=== PATIENT | male | born 1975 | race Caucasian/White ===

== ENCOUNTER 2016-06-21 18:43 | Inpatient (IN) | payer OTHER ==
[~2016-06-21] VITALS: Ht 160 cm; Wt 115.4 kg
[2016-06-21] MEDS ORDERED: SODIUM CHLORIDE 0.9% 1000ML 1,000 ML IV ONE (20:45)
--- NOTE | 2016-06-21 21:13 | DIAGNOSTIC IMAGING REPORT ---
CHEST ONE VIEW PORTABLE CLINICAL HISTORY: skin infection; ? Septic dyspnea. Sepsis. COMPARISON STUDY: No previous studies for comparison. FINDINGS: The bones soft tissues and hemidiaphragms are normal. The cardiomediastinal silhouette is normal. The lungs are clear. The pulmonary vasculature is normal. IMPRESSION: Negative chest. Electronically signed by: Les Michael M.D. 06/21/2016 9:12 PM Dictated Date/Time: 06/21/2016 9:11 PM
[2016-06-21] MEDS ORDERED: PIPERACILLIN/TAZOBACTAM 4.5 GM/100ML D5W IV STA (21:14)
[2016-06-21 22:00] LABS: CALCIUM 8.7 mg/dl (8.5-10.1); CREATININE 0.94 mg/dl (0.60-1.40); POTASSIUM 4.2 mmol/L (3.5-5.1)
[2016-06-21 22:29] LABS: BASO % 0.4 %; BASO ABS # 0.04 K/uL (0-0.2); COMPLETE YES; EOS % 4.3 %; HEMATOCRIT 35.3 % (42-52); IG% 0.3 %; LYMPH % 10.9 %; LYMPH ABS # 1.16 K/uL (1.2-3.4); MEAN CELL VOLUME 69.8 fL (80-100); MEAN CORPUSCULAR HEMOGLOBIN 20.2 pg (25-34); MEAN CORPUSCULAR HGB CONC 28.9 g/dl (32-36); MEAN PLATELET VOLUME 9.4 fL (7.4-10.4); MICROCYTOSIS PRESENT; MONO % 8.6 %; NEUT % 75.5 %; PLATELET COUNT 489 K/uL (130-400); POLYCHROMASIA 1+; RED BLOOD COUNT 5.06 M/uL (4.7-6.1); WHITE BLOOD COUNT 10.66 K/uL (4.8-10.8)
[2016-06-21 23:13] LABS: URINE APPEARANCE CLOUDY (CLEAR); URINE BILIRUBIN NEG (NEG); URINE COLOR YELLOW; URINE NITRITE POS (NEG); URINE PH 7.5 (4.5-7.5); URINE SPECIFIC GRAVITY 1.018 (1.000-1.030); UROBILINOGEN NEG (NEG); ZZUR CULT IF INDIC CLEAN CATCH YES
[2016-06-21 23:18] LABS: MANUAL MICROSCOPIC REQUIRED? NO; REVIEW REQ? NO
[2016-06-21] MEDS ORDERED: VANCOMYCIN INJ 2,800 MG in SODIUM CHLORIDE 0.9% 500ML 500 ML IV STA (23:25)
--- NOTE | 2016-06-21 23:39 | History and Physical ---
History & Physical Date & Time of Service: Jun 21, 2016 at 23:39 Chief Complaint: Wound On Lf Buttock/Back Of Thigh Primary Care Physician: Elie Riggs D.O. History of Present Illness Source: patient, caregiver The patient is a 40-year-old male who was brought to the emergency department from [facility]. The patient is mentally challenged, not able to contribute to his history of present illness. Social History Smoking Status: Never Smoker Allergies Coded Allergies: No Known Allergies (Unverified , 06/21/16) Home Medications Unable to Obtain Active Prescriptions or Reported Meds Review of Systems The patient is not able to contribute to his review of systems due to his make his baseline mental delay and altered mental status. Physical Exam Vital Signs Date Time Temp Pulse Resp B/P Pulse Ox O2 Delivery O2 Flow Rate FiO2 06/21/16 21:48 89 20 107/70 92 Room Air 06/21/16 18:47 36.8 97 20 131/87 93 Room Air The patient is awake, alert, normocephalic and atraumatic, reports that he is cold, lying in bed and in otherwise no acute distress. HEENT--PERRL, EOMI, mucous membranes and oropharynx dry. Neck--supple, no JVD or bruits, thyroid normal, trachea midline, no adenopathy. Heart--normal S1 and S2, no extra beats, no murmurs, rubs or gallops. Lungs--clear bilaterally, no respiratory distress, no accessory muscle use. Abdomen--normal bowel sounds and soft, nontender and nondistended, no hernias or masses, no organomegaly. Extremities--no cyanosis, clubbing or edema. There are good distal pulses b/l. Dermatologic--referred to pictures documented in the emergency department. Both lower extremities pretibial areas with 2+ erythema and warmth, and 3+ pitting edema. In addition left lower extremity with approximately 2 cm area of ulceration left lower lateral tibial surface. Left thigh large area of cellulitis and induration extending to the left gluteal area not involving the scrotum, perineum or anal area itself. Neurologic--cranial nerves II through XII grossly intact. Rheumatologic--exam limited due to dermatologic issues. Psychiatric--flat affect. Diagnostics Laboratory Results Results Past 24 Hours Test 06/21/16 21:15 06/21/16 21:20 06/21/16 21:27 Range/Units Urine Color YELLOW Urine Appearance CLOUDY CLEAR Urine pH 7.5 4.5-7.5 Urine Specific [place] 1.018 1.000-1.030 Urine Protein NEG NEG Urine Glucose (UA) NEG NEG Urine Ketones NEG NEG Urine Occult Blood 2+ NEG Urine Nitrite POS NEG Urine Bilirubin NEG NEG Urine Urobilinogen NEG NEG Urine Leukocyte Esterase LARGE NEG Urine WBC (Auto) >30 0-5 /hpf Urine RBC (Auto) 10-30 0-4 /hpf Urine Hyaline Casts (Auto) 1-5 0-5 /lpf Urine Epithelial Cells (Auto) 10-20 0-5 /lpf Urine Bacteria (Auto) 4+ NEG White Blood Count 10.66 4.8-10.8 K/uL Red Blood Count 5.06 4.7-6.1 M/uL Hemoglobin 10.2 14.0-18.0 g/dL Hematocrit 35.3 42-52 % Mean Corpuscular Volume 69.8 80-100 fL Mean Corpuscular Hemoglobin 20.2 25-34 pg Mean Corpuscular Hemoglobin Concent 28.9 32-36 g/dl Platelet Count 489 130-400 K/uL Mean Platelet Volume 9.4 7.4-10.4 fL Neutrophils (%) (Auto) 75.5 % Lymphocytes (%) (Auto) 10.9 % Monocytes (%) (Auto) 8.6 % Eosinophils (%) (Auto) 4.3 % Basophils (%) (Auto) 0.4 % Neutrophils # (Auto) 8.05 1.4-6.5 K/uL Lymphocytes # (Auto) 1.16 1.2-3.4 K/uL Monocytes # (Auto) 0.92 0.11-0.59 K/uL Eosinophils # (Auto) 0.46 0-0.5 K/uL Basophils # (Auto) 0.04 0-0.2 K/uL RDW Standard Deviation 46.5 36.4-46.3 fL RDW Coefficient of Variation 18.4 11.5-14.5 % Immature Granulocyte % (Auto) 0.3 % Immature Granulocyte # (Auto) 0.03 0.00-0.02 K/uL Polychromasia 1+ Microcytosis PRESENT Sodium Level 139 136-145 mmol/L Potassium Level 4.2 3.5-5.1 mmol/L Chloride Level 104 98-107 mmol/L Carbon Dioxide Level 28 21-32 mmol/L Anion Gap 7.0 3-11 mmol/L Blood Urea Nitrogen 18 7-18 mg/dl Creatinine 0.94 0.60-1.40 mg/dl Est Creatinine Clear Calc Drug Dose 117.4 ml/min Estimated GFR () 116.3 Estimated GFR (Non- 100.3 BUN/Creatinine Ratio 19.0 10-20 Random Glucose 82 70-99 mg/dl Calcium Level 8.7 8.5-10.1 mg/dl Bedside Lactic Acid Venous 0.57 0.90-1.70 mmol/L Microbiology Results 06/21/16 Blood Culture, Received Pending 06/21/16 Blood Culture, Received Pending 06/21/16 Urine Culture, Received Pending Diagnostic Radiology Patient Name: KERA BASSETT Unit Number: [id number] Dictated: 06/21/162110 Transcribed: 06/21/162110 MS Printed Date/Time: [~ rep prt dt]/[~ rep prt tm] [~ rep ct labl] - [~ rep ct ivnm] [facility] [place] [address] Dictated: 06/21/162110 Transcribed: 06/21/162110 MS Printed Date/Time: [~ rep prt dt]/[~ rep prt tm] [~ rep ct labl] - [~ rep ct ivnm] [~ rep ct add3]] CHEST ONE VIEW PORTABLE CLINICAL HISTORY: skin infection; ? Septic dyspnea. Sepsis. COMPARISON STUDY: No previous studies for comparison. FINDINGS: The bones soft tissues and hemidiaphragms are normal. The cardiomediastinal silhouette is normal. The lungs are clear. The pulmonary vasculature is normal. IMPRESSION: Negative chest. Electronically signed by: Les Michael M.D. 06/21/2016 9:12 PM Dictated Date/Time: 06/21/2016 9:11 PM The status of this report is Signed. Draft = Not yet reviewed or approved by Radiologist. Signed = Reviewed and approved by Radiologist. <AttendingPhy></AttendingPhy> <FamilyPhy>Elie Riggs D.O.</FamilyPhy> <PrimaryPhy>Elie Riggs D.O.</PrimaryPhy> <UnitNumber>[id number]</ UnitNumber> <VisitNumber>[id number]</VisitNumber> <PatientName>RAUDEL BASSETTN</ PatientName> <DateOfBirth>1975</DateOfBirth> <Location>[facility]</Location> < ServiceDate>06/21/16</ServiceDate> <MNE>ESINDI</MNE> <OrderingPhy>Hamilton Malave PA-C</OrderingPhy> <OrderingPhyMNE>f rep ord dr mendez</OrderingPhyMNE> < DictatingPhyMNE>f rep dict dr mendez</DictatingPhyMNE> <CCListMNE>f rep ct mne</ CCListMNE> <AdmittingPhyMNE>f pt admit dr mendez</AdmittingPhyMNE> <AttendingPhyMNE >f pt attend dr mendez</AttendingPhyMNE> <ConsultingPhyMNE>f pt consult dr mendez</ConsultingPhyMNE> <FamilyPhyMNE>f pt fam dr mendez</FamilyPhyMNE> <OtherPhyMNE>f pt other dr mendez</OtherPhyMNE> < PrimaryPhyMNE>f pt prim care dr mendez</PrimaryPhyMNE> <ReferringPhyMNE>f pt referring dr mendez</ReferringPhyMNE> Impression Assessment and Plan Bilateral lower extremity cellulitis significantly worse left compared to right- -the patient be admitted to the medical floor. Placed on vancomycin IV per renal dosing, Zosyn 3.375 mg IV every 6 hours, levofloxacin 500 mg IV every 24 hours. We'll consult infectious disease and wound care. Urinary tract infection--antibiotics as above, and follow urine culture and sensitivity reports. Placed on normal saline with potassium chloride 20 mEq at a 75 ML's per hour. manager environmental services and child protective services have been consulted due to concerns regarding the patient's present medical condition. The family needs significantly more help in taking care of him if he is to remain in his present living situation. Level of Care Med/Surg Advanced Directives Existing Advance Directive: No Existing Living Will: No Existing Power of Gis Database Administrator: No Resuscitation Status FULL RESUSCITATION VTE Prophylaxis Given or contraindicated: SCD's Social Service Consult Abuse/Neglect Concerns
[2016-06-21] MEDS ORDERED: VANCOMYCIN INJ 1,000 MG in SODIUM CHLORIDE 0.9% 250ML 250 ML IV STA (23:47)
[2016-06-22] MEDS ORDERED: TRAMADOL HCL 50 MG TAB PO PRN ×2
[2016-06-22] MEDS ORDERED: ACETAMINOPHEN 325 MG TAB PO PRN
[2016-06-22] MEDS ORDERED: ZOLPIDEM TARTRATE 5 MG TAB PO PRN
[2016-06-22] MEDS ORDERED: ONDANSETRON INJ 2 MG/ML 2 ML VIAL IV PRN
[2016-06-22 01:40] VITALS: BP 116/48; PULSE 101; TEMP 36.8; O2SAT 93
[2016-06-22 01:59] VITALS: Ht 160 cm; Wt 115.4 kg
[2016-06-22] MEDS ORDERED: PIPERACILL/TAZOBAC CONSULT ACTIVE PRN ×2 (02:15→04:15)
[2016-06-22] MEDS ORDERED: VANCOMYCIN CONSULT ACTIVE PRN ×2 (02:15→02:45)
[2016-06-22] MEDS: NSS + 20MEQ KCL 1000ML 1,000 ML IV SCH ×2 (03:15→16:06)
[2016-06-22] MEDS ORDERED: PNEUMOCOCCAL POLYSACCHARIDES 25 MCG/0.5 ML VIAL/SYR IM. ONE (06:00)
[2016-06-22] MEDS ORDERED: INFLUENZA VIRUS QUAD VACCINE 0.5 ML SYR IM. ONE (06:00)
[2016-06-22] MEDS ORDERED: PIPERACILL/TAZOBAC IV 4.5 GM in DEXTROSE 5% 100ML 100 ML IV SCH (06:00)
[2016-06-22] MEDS ORDERED: INFLUENZA ADMINISTRATION CHARGE ONE (06:00)
[2016-06-22] MEDS ORDERED: PNEUMOCOCCAL ADMINISTRATION CHARGE ONE (06:00)
[2016-06-22 06:49] LABS: HYPOCHROMIA PRESENT
[2016-06-22 06:58] VITALS: BP 118/74; PULSE 88; TEMP 37.1; O2SAT 92
[2016-06-22 07:12] LABS: BUN/CREATININE RATIO 18.5 (10-20); CALCIUM 8.1 mg/dl (8.5-10.1); CREATININE 0.82 mg/dl (0.60-1.40); CREATININE 0.83 mg/dl (0.60-1.40); MAGNESIUM 2.1 mg/dl (1.8-2.4); POTASSIUM 3.8 mmol/L (3.5-5.1)
[2016-06-22] MEDS ORDERED: LEVOFLOXACIN / D5W 500 MG in PREMIXED IN D5W 100 ML IV SCH (08:00)
[2016-06-22 08:11] LABS: BASO % 0.4 %; BASO ABS # 0.04 K/uL (0-0.2); COMPLETE YES; EOS % 2.7 %; GIANT PLATELETS 1+; IG% 0.3 %; LYMPH % 9.2 %; LYMPH ABS # 0.93 K/uL (1.2-3.4); MICROCYTOSIS PRESENT; MONO % 8.7 %; NEUT % 78.7 %
[2016-06-22] MEDS: LACTOBACILLUS ACIDOPHILUS (FLORANEX) TAB PO SCH ×3 (09:16→18:24)
[2016-06-22 09:20] LABS: HEMATOCRIT 34.4 % (42-52); MEAN CELL VOLUME 70.8 fL (80-100); MEAN CORPUSCULAR HEMOGLOBIN 20.8 pg (25-34); RED BLOOD COUNT 4.86 M/uL (4.7-6.1); WHITE BLOOD COUNT 10.14 K/uL (4.8-10.8)
[2016-06-22 09:21] LABS: MEAN CORPUSCULAR HGB CONC 28.8 g/dl (32-36)
[2016-06-22 09:22] LABS: MEAN PLATELET VOLUME 9.7 fL (7.4-10.4); PLATELET COUNT 452 K/uL (130-400)
--- NOTE | 2016-06-22 09:33 | Pharmacy Progress Note ---
Pharmacy Antibiotic Consult Date of Service: Jun 22, 2016. Pharmacy Dosing Scope Pharmacy is consulted to initiate Vancomycin IV dosing therapy, order appropriate labs and adjust drug dose/frequency. Subjective The patient is a 40 year old male admitted on Jun 21, 2016 at 23:47. Objective Height (Feet): 5 Height (Inches): 3.00 Weight (Kilograms): 115.400 Lab Results (24hrs): Laboratory Tests Test 06/21/16 21:20 06/22/16 05:50 BUN/Creatinine Ratio 19.0 18.5 Blood Urea Nitrogen 18 mg/dl 15 mg/dl Creatinine 0.94 mg/dl 0.83 mg/dl White Blood Count 10.66 K/uL 10.14 K/uL Red Blood Count 5.06 M/uL 4.86 M/uL Hemoglobin 10.2 g/dL 9.9 g/dL Hematocrit 35.3 % 34.4 % Mean Corpuscular Volume 69.8 fL 70.8 fL Mean Corpuscular Hemoglobin 20.2 pg 20.8 pg Mean Corpuscular Hemoglobin Concent 28.9 g/dl 28.8 g/dl Platelet Count 489 K/uL 452 K/uL Mean Platelet Volume 9.4 fL 9.7 fL Neutrophils (%) (Auto) 75.5 % 78.7 % Lymphocytes (%) (Auto) 10.9 % 9.2 % Monocytes (%) (Auto) 8.6 % 8.7 % Eosinophils (%) (Auto) 4.3 % 2.7 % Basophils (%) (Auto) 0.4 % 0.4 % Neutrophils # (Auto) 8.05 K/uL 7.99 K/uL Lymphocytes # (Auto) 1.16 K/uL 0.93 K/uL Monocytes # (Auto) 0.92 K/uL 0.88 K/uL Eosinophils # (Auto) 0.46 K/uL 0.27 K/uL Basophils # (Auto) 0.04 K/uL 0.04 K/uL Micro Results: Item Value Date Time Blood Culture Received 06/21/162119 Blood Pending Urine Culture Received 06/21/162114 Urine , Clean Catch Pending Blood Culture Received 06/21/162109 Blood Pending Recent Pertinent Medications Item Value Date Time Vancomycin HCl 528 ml @ 200 mls/hr 06/22/16 1000 1400 mg/Sodium Q10H/IV Chloride Piperacillin Sod/ 120 ml @ 28 mls/hr 06/22/16 0600 Tazobactam Sod Q8H/IV 06/22/16 0542 4.5 gm/Dextrose Levofloxacin 500 100 ml @ 100 mls/hr 06/22/16 0800 mg/Prmx Q24H/IV 06/22/16 0759 Assessment & Plan 40 yo M admitted with bilateral lower extremity cellulitis/UTI, initiated on broad spectrum IV antibiotics: Vancomycin, Zosyn, Levaquin IV. Urine and blood cultures pending. ID consult placed by provider. Vancomycin * Loading dose: 2800 mg (~24 mg/kg) IV X 1 dose * Continue 1400 mg (~12 mg/kg) IV every 10 hours * Patient is at risk for drug accumulation due to BMI >35kg/m2 * Goal trough level estimate: ~15 mcg/mL (cellulitis) * A trough level has been ordered for: @1530 prior to 1600 dose. Zosyn * 4.5 g IV every 8 hours for BMI >35kg/m2 * No renal adjustment necessary Levaquin * 500 mg IV every 24 hours * No renal adjustment necessary Pharmacy will continue to follow and will adjust dose/frequency as necessary. Thank you
[2016-06-22] MEDS: VANCOMYCIN INJ 1,400 MG in SODIUM CHLORIDE 0.9% 500ML 500 ML IV SCH ×2 (10:10→20:13)
--- NOTE | 2016-06-22 12:23 | Progress Note ---
Progress Note Date of Service Jun 22, 2016. Progress Note ID Consult Dictated #[id number] A/P: 1. Cellulitis -continue vanco, stop zosyn/levo. If bc negative, will transition to po abx -will follow, thank you
--- NOTE | 2016-06-22 12:42 | INFECT. DISEASE CONSULTATION ---
DATE OF CONSULTATION: 06/22/2016 REQUESTING PHYSICIAN: Dr. Damon. HISTORY OF PRESENT ILLNESS: This is a 40-year-old gentleman who was brought to the Emergency Room from his managed care. He reportedly had worsening lower extremity pain; however, on my examination, he denies this. He was started on broad spectrum antibiotics for cellulitis and infectious diseases was consulted for this. On my examination today, he states he is feeling well. He denies any fevers or chills. He denies any pain in his lower extremities. He denies any increased swelling. He has no chest pain, cough, shortness of breath, nausea, vomiting, diarrhea or abdominal pain. He has no urinary complaints. He does have a history of mental illness and is unable to provide any past medical or past surgical history. SOCIAL HISTORY: From the H\T\P, he has no history of tobacco use. ALLERGIES: He has no known drug allergies. FAMILY HISTORY: Noncontributory. CURRENT MEDICATIONS: Include vancomycin, Floranex, Levaquin, Zosyn, potassium Zofran, Tylenol, Ambien, and Ultram. PHYSICAL EXAMINATION: VITAL SIGNS: He is afebrile, pulse is 88, respiratory rate is 18, blood pressure 118/74, oxygen saturation is 92-93% on room air. GENERAL: He is awake, alert and oriented. He is in no acute distress. HEENT: Mucous membranes are moist. HEART: Regular. LUNGS: Clear. ABDOMEN: Soft. EXTREMITIES: With edema and some chronic erythema over the anterior calves. There are 2 superficial ulcerations with no surrounding warmth or drainage. LABORATORY AND IMAGING STUDIES: White count today is 10.1; creatinine is 0.8. Urinalysis had greater than 30 wbc's; however, the patient is asymptomatic. Blood and urine cultures are pending. A chest x-ray was unremarkable. No wound cultures have been obtained. ASSESSMENT AND PLAN: 1. Cellulitis of the lower extremity. At this time, he can be continued on vancomycin monotherapy, so antibiotics will be discontinued if he does not have any positive blood cultures. Hopefully, he will be able to transition over to oral antibiotics for a short course near future. We will follow along with you. Thank you for this consultation.
--- NOTE | 2016-06-22 14:49 | Hospitalist Progress Note ---
Hospitalist Progress Note Date of Service Jun 22, 2016. (Li Alvarenga ., SALONIC) Subjective Pt evaluation today including: conversation w/ patient, physical exam, chart review, lab review, review of inpatient medication list PO Intake: Tolerating PO diet Voiding: no voiding problems Patient mentally challenged. Unable to obtain reliable ROS. He denies any leg pain or new complaints. Additional Comments: Unable to obtain reliable ROS from patient due to mental status. (Li Alvarenga, SALONIC) Objective Vital Signs Date Time Temp Pulse Resp B/P Pulse Ox O2 Delivery O2 Flow Rate FiO2 06/22/16 08:00 Room Air 06/22/16 06:58 37.1 88 18 118/74 92 Room Air 06/22/16 01:59 Room Air 06/22/16 01:40 36.8 101 18 116/48 93 Room Air 06/22/16 01:30 92 18 121/65 93 06/22/16 01:20 92 18 121/65 93 Room Air 06/21/16 23:44 79 18 140/76 93 Room Air 06/21/16 21:48 89 20 107/70 92 Room Air 06/21/16 18:47 36.8 97 20 131/87 93 Room Air (Li Alvarenga ., NATHAN-C) Physical Exam General Appearance: WD/WN, no apparent distress, + obese (morbidly obese) Eyes: PERRL, sclerae normal, + pertinent finding (disconjugate gaze) ENT: normal ENT inspection, hearing grossly normal, pharynx normal Neck: supple, no JVD, trachea midline Respiratory/Chest: lungs clear, normal breath sounds, no respiratory distress Cardiovascular: regular rate, rhythm, no gallop, no murmur Abdomen: normal bowel sounds, non tender, soft Extremities: non-tender, + pedal edema (3+ pitting edema), + swelling (2+ pitting edema in lower extremities bilaterally), + pertinent finding (erythema of the lower legs bilaterally extending to inner thigh on right side) Neurologic/Psychiatric: no motor/sensory deficits, alert, + pertinent finding ( Unable to obtain much history from patient due to mental status) Skin: normal color, warm/dry, no rash, + pertinent finding (erythema as above) (Li Alvarenga ., NATHAN-C) Laboratory Results Last 24 Hours Test 06/21/16 21:15 06/21/16 21:20 06/21/16 21:27 06/22/16 05:50 Urine Color YELLOW Urine Appearance CLOUDY Urine pH 7.5 Urine Specific [place] 1.018 Urine Protein NEG Urine Glucose (UA) NEG Urine Ketones NEG Urine Occult Blood 2+ Urine Nitrite POS Urine Bilirubin NEG Urine Urobilinogen NEG Urine Leukocyte Esterase LARGE Urine WBC (Auto) >30 /hpf Urine RBC (Auto) 10-30 /hpf Urine Hyaline Casts (Auto) 1-5 /lpf Urine Epithelial Cells (Auto) 10-20 /lpf Urine Bacteria (Auto) 4+ White Blood Count 10.66 K/uL 10.14 K/uL Red Blood Count 5.06 M/uL 4.86 M/uL Hemoglobin 10.2 g/dL 9.9 g/dL Hematocrit 35.3 % 34.4 % Mean Corpuscular Volume 69.8 fL 70.8 fL Mean Corpuscular Hemoglobin 20.2 pg 20.8 pg Mean Corpuscular Hemoglobin Concent 28.9 g/dl 28.8 g/dl Platelet Count 489 K/uL 452 K/uL Mean Platelet Volume 9.4 fL 9.7 fL Neutrophils (%) (Auto) 75.5 % 78.7 % Lymphocytes (%) (Auto) 10.9 % 9.2 % Monocytes (%) (Auto) 8.6 % 8.7 % Eosinophils (%) (Auto) 4.3 % 2.7 % Basophils (%) (Auto) 0.4 % 0.4 % Neutrophils # (Auto) 8.05 K/uL 7.99 K/uL Lymphocytes # (Auto) 1.16 K/uL 0.93 K/uL Monocytes # (Auto) 0.92 K/uL 0.88 K/uL Eosinophils # (Auto) 0.46 K/uL 0.27 K/uL Basophils # (Auto) 0.04 K/uL 0.04 K/uL RDW Standard Deviation 46.5 fL 48.6 fL RDW Coefficient of Variation 18.4 % 18.6 % Immature Granulocyte % (Auto) 0.3 % 0.3 % Immature Granulocyte # (Auto) 0.03 K/uL 0.03 K/uL Polychromasia 1+ Hypochromasia PRESENT Microcytosis PRESENT PRESENT Sodium Level 139 mmol/L 142 mmol/L Potassium Level 4.2 mmol/L 3.8 mmol/L Chloride Level 104 mmol/L 109 mmol/L Carbon Dioxide Level 28 mmol/L 25 mmol/L Anion Gap 7.0 mmol/L 8.0 mmol/L Blood Urea Nitrogen 18 mg/dl 15 mg/dl Creatinine 0.94 mg/dl 0.83 mg/dl Est Creatinine Clear Calc Drug Dose 117.4 ml/min 133.0 ml/min Estimated GFR () 116.3 126.7 Estimated GFR (Non- 100.3 109.3 BUN/Creatinine Ratio 19.0 18.5 Random Glucose 82 mg/dl 73 mg/dl Calcium Level 8.7 mg/dl 8.1 mg/dl Bedside Lactic Acid Venous 0.57 mmol/L Giant Platelets 1+ Magnesium Level 2.1 mg/dl (Li Alvarenga PA-C) Assessment and Plan Family 1-year-old male with a history of mental retardation presented to the ED on 06/21 with worsening bilateral leg pain, redness and swelling. Patient tachycardic on arrival, vital signs otherwise stable. Patient afebrile and without leukocytosis. Bilateral lower extremity cellulitis -Admit to [facility] -Infectious disease consulted, appreciate recs: Discontinue Zosyn and Levaquin. Continue vancomycin -Blood cultures pending -Wound care nurse consulted -Continue NSS + 20 mEq KCl at 75 cc/hr UTI--UA positive for nitrites, leuks, blood and bacteria -Urine culture pending DVT prophylaxis -Enoxaparin 40 mg SC q24h Code Status -Level I, FULL RESUSCITATION STATUS Dispo -Patient typically lives at home with his mother, however, she is currently in the hospital following a surgery. She arranged for the patient to stay at [facility] for resp[facility] care while she was in the hospital. [facility] says that [facility] will not be able to accept the patient on discharge as they do not feel they can take care of his wounds. -Case management following, referral placed to [facility] This chart was completed in part utilizing [employer] Speech Voice Recognition software. Attempts were made to minimize the grammatical errors, random word insertions, pronoun errors and incomplete sentences. Any formal questions or concerns about the content, text or information contained within the body of this dictation should be directly addressed to the provider for clarification. (Li Alvarenga ., PA-C) Attending Attestation: Pt seen/examined, chart reviewed, care plan d/w PA Li Alvaregna. I agree w/ the johnson components of her documentation. Pt alert during my visit, stating "hello" and telling me about various things. Denied any complaint of pain. VSS no fever gen - dysmorphic appearing; NAD mouth - MMM heart - RRR lungs - CTA b/l abd - large ventral hernia but reducible, BS+ skin - tinea cruris b/l groin; left leg - lateral aspect extending onto the posterior thigh - very large area of erythema with occasional ulceration within the erythematous areas; there is scale at the periphery; the borders are irregular; warm to touch; mildly tender to touch erythema extends from near the hip to the left knee; xerosis of feet b/l ext - lymphedema with stasis changes shins A/P: 1. cellulitis, left leg 2. tinea cruris with ?candidal or fungal infection of left thigh 3. intellectual disability 4. microcytic anemia 5. question of UTI appreciate ID consult cont IV abx add ketoconazole 200mg daily for #2 iron studies AM follow cultures dispo - [facility] BANDA MD (Toño Banda MD)
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
[2016-06-22 15:02] VITALS: BP 120/76; PULSE 89; TEMP 36.8; O2SAT 93
[2016-06-22 16:08] LABS: INR 1.1 (0.9-1.1); PARTIAL THROMBOPLASTIN RATIO 1.5; PROTHROMBIN TIME (PATIENT) 12.2 SECONDS (9.0-12.0)
[2016-06-22] MEDS ORDERED: KETOCONAZOLE 200 MG TAB PO ONE (16:42)
[2016-06-22] MEDS ORDERED: NURSING DECISION MEDICATION ORDER SCH ×2 (17:00)
[2016-06-22] MEDS ORDERED: ENOXAPARIN 40 MG/0.4 ML SYR SQ SCH (21:00)
[2016-06-22 23:00] VITALS: BP 99/62; PULSE 89; TEMP 36.9; O2SAT 94
[2016-06-23] MEDS: NSS + 20MEQ KCL 1000ML 1,000 ML IV SCH ×2 (05:19→17:06)
[2016-06-23] MEDS: VANCOMYCIN INJ 1,400 MG in SODIUM CHLORIDE 0.9% 500ML 500 ML IV SCH ×2 (05:20→17:05)
[2016-06-23] MEDS ORDERED: VANCOMYCIN TROUGH SCH ×2 (05:30→15:30)
[2016-06-23 07:11] VITALS: BP 119/80; PULSE 75; TEMP 36.7; O2SAT 94
[2016-06-23 07:30] LABS: MEAN CELL VOLUME 71.3 fL (80-100); MEAN CORPUSCULAR HEMOGLOBIN 20.1 pg (25-34); MEAN CORPUSCULAR HGB CONC 28.2 g/dl (32-36); MEAN PLATELET VOLUME 9.4 fL (7.4-10.4); PLATELET COUNT 411 K/uL (130-400); RED BLOOD COUNT 4.77 M/uL (4.7-6.1); WHITE BLOOD COUNT 7.38 K/uL (4.8-10.8)
[2016-06-23 07:49] LABS: BASO ABS # 0.26 K/uL (0-0.2); BASOPHIL % 3.5 % (0-2); COMPLETE YES; EOSINOPHIL % 6.1 %; LARGE PLATELETS 1+; LYMPH ABS # 0.83 K/uL (1.2-3.4); LYMPHOCYTE % 11.3 %; NEUTROPHILS % 66.1 %
[2016-06-23 07:51] LABS: FERRITIN 22.3 ng/ml (8.0-388.0)
[2016-06-23 08:52] LABS: BUN/CREATININE RATIO 9.8 (10-20); CALCIUM 8.1 mg/dl (8.5-10.1); CREATININE 0.89 mg/dl (0.60-1.40); POTASSIUM 3.7 mmol/L (3.5-5.1)
[2016-06-23] MEDS: MICONAZOLE NITRATE POWDER 43 GM EXT PRN (09:12)
[2016-06-23] MEDS: KETOCONAZOLE 200 MG TAB PO SCH (09:12)
[2016-06-23] MEDS: LACTOBACILLUS ACIDOPHILUS (FLORANEX) TAB PO SCH ×3 (09:12→17:07)
[2016-06-23] MEDS ORDERED: LPD600 PO (11:20)
[2016-06-23] MEDS ORDERED: TAMS0.4C38 PO (11:20)
[2016-06-23] MEDS ORDERED: POTA20TA16 PO (11:20)
[2016-06-23] MEDS ORDERED: RIVA1TAB4 PO (11:20)
[2016-06-23] MEDS ORDERED: METO25TA56 PO (11:20)
[2016-06-23] MEDS ORDERED: VNTHFA/IN INH (11:26)
[2016-06-23] MEDS: CEPHALEXIN MONOHYDRATE 500 MG CAP PO SCH ×2 (11:47→20:11)
[2016-06-23] MEDS ORDERED: ALBUTEROL HFA 8 GM INHALER INH PRN (12:00)
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
--- NOTE | 2016-06-23 14:09 | Progress Note ---
Subjective Date of Service: Jun 23, 2016. Subjective no overnight events. blood cultures negative at 24h, no fevers. on vanco and keflex. urine culture + but pt without symptoms. also treated with topical antifungal. tolerating abx well. wbc 7.3 Objective Vital Signs Date Time Temp Pulse Resp B/P Pulse Ox O2 Delivery O2 Flow Rate FiO2 06/23/16 07:11 36.7 75 16 119/80 94 Room Air 06/23/16 01:10 Room Air 06/22/16 23:00 36.9 89 19 99/62 94 Room Air 06/22/16 15:30 Room Air 06/22/16 15:02 36.8 89 18 120/76 93 Room Air Laboratory Results Item Value Date Time Blood Culture - Preliminary Resulted 06/21/162119 Blood NO GROWTH TO DATE. Blood Culture - Preliminary Resulted 06/21/162109 Blood NO GROWTH TO DATE. Last 24 Hours Test 06/22/16 15:43 06/23/16 06:15 06/23/16 08:00 Prothrombin Time 12.2 SECONDS Prothromb Time International Ratio 1.1 Activated Partial Thromboplast Time 37.7 SECONDS Partial Thromboplastin Ratio 1.5 White Blood Count 7.38 K/uL Red Blood Count 4.77 M/uL Hemoglobin 9.6 g/dL Hematocrit 34.0 % Mean Corpuscular Volume 71.3 fL Mean Corpuscular Hemoglobin 20.1 pg Mean Corpuscular Hemoglobin Concent 28.2 g/dl Platelet Count 411 K/uL Mean Platelet Volume 9.4 fL RDW Standard Deviation 48.4 fL RDW Coefficient of Variation 18.5 % Neutrophils % (Manual) 66.1 % Lymphocytes % (Manual) 11.3 % Monocytes % (Manual) 13.0 % Eosinophils % (Manual) 6.1 % Basophils % (Manual) 3.5 % Neutrophils # (Manual) 4.88 K/uL Total Absolute Neutrophils 4.88 K/uL Lymphocytes # (Manual) 0.83 K/uL Total Absolute Lymphocytes 0.83 K/uL Monocytes # (Manual) 0.96 K/uL Eosinophils # (Manual) 0.45 K/uL Basophils # (Manual) 0.26 K/uL Large Platelets 1+ Iron Level 21 mcg/dl Total Iron Binding Capacity 342 mcg/dl Transferrin 270 mg/dl Transferrin % Saturation 6 % Ferritin 22.3 ng/ml Sodium Level 141 mmol/L Potassium Level 3.7 mmol/L Chloride Level 110 mmol/L Carbon Dioxide Level 26 mmol/L Anion Gap 5.0 mmol/L Blood Urea Nitrogen 9 mg/dl Creatinine 0.89 mg/dl Est Creatinine Clear Calc Drug Dose 124.0 ml/min Estimated GFR () 123.1 Estimated GFR (Non- 106.2 BUN/Creatinine Ratio 9.8 Random Glucose 80 mg/dl Calcium Level 8.1 mg/dl Assessment and Plan (1) Bilateral lower leg cellulitis Assessment & Plan: can stop vanco, would give 10 day course of po keflex. doubt urine culture is significant, asymptomatic. suspect colonization. leg elevation.
[2016-06-23] MEDS: FERROUS SULFATE 325 MG TAB PO SCH ×2 (15:10→17:07)
[2016-06-23 15:14] VITALS: BP 133/83; PULSE 75; TEMP 36.5; O2SAT 94
[2016-06-23] MEDS: RIVAROXABAN 10 MG TAB PO SCH (17:08)
[2016-06-23] MEDS: TAMSULOSIN HCL 0.4 MG CAP PO SCH (20:10)
[2016-06-23] MEDS: METOPROLOL TARTRATE 25 MG TAB PO SCH (20:11)
[2016-06-23] MEDS: GEMFIBROZIL 600 MG TAB PO SCH (20:11)
--- NOTE | 2016-06-23 20:47 | Pharmacy Progress Note ---
Pharmacy Progress Note Date of Service Jun 23, 2016. Progress Note REGARDING VANCOMYCIN DOSING: Assessment: * Day # 3 of IV vancomycin for skin/skin structure infection * Trough slightly elevated at 23.2mcg/mL (pt body habitus will likely attribute to vancomycin accumulation) * Day # 1 of PO cephalexin for skin/skin structure infection/UTI * Blood cultures NGTD * Urine culture with Gram Negative Bacilli * ID consulted Plan: * Hopeful to stop vancomycin in the near future * Decrease dose/freq at this time since trough slightly elevated * 1250mg IV q12 hours * re-check trough at steady state if vancomycin not discontinued * Continue cephalexin 500mg PO BID at this time Thank you for engaging the clinical pharmacy consult service in the care of this patient. Please let us know if we can be of further assistance.
[2016-06-23 23:20] VITALS: BP 102/50; PULSE 79; TEMP 36.7; O2SAT 92
[2016-06-24] MEDS ORDERED: VANCOMYCIN INJ 1,250 MG in SODIUM CHLORIDE 0.9% 250ML 250 ML IV SCH (06:00)
[2016-06-24 07:40] VITALS: BP 120/80; PULSE 69; TEMP 36.4; O2SAT 92
[2016-06-24 07:41] LABS: BUN/CREATININE RATIO 7.7 (10-20); CALCIUM 8.1 mg/dl (8.5-10.1); CREATININE 1.1 mg/dl (0.60-1.40); MAGNESIUM 1.9 mg/dl (1.8-2.4); POTASSIUM 4.1 mmol/L (3.5-5.1)
[2016-06-24 08:40] LABS: MEAN CELL VOLUME 69.8 fL (80-100); MEAN CORPUSCULAR HEMOGLOBIN 19.9 pg (25-34); MEAN CORPUSCULAR HGB CONC 28.5 g/dl (32-36); MEAN PLATELET VOLUME 9.5 fL (7.4-10.4); PLATELET COUNT 381 K/uL (130-400); RED BLOOD COUNT 4.73 M/uL (4.7-6.1); WHITE BLOOD COUNT 8.09 K/uL (4.8-10.8)
[2016-06-24 09:25] LABS: ANISOCYTOSIS PRESENT; BASO ABS # 0.07 K/uL (0-0.2); BASOPHIL % 0.9 % (0-2); COMPLETE YES; EOSINOPHIL % 6.1 %; LYMPH ABS # 0.64 K/uL (1.2-3.4); LYMPHOCYTE % 7.9 %; MICROCYTOSIS PRESENT; MYELOCYTE % 0.9 %; NEUTROPHILS % 75.4 %; POLYCHROMASIA 1+
[2016-06-24] MEDS: GEMFIBROZIL 600 MG TAB PO SCH ×2 (09:57→21:42)
[2016-06-24] MEDS: CEPHALEXIN MONOHYDRATE 500 MG CAP PO SCH ×2 (09:57→21:43)
[2016-06-24] MEDS: KETOCONAZOLE 200 MG TAB PO SCH (09:57)
[2016-06-24] MEDS: ASCORBIC ACID 500 MG TAB PO SCH (09:57)
[2016-06-24] MEDS: POTASSIUM CHLORIDE 20 MEQ TABCR PO SCH (09:57)
[2016-06-24] MEDS: ZINC SULFATE 220 MG CAP PO SCH (09:58)
[2016-06-24] MEDS: FERROUS SULFATE 325 MG TAB PO SCH ×3 (09:58→17:44)
[2016-06-24] MEDS: LACTOBACILLUS ACIDOPHILUS (FLORANEX) TAB PO SCH ×3 (09:58→17:45)
[2016-06-24] MEDS: METOPROLOL TARTRATE 25 MG TAB PO SCH ×3 (09:59→21:44)
[2016-06-24] MEDS: EUCERIN CR 120 GM JAR EXT PRN (09:59)
[2016-06-24] MEDS: MICONAZOLE NITRATE POWDER 43 GM EXT PRN (09:59)
[2016-06-24 10:04] VITALS: BP 99/65; PULSE 79
--- NOTE | 2016-06-24 12:56 | Hospitalist Progress Note ---
Hospitalist Progress Note Date of Service Jun 24, 2016. (Li Alvarenga, SALONIC) Subjective Pt evaluation today including: conversation w/ patient, physical exam, chart review, lab review, review of inpatient medication list Pain: None PO Intake: Tolerating PO diet Voiding: no voiding problems Unable to obtain reliable ROS from patient due to mental status. Additional Comments: Unable to obtain reliable ROS from patient due to mental status. (Li Alvarenga PA-C) Objective Vital Signs Date Time Temp Pulse Resp B/P Pulse Ox O2 Delivery O2 Flow Rate FiO2 06/24/16 10:33 Room Air 06/24/16 10:04 79 99/65 06/24/16 07:40 36.4 69 17 120/80 92 Room Air 06/23/16 23:20 36.7 79 16 102/50 92 06/23/16 20:16 Room Air 06/23/16 15:14 36.5 75 18 133/83 94 Room Air (Li Alvarenga PA-C) Physical Exam General Appearance: WD/WN, no apparent distress, + obese (morbidly obese), + pertinent finding (patient appears more lethargic today) Eyes: normal inspection, PERRL, sclerae normal, + pertinent finding ( disconjugate gaze) ENT: normal ENT inspection, hearing grossly normal, pharynx normal Neck: supple, no JVD, trachea midline Respiratory/Chest: lungs clear, normal breath sounds, no respiratory distress Cardiovascular: regular rate, rhythm, no gallop, no murmur Abdomen: normal bowel sounds, non tender, soft, + hernia (large ventral hernia) Extremities: + swelling (2+ pitting edema bilaterally), + pertinent finding ( lower legs tender to palpation. erythema of lower anterior shins bilaterally. Erythema on left lateral and posterior thigh looks slightly improved. Ulceration of left lateral malleolus bandaged.) Neurologic/Psychiatric: alert (patient awake during examination but appears more lethargic compared to yesterday), normal mood/affect, + pertinent finding ( unable to assess orientation) Skin: normal color, warm/dry, no rash (Li Alvarenga PA-C) Laboratory Results Last 24 Hours Test 06/23/16 15:29 06/24/16 06:58 Vancomycin Level Trough 23.2 mcg/ml White Blood Count 8.09 K/uL Red Blood Count 4.73 M/uL Hemoglobin 9.4 g/dL Hematocrit 33.0 % Mean Corpuscular Volume 69.8 fL Mean Corpuscular Hemoglobin 19.9 pg Mean Corpuscular Hemoglobin Concent 28.5 g/dl Platelet Count 381 K/uL Mean Platelet Volume 9.5 fL RDW Standard Deviation 47.2 fL RDW Coefficient of Variation 18.6 % Neutrophils % (Manual) 75.4 % Lymphocytes % (Manual) 7.9 % Monocytes % (Manual) 8.8 % Eosinophils % (Manual) 6.1 % Basophils % (Manual) 0.9 % Myelocytes % 0.9 % Neutrophils # (Manual) 6.10 K/uL Total Absolute Neutrophils 6.10 K/uL Lymphocytes # (Manual) 0.64 K/uL Total Absolute Lymphocytes 0.64 K/uL Monocytes # (Manual) 0.71 K/uL Eosinophils # (Manual) 0.49 K/uL Basophils # (Manual) 0.07 K/uL Myelocytes # 0.07 K/uL Polychromasia 1+ Anisocytosis PRESENT Microcytosis PRESENT Sodium Level 142 mmol/L Potassium Level 4.1 mmol/L Chloride Level 111 mmol/L Carbon Dioxide Level 24 mmol/L Anion Gap 7.0 mmol/L Blood Urea Nitrogen 9 mg/dl Creatinine 1.10 mg/dl Est Creatinine Clear Calc Drug Dose 100.4 ml/min Estimated GFR () 96.1 Estimated GFR (Non- 82.9 BUN/Creatinine Ratio 7.7 Random Glucose 84 mg/dl Calcium Level 8.1 mg/dl Magnesium Level 1.9 mg/dl (Li Alvarenga ., PA-C) Assessment and Plan 40-year-old male with a history of mental retardation, cerebral palsy, asthma, anemia, CHF, HLD, h/o DVT/PE, and urinary retention who presented to the ED on with worsening bilateral leg pain, redness and swelling. Patient tachycardic on arrival, vital signs otherwise stable. Patient afebrile and without leukocytosis. Bilateral lower extremity cellulitis -Admit to [facility] -Infectious disease consulted, appreciate recs: Can DC vancomycin. Oral Keflex 10 days -Vancomycin discontinued -Blood cultures NGTD x 2 -Wound care nurse consulted -DC IV fluids due to history of congestive heart failure -Low air loss mattress, ok with wound care -Started on vitamin C 500 mg PO qd and zinc 220 mg PO qd to promote healing Tinea cruris--stable -Continue ketoconazole 200 mg PO qd -Miconazole powder BID prn UTI--UA positive for nitrites, leuks, blood and bacteria -Urine culture positive for Citrobacter freundii, pansensitive. Keflex will cover -Continue Keflex 500 mg PO BID Lethargy -Check venous blood gas, TSH, ammonia level, vitamin B12 and folate -Pt not septic, afebrile and no leukocytosis Asthma -Continue albuterol 2 puffs inhaled q6h H/o anemia per PCP records, unknown etiology -Hemoglobin stable while inpatient. Hgb 9.4 on 06/24 -Iron low at 21, TIBC, transferrin and ferritin within normal limits. Transferrin % sat low at 6. -Started on ferrous sulfate 325 mg PO TID History of CHF per PCP records, unknown if systolic or diastolic -Continue metoprolol tartrate 25 mg PO BID HLD -Continue gemfibrozil 600 mg PO BID History of DVT and PE -Continue Xarelto 20 mg PO qd Urinary retention. -Continue Flomax 0.8 mg PO qhs DVT prophylaxis -Xarelto Code Status -Level I, FULL RESUSCITATION STATUS Dispo -Patient typically lives at home with his mother, however, she is currently in the hospital following a surgery. She arranged for the patient to stay at [facility] for respite care while she was in the hospital. The longterm says that they will not be able to accept the patient on discharge as they do not feel they can take care of his wounds. -Patient accepted to [facility]. Awaiting TARGET approval from [facility] This chart was completed in part utilizing [employer] Speech Voice Recognition software. Attempts were made to minimize the grammatical errors, random word insertions, pronoun errors and incomplete sentences. Any formal questions or concerns about the content, text or information contained within the body of this dictation should be directly addressed to the provider for clarification. (Li Alvarenga ., PAKendraC) Attending Attestation: Pt seen/examined, chart reviewed, care plan d/w NATHAN Alvarenga. I agree w/ the johnson components of her documentation. Pt sleepy again during my visit. Staff report no issues. Eating decently per staff. +bowel movements. VSS no fever gen - awake, but sleepy eyes - nystagmus? but no GODWIN mouth - MMM neck - no JVD heart - RRR lungs - poor resp effort, CTA b/l abd - large midline hernia - reducible skin - improved erythema left leg; stasis rash b/l shins ext - lymphedema neuro - footdrop b/l labs - Hb stable mid 9's Cr normal A/P: 1. extensive cellulitis, left leg - improved; continue keflex. local wound care. 2. citrobacter UTI - keflex 3. iron def anemia - FE replacement; needs outpatient GI w/u 4. intellectual disability 5. ?encephalopathy - checked b12, ammonia, etc. Ammonia mildly elevated; lactulose ordered. Repeat ammonia level AM. check thiamine level in AM as well dispo - SNF target process has been initiated mother updated by phone Roldan PERSAUD MD Discharge planning: custodial facility (Toño Persaud MD)
[2016-06-24 14:03] LABS: VEN BLD GAS O2 SATURATION 79.9 %; VEN BLOOD GAS BASE EXCESS 0.9 mmol/L
[2016-06-24 14:52] VITALS: BP 102/65; PULSE 80; TEMP 36.4; O2SAT 95
[2016-06-24] MEDS ORDERED: LACTULOSE SYRUP 30 GM/45 ML UDP PO STA (14:53)
[2016-06-24 16:00] VITALS: O2SAT 95
[2016-06-24] MEDS: RIVAROXABAN 10 MG TAB PO SCH (17:45)
[2016-06-24 21:38] VITALS: BP 104/64; PULSE 86
[2016-06-24] MEDS: TAMSULOSIN HCL 0.4 MG CAP PO SCH (21:43)
[2016-06-24 23:00] VITALS: BP 126/73; PULSE 84; TEMP 36.8; O2SAT 93
[2016-06-25 07:45] VITALS: BP 120/76; PULSE 74; TEMP 36.8; O2SAT 93
[2016-06-25 07:46] LABS: BUN/CREATININE RATIO 8.5 (10-20); CALCIUM 8.2 mg/dl (8.5-10.1); CREATININE 0.92 mg/dl (0.60-1.40)
[2016-06-25] MEDS: POTASSIUM CHLORIDE 20 MEQ TABCR PO SCH (08:58)
[2016-06-25] MEDS: CEPHALEXIN MONOHYDRATE 500 MG CAP PO SCH ×2 (08:58→20:14)
[2016-06-25] MEDS: KETOCONAZOLE 200 MG TAB PO SCH (08:58)
[2016-06-25] MEDS: MICONAZOLE NITRATE POWDER 43 GM EXT PRN (08:58)
[2016-06-25] MEDS: FERROUS SULFATE 325 MG TAB PO SCH ×3 (08:58→17:57)
[2016-06-25] MEDS: EUCERIN CR 120 GM JAR EXT PRN (08:58)
[2016-06-25] MEDS: ASCORBIC ACID 500 MG TAB PO SCH (08:59)
[2016-06-25] MEDS: ZINC SULFATE 220 MG CAP PO SCH (08:59)
[2016-06-25] MEDS: LACTOBACILLUS ACIDOPHILUS (FLORANEX) TAB PO SCH ×3 (08:59→17:58)
[2016-06-25] MEDS: GEMFIBROZIL 600 MG TAB PO SCH ×2 (08:59→20:13)
[2016-06-25] MEDS: METOPROLOL TARTRATE 25 MG TAB PO SCH ×3 (09:00→20:14)
[2016-06-25 09:05] VITALS: O2SAT 93
[2016-06-25 09:07] VITALS: BP 105/70; PULSE 73
[2016-06-25 09:18] LABS: MEAN CELL VOLUME 71.9 fL (80-100); MEAN CORPUSCULAR HEMOGLOBIN 20.1 pg (25-34); MEAN CORPUSCULAR HGB CONC 27.9 g/dl (32-36); MEAN PLATELET VOLUME 9.6 fL (7.4-10.4); PLATELET COUNT 404 K/uL (130-400); RED BLOOD COUNT 4.73 M/uL (4.7-6.1); WHITE BLOOD COUNT 9.22 K/uL (4.8-10.8)
--- NOTE | 2016-06-25 10:38 | Hospitalist Progress Note ---
Hospitalist Progress Note Date of Service Jun 25, 2016. (Li Alvarenga ., NATHAN-C) Subjective Pt evaluation today including: conversation w/ patient, physical exam, chart review, lab review, review of inpatient medication list Pain: None PO Intake: Tolerating PO diet Voiding: incontinence Unable to obtain reliable ROS from patient due to mental status. Nursing reports that patient is incontinent of urine and is being changed very frequently throughout the day. The patient has been having bowel movements. Eating well. Additional Comments: Unable to obtain reliable ROS form patient due to mental status. (Li Alvarenga ., NATHAN-C) Objective Vital Signs Date Time Temp Pulse Resp B/P Pulse Ox O2 Delivery O2 Flow Rate FiO2 06/25/16 09:07 73 105/70 06/25/16 09:05 93 Room Air 06/25/16 07:45 36.8 74 18 120/76 93 Room Air 06/24/16 23:45 Room Air 06/24/16 23:00 36.8 84 17 126/73 93 Room Air 06/24/16 21:38 86 104/64 06/24/16 16:00 95 Room Air 06/24/16 14:52 36.4 80 18 102/65 95 Room Air 06/24/16 10:33 Room Air (Li Alvarenga ., PA-C) Physical Exam General Appearance: WD/WN, no apparent distress, + obese (morbidly obese) Eyes: normal inspection, PERRL, EOMI ENT: normal ENT inspection, hearing grossly normal, pharynx normal Neck: supple, no JVD, trachea midline Respiratory/Chest: lungs clear, normal breath sounds, no respiratory distress Cardiovascular: regular rate, rhythm, no gallop, no murmur Abdomen: normal bowel sounds, non tender, soft, + hernia Extremities: non-tender, + swelling (2+ pitting edema), + pertinent finding ( erythema on anterior shins bilaterally, scaly. lateral/posterior left thigh appears slightly improved. periphery of the affected area appears to be less erythematous/scaly. pt does have a few areas of minor bleeding on posterior thigh.) Neurologic/Psychiatric: alert (pt appears to be more alert today compared to yesterday), normal mood/affect, + pertinent finding (unable to assess orientation) Skin: normal color, warm/dry, no rash, + pertinent finding (scrotum/groin non- erythematous. some mild erythema in intertriginous folds) (Li Alvarenga ., PA-C) Laboratory Results Last 24 Hours Test 06/24/16 13:35 06/24/16 13:45 06/25/16 07:03 06/25/16 08:40 Vitamin B12 Level 565 pg/mL Folate 20.65 ng/mL Thyroid Stimulating Hormone (TSH) 1.860 uIu/ml Venous Blood pH 7.38 Venous Blood Partial Pressure CO2 46 mmHg Venous Blood Partial Pressure O2 46 mmHg Venous Blood HCO3 26 mmol/L Venous Blood Oxygen Saturation 79.9 % Venous Blood Base Excess 0.9 mmol/L Ammonia 37.0 umol/L 28.0 umol/L Sodium Level 142 mmol/L Potassium Level 4.0 mmol/L Chloride Level 109 mmol/L Carbon Dioxide Level 27 mmol/L Anion Gap 6.0 mmol/L Blood Urea Nitrogen 8 mg/dl Creatinine 0.92 mg/dl Est Creatinine Clear Calc Drug Dose 120.0 ml/min Estimated GFR () 119.3 Estimated GFR (Non- 102.9 BUN/Creatinine Ratio 8.5 Random Glucose 87 mg/dl Calcium Level 8.2 mg/dl White Blood Count 9.22 K/uL Red Blood Count 4.73 M/uL Hemoglobin 9.5 g/dL Hematocrit 34.0 % Mean Corpuscular Volume 71.9 fL Mean Corpuscular Hemoglobin 20.1 pg Mean Corpuscular Hemoglobin Concent 27.9 g/dl RDW Standard Deviation 49.4 fL RDW Coefficient of Variation 18.7 % Platelet Count 404 K/uL Mean Platelet Volume 9.6 fL (Li Alvarenga ., PA-C) Assessment and Plan 40-year-old male with a history of mental retardation, cerebral palsy, asthma, anemia, CHF, HLD, h/o DVT/PE, and urinary retention who presented to the ED on with worsening bilateral leg pain, redness and swelling. Patient tachycardic on arrival, vital signs otherwise stable. Patient afebrile and without leukocytosis. Lower extremity cellulitis--improving -Admit to [facility] -Infectious disease consulted, appreciate recs: Can DC vancomycin. Oral Keflex 10 days -Vancomycin discontinued -Blood cultures NGTD x 2 -Wound care nurse consulted -DC IV fluids due to history of congestive heart failure -Low air loss mattress, ok with wound care -Started on vitamin C 500 mg PO qd and zinc 220 mg PO qd to promote healing Tinea cruris--improving -Continue ketoconazole 200 mg PO qd -Miconazole powder BID prn UTI--UA positive for nitrites, leuks, blood and bacteria -Urine culture positive for Citrobacter freundii, pansensitive. Keflex will cover -Continue Keflex 500 mg PO BID. Day #3 of 10 Lethargy, ?metabolic encephalopathy possibly secondary to elevated ammonia-- improved -VBG, TSH, vitamin B12 and folate all WNL -Ammonia mildly elevated at 37 -Given lactulose 30 gm PO x1 -Repeat ammonia 28 on 06/25 -Continue to trend ammonia q am -Pt not septic, afebrile and no leukocytosis Asthma -Continue albuterol 2 puffs inhaled q6h H/o anemia per PCP records, unknown etiology -Hemoglobin stable while inpatient. Hgb 9.5 on 06/25 -Iron low at 21, TIBC, transferrin and ferritin within normal limits. Transferrin % sat low at 6. -Started on ferrous sulfate 325 mg PO TID History of CHF per PCP records, unknown if systolic or diastolic -Continue metoprolol tartrate 25 mg PO BID HLD -Continue gemfibrozil 600 mg PO BID History of DVT and PE -Continue Xarelto 20 mg PO qd Urinary retention. -Continue Flomax 0.8 mg PO qhs DVT prophylaxis -Xarelto Code Status -Level I, FULL RESUSCITATION STATUS Dispo -Patient typically lives at home with his mother, however, she is currently in the hospital following a surgery. She arranged for the patient to stay at [facility] for respite care while she was in the hospital. The custodial says that they will not be able to accept the patient on discharge as they do not feel they can take care of his wounds. -Patient accepted to [facility]. Awaiting TARGET approval from [facility] This chart was completed in part utilizing [email or web address] Speech Voice Recognition software. Attempts were made to minimize the grammatical errors, random word insertions, pronoun errors and incomplete sentences. Any formal questions or concerns about the content, text or information contained within the body of this dictation should be directly addressed to the provider for clarification. (Li Alvarenga ., PAKendraC) Attending Attestation: Pt seen/examined, chart reviewed, care plan d/w NATHAN Alvarenga. I agree w/ the johnson components of her documentation. No events overnight. Pt says "no" to any question (dyspnea, pain, etc). VSS no fever gen - no change in overall appearance heart - RRR lungs - decreased BS bases abd - large ventral hernia - reducible skin - erythema on left lateral/posterior leg improved, not as intensely red; scale improved; tinea cruris improved; stasis changes b/l mena unchanged A/P: 1. UTI 2. hepatic encephalopathy - improved 3. intellectual disability 4. Fe def anemia - ongoing 5. infected decubitus ulceration on left leg - improving await SNF placement following TARGET process Roldan BANDA MD (Toño Banda MD)
[2016-06-25] MEDS: THIAMINE HCL 100 MG TAB PO SCH ×2 (13:02→20:13)
[2016-06-25 15:27] VITALS: BP 101/67; PULSE 73; TEMP 36.5; O2SAT 93
[2016-06-25] MEDS: RIVAROXABAN 10 MG TAB PO SCH (17:58)
[2016-06-25] MEDS: TAMSULOSIN HCL 0.4 MG CAP PO SCH (20:14)
[2016-06-25 20:18] VITALS: BP 117/70; PULSE 92
[2016-06-25 23:11] VITALS: BP 89/60; PULSE 87; TEMP 36.5; O2SAT 91
[2016-06-26 00:17] VITALS: BP 97/58
[2016-06-26 07:26] VITALS: BP 114/51; PULSE 82; TEMP 36.5; O2SAT 95
[2016-06-26] MEDS: CEPHALEXIN MONOHYDRATE 500 MG CAP PO SCH ×2 (08:36→21:16)
[2016-06-26] MEDS: THIAMINE HCL 100 MG TAB PO SCH ×2 (08:37→21:16)
[2016-06-26] MEDS: LACTOBACILLUS ACIDOPHILUS (FLORANEX) TAB PO SCH ×3 (08:37→18:53)
[2016-06-26] MEDS: METOPROLOL TARTRATE 25 MG TAB PO SCH ×2 (08:37→21:15)
[2016-06-26] MEDS: GEMFIBROZIL 600 MG TAB PO SCH ×2 (08:38→21:16)
[2016-06-26] MEDS: POTASSIUM CHLORIDE 20 MEQ TABCR PO SCH (08:38)
[2016-06-26] MEDS: KETOCONAZOLE 200 MG TAB PO SCH (08:38)
[2016-06-26] MEDS: ZINC SULFATE 220 MG CAP PO SCH (08:38)
[2016-06-26] MEDS: FERROUS SULFATE 325 MG TAB PO SCH ×3 (08:38→18:53)
[2016-06-26] MEDS: ASCORBIC ACID 500 MG TAB PO SCH (08:38)
--- NOTE | 2016-06-26 08:44 | Hospitalist Progress Note ---
Hospitalist Progress Note Date of Service Jun 26, 2016. (Courtney Joyner PA-C) Subjective Pt evaluation today including: conversation w/ patient, physical exam, chart review, lab review, review of studies, review of inpatient medication list Pain: none PO Intake: good Voiding: no voiding problems The patient was seen and examined this morning. Patient reports feeling well. He denies any acute complaints overnight. Patient states he slept well. Patient ate breakfast this morning without difficulty. He denies having any chest pain, shortness of breath, abdominal pain, nausea, vomiting, constipation , diarrhea. All Other Systems: Reviewed and Negative (other than listed per HPI) (Courtney Joyner PA-C) Objective Vital Signs Date Time Temp Pulse Resp B/P Pulse Ox O2 Delivery O2 Flow Rate FiO2 06/26/16 07:26 36.5 82 18 114/51 95 Room Air 06/26/16 00:17 97/58 06/26/16 00:17 Room Air 06/25/16 23:11 36.5 87 18 89/60 91 Room Air 06/25/16 20:18 92 18 117/70 06/25/16 17:10 Room Air 06/25/16 15:27 36.5 73 17 101/67 93 Room Air 06/25/16 10:30 Room Air 06/25/16 09:07 73 105/70 06/25/16 09:05 93 Room Air (Courtney Joyner PA-C) Physical Exam Notes: General: awake, alert, no apparent distress, obese, + mild MR. Head: Normocephalic, atraumatic ENT: PERRL, EOMI, no pharyngeal exudate, mucous membranes moist Chest: Diminished breath sounds at bases, on room air, no adventitious breath sounds Cardiac: Regular rate and rhythm, no murmur, no JVD, normal peripheral pulses, good capillary refill Abdominal: NABS x 4 quadrants, soft, nontender to palpation, no rebound, guarding or tenderness Extremities: Normal inspection, no peripheral edema or erythema, calfs nontender to palpation Psych: Normal mood and affect Neuro: Oriented to self, no motor deficits, speech is clear, (Courtney Joyner PA-C) Laboratory Results Last 24 Hours Test 06/25/16 08:40 06/26/16 06:05 White Blood Count 9.22 K/uL Red Blood Count 4.73 M/uL Hemoglobin 9.5 g/dL Hematocrit 34.0 % Mean Corpuscular Volume 71.9 fL Mean Corpuscular Hemoglobin 20.1 pg Mean Corpuscular Hemoglobin Concent 27.9 g/dl RDW Standard Deviation 49.4 fL RDW Coefficient of Variation 18.7 % Platelet Count 404 K/uL Mean Platelet Volume 9.6 fL Ammonia 29.0 umol/L (Courtney Joyner, ANGELICA) Assessment and Plan 40 yo M w PMHx of mental retardation, cerebral palsy, asthma, anemia, CHF, HLD, h/o DVT/PE, and urinary retention who presented to the ED on 06/21 with worsening bilateral leg pain, redness and swelling. Patient tachycardic on arrival, vital signs otherwise stable. Patient afebrile and without leukocytosis. Lower extremity cellulitis--improving -Infectious disease consulted, appreciate recs: Oral Keflex 500 mg BID 10 days (day #4) - BCx NGTD x 2 - Wound care nurse consulted- appreciate - DC IV fluids due to history of congestive heart failure - Cont Low air loss mattress for pressure offloading - Started on vitamin C 500 mg PO qd and zinc 220 mg PO qd to promote healing Tinea cruris--improving - Continue ketoconazole 200 mg PO qd - Miconazole powder BID prn UTI--UA positive for nitrites, leuks, blood and bacteria - Urine culture positive for Citrobacter freundii, pansensitive. - Continue Keflex 500 mg PO BID Lethargy, ?metabolic encephalopathy possibly secondary to elevated ammonia-- improved - VBG, TSH, vitamin B12 and folate all WNL - Given lactulose 30 gm PO x1 - Repeat ammonia was 28 yesterday - Continue to trend ammonia q am - Pt not septic, afebrile and no leukocytosis Asthma - Continue albuterol 2 puffs inhaled q6h H/o anemia per PCP records, unknown etiology - Stable, - Iron low at 21, TIBC, transferrin and ferritin within normal limits. Transferrin % sat low at 6. - Started on ferrous sulfate 325 mg PO TID History of CHF per PCP records, unknown if systolic or diastolic - Continue metoprolol tartrate 25 mg PO BID HLD - Continue gemfibrozil 600 mg PO BID History of DVT and PE - Continue Xarelto 20 mg PO qd Urinary retention. - Continue Flomax 0.8 mg PO qhs DVT prophylaxis: Xarelto, teds, scds Code Status: FULL CODE Disposition: Patient typically lives at home with his mother, however, she is currently in the hospital following a surgery. She arranged for the patient to stay at [facility] for respite care while she was in the hospital. The skilled nursing says that they will not be able to accept the patient on discharge as they do not feel they can take care of his wounds. -Patient accepted to [facility]. Awaiting TARGET approval from [facility] (Courtney Joyner, ANGELICA) Attending Attestation: Pt seen/examined, chart reviewed, care plan d/w NATHAN Joyner. I agree w/ the johnson components of her documentation. Pt had no complaints during the visit. Watching TV during my exam. States "it's my birthday tomorrow!" No issues per staff. VSS no fever gen - nad neck - no JVD heart - RRR lungs - CTA b/l although poor inspiratory effort abd - obese, soft, large ventral hernia - reducible skin - left thigh cellulitis MUCH better (was fire engine red now very light pink) stasis changes b/l shins unchanged lymphedema b/l feet/legs unchanged A/P: 1. LLE cellulitis with multiple ulcers - keflex, wound care, etc. 2. UTI - clinically resolved; cont keflex 3. elevated ammonia with possible hepatic encephalopathy - resolved other plans per Ms. Lacey's note Roldan BANDA MD (Toño Banda MD)
[2016-06-26 15:16] VITALS: BP 107/71; PULSE 80; TEMP 36.8; O2SAT 94
[2016-06-26] MEDS: RIVAROXABAN 10 MG TAB PO SCH (18:53)
[2016-06-26] MEDS: TAMSULOSIN HCL 0.4 MG CAP PO SCH (21:17)
[2016-06-26 23:25] VITALS: BP 110/62; PULSE 81; TEMP 36.8; O2SAT 95
[2016-06-27 07:05] VITALS: BP 118/84; PULSE 78; TEMP 36.8; O2SAT 92
[2016-06-27] MEDS: CEPHALEXIN MONOHYDRATE 500 MG CAP PO SCH ×2 (09:35→21:29)
[2016-06-27] MEDS: LACTOBACILLUS ACIDOPHILUS (FLORANEX) TAB PO SCH ×3 (09:35→18:18)
[2016-06-27] MEDS: GEMFIBROZIL 600 MG TAB PO SCH ×2 (09:35→21:28)
[2016-06-27] MEDS: FERROUS SULFATE 325 MG TAB PO SCH ×3 (09:35→18:17)
[2016-06-27] MEDS: THIAMINE HCL 100 MG TAB PO SCH ×2 (09:35→21:29)
[2016-06-27] MEDS: POTASSIUM CHLORIDE 20 MEQ TABCR PO SCH (09:36)
[2016-06-27] MEDS: KETOCONAZOLE 200 MG TAB PO SCH (09:36)
[2016-06-27] MEDS: ZINC SULFATE 220 MG CAP PO SCH (09:36)
[2016-06-27] MEDS: METOPROLOL TARTRATE 25 MG TAB PO SCH ×2 (09:36→21:28)
[2016-06-27] MEDS: ASCORBIC ACID 500 MG TAB PO SCH (09:36)
--- NOTE | 2016-06-27 09:46 | Hospitalist Progress Note ---
Hospitalist Progress Note Date of Service Jun 27, 2016. (Courtney Joyner PA-C) Subjective Pt evaluation today including: conversation w/ patient, physical exam, chart review, lab review, review of studies, review of inpatient medication list Pain: None PO Intake: Good Voiding: no voiding problems The patient was seen and examined this morning, sleeping upon entry but easily awakened. Pt reports feeling good this morning. He has no acute complaints. Cellulitis of the LLE is improving, he denies that it hurts. Constitutional: No fever Eyes: No redness ENT: No nasal symptoms, No sore throat Respiratory: No cough, No shortness of breath Cardiovascular: No chest pain, No palpitations Abdomen: No constipation, No diarrhea, No nausea, No pain, No vomiting Musculoskeletal: No joint pain, No swelling Skin: + see HPI (Courtney Joyner PA-C) Objective Vital Signs Date Time Temp Pulse Resp B/P Pulse Ox O2 Delivery O2 Flow Rate FiO2 06/27/16 07:05 36.8 78 16 118/84 92 Room Air 06/27/16 00:00 Room Air 06/26/16 23:25 36.8 81 18 110/62 95 Room Air 06/26/16 15:45 Room Air 06/26/16 15:16 36.8 80 18 107/71 94 (Courtney Joyner PA-C) Physical Exam General Appearance: WD/WN, no apparent distress, + obese, + pertinent finding ( + MR, pleasant) Eyes: PERRL, EOMI ENT: hearing grossly normal, pharynx normal, + pertinent finding (mucous membranes moist) Neck: supple, no JVD Respiratory/Chest: lungs clear, no respiratory distress, no accessory muscle use Cardiovascular: regular rate, rhythm, no murmur Abdomen: normal bowel sounds, non tender, soft Extremities: + pedal edema, + pertinent finding (+ erythema surrounding the left ankle, bilateral lower extremities in waffle boots, +2 pitting pedal edema , chronic skin changes of the RLE) Neurologic/Psychiatric: alert, normal mood/affect, + pertinent finding (+ MR, oriented to self) Skin: normal color, warm/dry, + pertinent finding (LLE erythema surrounding ankle) (Courtney Joyner PA-C) Assessment and Plan 40 yo M w PMHx of mental retardation, cerebral palsy, asthma, anemia, CHF, HLD, h/o DVT/PE, and urinary retention who presented to the ED on 06/21 with worsening bilateral leg pain, redness and swelling. Patient tachycardic on arrival, vital signs otherwise stable. Patient afebrile and without leukocytosis. Lower extremity cellulitis--improving - Erythema of the right lower extremity is resolved, erythema still present on the LLE surrounding the ankle. Not warm to touch. Still with 2+ pitting pedal edema. - Infectious disease consulted, appreciate recs: Oral Keflex 500 mg BID 10 days (day #5) - BCx NGTD x 2 - Wound care nurse consulted- appreciate - DC IV fluids due to history of congestive heart failure - Cont Low air loss mattress for pressure offloading - Started on vitamin C 500 mg PO qd and zinc 220 mg PO qd to promote healing Tinea cruris--improving - Continue ketoconazole 200 mg PO qd - Miconazole powder BID prn UTI- - Urine culture positive for Citrobacter freundii, pansensitive. - Continue Keflex 500 mg PO BID Lethargy, ?metabolic encephalopathy possibly secondary to elevated ammonia-- improved - VBG, TSH, vitamin B12 and folate all WNL - Given lactulose 30 gm PO x1 - Repeat ammonia was 28 yesterday - Continue to trend ammonia q am - Pt not septic, afebrile and no leukocytosis Asthma - Continue albuterol 2 puffs inhaled q6h H/o anemia per PCP records, unknown etiology - Stable, - Iron low at 21, TIBC, transferrin and ferritin within normal limits. Transferrin % sat low at 6. - Started on ferrous sulfate 325 mg PO TID History of CHF per PCP records, unknown if systolic or diastolic - Continue metoprolol tartrate 25 mg PO BID HLD - Continue gemfibrozil 600 mg PO BID History of DVT and PE - Continue Xarelto 20 mg PO qd Urinary retention. - Continue Flomax 0.8 mg PO qhs DVT prophylaxis: Xarelto, teds, scds Code Status: FULL CODE Disposition: Patient typically lives at home with his mother, however, she is currently in the hospital following a surgery. She arranged for the patient to stay at [facility] for respite care while she was in the hospital. The correction says that they will not be able to accept the patient on discharge as they do not feel they can take care of his wounds. -Patient accepted to [facility]. Awaiting TARGET approval from [facility] (Courtney Joyner, ANGELICA) Attending Attestation: Pt seen/examined, chart reviewed, care plan d/w NATHAN Joyner. I agree w/ the johnson components of her documentation. Pt had no complaints during the visit. Again Watching TV during my exam. This time he was in the chair = staff had used a Chaz Lift to get him out of bed. No issues overnight. VSS no fever gen - nad, but falls asleep easily, and he almost looks dyspneic neck - no JVD heart - RRR lungs - CTA b/l although poor inspiratory effort abd - obese, soft, large ventral hernia - reducible skin - left thigh cellulitis again MUCH better (was fire engine red now very light pink, scale is also better) stasis changes b/l shins unchanged lymphedema b/l feet/legs unchanged A/P: 1. LLE cellulitis with multiple ulcers - keflex, wound care, etc. Improved. Day #7 of abx. 2. UTI - clinically resolved; cont keflex; has completed full course of abx. 3. elevated ammonia with possible hepatic encephalopathy - resolved s/p lactulose. 4. tinea cruris and superimposed fungal infection of left leg - day #7 of ketoconazole; would recommend 10-14 course. 5. recent change in MS - was thought 2nd to #3. Thiamine level was also sent. Other labs were normal. 6. ?dyspnea - check cxr today other plans per Ms. Lacey's note Roldan BANDA MD (Toño Banda MD)
[2016-06-27 14:58] VITALS: BP 115/76; PULSE 75; TEMP 36.6; O2SAT 94
[2016-06-27] MEDS: RIVAROXABAN 10 MG TAB PO SCH (18:18)
--- NOTE | 2016-06-27 19:52 | DIAGNOSTIC IMAGING REPORT ---
CHEST ONE VIEW PORTABLE CLINICAL HISTORY: dyspnea COMPARISON STUDY: 06/21/2016 FINDINGS: The patient has taken a poor inspiration. There is elevation of the right hemidiaphragm. There are hypoventilatory changes present at the right lung base. There is no lobar consolidation. There is no failure. There are no pleural effusions.[ IMPRESSION: Poor inspiration with mild elevation of the right hemidiaphragm. Hypoventilatory changes at the right lung base. Electronically signed by: Db Llamas M.D. 06/27/2016 7:51 PM Dictated Date/Time: 06/27/2016 7:50 PM
[2016-06-27] MEDS: TAMSULOSIN HCL 0.4 MG CAP PO SCH (21:29)
[2016-06-27 22:54] VITALS: BP 136/75; PULSE 81; TEMP 36.7; O2SAT 92
[2016-06-28 07:11] LABS: HEMATOCRIT 34.4 % (42-52); MEAN CORPUSCULAR HEMOGLOBIN 20.3 pg (25-34); MEAN CORPUSCULAR HGB CONC 28.2 g/dl (32-36); MEAN PLATELET VOLUME 9.1 fL (7.4-10.4); PLATELET COUNT 400 K/uL (130-400); RED BLOOD COUNT 4.78 M/uL (4.7-6.1); WHITE BLOOD COUNT 10.42 K/uL (4.8-10.8)
[2016-06-28 07:41] LABS: CREATININE 1.1 mg/dl (0.60-1.40)
[2016-06-28 07:56] VITALS: BP 136/78; PULSE 78; TEMP 36.5; O2SAT 93
[2016-06-28 08:08] VITALS: O2SAT 93
[2016-06-28 08:32] VITALS: BP 105/71; PULSE 72
[2016-06-28] MEDS: THIAMINE HCL 100 MG TAB PO SCH ×2 (08:33→22:03)
[2016-06-28] MEDS: METOPROLOL TARTRATE 25 MG TAB PO SCH ×2 (08:33→22:03)
[2016-06-28] MEDS: GEMFIBROZIL 600 MG TAB PO SCH ×2 (08:33→22:03)
[2016-06-28] MEDS: CEPHALEXIN MONOHYDRATE 500 MG CAP PO SCH (08:33)
[2016-06-28] MEDS: FERROUS SULFATE 325 MG TAB PO SCH ×3 (08:33→17:36)
[2016-06-28] MEDS: KETOCONAZOLE 200 MG TAB PO SCH (08:34)
[2016-06-28] MEDS: POTASSIUM CHLORIDE 20 MEQ TABCR PO SCH (08:34)
[2016-06-28] MEDS: LACTOBACILLUS ACIDOPHILUS (FLORANEX) TAB PO SCH ×3 (08:34→17:36)
[2016-06-28] MEDS: ASCORBIC ACID 500 MG TAB PO SCH (08:34)
[2016-06-28] MEDS: ZINC SULFATE 220 MG CAP PO SCH (08:34)
[2016-06-28] MEDS: MICONAZOLE NITRATE POWDER 43 GM EXT PRN (08:39)
--- NOTE | 2016-06-28 11:54 | Hospitalist Progress Note ---
Hospitalist Progress Note Date of Service Jun 28, 2016. (Li Alvarenga ., NATHAN-C) Subjective Pt evaluation today including: conversation w/ patient, physical exam, chart review, lab review, review of studies, review of inpatient medication list Pain: None PO Intake: Tolerating PO diet Voiding: incontinence Patient reports feeling well. Denies any new complaints. Unable to obtain reliable ROS and patient due to mental status. Additional Comments: Denies any complaints. Unable to obtain reliable ROS from patient due to mental status. (Li Alvarenga PA-C) Objective Vital Signs Date Time Temp Pulse Resp B/P Pulse Ox O2 Delivery O2 Flow Rate FiO2 06/28/16 08:32 72 105/71 06/28/16 08:08 93 Room Air 06/28/16 07:56 36.5 78 18 136/78 93 Room Air 06/28/16 07:45 Room Air 06/28/16 00:13 Room Air 06/27/16 22:54 36.7 81 18 136/75 92 Room Air 06/27/16 16:05 Room Air 06/27/16 14:58 36.6 75 18 115/76 94 Room Air (Li Alvarenga, PA-C) Physical Exam General Appearance: WD/WN, no apparent distress, + obese (morbidly obese) Eyes: normal inspection, PERRL, EOMI ENT: normal ENT inspection, hearing grossly normal, pharynx normal Neck: supple, no JVD, trachea midline Respiratory/Chest: lungs clear, normal breath sounds, no respiratory distress Cardiovascular: regular rate, rhythm, no gallop, no murmur Abdomen: normal bowel sounds, non tender, soft Extremities: non-tender, + swelling (2+ pitting edema), + pertinent finding ( Cellulitis of left posterior thigh improved. Ulcer on the left lateral malleolus bandaged. Bilateral venous stasis changes) Neurologic/Psychiatric: alert, normal mood/affect, + pertinent finding (unable to assess orientation) Skin: normal color, warm/dry, no rash (Li Alvarenga, PA-C) Laboratory Results Last 24 Hours Test 06/28/16 06:37 White Blood Count 10.42 K/uL Red Blood Count 4.78 M/uL Hemoglobin 9.7 g/dL Hematocrit 34.4 % Mean Corpuscular Volume 72.0 fL Mean Corpuscular Hemoglobin 20.3 pg Mean Corpuscular Hemoglobin Concent 28.2 g/dl RDW Standard Deviation 49.6 fL RDW Coefficient of Variation 18.9 % Platelet Count 400 K/uL Mean Platelet Volume 9.1 fL Creatinine 1.10 mg/dl Est Creatinine Clear Calc Drug Dose 99.3 ml/min Estimated GFR () 95.5 Estimated GFR (Non- 82.4 (Li Alvarenga PA-C) Diagnostic Results Reviewed the following studies and agree with interpretation as follows: Patient Name: KERA BASSETT Unit Number: [id number] Dictated: 06/27/161949 Transcribed: 06/27/161949 ARG Printed Date/Time: [~ rep prt dt]/[~ rep prt tm] [~ rep ct labl] - [~ rep ct ivnm] [facility] [place] [address] Dictated: 06/27/161949 Transcribed: 06/27/161949 ARG Printed Date/Time: [~ rep prt dt]/[~ rep prt tm] [~ rep ct labl] - [~ rep ct ivnm] Patient: KERA BASSETT Address1: [address] [place] [address] [facility] Rec: [id number] Address2: Acct ID: [id number] [facility] Zip: [place] [address] Date: 1975 Sex: M Room/Bed: [facility] Ref Phy: Elie Riggs D.O. SC: [facility] Att Phy: Toño Banda MD Report #: [id number] Kirstie Phy: Elie Riggs D.O. Test: CXR1P Admit Phy: Jr Damon M.D. Formula Mixer: SRINIVAS Interpreting Phy: Db Llamas M.D. Diagnosis: BILATERAL LOWER LEG CELLULITIS, UTI Ordering Phy: Toño Banda MD Service Date: 06/27/16 Admit Date: 06/21/1702/27/17 MNE: [id number] CONF: DICTATED BY: Db Llamas M.D.]] CC: Huckestein, Elie E.,Toño Telles MD Endcc: [~ rep ct add3]] CHEST ONE VIEW PORTABLE CLINICAL HISTORY: dyspnea COMPARISON STUDY: 06/21/2016 FINDINGS: The patient has taken a poor inspiration. There is elevation of the right hemidiaphragm. There are hypoventilatory changes present at the right lung base. There is no lobar consolidation. There is no failure. There are no pleural effusions.[ IMPRESSION: Poor inspiration with mild elevation of the right hemidiaphragm. Hypoventilatory changes at the right lung base. Electronically signed by: Db Llamas M.D. 06/27/2016 7:51 PM Dictated Date/Time: 06/27/2016 7:50 PM The status of this report is Signed. Draft = Not yet reviewed or approved by Radiologist. Signed = Reviewed and approved by Radiologist. <AttendingPhy>Toño Banda MD</AttendingPhy> <FamilyPhy>Elie Riggs D.O.</FamilyPhy> <PrimaryPhy>Elie Riggs D.O.</PrimaryPhy> < UnitNumber>[id number]</UnitNumber> <VisitNumber>[id number]</VisitNumber> < PatientName>KERA BASSETT</PatientName> <DateOfBirth>1975</DateOfBirth> < Location>[facility]</Location> <ServiceDate>06/21/16</ServiceDate> <MNE>ESINDI</MNE> <OrderingPhy>Toño Banda MD</OrderingPhy> <OrderingPhyMNE>f rep ord dr mendez </OrderingPhyMNE> <DictatingPhyMNE>f rep dict dr mendez</DictatingPhyMNE> < CCListMNE>f rep ct juliennee</CCListMNE> <AdmittingPhyMNE>f pt admit dr mendez</ AdmittingPhyMNE> <AttendingPhyMNE>f pt attend dr mendez</AttendingPhyMNE> <ConsultingPhyMNE>f pt consult dr mendez</ConsultingPhyMNE> <FamilyPhyMNE>f pt fam dr mendez</FamilyPhyMNE> <OtherPhyMNE>f pt other dr mendez</OtherPhyMNE> < PrimaryPhyMNE>f pt prim care dr mendez</PrimaryPhyMNE> <ReferringPhyMNE>f pt referring dr mendez</ReferringPhyMNE> (Li Alvarenga ., ANGELICA) Assessment and Plan 40-year-old male with a history of mental retardation, cerebral palsy, asthma, anemia, CHF, HLD, h/o DVT/PE, and urinary retention who presented to the ED on with worsening bilateral leg pain, redness and swelling. Patient tachycardic on arrival, vital signs otherwise stable. Patient afebrile and without leukocytosis. Lower extremity cellulitis--improving -Admit to [facility] -Infectious disease consulted, appreciate recs: Can DC vancomycin. Oral Keflex 10 days -Keflex 500 mg PO BID. Day #6 of 10 -Vancomycin discontinued -Blood cultures NGTD x 2 -Wound care nurse consulted, appreciate recs -DC IV fluids due to history of congestive heart failure -Low air loss mattress, ok with wound care -Started on vitamin C 500 mg PO qd and zinc 220 mg PO qd to promote healing Tinea cruris--improving -Continue ketoconazole 200 mg PO qd. Day #7 of 10 -Miconazole powder BID prn UTI--UA positive for nitrites, leuks, blood and bacteria -Urine culture positive for Citrobacter freundii, pansensitive. Keflex will cover -Continue Keflex as above Lethargy, ?metabolic encephalopathy possibly secondary to elevated ammonia-- resolved -VBG, TSH, vitamin B12 and folate all WNL -Ammonia mildly elevated at 37 -Given lactulose 30 gm PO x1 -Repeat ammonia 28 on 06/25 -Ammonia trended, remained within normal limits without further lactulose treatments -Pt not septic, afebrile and no leukocytosis Asthma -Continue albuterol 2 puffs inhaled q6h H/o anemia per PCP records, unknown etiology -Hemoglobin stable while inpatient. Hgb 9.7 on 06/28 -Iron low at 21, TIBC, transferrin and ferritin within normal limits. Transferrin % sat low at 6. -Started on ferrous sulfate 325 mg PO TID History of CHF per PCP records, unknown if systolic or diastolic -Continue metoprolol tartrate 25 mg PO BID HLD -Continue gemfibrozil 600 mg PO BID History of DVT and PE -Continue Xarelto 20 mg PO qd Urinary retention -Continue Flomax 0.8 mg PO qhs DVT prophylaxis -Xarelto Code Status -Level I, FULL RESUSCITATION STATUS Dispo -Patient typically lives at home with his mother, however, she is currently in the hospital following a surgery. She arranged for the patient to stay at [facility] for respite care while she was in the hospital. The longterm says that they will not be able to accept the patient on discharge as they do not feel they can take care of his wounds. -TARGET letter received from [facility]. Patient approved for SNF. [facility] can accept patient tomorrow This chart was completed in part utilizing [employer] Voice Recognition software. Attempts were made to minimize the grammatical errors, random word insertions, pronoun errors and incomplete sentences. Any formal questions or concerns about the content, text or information contained within the body of this dictation should be directly addressed to the provider for clarification. (Li Alvarenga ., PA-C) I agree with PA assessment and plan and have seen and examined pt myself Resting comfortably in bed Hemodynamically stable Cellulitis much improved Cont antibx Target approved Can DC tomorrow (Doug Coleman, D.O.)
[2016-06-28 15:13] VITALS: BP 104/70; PULSE 82; TEMP 36.5; O2SAT 92
[2016-06-28] MEDS: RIVAROXABAN 10 MG TAB PO SCH (17:36)
[2016-06-28] MEDS: TAMSULOSIN HCL 0.4 MG CAP PO SCH (22:03)
[2016-06-28 22:04] VITALS: BP 116/75; PULSE 91
[2016-06-28 23:00] VITALS: BP 108/71; PULSE 89; TEMP 36.8; O2SAT 93
[2016-06-29 08:03] VITALS: BP 97/61; PULSE 79; TEMP 36.7; O2SAT 92
[2016-06-29] MEDS: ASCORBIC ACID 500 MG TAB PO SCH (08:56)
[2016-06-29] MEDS: GEMFIBROZIL 600 MG TAB PO SCH (08:56)
[2016-06-29] MEDS: ZINC SULFATE 220 MG CAP PO SCH (08:56)
[2016-06-29] MEDS: FERROUS SULFATE 325 MG TAB PO SCH ×2 (08:56→12:00)
[2016-06-29] MEDS: THIAMINE HCL 100 MG TAB PO SCH (08:56)
[2016-06-29] MEDS: LACTOBACILLUS ACIDOPHILUS (FLORANEX) TAB PO SCH ×2 (08:56→12:00)
[2016-06-29] MEDS: POTASSIUM CHLORIDE 20 MEQ TABCR PO SCH (08:57)
[2016-06-29] MEDS: KETOCONAZOLE 200 MG TAB PO SCH (08:57)
[2016-06-29] MEDS: METOPROLOL TARTRATE 25 MG TAB PO SCH (08:58)
[2016-06-29] MEDS: METRONIDAZOLE 500 MG TAB PO SCH ×2 (09:10→13:45)
[2016-06-29] MEDS ORDERED: MCTP EXT (13:53)
[2016-06-29] MEDS ORDERED: NZR200 PO (13:53)
[2016-06-29] MEDS ORDERED: THM100 PO (13:53)
[2016-06-29] MEDS ORDERED: ASCA500 PO (13:53)
[2016-06-29] MEDS ORDERED: MTR500 PO (13:53)
[2016-06-29] MEDS ORDERED: FRRS300 PO (13:53)
[2016-06-29] MEDS ORDERED: ECRCR EXT (13:53)
[2016-06-29] MEDS ORDERED: CEPH500T PO (13:53)
[2016-06-29] MEDS ORDERED: ZNCS220 PO (13:53)
--- NOTE | 2016-06-29 14:19 | Discharge Instructions ---
Discharge Instructions Date of Service Jun 29, 2016. Admission Reason for Admission: Bilateral Lower Leg Cellulitis, Uti Discharge Discharge Diagnosis / Problem: Left leg cellulitis, UTI, C. diff Discharge Goals Goal(s): Decrease discomfort, Improve function, Improve disease control, Diagnostic testing, Therapeutic intervention Activity Recommendations Activity Level: OOB In Chair, Assistance Required Therapies: Physical Therapy, Occupational Therapy Shower/Bathe: no limitations . Additional Information Patient informed of condition: Yes Advance Directives: No DNR: No Level of Care: Skilled Communicable Disease: Yes (C. diff) Prognosis: Stable Barnes Catheter: No Instructions / Follow-Up Instructions / Follow-Up You were admitted to the hospital with worsening leg pain, redness and welling. You were found to have cellulitis, or a skin infection, in the left leg from the lateral to the posterior sides of the left thigh. You were started on IV antibiotics, and infectious disease was consulted to determine the best antibiotic course. You were eventually taken off of IV antibiotics as you became more stable and switched to an oral antibiotic. You were also found to have a urinary tract infection (UTI) that was present on admission. The antibiotic given to you for the skin infection will also cover the UTI. There appeared to also be a fungal skin infection in addition to the cellulitis, so you were started on an antifungal medication. Finally, you were found to have an infection of the colon called Clostridium difficile (C. diff), likely related to the recent antibiotic use as above despite taking a probiotic. This will be treated with an antibiotic called Flagyl, which is the first drug of choice for this infection. Medications: *You were started on Keflex while inpatient to treat your skin and urine infections. You have 3 days remaining in your course as recommended by infectious disease. Please take Keflex (cephalexin) 500 mg by mouth twice a day for 3 days to complete the course. *You may use Eucerin cream to any affected areas twice a day as needed for dryness/scaly skin. *You were also started on ketoconazole for the fungal infection. You have 2 days remaining in the 10 day course. Please take ketoconazole 200 mg by mouth once daily for 2 days. *You may use miconazole, an antifungal powder, in your skin folds twice a day as needed while experiencing symptoms such as redness and irritation. *You have just been started on Flagyl for the C. diff infection in the colon. You will need a 10 day course of antibiotics. Please take Flagyl (metronidazole ) 500 mg by mouth three times a day for 10 days. *Due to your anemia, please take ferrous sulfate (iron) 325 mg by mouth three times a day with meals. *Please take Vitamin C (ascorbic acid) 500 mg by mouth once a day, Vitamin B1 ( thiamine) 200 mg by mouth twice a day, and zinc 220 mg by mouth once a day to help promote healing of your wounds. Follow up: *Please follow up with a medical provider in 1 week regarding your infections and wounds. *You will follow up with wound care routinely regarding your wounds. Current Hospital Diet Patient's current hospital diet: Regular Diet Discharge Diet Recommended Diet: Regular Diet Pending Studies Studies pending at discharge: yes List of pending studies: Vitamin B1 level Physician Orders On Transfer Special Precautions: Fall precautions. Contact precautions due to C. diff. Dressing Changes: Left lateral lower leg wound: clean with saline. Cover with Aquacel Ag and secure with Optifoam. Change every other day or prn. Left posterior thigh: wash with kelly wipes. Dust with Desenex powder and cover with Sensicare ointment. Reapply BID. Buttocks cleft: cleanse with saline. Cover with Optifoam. Change every 3 days or prn. Vital Signs: Routine Additional Orders: Follow with wound care nurse POLST Discussion: Not Applicable Medical Emergencies . Who to Call and When: Medical Emergencies: If at any time you feel your situation is an emergency, please call 911 immediately. . Non-Emergent Contact Non-Emergency issues call your: Primary Care Provider Call Non-Emergent contact if: you have a fever, your pain is not controlled, your pain is worsening, your pain is unusual for you, your pain is concerning you, wound has increased drainage, wound has increased redness, wound has increased pain, you have any medication questions . Past History Medical & Surgical History: (1) C. difficile colitis (2) Cellulitis (3) UTI (urinary tract infection) . "Provider Documentation" section prepared by Li Alvarenga. Core Measure Problem Core Measures: None
[2016-06-29 14:21] VITALS: BP 97/61; PULSE 79; TEMP 36.7; O2SAT 92
--- NOTE | 2016-06-29 14:29 | Discharge Summary ---
Discharge Summary Date of Service Jun 29, 2016. (Li Alvarenga ., ANGELICA) Discharge Summary Admission Date: Jun 21, 2016 at 23:47 Discharge Date: Jun 29, 2016 Discharge Disposition: [facility] facility ([facility], TARGET process approved by state) Principal Diagnosis: Left leg cellulitis, UTI, C. diff colitis Consultations: Infectious disease--Dr. [place] (Li Alvarenga ., ANGELICA) Medication Reconciliation New Medications: Cephalexin (Cephalexin) 500 Mg Tab 1 TAB PO BID for 3 Days, #6 TAB Take 1 tablet by mouth twice a day x 3 days. Ascorbic Acid (Vitamin C) 500 Mg Tab 500 MG PO QAM for 30 Days, #30 TAB Take 1 tablet by mouth every morning. Eucerin (Hydrocerin) 360 Appln/120 Gm Cr 1 APPLN EXT BID PRN for AFFECTED LIMBS for 30 Days, #1 TUBE Apply to affected limbs twice a day as needed for dryness. Ferrous Sulfate (Ferrous Sulfate) 325 Mg Tab 325 MG PO TIDM for 30 Days, #90 TAB Take 1 tablet by mouth three times a day with meals. Ketoconazole (Ketoconazole) 200 Mg Tab 200 MG PO QAM for 2 Days, #2 TAB Take 1 tablet by mouth every morning x 2 days. Metronidazole (Metronidazole) 500 Mg Tab 500 MG PO TID for 10 Days, #30 TAB Take 1 tablet by mouth three times a day x 10 days. Miconazole Nitrate (Desenex Shake Powder) 43 Appln/43 Gm Powd 1 APPLN EXT BID PRN for Affected Skin Folds for 30 Days, #1 BTL Apply to affected skin folds twice a day as needed for redness/irritation. Thiamine HCl (Vitamin B-1) 100 Mg Tab 200 MG PO BID for 30 Days, #120 TAB Take 2 tablets by mouth twice a day. Zinc Sulfate (Zinc Sulfate) 220 Mg Cap 220 MG PO QAM for 30 Days, #30 CAP Take 1 tablet by mouth every morning. Continued Medications: Albuterol Hfa (Ventolin Hfa) 200 Puffs/22383 Mcg Aers 2-4 PUFFS INH Q6H, #1 INHALER Gemfibrozil (Gemfibrozil) 600 Mg Tab 600 MG PO BID before morning and evening meals Metoprolol Tartrate (Lopressor) (Lopressor) 25 Mg Tab 25 MG PO BID, TAB Potassium Ext Rel (Klor-Con) 20 Meq Tabcr 20 MEQ PO DAILY, TAB Rivaroxaban (Xarelto) 20 Mg Tab 1 TAB PO DAILYBD for 90 Days, TAB 3 Refills *with evening meals Tamsulosin Hcl (Flomax) 0.4 Mg Cap 0.8 MG PO HS, CAP Discharge Exam Patient denies any complaints and pain. Unable to obtain reliable ROS from patient due to mental status. Physical Exam: General Appearance: WD/WN, no apparent distress, + obese (morbidly obese) Eyes: normal inspection, PERRL, sclerae normal, + pertinent finding ( disconjugate gaze) ENT: normal ENT inspection, hearing grossly normal, pharynx normal Neck: supple, no JVD, trachea midline Respiratory/Chest: lungs clear, normal breath sounds, no respiratory distress Cardiovascular: regular rate, rhythm, no gallop, no murmur Abdomen / GI: normal bowel sounds, non tender, soft, + hernia (large ventral hernia, reducible) Extremities: non-tender, + pedal edema (2+ pitting edema bilaterally), + swelling (2+ pitting edema bilaterally), + pertinent finding (chronic venous stasis changes bilaterally. erythema of posterior left thigh somewhat improved compared to yesterday. small areas of skin break down/bleeding. non-tender to palpation.) Neurologic/Psychiatric: alert, normal mood/affect, + pertinent finding ( unable to assess orientation due to mental status. pt able to communicate, but information not reliable) Skin: normal color, warm/dry, no rash (tinea cruris greatly improved) (Li Alvarenga ., PAKendraC) Hospital Course 40-year-old male with a history of mental retardation, cerebral palsy, asthma, anemia, CHF, HLD, h/o DVT/PE, and urinary retention who presented to the ED on with worsening bilateral leg pain, redness and swelling. Patient tachycardic on arrival, vital signs otherwise stable. Patient afebrile and without leukocytosis. Lower extremity cellulitis--improving -Admit to [facility] [place] -Infectious disease consulted, appreciate recs: Can DC vancomycin. Oral Keflex 10 days -Keflex 500 mg PO BID. Day #7 of 10. Pt to continue remaining three days of course at [facility] -Vancomycin discontinued -Blood cultures no growth x 2 -Wound care nurse consulted, appreciate recs: see D/C instructions -DC IV fluids due to history of congestive heart failure -Low air loss mattress, oh with wound care -Started on vitamin C 500 mg PO qd, thiamine 200 mg PO BID and zinc 220 mg PO qd to promote healing -Thiamine level pending C. diff colitis--stool positive on 06/28 -Flagyl 500 mg PO TID x 10 days. Pt received first dose inpatient. Tinea cruris--improving -Continue ketoconazole 200 mg PO qd. Day #8 of 10. Pt to continue remaining [address] [facility]. -Miconazole powder BID prn, also apply to left posterior thigh per wound care nurse UTI--UA positive for nitrites, leuks, blood and bacteria -Urine culture positive for Citrobacter freundii, pansensitive. Keflex will cover -Continue Keflex as above Lethargy, ?metabolic encephalopathy possibly secondary to elevated ammonia-- resolved -VBG, TSH, vitamin B12 and folate all WNL -Ammonia mildly elevated at 37 -Given lactulose 30 gm PO x1 -Repeat ammonia 28 on 06/25 -Ammonia trended, remained within normal limits without further lactulose treatments -Pt not septic, afebrile and no leukocytosis Asthma -Continue albuterol 2 puffs inhaled q6h H/o anemia per PCP records, unknown etiology--stable -Hemoglobin stable while inpatient. Hgb 9.7 on 06/28 -Iron low at 21, TIBC, transferrin and ferritin within normal limits. Transferrin % sat low at 6. -Started on ferrous sulfate 325 mg PO TID, continue on d/c History of CHF per PCP records, unknown if systolic or diastolic -Continue metoprolol tartrate 25 mg PO BID HLD -Continue gemfibrozil 600 mg PO BID History of DVT and PE -Continue Xarelto 20 mg PO qd Urinary retention -Continue Flomax 0.8 mg PO qhs DVT prophylaxis -Xarelto Code Status -Level I, FULL RESUSCITATION STATUS Dispo -Patient typically lives at home with his mother, however, she is currently in the hospital following a surgery. She arranged for the patient to stay at [facility] for respite care while she was in the hospital. [facility] says that [facility] will not be able to accept the patient on discharge as they do not feel they can take care of his wounds. -[employer] letter received from [facility]. Patient approved for SNF. [facility] to accept pt This chart was completed in part utilizing [employer] Voice Recognition software. Attempts were made to minimize the grammatical errors, random word insertions, pronoun errors and incomplete sentences. Any formal questions or concerns about the content, text or information contained within the body of this dictation should be directly addressed to the provider for clarification. Total Time Spent: Greater than 30 minutes This includes examination of the patient, discharge planning, medication reconciliation, and communication with other providers. (Li Alvarenga ., PA-C) I agree with PA assessment and plan and have seen and examined pt myself Pt resting comfortably in bed No distress noted Cont keflex for cellulitis Cont antifungal treatment at this time Stable for discharge [employer] for [facility] approved (Doug Coleman D.O.) Discharge Instructions Please refer to the electronic Patient Visit Report (Discharge Instructions) for additional information. (Li Alvarenga ., PA-C) Additional Copies To Elie Riggs D.O.
[2016-06-29 15:58] VITALS: BP 107/69; PULSE 86; TEMP 36.8; O2SAT 92
[2016-06-29 16:53] VITALS: BP 107/69; PULSE 86; TEMP 36.8; O2SAT 92
== END 2016-06-29 16:55 | DRG 592 ==
LOC: ENRESERVTM → ENRESERVDT → CANRESERV → C.EDB 18:44 → C.MSW 23:47
PROVIDERS: ADMIT Hospitalist; ATTEND Hospitalist
DX: L89.899 Pressure ulcer of other site, unspecified stage (principal); G93.41 Metabolic encephalopathy; L03.116 Cellulitis of left lower limb; N39.0 Urinary tract infection, site not specified; A04.7 Enterocolitis due to Clostridium difficile; L03.115 Cellulitis of right lower limb; Z86.718 Personal history of other venous thrombosis and embolism; F79 Unspecified intellectual disabilities; B35.6 Tinea cruris; J45.909 Unspecified asthma, uncomplicated; R33.9 Retention of urine, unspecified; D50.9 Iron deficiency anemia, unspecified; K43.9 Ventral hernia without obstruction or gangrene; I50.9 Heart failure, unspecified; E78.5 Hyperlipidemia, unspecified; I89.0 Lymphedema, not elsewhere classified

== ENCOUNTER 2017-05-08 11:08 | Inpatient (IN) | payer OTHER ==
[~2017-05-08] VITALS: Ht 160 cm; Wt 127.5 kg
[~2017-05-08 11:08] MED LIST: ASCA500 PO; ECRCR EXT; FRRS300 PO; LPD600 PO; MCTP EXT; METO25TA56 PO; MTR500 PO; NZR200 PO; POTA20TA16 PO; RIVA1TAB4 PO; TAMS0.4C38 PO; THM100 PO; VNTHFA/IN INH; ZNCS220 PO
[2017-05-08] MEDS ORDERED: MCTP TOP (12:07)
[2017-05-08] MEDS ORDERED: CARB200T3 PO (12:07)
[2017-05-08] MEDS ORDERED: ACET-1693 PO (12:07)
[2017-05-08] MEDS ORDERED: ASCO500T16 PO (12:07)
[2017-05-08] MEDS ORDERED: POVI10SO38 TOP (12:07)
[2017-05-08] MEDS ORDERED: MOML PO (12:07)
[2017-05-08] MEDS ORDERED: IPRASOL4 INH (12:07)
[2017-05-08] MEDS ORDERED: BISA10SU3 PR (12:07)
[2017-05-08] MEDS ORDERED: SODIENE PR ×2 (12:07)
[2017-05-08] MEDS ORDERED: OSEL75CA23 PO (12:07)
[2017-05-08] MEDS ORDERED: OXGN (12:07)
[2017-05-08] MEDS ORDERED: ADVIN25/60 INH (12:07)
[2017-05-08] MEDS ORDERED: THIA100T11 PO (12:07)
[2017-05-08] MEDS ORDERED: [UNRECOGNIZED DRUG - CODE] TOP (12:07)
[2017-05-08] MEDS ORDERED: VNTHFA/IN INH (12:14)
--- NOTE | 2017-05-08 12:20 | DIAGNOSTIC IMAGING REPORT ---
CHEST ONE VIEW PORTABLE CLINICAL HISTORY: EVALUATE RESPIRATORY DISTRESS.DYSPNEA COMPARISON STUDY: 06/27/2016 FINDINGS: Chronic elevation right hemidiaphragm. Minimal chronic basilar parenchymal marking prominence. No superimposed infiltrate. Costophrenic angles are sharp. IMPRESSION: Chronic change. No acute process. The above report was generated using voice recognition software. It may contain grammatical, syntax or spelling errors. Electronically signed by: Les Michael M.D. 05/08/2017 12:18 PM Dictated Date/Time: 05/08/2017 12:17 PM
[2017-05-08 12:51] LABS: BASO % 0.6 %; BASO ABS # 0.05 K/uL (0-0.2); EOS % 4.3 %; EOS ABS # 0.38 K/uL (0-0.5); HEMATOCRIT 41.6 % (42-52); HEMOGLOBIN 13.3 g/dL (14.0-18.0); IG# 0.31 K/uL (0.00-0.02); LYMPH % 13.8 %; LYMPH ABS # 1.21 K/uL (1.2-3.4); MEAN CELL VOLUME 88.9 fL (80-100); MEAN CORPUSCULAR HEMOGLOBIN 28.4 pg (25-34); MEAN PLATELET VOLUME 9.2 fL (7.4-10.4); MONO % 8.4 %; MONO ABS # 0.73 K/uL (0.11-0.59); NEUT % 69.4 %; NEUT ABS # 6.06 K/uL (1.4-6.5); PLATELET COUNT 309 K/uL (130-400); RED CELL DISTRIBUTION WIDTH CV 13.7 % (11.5-14.5); RED CELL DISTRIBUTION WIDTH SD 44.4 fL (36.4-46.3); WHITE BLOOD COUNT 8.74 K/uL (4.8-10.8)
[2017-05-08 13:06] LABS: PTT PATIENT 35.9 SECONDS (21.0-31.0)
[2017-05-08 13:10] LABS: ALBUMIN 2.6 gm/dl (3.4-5.0); ALT/SGPT 25 U/L (12-78); BLOOD UREA NITROGEN 11 mg/dl (7-18); CALCIUM 8.6 mg/dl (8.5-10.1); CARBON DIOXIDE 30 mmol/L (21-32); CREATININE 0.82 mg/dl (0.60-1.40); GLUCOSE 76 mg/dl (70-99); POTASSIUM 3.9 mmol/L (3.5-5.1); SODIUM 140 mmol/L (136-145)
[2017-05-08 13:15] LABS: ALKALINE PHOSPHATASE 78 U/L (45-117); AST/SGOT 19 U/L (15-37); TOTAL PROTEIN 7.2 gm/dl (6.4-8.2)
--- NOTE | 2017-05-08 13:27 | DIAGNOSTIC IMAGING REPORT ---
L VENOUS DOPP LOWER EXT UNILAT CLINICAL HISTORY: swelling in LLE pain. Edema. TECHNIQUE: Venous Doppler COMPARISON STUDY: None FINDINGS: Normal study IMPRESSION: Normal study The above report was generated using voice recognition software. It may contain grammatical, syntax or spelling errors. Electronically signed by: Les Michael M.D. 05/08/2017 1:26 PM Dictated Date/Time: 05/08/2017 1:25 PM
[2017-05-08] MEDS ORDERED: VANCOMYCIN INJ 2,500 MG in SODIUM CHLORIDE 0.9% 500ML 500 ML IV STA (14:01)
[2017-05-08] MEDS ORDERED: CEFAZOLIN IV 2,000 MG in DEXTROSE 5% 50ML 50 ML IV SCH (14:15)
[2017-05-08] MEDS ORDERED: VANCOMYCIN CONSULT ACTIVE PRN ×2 (14:15→15:15)
[2017-05-08] MEDS ORDERED: ACETAMINOPHEN 325 MG TAB PO PRN (15:15)
[2017-05-08] MEDS ORDERED: OPTIRAY 320 IV PRN (15:15)
[2017-05-08] MEDS ORDERED: POLYETHYLENE (MIRALAX) 17 GM PACK PO PRN (15:15)
[2017-05-08] MEDS ORDERED: ALBUTEROL HFA 8 GM INHALER INH PRN (15:15)
[2017-05-08] MEDS ORDERED: ALBUT/IPRATROP 3MG/0.5MG NEB 3 ML VIAL INH PRN (15:15)
[2017-05-08] MEDS ORDERED: MAGNESIUM HYDROXIDE SUSP 30 ML UDC PO PRN (15:15)
[2017-05-08] MEDS ORDERED: BISACODYL 10 MG SUPP PR PRN (15:15)
--- NOTE | 2017-05-08 15:47 | History and Physical ---
History & Physical Date & Time of Service: May 08, 2017 at 15:18 Chief Complaint: Leg Pain Primary Care Physician: Elie Riggs D.O. History of Present Illness Source: patient, family, parent, fdc Patient is a 41-year-old male with history of CP and MR with chronic left lower extremity pressure wound from his wheelchair, asthma, hypertension, chronic ? Systolic CHF, BPH with urinary retention, iron deficiency anemia, impulse control disorder, allergic rhinitis and a history of PE/DVT, who presents to the ER with a history of fever to 101.3 that occurred 5 days prior, followed by worsening left lower extremity cellulitis and wound. The patient resides at [facility] since June of last year when he was discharged from the hospital for a similar infection. The patient is assisted with history by his parents at the bedside given his intellectual disability. His mother thinks that he has a history of MRSA. He denies any headache, cough, shortness of breath, chest pain, abdominal pain, diarrhea or constipation. He does have a history of UTI and a UA was not collected at the time of admission yet. He had been on Keflex for 4-5 days but the erythema was worsening and he developed massive swelling of the left lower extremity. Venous Doppler was negative for DVT in the ER, and he is on chronic Xarelto therapy. He will be admitted for outpatient failure of left lower extremity cellulitis. 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 Asthma BPH Impulse control disorder PSH: Right fused ankle Family History Father-CAD, COPD, diabetes mellitus type 2, Mother-CHF Siblings-healthy Social History Smoking Status: Never Smoker Smokeless Tobacco Use: No Alcohol Use: none Drug Use: none Marital Status: single Housing status: fdc Occupational Status: unemployed, disabled Allergies Coded Allergies: No Known Allergies (Unverified , 05/08/17) Home Medications Scheduled Ascorbic Acid (Ascorbic Acid), 500 MG PO QAM Carbamazepine (Tegretol), 200 MG PO HS Fluticasone Prop/Salmeterol (Advair Diskus 250/50 60 Dose), 1 PUFF INH BID Home O2 Therapy (Oxygen), 2 LITERS NA PRN Metoprolol Tartrate (Lopressor) (Lopressor), 25 MG PO BID Miconazole Nitrate (Desenex Shake Powder), 1 APPLN TOP BID Oseltamivir Phosphate (Tamiflu), 75 MG PO DAILY Povidone-Iodine (Betadine), 1 APPLN TOP BID Rivaroxaban (Xarelto), 1 TAB PO DAILYBD Sodium Phosphate/Biphosphate (Fleet Enema), 1 EA MD DAILY Tamsulosin Hcl (Flomax), 0.8 MG PO HS Thiamine Hcl (Vitamin B-1), 100 MG PO HS Scheduled PRN Acetaminophen Tab (Tylenol), 650 MG PO Q4 PRN for Pain Albuterol Hfa (Ventolin Hfa), 2 PUFFS INH Q4 PRN for SOB/Wheezing Bisacodyl (Dulcolax), 1 SUPP MD UD PRN for Constipation Ipratropium-Albuterol (Duoneb), 1 TREATMENT INH Q4H PRN for Wheezing Magnesium Hydroxide (Milk Of Magnesia), 30 ML PO UD PRN for NO BM X 4 Sodium Phosphate/Biphosphate (Fleet Enema), 1 EA MD UD PRN for Constipation Review of Systems Constitutional: + fever (5 days ago as per fdc records) Eyes: No problem reported ENT: No problem reported Respiratory: No problem reported Cardiovascular: No problem reported Abdomen: No problem reported Musculoskeletal: + problem reported (Left lower extremity pain) Genitourinary - Male: No problem reported Neurologic: + weakness (Chronic) Psychiatric: No problem reported Endocrine: No problem reported Hematologic / Lymphatic: No problem reported Integumentary: No problem reported Allergic / Immunologic: No problem reported Physical Exam Vital Signs Date Time Temp Pulse Resp B/P (MAP) Pulse Ox O2 Delivery O2 Flow Rate FiO2 05/08/17 13:38 84 99/68 92 Room Air 05/08/17 12:10 92 Room Air 05/08/17 12:02 78 05/08/17 11:14 36.6 85 110/77 92 General Appearance: no apparent distress, + obese (Lying flat in bed, very pleasant) Head: normocephalic, atraumatic Eyes: normal inspection, PERRL, EOMI, sclerae normal ENT: hearing grossly normal, + pertinent finding (Dry mucous membranes) Neck: trachea midline Respiratory/Chest: lungs clear, normal breath sounds, no respiratory distress, no accessory muscle use Cardiovascular: regular rate, rhythm, no JVD (But difficult assessment due to obese neck), no murmur, + pertinent finding (1+ pitting edema in the right leg to the knee, entire left lower extremity with 3-4+ pitting edema worse in the leg) Abdomen/GI: normal bowel sounds, non tender, soft, + hernia (Ventral hernia that is nontender and reducible) Back: normal inspection Extremities/Musculoskelatal: + swelling (As above), + pertinent finding (Good cap refill in the toes, 2+ dorsalis pedis pulses bilaterally) Neurologic/Psych: alert, normal mood/affect Skin: warm/dry, + pertinent finding (Left leg with circumferential erythema from the knee to the ankle with scabbed over wounds without drainage the anterior tibia, left posterior thigh with large 15 cm circular region of erythema with open superficial wounds with some bloody drainage with palpable fluctuance which seems to be a hematoma) Diagnostics Laboratory Results Results Past 24 Hours Test 05/08/17 12:25 Range/Units White Blood Count 8.74 4.8-10.8 K/uL Red Blood Count 4.68 4.7-6.1 M/uL Hemoglobin 13.3 14.0-18.0 g/dL Hematocrit 41.6 42-52 % Mean Corpuscular Volume 88.9 80-100 fL Mean Corpuscular Hemoglobin 28.4 25-34 pg Mean Corpuscular Hemoglobin Concent 32.0 32-36 g/dl Platelet Count 309 130-400 K/uL Mean Platelet Volume 9.2 7.4-10.4 fL Neutrophils (%) (Auto) 69.4 % Lymphocytes (%) (Auto) 13.8 % Monocytes (%) (Auto) 8.4 % Eosinophils (%) (Auto) 4.3 % Basophils (%) (Auto) 0.6 % Neutrophils # (Auto) 6.06 1.4-6.5 K/uL Lymphocytes # (Auto) 1.21 1.2-3.4 K/uL Monocytes # (Auto) 0.73 0.11-0.59 K/uL Eosinophils # (Auto) 0.38 0-0.5 K/uL Basophils # (Auto) 0.05 0-0.2 K/uL RDW Standard Deviation 44.4 36.4-46.3 fL RDW Coefficient of Variation 13.7 11.5-14.5 % Immature Granulocyte % (Auto) 3.5 % Immature Granulocyte # (Auto) 0.31 0.00-0.02 K/uL Prothrombin Time 11.0 9.0-12.0 SECONDS Prothromb Time International Ratio 1.0 0.9-1.1 Activated Partial Thromboplast Time 35.9 21.0-31.0 SECONDS Partial Thromboplastin Ratio 1.4 Sodium Level 140 136-145 mmol/L Potassium Level 3.9 3.5-5.1 mmol/L Chloride Level 100 98-107 mmol/L Carbon Dioxide Level 30 21-32 mmol/L Anion Gap 10.0 3-11 mmol/L Blood Urea Nitrogen 11 7-18 mg/dl Creatinine 0.82 0.60-1.40 mg/dl Est Creatinine Clear Calc Drug Dose 146.0 ml/min Estimated GFR () 126.4 Estimated GFR (Non- 109.1 BUN/Creatinine Ratio 13.1 10-20 Random Glucose 76 70-99 mg/dl Calcium Level 8.6 8.5-10.1 mg/dl Total Bilirubin 0.4 0.2-1 mg/dl Aspartate Amino Transf (AST/SGOT) 19 15-37 U/L Alanine Aminotransferase (ALT/SGPT) 25 12-78 U/L Alkaline Phosphatase 78 45-117 U/L Troponin I < 0.015 0-0.045 ng/ml Pro-B-Type Natriuretic Peptide 131 0-450 pg/ml Total Protein 7.2 6.4-8.2 gm/dl Albumin 2.6 3.4-5.0 gm/dl Globulin 4.6 2.5-4.0 gm/dl Albumin/Globulin Ratio 0.6 0.9-2 Microbiology Results 05/08/17 Blood Culture, Ordered Pending 05/08/17 Blood Culture, Ordered Pending 05/08/17 MRSA DNA Surveillance Screen, Hyun Batch Pending 05/08/17 Gram Stain, Hyun Batch Pending 05/08/17 Wound Culture, Hyun Batch Pending Diagnostic Radiology Chest x-ray with chronically elevated right hemidiaphragm, otherwise no acute disease-images personally reviewed by me Left lower extremity venous Doppler negative for DVT EKG Normal sinus rhythm with normal rate, nonspecific T-wave inversion in lead V2 Impression Assessment and Plan Patient is a 41-year-old male with history of CP and MR with chronic left lower extremity pressure wound from his wheelchair, asthma, hypertension, chronic ? Systolic CHF, BPH with urinary retention, iron deficiency anemia, impulse control disorder, allergic rhinitis and a history of PE/DVT, who presents to the ER with a history of fever to 101.3 that occurred 5 days prior, followed by worsening left lower extremity cellulitis and wound. The patient resides at [facility] since June of last year when he was discharged from the hospital for a similar infection. The patient is assisted with history by his parents at the bedside given his intellectual disability. He denies any headache, cough, shortness of breath, chest pain, abdominal pain, diarrhea or constipation. He does have a history of UTI and a UA was not collected at the time of admission yet. He had been on Keflex for 4-5 days but the erythema was worsening and he developed massive swelling of the left lower extremity. Venous Doppler was negative for DVT in the ER, and he is on chronic Xarelto therapy. He will be admitted for outpatient failure of left lower extremity cellulitis. Left lower extremity cellulitis and wound/fever-failed outpatient therapy with Keflex 4 days. Had a fever 5 days prior. Is on prophylactic Tamiflu presumably due to flu outbreak at [facility]. The patient has no flulike symptoms whatsoever and no other signs or symptoms of infection. He is not septic at this time. -Admit to medical floor -Begin IV Rocephin and vancomycin -Collect wound culture if possible, check MRSA nasal swab -Check CT left lower extremity to assess for abscess formation-currently palpable fluid seems to be a hematoma and not abscess -Consider surgery consultation for incision and drainage if anything significant on CT -Elevate the leg above the heart is much as possible -Wound care consult -Acetaminophen as needed for pain Asthma-stable -Supplemental O2 as needed -Continue home bronchodilators and inhaler BPH-stable -Check UA and culture as indicated given history of UTI -Continue Flomax Hypertension/? Chronic systolic CHF-stable at this time, is not on any medications for CHF, is listed as a diagnosis in his [facility]dc records but parents are unaware of this diagnosis. -Continue metoprolol from home -Monitor for evidence of acute CHF CP/MR-stable -Supportive care History of PE/DVT-again, parents unaware of this diagnosis and say he is on blood thinners due to sedentary status, fdc records list history of PE/ DVT -Nonetheless, continue Xarelto 20 mg daily Impulse control disorder-stable -Continue Tegretol Prophylaxis-Xarelto Disposition-will need eventual placement back in SNF, potentially with IV antibiotics but will be determined by clinical course Full code Level of Care Med/Surg Resuscitation Status FULL RESUSCITATION VTE Prophylaxis VTE Risk Assessment Done? Y/N: Yes Risk Level: Moderate Given or contraindicated: Other Anticoagulation (Xarelto) Social Service Consult Lives in Residential Additional Copies To Elie Riggs D.O.
--- NOTE | 2017-05-08 16:23 | EMERGENCY ROOM VISIT NOTE ---
History Report prepared by Brody: Obdulio Horn Under the Supervision of: Dr. Feroz Ellison D.O. First contact with patient: 11:52 Chief Complaint: SWELLING TO EXTREMITY Stated Complaint: LEG PAIN History of Present Illness The patient is a 41 year old male who presents to the Emergency Room with complaints of worsening left leg swelling that began about 1 week ago. The patient has a past medical history of cerebral palsy and MR and is bound to a wheelchair. He is currently a resident of [facility]. Over this past week, staff at his intermediate and his parents have noticed that his left leg has been increasing in size. He was placed on Keflex 7 days ago and has been taking it as prescribed. Pt denies headache, change in vision, fevers, chest pain, shortness of breath, nausea, vomiting, diarrhea, pain with urination , leg pain, and melena. His parents state that he is currently at his baseline mental status, but he does not like being in emergency rooms. He is currently taking Xarelto. Source of History: patient, parent Onset: 1 week ago Position: leg (left) Symptom Intensity: moderate Quality: other (Swelling) Timing: worsening Associated Symptoms: No fevers, No headache, No chest pain, No SOB, No nausea, No vomiting, No diarrhea, No urinary symptoms Note: He denies any leg pain. Review of Systems See HPI for pertinent positives & negatives. A total of 10 systems reviewed and were otherwise negative. Past Medical & Surgical Medical Problems: (1) Bilateral lower leg cellulitis (2) C. difficile colitis (3) Cellulitis (4) Cellulitis of left lower extremity (5) Cerebral palsy (6) UTI (urinary tract infection) Family History Patient reports no known family medical history. Social History Smoking Status: Never Smoker Smokeless Tobacco Use: No Alcohol Use: none Drug Use: none Housing Status: intermediate Current/Historical Medications Scheduled Ascorbic Acid (Ascorbic Acid), 500 MG PO QAM Carbamazepine (Tegretol), 200 MG PO HS Fluticasone Prop/Salmeterol (Advair Diskus 250/50 60 Dose), 1 PUFF INH BID Home O2 Therapy (Oxygen), 2 LITERS NA PRN Metoprolol Tartrate (Lopressor) (Lopressor), 25 MG PO BID Miconazole Nitrate (Desenex Shake Powder), 1 APPLN TOP BID Oseltamivir Phosphate (Tamiflu), 75 MG PO DAILY Povidone-Iodine (Betadine), 1 APPLN TOP BID Rivaroxaban (Xarelto), 1 TAB PO DAILYBD Sodium Phosphate/Biphosphate (Fleet Enema), 1 EA AZ DAILY Tamsulosin Hcl (Flomax), 0.8 MG PO HS Thiamine Hcl (Vitamin B-1), 100 MG PO HS Scheduled PRN Acetaminophen Tab (Tylenol), 650 MG PO Q4 PRN for Pain Albuterol Hfa (Ventolin Hfa), 2 PUFFS INH Q4 PRN for SOB/Wheezing Bisacodyl (Dulcolax), 1 SUPP AZ UD PRN for Constipation Ipratropium-Albuterol (Duoneb), 1 TREATMENT INH Q4H PRN for Wheezing Magnesium Hydroxide (Milk Of Magnesia), 30 ML PO UD PRN for NO BM X 4 Sodium Phosphate/Biphosphate (Fleet Enema), 1 EA AZ UD PRN for Constipation Durable Medical Equipment Adhesive Bandages (Adhesive Bandages Foam), PATCH TOP Q3D Allergies Coded Allergies: No Known Allergies (Unverified , 05/08/17) Physical Exam Vital Signs Date Time Temp Pulse Resp B/P (MAP) Pulse Ox O2 Delivery O2 Flow Rate FiO2 05/08/17 16:11 98 93 05/08/17 15:22 85 130/81 95 Room Air 05/08/17 13:38 84 99/68 92 Room Air 05/08/17 12:10 92 Room Air 05/08/17 12:02 78 05/08/17 11:14 36.6 85 110/77 92 Physical Exam GENERAL: Sitting up in bed, alert, disheveled appearing, well nourished, no distress, non-toxic EYE EXAM: normal conjunctiva. OROPHARYNX: no exudate, no erythema, lips, buccal mucosa, and tongue normal and mucous membranes are moist NECK: supple, no nuchal rigidity, no adenopathy, non-tender, no JVD LUNGS: Clear to auscultation. Normal chest wall mechanics HEART: no murmurs, S1 normal and S2 normal ABDOMEN: abdomen soft, non-tender, normo-active bowel sounds, supraumbilical hernia that is nontender and reducible, no rebound or guarding. BACK: Back is symmetrical on inspection and there is no deformity, no midline tenderness, no CVA tenderness. SKIN: no rashes and no bruising UPPER EXTREMITIES: upper extremities are grossly normal. LOWER EXTREMITIES: Left lower extremity is larger than right. There is circumferential erythema to the left calf tracking posteriorly up to the buttocks. No drainage. The overlying skin is peeling. DP's 2/4 bilaterally. Feet are held in plantar flexion/internal rotation. NEURO EXAM: Awake and alert. Following commands. Intermittently answering questions. No focal deficits to the upper extremities. Mental delayed. Medical Decision & Procedures ER Provider Diagnostic Interpretation: Radiology results as stated below per my review and the radiologist's interpretation: CHEST ONE VIEW PORTABLE CLINICAL HISTORY: EVALUATE RESPIRATORY DISTRESS.DYSPNEA COMPARISON STUDY: 06/27/2016 FINDINGS: Chronic elevation right hemidiaphragm. Minimal chronic basilar parenchymal marking prominence. No superimposed infiltrate. Costophrenic angles are sharp. IMPRESSION: Chronic change. No acute process. The above report was generated using voice recognition software. It may contain grammatical, syntax or spelling errors. Electronically signed by: Les Michael M.D. 05/08/2017 12:18 PM Dictated Date/Time: 05/08/2017 12:17 PM L VENOUS DOPP LOWER EXT UNILAT CLINICAL HISTORY: swelling in LLE pain. Edema. TECHNIQUE: Venous Doppler COMPARISON STUDY: None FINDINGS: Normal study IMPRESSION: Normal study The above report was generated using voice recognition software. It may contain grammatical, syntax or spelling errors. Electronically signed by: eLs Michael M.D. 05/08/2017 1:26 PM Dictated Date/Time: 05/08/2017 1:25 PM Laboratory Results 05/08/17 12:25 Red Blood Count 4.68, Mean Corpuscular Volume 88.9, Mean Corpuscular Hemoglobin 28.4, Mean Corpuscular Hemoglobin Concent 32.0, Mean Platelet Volume 9.2, Neutrophils (%) (Auto) 69.4, Lymphocytes (%) (Auto) 13.8, Monocytes (%) (Auto) 8.4, Eosinophils (%) (Auto) 4.3, Basophils (%) (Auto) 0.6, Neutrophils # (Auto) 6.06, Lymphocytes # (Auto) 1.21, Monocytes # (Auto) 0.73, Eosinophils # (Auto) 0.38, Basophils # (Auto) 0.05 05/08/17 12:25 Test 05/08/17 12:25 05/08/17 15:20 White Blood Count 8.74 K/uL (4.8-10.8) Red Blood Count 4.68 M/uL (4.7-6.1) Hemoglobin 13.3 g/dL (14.0-18.0) Hematocrit 41.6 % (42-52) Mean Corpuscular Volume 88.9 fL (80-100) Mean Corpuscular Hemoglobin 28.4 pg (25-34) Mean Corpuscular Hemoglobin Concent 32.0 g/dl (32-36) Platelet Count 309 K/uL (130-400) Mean Platelet Volume 9.2 fL (7.4-10.4) Neutrophils (%) (Auto) 69.4 % Lymphocytes (%) (Auto) 13.8 % Monocytes (%) (Auto) 8.4 % Eosinophils (%) (Auto) 4.3 % Basophils (%) (Auto) 0.6 % Neutrophils # (Auto) 6.06 K/uL (1.4-6.5) Lymphocytes # (Auto) 1.21 K/uL (1.2-3.4) Monocytes # (Auto) 0.73 K/uL (0.11-0.59) Eosinophils # (Auto) 0.38 K/uL (0-0.5) Basophils # (Auto) 0.05 K/uL (0-0.2) RDW Standard Deviation 44.4 fL (36.4-46.3) RDW Coefficient of Variation 13.7 % (11.5-14.5) Immature Granulocyte % (Auto) 3.5 % Immature Granulocyte # (Auto) 0.31 K/uL (0.00-0.02) Prothrombin Time 11.0 SECONDS (9.0-12.0) Prothromb Time International Ratio 1.0 (0.9-1.1) Activated Partial Thromboplast Time 35.9 SECONDS (21.0-31.0) Partial Thromboplastin Ratio 1.4 Anion Gap 10.0 mmol/L (3-11) Est Creatinine Clear Calc Drug Dose 146.0 ml/min Estimated GFR () 126.4 Estimated GFR (Non- 109.1 BUN/Creatinine Ratio 13.1 (10-20) Calcium Level 8.6 mg/dl (8.5-10.1) Total Bilirubin 0.4 mg/dl (0.2-1) Aspartate Amino Transf (AST/SGOT) 19 U/L (15-37) Alanine Aminotransferase (ALT/SGPT) 25 U/L (12-78) Alkaline Phosphatase 78 U/L (45-117) Troponin I < 0.015 ng/ml (0-0.045) Pro-B-Type Natriuretic Peptide 131 pg/ml (0-450) Total Protein 7.2 gm/dl (6.4-8.2) Albumin 2.6 gm/dl (3.4-5.0) Globulin 4.6 gm/dl (2.5-4.0) Albumin/Globulin Ratio 0.6 (0.9-2) Laboratory results per my review. Medications Administered Medications (Trade) Dose Ordered Sig/Jennifer Route Start Time Stop Time Status Last Admin Dose Admin Vancomycin HCl 2500 mg/Sodium Chloride 550 ml @ 200 mls/hr ONE STAT IV 05/08/17 14:01 05/08/17 16:45 05/08/17 14:01 200 MLS/HR Cefazolin Sodium 2000 mg/Dextrose 65 ml @ 100 mls/hr ONE IV 05/08/17 14:15 05/18/17 14:14 05/08/17 15:16 100 MLS/HR ECG Indication: other (Leg swelling) Rate (beats per minute): 94 Rhythm: sinus rhythm, other (with sinus arrhythmia) Findings: other (Limited interpretation secondary to poor baseline) Change: Repeat ECG: Sinus rhythm 76, normal axis, no PVC Patient's electrocardiograms interpreted by me. ED Course ED COURSE: Vital signs were reviewed and showed normal vitals The patients medical record was reviewed The above diagnostic studies were performed and reviewed. ED treatments and interventions as stated above. 1152: The patient was evaluated in room C4. A complete history and physical examination was performed. 1319: The patient is at US at this time. I updated the patient's family. 1401: Ordered Vancomycin HCl 2500 mg/Sodium Chloride 550 ml @ 200 mls/hr IV 1406: Upon reevaluation, the patient is resting.I discussed my findings with the patient his family and they understand and agrees with the treatment plan. Based on the patients age, coexisting illnesses, exam and lab findings the decision to treat as an inpatient was made. The patient remained stable while under my care. The patient will be evaluated Dr. Burgess of [facility] for further management. 1415: Ordered Cefazolin Sodium 2000 mg/Dextrose 65 ml @ 100 mls/hr IV Medical Decision Differential diagnosis: Etiologies such as DVT, musculoskeletal, infection, joint effusion, trauma, lymphedema, idiopathic, CHF, as well as others were entertained. Patient is a 39-year-old male who presents to ER who is a history of MR and CP for swelling and erythematous left lower extremity. Includes 75% of the left lower extremity. CBC all BMP, LFTs, bilirubin and troponin were unremarkable. Coags were normal. Chest x-ray was unremarkable. Duplex of the left lower cavity was unremarkable. With his extensive cellulitis is given IV vancomycin. Discussed with internal medicine. Patient will be observed overnight for further workup and IV antibiotics for his cellulitis. He has been on outpatient Keflex with worsening of the cellulitis for the past several days. Medication Reconcilliation Current Medication List: was personally reviewed by me Blood Pressure Screening Patient's blood pressure: Normal blood pressure Blood pressure disposition: Did not require urgent referral Consults Time Called: 1400 Consulting Physician: Dr. Burgess - [facility] Returned Call: [phone] I reviewed the patient's case with them. They will evaluate the patient for further management. Impression Primary Impression: Cellulitis Scribe Attestation The scribe's documentation has been prepared under my direction and personally reviewed by me in its entirety. I confirm that the note above accurately reflects all work, treatment, procedures, and medical decision making performed by me. Departure Information Dispostion Being Evaluated By Hospitalist Referrals Elie Riggs D.O. (PCP) Patient Instructions My [facility] Problem Qualifiers Primary Impression: Cellulitis Site of cellulitis: extremity Site of cellulitis of extremity: lower extremity Laterality: left Qualified Codes: L03.116 - Cellulitis of left lower limb
[2017-05-08 17:10] VITALS: BP 111/77; PULSE 85; TEMP 36.6; Ht 160 cm; Wt 127.5 kg
[2017-05-08] MEDS ORDERED: PNEUMOCOCCAL POLYSACCHARIDES 25 MCG/0.5 ML VIAL/SYR IM. ONE (18:45)
[2017-05-08] MEDS ORDERED: PNEUMOCOCCAL ADMINISTRATION CHARGE ONE (18:45)
[2017-05-08] MEDS ORDERED: INFLUENZA ADMINISTRATION CHARGE ONE (18:45)
[2017-05-08] MEDS ORDERED: INFLUENZA VIRUS QUAD VACCINE 0.5 ML SYR IM. ONE (18:45)
[2017-05-08] MEDS: SODIUM CHLORIDE 0.9% 1000ML 1,000 ML IV SCH (19:04)
--- NOTE | 2017-05-08 19:25 | DIAGNOSTIC IMAGING REPORT ---
L LOWER EXTREMITY WITH CLINICAL HISTORY: LLE edema, wound and posible fluid collection posterior thigh edema. Pain. Abscess. TECHNIQUE: Transaxial acquisition with multi axial reformatted images COMPARISON STUDY: None FINDINGS: Findings of extensive subcutaneous soft tissue edematous change about the thigh and lower leg. This is considered moderate about the left thigh in a peripheral distribution. This primarily within the subcutaneous fat. There is posterior skin thickening as well as a focal wound of the posterior inferior thigh. There is no significant drainable abscess or collection. Fibrillation of the lower left leg shows more significant peripheral soft tissue edematous change. This is a progressively increased in prominence as scan progresses to the foot and ankle. At the foot and ankle there is a distinct soft tissue prominence over the dorsal aspect of the metatarsals and entire foot complex. Again, a drainable abscess or collection is not seen. There is a small peripheral rind of fluid medially posterior to the gastroc muscles but again this is not a drainable collection nor is a considered focal abscess. Osseous structures appear intact. There is no abnormal cortical defect or bony destructive process. IMPRESSION: 1. Diffuse peripheral subcutaneous cellulitis/edema of the left thigh. 2. This progresses in terms of severity as progression is made to the left foot 3. At the level of the foot and ankle, there is severe soft tissue edematous changes dorsally. 4. No evidence for a drainable abscess or collection. 5. No well-defined acute bony abnormality. The above report was generated using voice recognition software. It may contain grammatical, syntax or spelling errors. Electronically signed by: Les Michael M.D. 05/08/2017 7:24 PM Dictated Date/Time: 05/08/2017 7:17 PM
[2017-05-08] MEDS: METOPROLOL TARTRATE 25 MG TAB PO SCH (20:19)
[2017-05-08] MEDS: THIAMINE HCL 100 MG TAB PO SCH (20:19)
[2017-05-08] MEDS: TAMSULOSIN HCL 0.4 MG CAP PO SCH (20:19)
[2017-05-08] MEDS: MICONAZOLE NITRATE POWDER 43 GM EXT SCH (20:19)
[2017-05-08] MEDS: CARBAMAZEPINE 200 MG TAB PO SCH (20:19)
[2017-05-08] MEDS: FLUTICASONE/SALMETEROL 250/50 (ADVAIR) 14 PUFF/1 INHALER INH SCH (20:20)
[2017-05-08] MEDS: CEFTRIAXONE SOD INJ 1 GM in DEXTROSE 5% ADD-VANTAGE 50ML 50 ML IV SCH (20:29)
--- NOTE | 2017-05-08 22:36 | Pharmacy Progress Note ---
Pharmacy Antibiotic Consult Date of Service: May 08, 2017. Pharmacy Dosing Scope Pharmacy is consulted to initiate vancomycin IV dosing therapy, order appropriate labs and adjust drug dose/frequency. Subjective The patient is a 41 year old male admitted on May 08, 2017 at 15:11. Patient is a 41-year-old male with history of CP and MR with chronic left lower extremity pressure wound from his wheelchair. Pt on recent course of Keflex for 4-5 days with no improvement. Objective Height (Feet): 5 Height (Inches): 3.00 Weight (Kilograms): 131.000 Lab Results (24hrs): Test 05/08/17 12:25 05/08/17 19:20 White Blood Count 8.74 K/uL (4.8-10.8) Red Blood Count 4.68 M/uL (4.7-6.1) Hemoglobin 13.3 g/dL (14.0-18.0) Hematocrit 41.6 % (42-52) Mean Corpuscular Volume 88.9 fL (80-100) Mean Corpuscular Hemoglobin 28.4 pg (25-34) Mean Corpuscular Hemoglobin Concent 32.0 g/dl (32-36) Platelet Count 309 K/uL (130-400) Mean Platelet Volume 9.2 fL (7.4-10.4) Neutrophils (%) (Auto) 69.4 % Lymphocytes (%) (Auto) 13.8 % Monocytes (%) (Auto) 8.4 % Eosinophils (%) (Auto) 4.3 % Basophils (%) (Auto) 0.6 % Neutrophils # (Auto) 6.06 K/uL (1.4-6.5) Lymphocytes # (Auto) 1.21 K/uL (1.2-3.4) Monocytes # (Auto) 0.73 K/uL (0.11-0.59) Eosinophils # (Auto) 0.38 K/uL (0-0.5) Basophils # (Auto) 0.05 K/uL (0-0.2) RDW Standard Deviation 44.4 fL (36.4-46.3) RDW Coefficient of Variation 13.7 % (11.5-14.5) Immature Granulocyte % (Auto) 3.5 % Immature Granulocyte # (Auto) 0.31 K/uL (0.00-0.02) Prothrombin Time 11.0 SECONDS (9.0-12.0) Prothromb Time International Ratio 1.0 (0.9-1.1) Activated Partial Thromboplast Time 35.9 SECONDS (21.0-31.0) Partial Thromboplastin Ratio 1.4 Sodium Level 140 mmol/L (136-145) Potassium Level 3.9 mmol/L (3.5-5.1) Chloride Level 100 mmol/L (98-107) Carbon Dioxide Level 30 mmol/L (21-32) Anion Gap 10.0 mmol/L (3-11) Blood Urea Nitrogen 11 mg/dl (7-18) Creatinine 0.82 mg/dl (0.60-1.40) Est Creatinine Clear Calc Drug Dose 146.0 ml/min Estimated GFR () 126.4 Estimated GFR (Non- 109.1 BUN/Creatinine Ratio 13.1 (10-20) Random Glucose 76 mg/dl (70-99) Calcium Level 8.6 mg/dl (8.5-10.1) Total Bilirubin 0.4 mg/dl (0.2-1) Aspartate Amino Transf (AST/SGOT) 19 U/L (15-37) Alanine Aminotransferase (ALT/SGPT) 25 U/L (12-78) Alkaline Phosphatase 78 U/L (45-117) Troponin I < 0.015 ng/ml (0-0.045) Pro-B-Type Natriuretic Peptide 131 pg/ml (0-450) Total Protein 7.2 gm/dl (6.4-8.2) Albumin 2.6 gm/dl (3.4-5.0) Globulin 4.6 gm/dl (2.5-4.0) Albumin/Globulin Ratio 0.6 (0.9-2) Urine Color YELLOW Urine Appearance CLEAR (CLEAR) Urine pH 6.0 (4.5-7.5) Urine Specific [place] 1.033 (1.000-1.030) Urine Protein NEG (NEG) Urine Glucose (UA) NEG (NEG) Urine Ketones NEG (NEG) Urine Occult Blood 2+ (NEG) Urine Nitrite NEG (NEG) Urine Bilirubin NEG (NEG) Urine Urobilinogen NEG (NEG) Urine Leukocyte Esterase NEG (NEG) Urine WBC (Auto) 1-5 /hpf (0-5) Urine RBC (Auto) >30 /hpf (0-4) Urine Hyaline Casts (Auto) 0 /lpf (0-5) Urine Epithelial Cells (Auto) 0-5 /lpf (0-5) Urine Bacteria (Auto) NEG (NEG) Recent Pertinent Medications Rocephin 1gm q 24h Assessment & Plan Vancomycin: Loading dose: 2500 mg IV X 1 dose in ER (19mg/kg) then: 2000 mg IV every 12 hours. Pt with BMI of 49.5 kg/m2. Will watch closely to avoid accumulation in obese pt. Goal trough level estimate: between 15 - 20 mcg/mL. Peak and trough or random level has been ordered for: 05/09 @ 2330 (prior to midnight dose). Pharmacy will continue to follow and will adjust dose/frequency as necessary. Thank you
[2017-05-08] MEDS: VANCOMYCIN INJ 2,000 MG in SODIUM CHLORIDE 0.9% 500ML 500 ML IV SCH (23:44)
[2017-05-09] VITALS (7 sets, daily range): BP systolic 108–136; BP diastolic 67–84; PULSE 78–98; TEMP 36.4–36.9; O2SAT 90–96
[2017-05-09 06:06] LABS: BASO % 0.4 %; BASO ABS # 0.03 K/uL (0-0.2); EOS % 3.5 %; EOS ABS # 0.25 K/uL (0-0.5); HEMATOCRIT 38.2 % (42-52); HEMOGLOBIN 12.3 g/dL (14.0-18.0); LYMPH % 13.4 %; LYMPH ABS # 0.96 K/uL (1.2-3.4); MEAN CELL VOLUME 86.6 fL (80-100); MEAN CORPUSCULAR HEMOGLOBIN 27.9 pg (25-34); MEAN CORPUSCULAR HGB CONC 32.2 g/dl (32-36); MEAN PLATELET VOLUME 9.1 fL (7.4-10.4); MONO % 8.9 %; MONO ABS # 0.64 K/uL (0.11-0.59); PLATELET COUNT 308 K/uL (130-400); RED CELL DISTRIBUTION WIDTH CV 13.5 % (11.5-14.5); RED CELL DISTRIBUTION WIDTH SD 43.4 fL (36.4-46.3); WHITE BLOOD COUNT 7.18 K/uL (4.8-10.8)
[2017-05-09 06:45] LABS: CALCIUM 8.4 mg/dl (8.5-10.1); CREATININE 0.78 mg/dl (0.60-1.40); POTASSIUM 3.7 mmol/L (3.5-5.1)
[2017-05-09] MEDS: FLUTICASONE/SALMETEROL 250/50 (ADVAIR) 14 PUFF/1 INHALER INH SCH ×2 (08:28→20:24)
[2017-05-09] MEDS: OSELTAMIVIR PHOSPHATE 75 MG CAP PO SCH (08:28)
[2017-05-09] MEDS: ASCORBIC ACID 500 MG TAB PO SCH (08:28)
[2017-05-09] MEDS: METOPROLOL TARTRATE 25 MG TAB PO SCH ×2 (08:29→20:27)
[2017-05-09] MEDS: MICONAZOLE NITRATE POWDER 43 GM EXT SCH ×2 (08:29→20:24)
--- NOTE | 2017-05-09 08:33 | Clinical Documentation Query ---
CLINICAL DOCUMENTATION QUERY H&P notes this patient has a pressure ulcer from his wheelchair to left thigh. Providing staging better specifies severity of illness. In your clinical opinion is this patient being managed for: ( ) Stage 3 pressure ulcer of left posterior thigh ( ) Not Agree ( ) Other explanation of clinical findings (Please Explain) ( ) Unable to determine (Please Define) ( ) Need to Discuss The medical record reflects the following clinical findings, treatment, and risk factors. Clinical Indicators: H&P states, "left posterior thigh with large 15 cm circular region of erythema with open superficial wounds with some bloody drainage with palpable fluctuance which seems to be a hematoma" Treatment: Pressure ulcer precautions, WOCN consult Risk Factors: obesity, bed/wheelchair bound status Please clarify and document your clinical opinion in the progress notes and discharge summary. Terms such as "probable", "suspected", "likely", "questionable", "possible", or "still to be ruled out" are acceptable. IF IN AGREEMENT, YOU MUST DOCUMENT ABOVE DIAGNOSTIC STATEMENT IN DAILY PROGRESS NOTES AND DISCHARGE SUMMARY. This document is not part of the patient's record. Stage 1 Pressure Injury: Non-blanchable erythema of intact skin Intact skin with a localized area of non-blanchable erythema, which may appear differently in darkly pigmented skin. Presence of blanchable erythema or changes in sensation, temperature, or firmness may precede visual changes. Color changes do not include purple or maroon discoloration; these may indicate deep tissue pressure injury. Stage 2 Pressure Injury: Partial-thickness skin loss with exposed dermis Partial-thickness loss of skin with exposed dermis. The wound bed is viable, pink or red, moist, and may also present as an intact or ruptured serum-filled blister. Adipose (fat) is not visible and deeper tissues are not visible. Granulation tissue, slough and eschar are not present. These injuries commonly result from adverse microclimate and shear in the skin over the pelvis and shear in the heel. This stage should not be used to describe moisture associated skin damage (MASD) including incontinence associated dermatitis (IAD), intertriginous dermatitis (ITD), medical adhesive related skin injury (MARSI), or traumatic wounds (skin tears, michelle, abrasions). Stage 3 Pressure Injury: Full-thickness skin loss Full-thickness loss of skin, in which adipose (fat) is visible in the ulcer and granulation tissue and epibole (rolled wound edges) are often present. Slough and/or eschar may be visible. The depth of tissue damage varies by anatomical location; areas of significant adiposity can develop deep wounds. Undermining and tunneling may occur. Fascia, muscle, tendon, ligament, cartilage and/or bone are not exposed. If slough or eschar obscures the extent of tissue loss this is an Unstageable Pressure Injury. Stage 4 Pressure Injury: Full-thickness skin and tissue loss Full-thickness skin and tissue loss with exposed or directly palpable fascia, muscle, tendon, ligament, cartilage or bone in the ulcer. Slough and/or eschar may be visible. Epibole (rolled edges), undermining and/or tunneling often occur. Depth varies by anatomical location. If slough or eschar obscures the extent of tissue loss this is an Unstageable Pressure Injury. Thank You, Abiel Gee, MARCIAL [phone]
[2017-05-09] MEDS: SODIUM CHLORIDE 0.9% 1000ML 1,000 ML IV SCH ×2 (08:34→20:24)
[2017-05-09] MEDS: SOD PHOSPHATE/SOD BIPHOSPHATE ENEMA 132 ML BTL PR SCH (10:30)
[2017-05-09] MEDS: VANCOMYCIN INJ 2,000 MG in SODIUM CHLORIDE 0.9% 500ML 500 ML IV SCH (12:09)
[2017-05-09] MEDS: RIVAROXABAN 20 MG TAB PO SCH (16:36)
[2017-05-09] MEDS: CEFTRIAXONE SOD INJ 1 GM in DEXTROSE 5% ADD-VANTAGE 50ML 50 ML IV SCH (17:15)
[2017-05-09] MEDS: TAMSULOSIN HCL 0.4 MG CAP PO SCH (20:27)
[2017-05-09] MEDS: THIAMINE HCL 100 MG TAB PO SCH (20:27)
[2017-05-09] MEDS: CARBAMAZEPINE 200 MG TAB PO SCH (20:28)
[2017-05-09] MEDS ORDERED: VANCOMYCIN TROUGH ONE (23:30)
[2017-05-10] VITALS (7 sets, daily range): BP systolic 118–143; BP diastolic 78–87; PULSE 65–75; TEMP 36.6–37; O2SAT 90–98
[2017-05-10] MEDS: VANCOMYCIN INJ 2,000 MG in SODIUM CHLORIDE 0.9% 500ML 500 ML IV SCH ×2 (00:20→18:22)
[2017-05-10 06:32] LABS: CREATININE 0.86 mg/dl (0.60-1.40)
--- NOTE | 2017-05-10 07:34 | Progress Note ---
Subjective Date of Service: May 09, 2017. Subjective Pt evaluation today including: conversation w/ patient, physical exam, chart review, lab review, review of studies (CT leg, doppler of leg, etc), review of inpatient medication list Pain: denies leg pain on left PO Intake: normal per staff during my visit he was watching TV, offered no complaints no issues per staff no fever Review of Systems Constitutional: No fever Respiratory: No cough, No shortness of breath Cardiac: No chest pain Abdomen: No pain Objective Vital Signs Date Time Temp Pulse Resp B/P (MAP) Pulse Ox O2 Delivery O2 Flow Rate FiO2 05/09/17 16:29 Room Air 05/09/17 15:40 36.9 78 22 117/78 (91) 96 Room Air 05/09/17 13:19 36.7 82 16 126/84 (98) 94 Room Air 05/09/17 10:59 92 Room Air 05/09/17 08:42 36.4 81 16 136/84 (101) 92 Room Air 05/09/17 08:30 92 Room Air 05/09/17 00:10 36.9 98 20 108/67 (81) 90 Room Air 05/09/17 00:05 Room Air Physical Exam General Appearance: no apparent distress, + obese ENT: pharynx normal Neck: no JVD Respiratory/Chest: lungs clear, no respiratory distress, no accessory muscle use Cardiovascular: regular rate, rhythm, no gallop, no murmur Abdomen: normal bowel sounds, non tender, soft, no organomegaly, + hernia ( large, ventral/midline - reducible) Extremities: + pedal edema, + swelling (3-4+ left leg to the thigh; 1+ on right ) Neurologic/Psychiatric: alert, + pertinent finding (contracture deformity left leg; increased tone b/l LEs) Skin: + pertinent finding (cellulitis in a background of chronic stasis changes LLE from just below the left knee down to the dorsum of the foot; no open ulcer on the lower leg; left thigh, posterior - large areas of abrasion and denuded central region, staging of this ulcerated area is difficulty - probably stage 2; no abscess; minimal cellulitis of this posterior thigh region) Laboratory Results Last 24 Hours Test 05/09/17 05:28 White Blood Count 7.18 K/uL Red Blood Count 4.41 M/uL Hemoglobin 12.3 g/dL Hematocrit 38.2 % Mean Corpuscular Volume 86.6 fL Mean Corpuscular Hemoglobin 27.9 pg Mean Corpuscular Hemoglobin Concent 32.2 g/dl Platelet Count 308 K/uL Mean Platelet Volume 9.1 fL Neutrophils (%) (Auto) 71.0 % Lymphocytes (%) (Auto) 13.4 % Monocytes (%) (Auto) 8.9 % Eosinophils (%) (Auto) 3.5 % Basophils (%) (Auto) 0.4 % Neutrophils # (Auto) 5.10 K/uL Lymphocytes # (Auto) 0.96 K/uL Monocytes # (Auto) 0.64 K/uL Eosinophils # (Auto) 0.25 K/uL Basophils # (Auto) 0.03 K/uL RDW Standard Deviation 43.4 fL RDW Coefficient of Variation 13.5 % Immature Granulocyte % (Auto) 2.8 % Immature Granulocyte # (Auto) 0.20 K/uL Sodium Level 136 mmol/L Potassium Level 3.7 mmol/L Chloride Level 101 mmol/L Carbon Dioxide Level 30 mmol/L Anion Gap 5.0 mmol/L Blood Urea Nitrogen 9 mg/dl Creatinine 0.78 mg/dl Est Creatinine Clear Calc Drug Dose 148.5 ml/min Estimated GFR () 129.0 Estimated GFR (Non- 111.3 BUN/Creatinine Ratio 11.6 Random Glucose 97 mg/dl Calcium Level 8.4 mg/dl Magnesium Level 2.0 mg/dl Assessment and Plan 41yo male - 1. cellulitis, LLE, extensive, with posterior left thigh abrasions/ulceration/ tissue injury - continue current IV abx follow wound cx swab culture. wound care consult for left posterior thigh tissue issues. 2. DVT proph - xarelto. 3. ? of previous DVT/PE - xarelto. 4. intellectual d/o - at baseline. 5. cerebral palsy with paraplegia status from such - wheelchair dependent at assisted. 6. severe lymphedema left leg - could benefit from lymphedema treatments once infection is resolved. 7. asthma - stable, not in exacerbation. 8. impulse control disorder - tegretol. 9. BPH - velásquez. 10. FEN - continue IVF but probably stop in am. Diet as tolerated. BMP in am. Continued [facility] stay due to: multiple IV medications needed Discharge planning: other (assisted)
[2017-05-10] MEDS: SOD PHOSPHATE/SOD BIPHOSPHATE ENEMA 132 ML BTL PR SCH (08:00)
[2017-05-10] MEDS: MICONAZOLE NITRATE POWDER 43 GM EXT SCH ×2 (09:36→20:43)
[2017-05-10] MEDS: METOPROLOL TARTRATE 25 MG TAB PO SCH ×2 (09:37→20:44)
[2017-05-10] MEDS: OSELTAMIVIR PHOSPHATE 75 MG CAP PO SCH (09:37)
[2017-05-10] MEDS: ASCORBIC ACID 500 MG TAB PO SCH (09:37)
[2017-05-10] MEDS: FLUTICASONE/SALMETEROL 250/50 (ADVAIR) 14 PUFF/1 INHALER INH SCH ×2 (09:37→20:43)
[2017-05-10] MEDS: LEVOFLOXACIN / D5W 500 MG in PREMIXED IN D5W 100 ML IV SCH (09:43)
--- NOTE | 2017-05-10 16:29 | Pharmacy Progress Note ---
Pharmacy Antibiotic Prog Note Date of Service May 10, 2017. Subjective The patient is currently receiving vancomycin 2000 mg IV every 12 hours. The patient is currently on day # 3 of 10 vancomycin IV therapy for LLE cellulitis. Objective Height (Feet): 5 Height (Inches): 3.00 Weight (Kilograms): 127.300 Levels: Item Value Date Time Vancomycin Level Trough 28.4 mcg/ml 05/09/17 2329 Previous dose hung 05/09 @ 1209. Subsequent dose hung 05/10 @0020 but stopped after about 200 ml. infused. Lab Results (24hrs): Test 05/09/17 23:29 05/10/17 05:35 Vancomycin Level Trough 28.4 mcg/ml (SEE COMMENT) Creatinine 0.86 mg/dl (0.60-1.40) Est Creatinine Clear Calc Drug Dose 134.7 ml/min Estimated GFR () 124.0 Estimated GFR (Non- 107.0 Micro Results: 05/08 blood x2 NGTD 05/08 wound left leg Pseud. aeruginosa, sens to all abx tested, Recent Pertinent Medications Item Value Date Time Vancomycin HCl 540 ml @ 200 mls/hr 05/10/17 1800 2000 mg/Sodium Q16H/IV Chloride Levofloxacin 500 100 ml @ 100 mls/hr 05/10/17 0800 mg/Prmx DAILY@0800/IV 05/10/17 0943 Oseltamivir 75 mg 05/09/17 0800 Phosphate DAILY/PO 05/10/17 0937 (Tamiflu Cap) Vancomycin HCl 540 ml @ 200 mls/hr 05/09/17 0000 2000 mg/Sodium Q12H/IV 05/10/17 0020 Chloride Ceftriaxone 50 ml @ 100 mls/hr 05/08/17 1800 Sodium 1 gm/ DAILY@1800/IV 05/09/17 1715 Dextrose Assessment & Plan This drug level is: Supratherapeutic. Remainder of dose held,will restart with longer dosing interval. Change to vancomycin 2000 mg IV every 16 hours. Goal trough level estimate: between 15-20 mcg/mL. Trough has been ordered for: 05/12/17 before 0200 dose. Pharmacy will continue to follow and will adjust dose/frequency as necessary. Thank you
[2017-05-10] MEDS: RIVAROXABAN 20 MG TAB PO SCH (16:46)
--- NOTE | 2017-05-10 19:20 | Progress Note ---
Subjective Date of Service: May 10, 2017. Subjective Pt evaluation today including: conversation w/ patient, physical exam, chart review, lab review, review of studies (wound culture results w/ pseudomonas), review of inpatient medication list Pain: denies any leg pain PO Intake: normal per staff Voiding: velásquez catheter in place patient watching TV and offered no complaints during the visit he asks if he can go home tomorrow staff report no issues seen by wound care - optifoams applied to posterior left thigh Review of Systems Constitutional: No fever, No chills Respiratory: No shortness of breath Cardiac: No chest pain Abdomen: No pain Objective Vital Signs Date Time Temp Pulse Resp B/P (MAP) Pulse Ox O2 Delivery O2 Flow Rate FiO2 05/10/17 17:06 36.9 71 14 139/87 (104) 93 Room Air 05/10/17 16:53 36.9 71 14 139/87 (104) 93 Room Air 05/10/17 15:10 Room Air 05/10/17 08:30 Room Air 05/10/17 07:53 36.6 75 14 126/83 (97) 93 Room Air 05/10/17 01:16 36.7 75 20 143/78 (99) 90 Room Air 05/10/17 00:05 Room Air 05/09/17 20:05 92 Room Air Physical Exam General Appearance: no apparent distress, + obese ENT: pharynx normal Neck: no JVD Respiratory/Chest: lungs clear, no respiratory distress, no accessory muscle use Cardiovascular: regular rate, rhythm, no gallop, no murmur Abdomen: normal bowel sounds, non tender, soft, no organomegaly, + hernia ( large ventral hernia, midline, reducible ) Extremities: + swelling (1+ right leg - unchanged; 3-4+ on left - slightly improved) Neurologic/Psychiatric: alert Skin: + pertinent finding (cellulitis, LLE, markedly improved; erythema retreating from superior demarkation line and erythema is less intense; scaly skin mid mena that wraps around to the posterior calf; no ulceration; left posterior thigh - not fully examined - less erythema noted ) Laboratory Results Last 24 Hours Test 05/09/17 23:29 05/10/17 05:35 Vancomycin Level Trough 28.4 mcg/ml Creatinine 0.86 mg/dl Est Creatinine Clear Calc Drug Dose 134.7 ml/min Estimated GFR () 124.0 Estimated GFR (Non- 107.0 Assessment and Plan 41yo male - 1. cellulitis, LLE, extensive, with posterior left thigh abrasions/ulceration/ tissue injury - improved. Wound cx with pseudomonas - I am uncertain if this is the primary pathogen as his cellulitis was IMPROVING prior to starting levaquin today. Added levaquin 500mg IV daily + rocephin 1 gm daily. wound care consult for left posterior thigh abrasions appreciated. 2. DVT proph - xarelto. 3. ? of previous DVT/PE - xarelto. 4. intellectual d/o - at baseline. 5. cerebral palsy with paraplegia status from such - wheelchair dependent at halfway. 6. severe lymphedema left leg - could benefit from lymphedema treatments once infection is resolved. 7. asthma - stable, not in exacerbation. Cont advair, etc. 8. impulse control disorder - tegretol. Check level in am. 9. BPH - velásquez. Flomax. 10. FEN - stop IVF; creatinine stable; eating well. 11. h/o CHF? - no signs of such on examination. 12. recent flu exposure - continue tamiflu 75mg once daily for prophylaxis. 13. hematuria on u/a - could have kidney stone, other urinary tract issue. Outpatient f/u recommended. doing much better suspect needs 1-2 more days of IV antibiotics but improving nicely Continued [facility] stay due to: multiple IV medications needed Discharge planning: other (halfway)
[2017-05-10] MEDS: TAMSULOSIN HCL 0.4 MG CAP PO SCH (20:44)
[2017-05-10] MEDS: CARBAMAZEPINE 200 MG TAB PO SCH (20:45)
[2017-05-10] MEDS: THIAMINE HCL 100 MG TAB PO SCH (20:45)
[2017-05-11] MEDS: SOD PHOSPHATE/SOD BIPHOSPHATE ENEMA 132 ML BTL PR SCH (08:00)
[2017-05-11] MEDS: FLUTICASONE/SALMETEROL 250/50 (ADVAIR) 14 PUFF/1 INHALER INH SCH ×2 (08:03→19:49)
[2017-05-11] MEDS: MICONAZOLE NITRATE POWDER 43 GM EXT SCH ×2 (08:03→19:48)
[2017-05-11] MEDS: LEVOFLOXACIN / D5W 500 MG in PREMIXED IN D5W 100 ML IV SCH (08:03)
[2017-05-11] MEDS: OSELTAMIVIR PHOSPHATE 75 MG CAP PO SCH (08:04)
[2017-05-11] MEDS: ASCORBIC ACID 500 MG TAB PO SCH (08:04)
[2017-05-11 08:20] VITALS: BP 124/72; PULSE 69; TEMP 36.5; O2SAT 96
[2017-05-11 08:30] LABS: CALCIUM 8.3 mg/dl (8.5-10.1); CREATININE 0.86 mg/dl (0.60-1.40); POTASSIUM 3.6 mmol/L (3.5-5.1)
[2017-05-11] MEDS: METOPROLOL TARTRATE 25 MG TAB PO SCH ×2 (09:09→19:51)
[2017-05-11] MEDS: LACTOBACILLUS ACIDOPHILUS (FLORANEX) TAB PO SCH ×3 (09:10→16:48)
[2017-05-11] MEDS ORDERED: LIDOCAINE/PRILOCAINE 2.5% EA CRM EXT ONE (10:15)
[2017-05-11] MEDS: VANCOMYCIN INJ 2,000 MG in SODIUM CHLORIDE 0.9% 500ML 500 ML IV SCH (13:03)
[2017-05-11 14:57] VITALS: BP 126/83; PULSE 60; TEMP 36.5; O2SAT 96
[2017-05-11] MEDS: RIVAROXABAN 20 MG TAB PO SCH (16:48)
--- NOTE | 2017-05-11 19:33 | Progress Note ---
Subjective Date of Service: May 11, 2017. Subjective Pt evaluation today including: conversation w/ patient, physical exam, chart review, lab review Pain: no leg pain PO Intake: normal Voiding: velásquez catheter in place patient anxious to go home - asked twice during the visit "can I go home?" denied ANY complaints no issues per staff Review of Systems Constitutional: No fever Respiratory: No shortness of breath Cardiac: No chest pain Abdomen: No pain, No diarrhea Objective Vital Signs Date Time Temp Pulse Resp B/P (MAP) Pulse Ox O2 Delivery O2 Flow Rate FiO2 05/11/17 16:26 Room Air 05/11/17 14:57 36.5 60 18 126/83 (97) 96 05/11/17 08:32 Room Air 05/11/17 08:20 36.5 69 18 124/72 (89) 96 Room Air 05/11/17 08:15 Room Air 05/11/17 01:15 Room Air 05/10/17 23:58 37.0 65 18 118/78 (91) 98 Room Air 05/10/17 20:46 72 120/84 (96) Physical Exam General Appearance: no apparent distress, + obese ENT: pharynx normal Neck: no JVD Respiratory/Chest: lungs clear, no respiratory distress, no accessory muscle use Cardiovascular: regular rate, rhythm, no gallop, no murmur Abdomen: normal bowel sounds, non tender, soft, no organomegaly, + hernia ( large midline ventral hernia - reducible ) Extremities: + pedal edema (<1+ on right; 3+ on left (slightly improved)) Neurologic/Psychiatric: alert Skin: + pertinent finding (cellulitis, left mena - improved; posterior lower left leg shows ongoing erythema however; dry skin on mena; left posterior thigh - multiple superficial abrasions - no change; no associated cellulitis in this region) Laboratory Results Last 24 Hours Test 05/11/17 07:39 Sodium Level 140 mmol/L Potassium Level 3.6 mmol/L Chloride Level 103 mmol/L Carbon Dioxide Level 30 mmol/L Anion Gap 7.0 mmol/L Blood Urea Nitrogen 7 mg/dl Creatinine 0.86 mg/dl Est Creatinine Clear Calc Drug Dose 133.7 ml/min Estimated GFR () 124.0 Estimated GFR (Non- 107.0 BUN/Creatinine Ratio 7.9 Random Glucose 82 mg/dl Calcium Level 8.3 mg/dl Carbamazepine (Tegretol) Level 6.4 mcg/ml Assessment and Plan 41yo male - 1. cellulitis, LLE with posterior left thigh abrasions/ulceration/tissue injury - again improved. Suspect he needs 1 more day of IV abx therapy. Wound cx with pseudomonas - I am uncertain if this was the primary pathogen as his cellulitis was IMPROVING prior to starting levaquin. Cont IV vanco; can transition IV levaquin to PO. Hopefully can d/c back to [facility] tomorrow with levaquin + bactrim (or doxy) to cover MRSA. 2. DVT proph - xarelto. 3. ? of previous DVT/PE - xarelto. 4. intellectual d/o - at baseline. 5. cerebral palsy with paraplegia status from such - wheelchair dependent at [facility]. 6. severe lymphedema left leg - will recommend lymphedema treatments once infection is resolved. 7. asthma - stable, not in exacerbation. Cont advair, etc. 8. impulse control disorder - tegretol. Check level in am. 9. BPH - flomax; d/c velásquez in am. 10. FEN - eating well, BMP wnl. 11. h/o CHF? - no signs of such on examination. 12. recent flu exposure - continue tamiflu 75mg once daily for prophylaxis. 13. hematuria on u/a - could have kidney stone, other urinary tract issue. Outpatient f/u recommended. doing much better but will give him 1 more day of IV abx hopefully back to [facility] on 05[facility]12 Continued [facility] stay due to: multiple IV medications needed Discharge planning: other ([facility])
[2017-05-11] MEDS: CARBAMAZEPINE 200 MG TAB PO SCH (19:50)
[2017-05-11] MEDS: TAMSULOSIN HCL 0.4 MG CAP PO SCH (19:51)
[2017-05-11] MEDS: THIAMINE HCL 100 MG TAB PO SCH (19:52)
[2017-05-11 23:34] VITALS: BP 134/86; PULSE 65; TEMP 36.4; O2SAT 92
[2017-05-12] MEDS ORDERED: VANCOMYCIN TROUGH ONE ×2 (01:30→03:30)
[2017-05-12 03:45] LABS: CALCIUM 8.2 mg/dl (8.5-10.1); CREATININE 0.88 mg/dl (0.60-1.40); POTASSIUM 3.8 mmol/L (3.5-5.1)
[2017-05-12] MEDS: VANCOMYCIN INJ 2,000 MG in SODIUM CHLORIDE 0.9% 500ML 500 ML IV SCH (04:49)
[2017-05-12 07:20] VITALS: BP 139/97; PULSE 58; TEMP 37; O2SAT 94
[2017-05-12] MEDS: SOD PHOSPHATE/SOD BIPHOSPHATE ENEMA 132 ML BTL PR SCH (07:42)
[2017-05-12] MEDS: METOPROLOL TARTRATE 25 MG TAB PO SCH (07:44)
[2017-05-12] MEDS: ASCORBIC ACID 500 MG TAB PO SCH (07:44)
[2017-05-12] MEDS: LACTOBACILLUS ACIDOPHILUS (FLORANEX) TAB PO SCH ×2 (07:44→11:55)
[2017-05-12] MEDS: OSELTAMIVIR PHOSPHATE 75 MG CAP PO SCH (07:44)
[2017-05-12] MEDS: FLUTICASONE/SALMETEROL 250/50 (ADVAIR) 14 PUFF/1 INHALER INH SCH (07:45)
[2017-05-12] MEDS: MICONAZOLE NITRATE POWDER 43 GM EXT SCH (07:45)
--- NOTE | 2017-05-12 08:54 | Pharmacy Progress Note ---
Pharmacy Abx Dose Progress Nt Date of Service May 12, 2017. Pharmacy Dosing Scope The patient is currently receiving the following antimicrobial agents per Pharmacy consult: Vancomycin 2000 mg IV every 16 hours Objective Height (Feet): 5 Height (Inches): 3.00 Weight (Kilograms): 127.500 Vital Signs (Past 12Hrs) Vital Signs Past 12 Hours Date Time Temp Pulse Resp B/P (MAP) Pulse Ox O2 Delivery O2 Flow Rate FiO2 05/12/17 07:20 37.0 58 22 139/97 (111) 94 Room Air 05/12/17 00:15 Room Air 05/11/17 23:34 36.4 65 20 134/86 (102) 92 Room Air Micro Results Date/Time Source Procedure Growth Status 05/08/17 17:12 Blood Blood Culture - Preliminary NO GROWTH TO DATE. Resulted 05/08/17 17:01 Blood Blood Culture - Preliminary NO GROWTH TO DATE. Resulted 05/08/17 19:15 Nasal MRSA DNA Surveillance Screen - Final Specimen Negative for MRSA by DNA Probe Complete 05/08/17 19:15 Skin Leg Left Upper Gram Stain - Final Complete 05/08/17 19:15 Wound Culture - Final Pseudomonas Aeruginosa Complete Assessment & Plan Assessment 41 year old male receiving Vanc IV + Levaquin PO for treatment of LLE cellulitis. * Today is day # 5 of antimicrobial therapy * Wound culture grew dominguez-sensitive Pseudomonas. Per provider notes, Cristian was improving prior to addition of Levaquin for Pseudomonas, therefore there is concern that this may not be the primary pathogen. Plan Vancomycin IV * Trough level of 22.6 mcg/mL is slightly supratherapeutic. * Of note, Vanc was ordered q16h but was actually administered closer to q18h. I suspect the trough would have been less than 20 mcg/mL if it had been drawn after 18 hours. * Change to 2000 mg IV every 18 hours * Goal trough level for cellulitis (JAILENE unknown) : 15 to 20 mcg/mL * Further levels will be ordered for prolonged stay and/or change in clinical status. Possible d/c today. Levaquin 500 mg PO q24h- not pharmacy consult
[2017-05-12] MEDS ORDERED: LEVOFLOXACIN 500 MG TAB PO SCH (11:00)
[2017-05-12] MEDS ORDERED: OSEL75CA23 PO (13:52)
[2017-05-12] MEDS ORDERED: LCTX PO (13:52)
[2017-05-12] MEDS ORDERED: LVQ500 PO (13:52)
[2017-05-12] MEDS ORDERED: DOXY-300 PO (13:52)
[2017-05-12] MEDS ORDERED: [UNRECOGNIZED DRUG - CODE] TOP (13:56)
--- NOTE | 2017-05-12 14:10 | Discharge Instructions ---
Discharge Instructions Date of Service May 12, 2017. Admission Reason for Admission: Cellulitis Of Left Lower Extremity Discharge Discharge Diagnosis / Problem: cellulitis, left leg, improving Discharge Goals Goal(s): Learn about illness, Diagnostic testing, Therapeutic intervention Activity Recommendations Activity Level: OOB In Chair (or wheelchair), Assistance Required . Additional Information Patient informed of condition: Yes Advance Directives: No DNR: No Level of Care: Other (shelter) Communicable Disease: No Prognosis: Stable Oxygen at (LPM): 2 liters PRN Barnes Catheter: No Instructions / Follow-Up Instructions / Follow-Up From Dr. Banda: 1. take levaquin (levofloxacin) 500mg once daily for 10 days. Begin this on the morning of 05/13/2017. 2. take doxycycline 100mg twice daily for 10 days. Begin this the evening of , 05/12/2017. Doxycycline can occasionally cause heartburn. It can also cause a rash if Cristian goes out into the sun. Be sure to cover up well if Cristian spends time in the sun over the next 10 days. 3. take lactinex (probiotics) 4 chewable tablets THREE times a day for 10 days. Begin this TODAY. 4. Follow-up - * please see the [facility] in [place] within 1 week - they will be contacting you with an appointment date/time * please see Dr. Riggs on 05/16/2017, to recheck the left leg. We tried to set up an appointment for you but his office was closed today. 5. Recommend that when the infection is 100% resolved that you see a "lymphedema specialist" to fit you with a special stocking to wear on your leg to prevent fluid build-up. 6. Return to [facility] if - * you have fever over 100.5 degrees * the residual left leg redness is getting worse, spreading, etc. * you have lack of appetite, chills, or simply feel poorly * you develop pain in the left leg * any other concerns Current Hospital Diet Patient's current hospital diet: AHA Diet (Heart Healthy) Discharge Diet Recommended Diet: AHA Diet (Heart Healthy) Procedures Procedures Performed: 1. CAT scan of left leg - NO ABSCESS seen. 2. Ultrasound of left leg - NO DVT seen. Pending Studies Studies pending at discharge: no Physician Orders On Transfer Special Precautions: caution with left leg when Cristian is in his wheelchair; it appears that his left posterior thigh is rubbing against his wheelchair. recommend that he see his wheelchair service company to see if they can modify the wheelchair to avoid the rubbing against his skin. Dressing Changes: optifoam to left posterior thigh abrasion/ulcerated area DAILY and prn. apply moisturizer to the left leg mena/mid calf region (dry, scaly areas) twice daily and prn. Additional Orders: when not in his wheelchair please elevate the left leg as much as possible POLST Discussion: Not Applicable Medical Emergencies . Who to Call and When: Medical Emergencies: If at any time you feel your situation is an emergency, please call 911 immediately. . Non-Emergent Contact Non-Emergency issues call your: Primary Care Provider Call Non-Emergent contact if: temperature is above 100.5, your pain is not controlled, your pain is worsening, your pain is unusual for you, your pain is concerning you, wound has increased drainage, wound has increased redness, wound has increased pain, you have any medication questions . . "Provider Documentation" section prepared by Toño Banda. . Core Measure Problem Core Measures: None
[2017-05-12 15:24] VITALS: BP 139/97; PULSE 58; TEMP 37; O2SAT 94
[2017-05-13] MEDS ORDERED: VANCOMYCIN INJ 2,000 MG in SODIUM CHLORIDE 0.9% 500ML 500 ML IV SCH ×2
--- NOTE | 2017-05-13 12:23 | Discharge Summary ---
Discharge Summary Date of Service May 13, 2017. Discharge Summary Admission Date: May 08, 2017 at 15:11 Discharge Date: May 12, 2017 Discharge Disposition: nursing home facility ([facility]) Principal Diagnosis: LLE cellulitis - improving Problems/Secondary Diagnoses: 1. cerebral palsy 2. intellectual disability 3. 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 Hypertension 5. h/o iron deficiency anemia 6. 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 Asthma 8. BPH 9. Impulse control disorder 10. paraplegia due to cerebral palsy 11. possible lymphedema left lower extremity 12. well-healing ulcer, right foot (calcaneal region) 13. microscopic hematuria seen incidentally on u/a -- follow-up recommended Procedures: 1. CT of LLE - negative for abscess, phlegmon, or signs of necrotizing fascitis 2. LLE venous duplex study negative for DVT Consultations: wound care Medication Reconciliation New Medications: Doxycycline (Monohydrate) (Doxycycline) 100 Mg Cap 100 MG PO BID for 10 Days, #20 CAP 0 Refills start evening of 05/12/2017 Gauze Pads & Dressings (Optifoam) 1 Pad Pad PATCH TOP DAILY, #1 1 Refill apply to posterior left thigh abraded/ulcerated area daily and PRN Lactobacillus Acidophilus (Floranex) 1 Tab Tab 4 TAB PO TIDM for 10 Days, #120 TAB 0 Refills Levofloxacin (Levofloxacin) 500 Mg Tab 500 MG PO DAILY for 10 Days, #10 TAB 0 Refills start 05/13/2017 Changed Medications: Oseltamivir Phosphate (Tamiflu) 75 Mg Cap 75 MG PO DAILY for 5 Days, #5 CAP 0 Refills (Changed from: 10; Refills: ) start 05/13/17 Continued Medications: Acetaminophen Tab (Tylenol) 325 Mg Tab 650 MG PO Q4 PRN for Pain MDD 3GM/24HR, TAB Adhesive Bandages (Adhesive Bandages Foam) 1 Mis Mis PATCH TOP Q3D, #10 3X3 ALLEVYN ADHESIVE DSG TO RT HEEL ULCER Albuterol Hfa (Ventolin Hfa) 200 Puffs/77518 Mcg Aers 2 PUFFS INH Q4 PRN for SOB/Wheezing, #1 INHALER Ascorbic Acid (Ascorbic Acid) 500 Mg Tab 500 MG PO QAM, TAB Bisacodyl (Dulcolax) 10 Mg Sup 1 SUPP NC UD PRN for Constipation, SUP Carbamazepine (Tegretol) 200 Mg Tab 200 MG PO HS, TAB Fluticasone Prop/Salmeterol (Advair Diskus 250/50 60 Dose) 1 Ea Aerp 1 PUFF INH BID, INHALER Home O2 Therapy (Oxygen) Gas 2 LITERS NA PRN, BTL Ipratropium-Albuterol (Duoneb) 3 Ml Nebu 1 TREATMENT INH Q4H PRN for Wheezing, INHA Magnesium Hydroxide (Milk Of Magnesia) 30 Ml Susp 30 ML PO UD PRN for NO BM X 4, ML Metoprolol Tartrate (Lopressor) (Lopressor) 25 Mg Tab 25 MG PO BID, TAB Miconazole Nitrate (Desenex Shake Powder) 43 Appln/43 Gm Powd 1 APPLN TOP BID LAST DOSE DUE 7-3 SHIFT 04/08/17 Povidone-Iodine (Betadine) 10 % Doris 1 APPLN TOP BID APPLY COATING TO LEFT THIGH FOLLOWED BY ADAPTIC AND ABD DSGS BID Rivaroxaban (Xarelto) 20 Mg Tab 1 TAB PO DAILYBD for 90 Days, TAB 3 Refills 1 HOUR BEFORE EVENING MEAL Sodium Phosphate/Biphosphate (Fleet Enema) Miladis 1 EA NC UD PRN for Constipation, BTL Sodium Phosphate/Biphosphate (Fleet Enema) Miladis 1 EA NC DAILY, BTL Tamsulosin Hcl (Flomax) 0.4 Mg Cap 0.8 MG PO HS, CAP Thiamine Hcl (Vitamin B-1) 100 Mg Tab 100 MG PO HS, TAB Discharge Exam Physical Exam: General Appearance: no apparent distress, + obese ENT: pharynx normal Neck: no JVD Respiratory/Chest: lungs clear, normal breath sounds, no respiratory distress, no accessory muscle use Cardiovascular: regular rate, rhythm, no gallop, no murmur, normal peripheral pulses Abdomen / GI: normal bowel sounds, non tender, soft, no organomegaly, + hernia (midline ventral hernia - reducible ) Extremities: + pedal edema, + swelling (1+ edema on right, 3+ edema on left) Neurologic/Psychiatric: alert, + pertinent finding (contracture deformity of left ankle/foot; paraplegia ) Skin: + pertinent finding (well-healed heel ulcer, right foot, with overlying scab; left posterior thigh - centrally there is denuded/slightly ulcerated skin with no associated cellulitis; the skin is raw/irritated in this entire region; from about the mid-mena down to the left foot (dorsum) there is very faint, pink skin -- marked improvement from prior exams (skin was previously fire-engine red); the pink skin has regressed from the previously placed demarkation line; there is scaly, dry skin on the mid mena that wraps around to the calf; there is mild pink skin of the posterior LLE as well; first toe with mild erythema due to constant pressure on it from the 2nd toe but NO onychia seen of the great toe) Hospital Course HISTORY OF PRESENT ILLNESS: Patient is a 41-year-old male with history of CP and MR with chronic left lower extremity pressure wound from his wheelchair, asthma, hypertension, BPH, iron deficiency anemia, impulse control disorder, allergic rhinitis and a history of PE/DVT, who presents to the ER with a history of fever to 101.3 that occurred 5 days prior, followed by worsening left lower extremity cellulitis and wound of the posterior left thigh. The patient resides at [facility] since June of last year when he was discharged from the hospital for a similar infection. The patient is assisted with history by his parents at the bedside given his intellectual disability. His mother thinks that he has a history of MRSA. He denies any headache, cough, shortness of breath, chest pain, abdominal pain, diarrhea or constipation. He had been on Keflex for 4-5 days but the erythema was worsening and he developed massive swelling of the left lower extremity. Venous Doppler was negative for DVT in the ER, and he is on chronic Xarelto therapy. He will be admitted for outpatient failure of left lower extremity cellulitis. HOSPITAL COURSE: The patient was initially treated with IV rocephin & vancomycin for his LLE cellulitis (mid-mena down to the foot). There may have been a mild amount of superimposed infection of the left posterior thigh as well. A wound culture surface swab was obtained from the left posterior thigh at ER presentation which ultimately grew dominguez-sensitive pseudomonas. Even prior to adding pseudomonas coverage the left leg cellulitis was improving with the rocephin/vancomycin. This begs the question of whether the pseudomonas was an offending pathogen or simply a colonizer. [id number] levaquin was added for pseudomonas coverage during his stay. The patient's LLE cellulitis markedly improved as did the areas of irritation of the left posterior thigh. He was seen in consult by wound care who recommended optifoam dressings to the posterior left thigh. Throughout his stay he remained afebrile with normal WBC count on CBC. At discharge the following were recommended: * levaquin 500mg po daily x 10 days * doxycycline 100mg po bid x 10 days (to cover for potential MRSA) * lactinex x 10 days * optifoam dressings to left posterior thigh * moisturizer to left leg mena (dry, scaly skin) * elevation of left leg as much as possible * follow-up with the [facility] in [place] within 1 week * once LLE cellulitis is completely resolved, and if lymphedema remains, consideration of lymphedema treatments (compression, etc) * asking a home health company / wheelchair supplier to inspect his wheelchair to see if it can be reconfigured, padded, etc to help protect the left leg from ongoing irritation/friction All other medical problems remained stable while here. Apparently the patient had an influenza exposure at the SNF prior to admission. Recommended 5 more days of once daily tamiflu for prophylaxis (received 5 days while hospitalized). Total Time Spent: Greater than 30 minutes This includes examination of the patient, discharge planning, medication reconciliation, and communication with other providers. Discharge Instructions Please refer to the electronic Patient Visit Report (Discharge Instructions) for additional information. Follow-Up 1. see the wound care center in [place] within [address] Riggs, PCP, within 5 days Additional Copies To Elie Riggs D.O.; Les Duong, DO
== END 2017-05-12 16:23 | DRG 603 ==
LOC: EDBD 11:08 → C.EDC 11:10 → C.4E 15:11 → ENRESERV 15:30
PROVIDERS: ADMIT Family Medicine; ATTEND Internal Medicine
DX: L03.116 Cellulitis of left lower limb (principal); I50.20 Unspecified systolic (congestive) heart failure; L89.892 Pressure ulcer of other site, stage 2; G80.8 Other cerebral palsy; F79 Unspecified intellectual disabilities; L97.519 Non-pressure chronic ulcer of other part of right foot with unspecified severity; J45.909 Unspecified asthma, uncomplicated; B96.5 Pseudomonas (aeruginosa) (mallei) (pseudomallei) as the cause of diseases classified elsewhere; I11.0 Hypertensive heart disease with heart failure; N40.1 Benign prostatic hyperplasia with lower urinary tract symptoms; R33.9 Retention of urine, unspecified; D50.9 Iron deficiency anemia, unspecified; F63.9 Impulse disorder, unspecified; I89.0 Lymphedema, not elsewhere classified; Z86.711 Personal history of pulmonary embolism; Z86.718 Personal history of other venous thrombosis and embolism; Z79.01 Long term (current) use of anticoagulants; Z98.1 Arthrodesis status; Z82.49 Family history of ischemic heart disease and other diseases of the circulatory system; Z83.3 Family history of diabetes mellitus; Z99.3 Dependence on wheelchair

== ENCOUNTER 2017-08-14 15:11 | Inpatient (IN) | payer OTHER ==
[~2017-08-14] VITALS: Ht 160 cm; Wt 125.3 kg
[~2017-08-14 15:11] MED LIST changes: +ACET-1693 PO; +ADVIN25/60 INH; -ASCA500 PO; +ASCO500T16 PO; +CARB200T3 PO; -ECRCR EXT; -FRRS300 PO; +GFNSR600 PO; +IPRASOL4 NEB; -LPD600 PO; -MCTP EXT; -MTR500 PO; -NZR200 PO; +OXGN; -POTA20TA16 PO; +THIA100T11 PO; -THM100 PO; -ZNCS220 PO
[2017-08-14] MEDS ORDERED: CEFTRIAXONE SOD INJ 1 GM ADDVIAL IV STA (15:31)
[2017-08-14] MEDS ORDERED: SODIUM CHLORIDE 0.9% 1000ML 2,000 ML IV STA (15:31)
[2017-08-14] MEDS ORDERED: VANCOMYCIN IV 1,800 MG in SODIUM CHLORIDE 0.9% 500ML 500 ML IV STA (15:31)
[2017-08-14] MEDS ORDERED: VANCOMYCIN CONSULT ACTIVE PRN ×2 (15:45→18:15)
[2017-08-14 15:56] LABS: HEMATOCRIT 46.5 % (42-52); HEMOGLOBIN 15.4 g/dL (14.0-18.0); MEAN CELL VOLUME 83.5 fL (80-100); MEAN CORPUSCULAR HEMOGLOBIN 27.6 pg (25-34); MEAN CORPUSCULAR HGB CONC 33.1 g/dl (32-36); MEAN PLATELET VOLUME 9.3 fL (7.4-10.4); PLATELET COUNT 228 K/uL (130-400); RED CELL DISTRIBUTION WIDTH CV 14.4 % (11.5-14.5); RED CELL DISTRIBUTION WIDTH SD 43.7 fL (36.4-46.3); WHITE BLOOD COUNT 23.88 K/uL (4.8-10.8)
[2017-08-14 16:04] LABS: ISTAT CREATININE 0.8 mg/dl (0.6-1.3); ISTAT IONIZED CALCIUM 1.15 mmol/l (1.12-1.32); ISTAT POTASSIUM 3.9 mEq/L (3.3-5.0)
[2017-08-14 16:20] LABS: ALBUMIN 3.3 gm/dl (3.4-5.0); ALKALINE PHOSPHATASE 91 U/L (45-117); ALT/SGPT 41 U/L (12-78); AST/SGOT 32 U/L (15-37); BLOOD UREA NITROGEN 15 mg/dl (7-18); CALCIUM 8.5 mg/dl (8.5-10.1); CARBON DIOXIDE 27 mmol/L (21-32); CREATININE 1.06 mg/dl (0.60-1.40); GLUCOSE 125 mg/dl (70-99); POTASSIUM 3.9 mmol/L (3.5-5.1); SODIUM 136 mmol/L (136-145)
[2017-08-14 16:25] LABS: BASO % 0.1 %; BASO ABS # 0.02 K/uL (0-0.2); IG# 0.18 K/uL (0.00-0.02); LYMPH % 1.3 %; LYMPH ABS # 0.31 K/uL (1.2-3.4); MONO % 2.6 %; MONO ABS # 0.62 K/uL (0.11-0.59); NEUT % 95.2 %; NEUT ABS # 22.75 K/uL (1.4-6.5)
[2017-08-14] MEDS ORDERED: CARB200T PO (16:29)
[2017-08-14] MEDS ORDERED: QUET1TAB32 PO (16:31)
[2017-08-14] MEDS ORDERED: SERT50TA PO (16:31)
[2017-08-14] MEDS ORDERED: ALBU18002 INH (16:39)
--- NOTE | 2017-08-14 16:44 | DIAGNOSTIC IMAGING REPORT ---
CHEST ONE VIEW PORTABLE HISTORY: fever COMPARISON: Chest 07/16/2017. FINDINGS: There are low lung volumes with mild elevation the right hemidiaphragm. This remains unchanged. No pleural effusions. No pneumothorax. No new focal lung consolidations to suggest pneumonia. The heart is normal in size. Stable bilateral hilar prominence. IMPRESSION: No significant change compared to the prior study. No acute process. Electronically signed by: Robert Lott M.D. 08/14/2017 4:43 PM Dictated Date/Time: 08/14/2017 4:42 PM
[2017-08-14] MEDS ORDERED: ACETAMINOPHEN 500 MG TAB PO STA (17:03)
[2017-08-14] MEDS ORDERED: SODIUM CHLORIDE 0.9% 1000ML 1,000 ML IV STA (17:09)
[2017-08-14] MEDS: MAGNESIUM SULFATE 1GM / D5W 100 ML IV SCH ×2 (17:59→19:00)
--- NOTE | 2017-08-14 18:12 | EMERGENCY ROOM VISIT NOTE ---
History Report prepared by Joseibkarlo: Stephanie Champino Under the Supervision of: Dr. Feroz Ellison D.O. First contact with patient: 15:24 Chief Complaint: FEVER Stated Complaint: INCREASED HEART RATE History of Present Illness The patient is a 42 year old male who presents to the Emergency Room with complaints of a persistent fever. This morning, his caregiver from the [facility] noticed a fever of 101.7. She gave him Tylenol, and his temperature went down to 96. His fever then returned after a few hours, and his heart rate was in the 120's, so his caregiver called his doctors office, who recommended he come to the ED. 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 The patient is unable to bear weight on his legs and is wheelchair bound with a nonhealing wound on the back of his left leg. He follows with the [facility]. Patient was found to have redness of his left lower extremity. He notes that he has no sensation consequently did not know. Pt denies headache, change in vision, chest pain, shortness of breath, nausea, vomiting, diarrhea, pain with urination, and melena. Source of History: patient, caregiver Onset: this morning Position: other (global) Timing: other (persistent) Modifying Factors (Relieving): tylenol Associated Symptoms: No headache, No chest pain, No SOB, No nausea, No vomiting, No melena, No diarrhea, No urinary symptoms Review of Systems See HPI for pertinent positives & negatives. A total of 10 systems reviewed and were otherwise negative. Past Medical & Surgical Medical Problems: (1) Bilateral lower leg cellulitis (2) C. difficile colitis (3) Cellulitis (4) Cellulitis of left lower extremity (5) Cerebral palsy (6) Sepsis (7) UTI (urinary tract infection) Family History Patient reports no known family medical history. Social History Smoking Status: Never Smoker Alcohol Use: none Drug Use: none Marital Status: single Housing Status: longterm Occupation Status: unemployed, disabled Current/Historical Medications Scheduled Ascorbic Acid (Ascorbic Acid), 500 MG PO QAM Carbamazepine (Tegretol), 200 MG PO HS Carbamazepine (Tegretol), 200 MG PO QD@1600 Fluticasone Prop/Salmeterol (Advair Diskus 250/50 60 Dose), 1 PUFF INH BID Metoprolol Tartrate (Lopressor) (Lopressor), 25 MG PO BID Quetiapine Fumarate (Seroquel), 50 MG PO HS Rivaroxaban (Xarelto), 20 MG PO QDD Sertraline (Zoloft), 50 MG PO QAM Tamsulosin Hcl (Flomax), 0.8 MG PO HS Thiamine Hcl (Vitamin B-1), 100 MG PO QAM Scheduled PRN Acetaminophen Tab (Tylenol), 650 MG PO Q6H PRN for Pain or Fever Albuterol Sulfate (Proair Respiclick), 2 PUFFS INH Q4H PRN for SOB/Wheezing Guaifenesin Ext Rel (Mucinex Ext Rel), 600 MG PO Q12 PRN for Congestion Home O2 Therapy (Oxygen), 2 LITERS NA UD PRN for Shortness of Breath Ipratropium-Albuterol (Duoneb), 1 VIAL NEB Q4H PRN for Cough or Wheezing Allergies Coded Allergies: No Known Allergies (Unverified , 07/16/17) Physical Exam Vital Signs Date Time Temp Pulse Resp B/P (MAP) Pulse Ox O2 Delivery O2 Flow Rate FiO2 08/14/17 17:01 119 20 153/93 93 Room Air 08/14/17 15:18 38.2 123 20 122/73 92 Room Air Physical Exam GENERAL: Sitting up in bed, alert, ill appearing, no distress, non-toxic EYE EXAM: normal conjunctiva. OROPHARYNX: no exudate, no erythema, lips, buccal mucosa, and tongue normal and mucous membranes are dry NECK: supple, no nuchal rigidity, no adenopathy, non-tender LUNGS: Clear to auscultation. Normal chest wall mechanics HEART: no murmurs, S1 normal and S2 normal ABDOMEN: abdomen soft, non-tender, normo-active bowel sounds, no masses, no rebound or guarding. BACK: Back is symmetrical on inspection and there is no deformity, no midline tenderness, no CVA tenderness. SKIN: Skin breakdown on left posterior lateral thigh with erythema in LE, tracking proximally up to and beyond knee. No crepitus. UPPER EXTREMITIES: upper extremities are grossly normal. LOWER EXTREMITIES: No pitting edema. NEURO EXAM: Normal sensorium, cranial nerves II-XII grossly intact, normal speech. Medical Decision & Procedures ER Provider Diagnostic Interpretation: Radiology results as stated below per my review and the radiologist's interpretation: CHEST ONE VIEW PORTABLE HISTORY: fever COMPARISON: Chest 07/16/2017. FINDINGS: There are low lung volumes with mild elevation the right hemidiaphragm. This remains unchanged. No pleural effusions. No pneumothorax. No new focal lung consolidations to suggest pneumonia. The heart is normal in size. Stable bilateral hilar prominence. IMPRESSION: No significant change compared to the prior study. No acute process. Electronically signed by: Robert Lott M.D. 08/14/2017 4:43 PM Laboratory Results 08/14/17 15:44 Red Blood Count 5.57, Mean Corpuscular Volume 83.5, Mean Corpuscular Hemoglobin 27.6, Mean Corpuscular Hemoglobin Concent 33.1, Mean Platelet Volume 9.3, Neutrophils (%) (Auto) 95.2, Lymphocytes (%) (Auto) 1.3, Monocytes (%) (Auto) 2.6, Eosinophils (%) (Auto) 0.0, Basophils (%) (Auto) 0.1, Neutrophils # (Auto) 22.75, Lymphocytes # (Auto) 0.31, Monocytes # (Auto) 0.62, Eosinophils # (Auto) 0.00, Basophils # (Auto) 0.02 08/14/17 15:44 Test 08/14/17 15:44 08/14/17 15:49 White Blood Count 23.88 K/uL (4.8-10.8) Red Blood Count 5.57 M/uL (4.7-6.1) Hemoglobin 15.4 g/dL (14.0-18.0) Hematocrit 46.5 % (42-52) Mean Corpuscular Volume 83.5 fL (80-100) Mean Corpuscular Hemoglobin 27.6 pg (25-34) Mean Corpuscular Hemoglobin Concent 33.1 g/dl (32-36) Platelet Count 228 K/uL (130-400) Mean Platelet Volume 9.3 fL (7.4-10.4) Neutrophils (%) (Auto) 95.2 % Lymphocytes (%) (Auto) 1.3 % Monocytes (%) (Auto) 2.6 % Eosinophils (%) (Auto) 0.0 % Basophils (%) (Auto) 0.1 % Neutrophils # (Auto) 22.75 K/uL (1.4-6.5) Lymphocytes # (Auto) 0.31 K/uL (1.2-3.4) Monocytes # (Auto) 0.62 K/uL (0.11-0.59) Eosinophils # (Auto) 0.00 K/uL (0-0.5) Basophils # (Auto) 0.02 K/uL (0-0.2) RDW Standard Deviation 43.7 fL (36.4-46.3) RDW Coefficient of Variation 14.4 % (11.5-14.5) Immature Granulocyte % (Auto) 0.8 % Immature Granulocyte # (Auto) 0.18 K/uL (0.00-0.02) Prothrombin Time 10.7 SECONDS (9.0-12.0) Prothromb Time International Ratio 1.0 (0.9-1.1) Estimated GFR () 99.1 Estimated GFR (Non- 85.5 BUN/Creatinine Ratio 14.6 (10-20) Bedside Lactic Acid Venous 2.16 mmol/L (0.90-1.70) Calcium Level 8.5 mg/dl (8.5-10.1) Magnesium Level 1.7 mg/dl (1.8-2.4) Total Bilirubin 0.5 mg/dl (0.2-1) Direct Bilirubin 0.2 mg/dl (0-0.2) Aspartate Amino Transf (AST/SGOT) 32 U/L (15-37) Alanine Aminotransferase (ALT/SGPT) 41 U/L (12-78) Alkaline Phosphatase 91 U/L (45-117) Total Creatine Kinase 60 U/L (39-308) Creatine Kinase MB 1.0 ng/ml (0.5-3.6) Creatine Kinase MB Ratio 1.7 (0-3.0) Troponin I < 0.015 ng/ml (0-0.045) Total Protein 8.0 gm/dl (6.4-8.2) Albumin 3.3 gm/dl (3.4-5.0) Bedside Hemoglobin 16.3 g/dl (14.0-18.0) Bedside Hematocrit 48 % (42-52) Bedside Sodium 139 mEq/L (135-144) Bedside Potassium 3.9 mEq/L (3.3-5.0) Bedside Chloride 99 mEq/L (101-112) Bedside Total CO2 26 mEq/l (24-31) Anion Gap 18.0 mmol/L (16-25) Bedside Blood Urea Nitrogen 17 mg/dl (7-18) Bedside Creatinine 0.8 mg/dl (0.6-1.3) Bedside Glucose (other) 132 mg/dl (70-99) Bedside Ionized Calcium (Jose) 1.15 mmol/l (1.12-1.32) Laboratory results per my review. Medications Administered Medications (Trade) Dose Ordered Sig/Jennifer Route Start Time Stop Time Status Last Admin Dose Admin Sodium Chloride 2,000 ml @ 999 mls/hr Q2H1M STAT IV 08/14/17 15:31 08/14/17 17:31 DC 08/14/17 16:00 999 MLS/HR Ceftriaxone Sodium (Rocephin Inj) 1 gm NOW STAT IV 08/14/17 15:31 08/14/17 15:34 DC 08/14/17 16:00 1 GM Vancomycin HCl 1800 mg/Sodium Chloride 536 ml @ 200 mls/hr ONE STAT IV 08/14/17 15:31 08/14/17 18:11 08/14/17 16:00 200 MLS/HR Acetaminophen (Tylenol Tab) 1,000 mg NOW STAT PO 08/14/17 17:03 08/14/17 17:05 DC 08/14/17 17:59 1,000 MG Sodium Chloride 1,000 ml @ 999 mls/hr Q1H1M STAT IV 08/14/17 17:09 08/14/17 18:09 08/14/17 17:58 999 MLS/HR Magnesium Sulfate 100 ml @ 100 mls/hr Q1H IV 08/14/17 18:00 08/14/17 19:59 08/14/17 17:59 100 MLS/HR ED Course ED COURSE: Vital signs were reviewed and showed the patient is febrile and tachycardic The patients medical record was reviewed The above diagnostic studies were performed and reviewed. ED treatments and interventions as stated above. 1527: The patient was evaluated in room A4. A complete history and physical examination was performed. 1531: Vancomycin HCl 1800 mg/NSS 536 ml @ 200 mls/hr IV, Rocephin 1 gm IV, NSS 2000 ml @ 999 mls/hr IV. 1700: Upon reevaluation, the patient is resting comfortably. I discussed my findings with the patient and he understands and agrees with the treatment plan. 1703: Tylenol 1000 mg PO. 1709: NSS 1000 ml @ 999 mls/hr IV. 1727: I discussed the patients case with Wil Rodriguez. The patient will be further evaluated. Based on the patients age, coexisting illnesses, exam and lab findings the decision to treat as an inpatient was made. The patient remained stable while under my care. The patient will be evaluated for further management. Medical Decision Differential diagnosis includes etiologies such as sepsis, UTI, pneumonia, metabolic, electrolyte abnormalities, cardiac sources, intracerebral event, toxicologic, neurologic, as well as others were entertained. Patient is a 42-year-old male who presents the ER for fevers. Upon presentation is pending to be febrile and tachycardic. Sepsis alert was called. IVs were established. Labs show a leukocytosis of 24,000. BMP along with LFTs, bilirubin and troponin were unremarkable. Chest x-ray was unremarkable. Based on exam he has an extensive cellulitis in left lower extremity. He was covered with vancomycin and Rocephin. Patient family were updated at bedside. Discussed with internal medicine. He was given a total of 3 L of normal saline. He was admitted for further workup cellulitis. Medication Reconcilliation Current Medication List: was personally reviewed by me Blood Pressure Screening Patient's blood pressure: Normal blood pressure Blood pressure disposition: Did not require urgent referral Consults Time Called: 1710 Consulting Physician: Wil Rodriguez Returned Call: 1727 I discussed the patients case with Wil Rodriguez. The patient will be further evaluated. Impression Primary Impression: Sepsis Additional Impression: Cellulitis Critical Care I have personally spent 35 minutes of critical care time in the direct management of this patient. This includes bedside care, interpretation of diagnostic studies, and testing, discussion with consultants, patient, and family members, and other required patient management activities. This 35 minutes is in excess of all separately billable procedures. Scribe Attestation The scribe's documentation has been prepared under my direction and personally reviewed by me in its entirety. I confirm that the note above accurately reflects all work, treatment, procedures, and medical decision making performed by me. Departure Information Dispostion Being Evaluated By Hospitalist Referrals No Doctor, Assigned (PCP) Patient Instructions My [facility] Problem Qualifiers Primary Impression: Sepsis Sepsis type: sepsis due to unspecified organism Qualified Codes: A41.9 - Sepsis, unspecified organism Additional Impression: Cellulitis Site of cellulitis: other site Qualified Codes: L03.818 - Cellulitis of other sites
[2017-08-14] MEDS ORDERED: ONDANSETRON INJ 2 MG/ML 2 ML VIAL IV PRN (18:15)
[2017-08-14] MEDS ORDERED: PIPERACILL/TAZOBAC CONSULT ACTIVE PRN (18:15)
[2017-08-14] MEDS ORDERED: ACETAMINOPHEN 325 MG TAB PO PRN (18:15)
[2017-08-14] MEDS ORDERED: POLYETHYLENE (MIRALAX) 17 GM PACK PO PRN (18:15)
[2017-08-14] MEDS ORDERED: ZOLPIDEM TARTRATE 5 MG TAB PO PRN (18:15)
[2017-08-14] MEDS ORDERED: MAGNESIUM HYDROXIDE SUSP 30 ML UDC PO PRN (18:15)
[2017-08-14] MEDS ORDERED: ALBUT/IPRATROP 3MG/0.5MG NEB 3 ML VIAL INH PRN (18:15)
[2017-08-14] MEDS ORDERED: ALUMINUM/MAGNESIUM/SIMETH (MAALOX MAX) 30 ML UDC PO PRN (18:15)
[2017-08-14] MEDS ORDERED: PATIENT'S HEIGHT AND/OR WEIGHT NEEDED SCH (18:30)
[2017-08-14] MEDS ORDERED: GUAIFENESIN 600 MG TABCR PO PRN (18:30)
[2017-08-14] MEDS ORDERED: ALBUTEROL HFA 8 GM INHALER INH PRN (18:45)
[2017-08-14] MEDS ORDERED: CLONIDINE HCL 0.1 MG TAB PO ONE (18:45)
--- NOTE | 2017-08-14 18:50 | History and Physical ---
History & Physical Date & Time of Service: August 14, 2017 at 18:18 Chief Complaint: Increased Heart Rate Primary Care Physician: Sandra Lopez D.O. 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 He is currently living at [facility]; most of the history obtained from nurse/enterprise systems engineer and mother who are both at bedside. They state that he has had ulcerations on his L upper thigh/buttocks; he is wheelchair bound. The ulcerations are improving with Aquagel. Sees a wound care nurse at the [facility]. The L lower leg has no ulcerations, but became acutely hot, red and swollen. Patient presented to the ED with fever, tachycardia. Sepsis alert called and noted to have elevated white count and mildly elevated lactic acid. Given IVFs in the ED, given a dose of Rocephin + Vancomycin. Past Medical/Surgical History Medical Problems: (1) Atelectasis (2) Bilateral lower leg cellulitis (3) C. difficile colitis (4) Cellulitis (5) Cellulitis of left lower extremity (6) Cerebral palsy (7) Hypocalcemia (8) Hypokalemia (9) Sepsis (10) SOB (shortness of breath) (11) UTI (urinary tract infection) Family History Patient reports no known family medical history. Social History Smoking Status: Never Smoker Drug Use: none Marital Status: single Housing status: prison Occupational Status: unemployed, disabled Allergies Coded Allergies: No Known Allergies (Unverified , 07/16/17) Home Medications Scheduled Ascorbic Acid (Ascorbic Acid), 500 MG PO QAM Carbamazepine (Tegretol), 200 MG PO HS Carbamazepine (Tegretol), 200 MG PO QD@1600 Fluticasone Prop/Salmeterol (Advair Diskus 250/50 60 Dose), 1 PUFF INH BID Metoprolol Tartrate (Lopressor) (Lopressor), 25 MG PO BID Quetiapine Fumarate (Seroquel), 50 MG PO HS Rivaroxaban (Xarelto), 20 MG PO QDD Sertraline (Zoloft), 50 MG PO QAM Tamsulosin Hcl (Flomax), 0.8 MG PO HS Thiamine Hcl (Vitamin B-1), 100 MG PO QAM Scheduled PRN Acetaminophen Tab (Tylenol), 650 MG PO Q6H PRN for Pain or Fever Albuterol Sulfate (Proair Respiclick), 2 PUFFS INH Q4H PRN for SOB/Wheezing Guaifenesin Ext Rel (Mucinex Ext Rel), 600 MG PO Q12 PRN for Congestion Home O2 Therapy (Oxygen), 2 LITERS NA UD PRN for Shortness of Breath Ipratropium-Albuterol (Duoneb), 1 VIAL NEB Q4H PRN for Cough or Wheezing Review of Systems Cannot obtain ROS due to patient's mental status Physical Exam Vital Signs Date Time Temp Pulse Resp B/P (MAP) Pulse Ox O2 Delivery O2 Flow Rate FiO2 08/14/17 17:01 119 20 153/93 93 Room Air 08/14/17 15:18 38.2 123 20 122/73 92 Room Air General Appearance: no apparent distress, + obese, + pertinent finding ( intellectual disability) Head: normocephalic, atraumatic Eyes: normal inspection ENT: hearing grossly normal Respiratory/Chest: chest non-tender, lungs clear, normal breath sounds, no respiratory distress, no accessory muscle use Cardiovascular: no murmur, + tachycardia Abdomen/GI: normal bowel sounds, non tender, soft Back: normal inspection Extremities/Musculoskelatal: + pedal edema, + swelling, + pertinent finding (+ LLE swollen, erythematous, warm to touch, edematous; club foot b/l) Neurologic/Psych: no motor/sensory deficits, alert, normal mood/affect, + pertinent finding (+MR) Skin: normal color Diagnostics Laboratory Results Results Past 24 Hours Test 08/14/17 15:44 08/14/17 15:49 08/14/17 18:06 Range/Units White Blood Count 23.88 4.8-10.8 K/uL Red Blood Count 5.57 4.7-6.1 M/uL Hemoglobin 15.4 14.0-18.0 g/dL Hematocrit 46.5 42-52 % Mean Corpuscular Volume 83.5 80-100 fL Mean Corpuscular Hemoglobin 27.6 25-34 pg Mean Corpuscular Hemoglobin Concent 33.1 32-36 g/dl Platelet Count 228 130-400 K/uL Mean Platelet Volume 9.3 7.4-10.4 fL Neutrophils (%) (Auto) 95.2 % Lymphocytes (%) (Auto) 1.3 % Monocytes (%) (Auto) 2.6 % Eosinophils (%) (Auto) 0.0 % Basophils (%) (Auto) 0.1 % Neutrophils # (Auto) 22.75 1.4-6.5 K/uL Lymphocytes # (Auto) 0.31 1.2-3.4 K/uL Monocytes # (Auto) 0.62 0.11-0.59 K/uL Eosinophils # (Auto) 0.00 0-0.5 K/uL Basophils # (Auto) 0.02 0-0.2 K/uL RDW Standard Deviation 43.7 36.4-46.3 fL RDW Coefficient of Variation 14.4 11.5-14.5 % Immature Granulocyte % (Auto) 0.8 % Immature Granulocyte # (Auto) 0.18 0.00-0.02 K/uL Prothrombin Time 10.7 9.0-12.0 SECONDS Prothromb Time International Ratio 1.0 0.9-1.1 Sodium Level 136 136-145 mmol/L Potassium Level 3.9 3.5-5.1 mmol/L Chloride Level 103 98-107 mmol/L Carbon Dioxide Level 27 21-32 mmol/L Anion Gap 6.0 18.0 16-25 mmol/L Blood Urea Nitrogen 15 7-18 mg/dl Creatinine 1.06 0.60-1.40 mg/dl Estimated GFR () 99.1 Estimated GFR (Non- 85.5 BUN/Creatinine Ratio 14.6 10-20 Random Glucose 125 70-99 mg/dl Bedside Lactic Acid Venous 2.16 0.90-1.70 mmol/L Calcium Level 8.5 8.5-10.1 mg/dl Magnesium Level 1.7 1.8-2.4 mg/dl Total Bilirubin 0.5 0.2-1 mg/dl Direct Bilirubin 0.2 0-0.2 mg/dl Aspartate Amino Transf (AST/SGOT) 32 15-37 U/L Alanine Aminotransferase (ALT/SGPT) 41 12-78 U/L Alkaline Phosphatase 91 45-117 U/L Total Creatine Kinase 60 39-308 U/L Creatine Kinase MB 1.0 0.5-3.6 ng/ml Creatine Kinase MB Ratio 1.7 0-3.0 Troponin I < 0.015 0-0.045 ng/ml Total Protein 8.0 6.4-8.2 gm/dl Albumin 3.3 3.4-5.0 gm/dl Bedside Hemoglobin 16.3 14.0-18.0 g/dl Bedside Hematocrit 48 42-52 % Bedside Sodium 139 135-144 mEq/L Bedside Potassium 3.9 3.3-5.0 mEq/L Bedside Chloride 99 101-112 mEq/L Bedside Total CO2 26 24-31 mEq/l Bedside Blood Urea Nitrogen 17 7-18 mg/dl Bedside Creatinine 0.8 0.6-1.3 mg/dl Bedside Glucose (other) 132 70-99 mg/dl Bedside Ionized Calcium (Jose) 1.15 1.12-1.32 mmol/l Microbiology Results 08/14/17 Blood Culture, Received Pending 08/14/17 Blood Culture, Received Pending Diagnostic Radiology CHEST ONE VIEW PORTABLE HISTORY: fever COMPARISON: Chest 07/16/2017. FINDINGS: There are low lung volumes with mild elevation the right hemidiaphragm. This remains unchanged. No pleural effusions. No pneumothorax. No new focal lung consolidations to suggest pneumonia. The heart is normal in size. Stable bilateral hilar prominence. IMPRESSION: No significant change compared to the prior study. No acute process. 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 Sepsis secondary to Left Lower Extremity Cellulitis - patient with LLE cellulitis - has a hx. of Pseudomonas from previous wound ulcerations - the cellulitis is lower on the extremity than the ulcerations, which seemed well healed - either way, we will start Vanc + Zosyn - repeat lactic acid - IVFs started - consulted ID - consulted wound care for the ulcers - EHOB mattress, repositioning, HOB elevated Spastic Quadriplegia Cerebral Palsy - wheelchair bound - can get up from bed to chair, but does not ambulate Moderate Intellectual Disability - can feed himself if he sits up; otherwise, he is a complete care - incontinent of urine and stool Hx. of PE/DVT - on long-term Xarelto Asthma - continue current inhalers DVT ppx - Xarelto FULL CODE Resuscitation Status VTE Prophylaxis Will order VTE Prophylaxis: Yes
[2017-08-14 19:23] VITALS: BP 133/77; PULSE 123; TEMP 37.3; O2SAT 90
[2017-08-14] MEDS: PATIENT'S HEIGHT AND/OR WEIGHT NEEDED SCH ×3 (19:30→20:00)
[2017-08-14] MEDS ORDERED: PIPERACILL/TAZOBAC IV 3.375 GM in D5W 100 ML IV ONE (19:30)
--- NOTE | 2017-08-14 20:38 | Pharmacy Progress Note ---
Pharmacy Antibiotic Consult Date of Service: August 14, 2017. Pharmacy Dosing Scope Pharmacy is consulted to initiate vancomycin/zosyn IV dosing therapy, order appropriate labs and adjust drug dose/frequency. Subjective The patient is a 42 year old male admitted on August 14, 2017 at 18:14. Objective Lab Results (24hrs): Test 08/14/17 15:44 08/14/17 15:49 08/14/17 19:45 White Blood Count 23.88 K/uL (4.8-10.8) Red Blood Count 5.57 M/uL (4.7-6.1) Hemoglobin 15.4 g/dL (14.0-18.0) Hematocrit 46.5 % (42-52) Mean Corpuscular Volume 83.5 fL (80-100) Mean Corpuscular Hemoglobin 27.6 pg (25-34) Mean Corpuscular Hemoglobin Concent 33.1 g/dl (32-36) Platelet Count 228 K/uL (130-400) Mean Platelet Volume 9.3 fL (7.4-10.4) Neutrophils (%) (Auto) 95.2 % Lymphocytes (%) (Auto) 1.3 % Monocytes (%) (Auto) 2.6 % Eosinophils (%) (Auto) 0.0 % Basophils (%) (Auto) 0.1 % Neutrophils # (Auto) 22.75 K/uL (1.4-6.5) Lymphocytes # (Auto) 0.31 K/uL (1.2-3.4) Monocytes # (Auto) 0.62 K/uL (0.11-0.59) Eosinophils # (Auto) 0.00 K/uL (0-0.5) Basophils # (Auto) 0.02 K/uL (0-0.2) RDW Standard Deviation 43.7 fL (36.4-46.3) RDW Coefficient of Variation 14.4 % (11.5-14.5) Immature Granulocyte % (Auto) 0.8 % Immature Granulocyte # (Auto) 0.18 K/uL (0.00-0.02) Prothrombin Time 10.7 SECONDS (9.0-12.0) Prothromb Time International Ratio 1.0 (0.9-1.1) Sodium Level 136 mmol/L (136-145) Potassium Level 3.9 mmol/L (3.5-5.1) Chloride Level 103 mmol/L (98-107) Carbon Dioxide Level 27 mmol/L (21-32) Anion Gap 6.0 mmol/L (3-11) 18.0 mmol/L (16-25) Blood Urea Nitrogen 15 mg/dl (7-18) Creatinine 1.06 mg/dl (0.60-1.40) Estimated GFR () 99.1 Estimated GFR (Non- 85.5 BUN/Creatinine Ratio 14.6 (10-20) Random Glucose 125 mg/dl (70-99) Bedside Lactic Acid Venous 2.16 mmol/L (0.90-1.70) Calcium Level 8.5 mg/dl (8.5-10.1) Magnesium Level 1.7 mg/dl (1.8-2.4) Total Bilirubin 0.5 mg/dl (0.2-1) Direct Bilirubin 0.2 mg/dl (0-0.2) Aspartate Amino Transf (AST/SGOT) 32 U/L (15-37) Alanine Aminotransferase (ALT/SGPT) 41 U/L (12-78) Alkaline Phosphatase 91 U/L (45-117) Total Creatine Kinase 60 U/L (39-308) Creatine Kinase MB 1.0 ng/ml (0.5-3.6) Creatine Kinase MB Ratio 1.7 (0-3.0) Troponin I < 0.015 ng/ml (0-0.045) Total Protein 8.0 gm/dl (6.4-8.2) Albumin 3.3 gm/dl (3.4-5.0) Bedside Hemoglobin 16.3 g/dl (14.0-18.0) Bedside Hematocrit 48 % (42-52) Bedside Sodium 139 mEq/L (135-144) Bedside Potassium 3.9 mEq/L (3.3-5.0) Bedside Chloride 99 mEq/L (101-112) Bedside Total CO2 26 mEq/l (24-31) Bedside Blood Urea Nitrogen 17 mg/dl (7-18) Bedside Creatinine 0.8 mg/dl (0.6-1.3) Bedside Glucose (other) 132 mg/dl (70-99) Bedside Ionized Calcium (Jose) 1.15 mmol/l (1.12-1.32) Lactic Acid Level 1.3 mmol/L (0.4-2.0) Assessment & Plan Assessment: 41 yo male w/ PMH of spastic quadriplegia cerebral palsy, moderate intellectual deficiency presenting with fevers/tachycardia Tmax 38.2, WBC 23.8, lactic acid 2.16 Hx of pseudomonas in ulcers Starting vancomycin/zosyn for possible sepsis secondary to LLE cellulitis Plan: Patient received 1800 mg dose (14 mg/kg) in the ED. Patient previously on vancomycin in 2017, rapidly accumulated doses, SCr slightly lower than current. Uncertain of true CrCl. Will complete load with 1000 mg dose x 1 and get random in AM to assist with dosing. Pharmacy will continue to follow and will adjust dose/frequency as necessary. Thank you
[2017-08-14 20:44] VITALS: BMI 48.9
[2017-08-14] MEDS ORDERED: VANCOMYCIN IV 1,000 MG in SODIUM CHLORIDE 0.9% 250ML 250 ML IV ONE (21:00)
[2017-08-14] MEDS: CARBAMAZEPINE 200 MG TAB PO SCH (22:10)
[2017-08-14] MEDS: METOPROLOL TARTRATE 25 MG TAB PO SCH (22:11)
[2017-08-14] MEDS: TAMSULOSIN HCL 0.4 MG CAP PO SCH (22:11)
[2017-08-14] MEDS: FLUTICASONE/SALMETEROL 250/50 (ADVAIR) 14 PUFF/1 INHALER INH SCH (22:12)
[2017-08-14] MEDS: QUETIAPINE FUMARATE 25 MG TAB PO SCH (22:14)
[2017-08-14 23:34] VITALS: BP 105/66; PULSE 109; TEMP 37; O2SAT 92
[2017-08-15] VITALS (7 sets, daily range): BP systolic 101–139; BP diastolic 63–83; PULSE 100–108; TEMP 36.5–38.1; O2SAT 90–94; Ht 160 cm; Wt 125.3 kg
[2017-08-15] MEDS ORDERED: PIPERACILL/TAZOBAC IV 3.375 GM in DEXTROSE 5% 100ML 100 ML IV SCH ×2
[2017-08-15] MEDS: PIPERACILL/TAZOBAC IV 4.5 GM in D5W 100 ML IV SCH ×3 (01:00→16:53)
[2017-08-15] MEDS ORDERED: PIPERACILL/TAZOBAC IV 3.375 GM in D5W 100ML IV SCH (01:00)
[2017-08-15 05:53] LABS: BASO % 0.2 %; BASO ABS # 0.03 K/uL (0-0.2); HEMATOCRIT 42.2 % (42-52); HEMOGLOBIN 13.5 g/dL (14.0-18.0); IG# 0.06 K/uL (0.00-0.02); LYMPH % 3.1 %; LYMPH ABS # 0.57 K/uL (1.2-3.4); MEAN CELL VOLUME 83.6 fL (80-100); MEAN CORPUSCULAR HEMOGLOBIN 26.7 pg (25-34); MEAN PLATELET VOLUME 9.1 fL (7.4-10.4); MONO % 2.5 %; MONO ABS # 0.46 K/uL (0.11-0.59); NEUT % 93.9 %; NEUT ABS # 17.47 K/uL (1.4-6.5); PLATELET COUNT 213 K/uL (130-400); RED CELL DISTRIBUTION WIDTH CV 14.9 % (11.5-14.5); RED CELL DISTRIBUTION WIDTH SD 45.3 fL (36.4-46.3); WHITE BLOOD COUNT 18.59 K/uL (4.8-10.8)
[2017-08-15 06:30] LABS: CREATININE 0.98 mg/dl (0.60-1.40); PHOSPHORUS 2.1 mg/dl (2.5-4.9); POTASSIUM 3.8 mmol/L (3.5-5.1)
[2017-08-15] MEDS: METOPROLOL TARTRATE 25 MG TAB PO SCH ×2 (08:42→20:00)
[2017-08-15] MEDS: THIAMINE HCL 100 MG TAB PO SCH (08:42)
[2017-08-15] MEDS: SERTRALINE HCL 50 MG TAB PO SCH (08:42)
[2017-08-15] MEDS: FLUTICASONE/SALMETEROL 250/50 (ADVAIR) 14 PUFF/1 INHALER INH SCH ×2 (08:43→20:01)
[2017-08-15] MEDS: ASCORBIC ACID 500 MG TAB PO SCH (08:43)
[2017-08-15] MEDS: ACETAMINOPHEN 325 MG TAB PO PRN (08:44)
--- NOTE | 2017-08-15 10:18 | Pharmacy Progress Note ---
Pharmacy Abx Dose Short Note Date of Service August 15, 2017. Assessment & Plan 08/15/17 Assessment Mr Power is a 42yo M being treated for LLE cellulitis and r/o sepsis. He continues spiking fevers. Leukocytosis and left shift remain. PCT elevated at 7.09. Will order repeat PCT. Of note, Mr. Power's habitus and quadriplegia present a high likelihood of him accumulating vancomycin. Typical use of the Cockcroft/Gault formula when applied to Mr. Power appears to be misleading. A correction factor of 0.6 should be applied to his eCrCl, ergo, a more accurate eCrCl should be~70cc/min. Will dose subsequent vancomycin doses based on this eCrCl. He has a h/o pseudomonal infxns Plan Vancomycin - unsure if LLE is purulent/erythematous. * Will initiate Vancomycin 1250mg (10mg/kg) q12, set to start at 1400. * Goal trough until c/s's result: 15-20mcg/mL * Trough ordered for 08/16/17 @ 1330, prior to the third maintenance dose. Ordered early due to his renal fxn/ habitus Zosyn * EI Zosyn 4.5g q8, appropriate given clinical status and BMI 08/16/17 Repeat PCT decreased from 7.09-->3.79. Mr. Power's trough elevated at 22mcg/mL. Will lengthen dosing interval from q12--->q16. Trough ordered for 08/18/17 @ 1330. Pharmacy will continue to follow and will adjust dose/frequency as necessary. Thank you.
--- NOTE | 2017-08-15 10:48 | Progress Note ---
Progress Note Date of Service August 15, 2017. Progress Note ID Consult Dictated #[id number] A/P: 1. LLE cellulitis 2. Leukocytosis -continue abx, follow culture -thank you
--- NOTE | 2017-08-15 11:15 | INFECT. DISEASE CONSULTATION ---
DATE OF CONSULTATION: 08/15/2017 HISTORY OF PRESENT ILLNESS: This is a 42-year-old gentleman who was admitted from a nursing facility secondary to fever. He also was noted to have ulcerations on his left upper thigh and buttock area as he is wheelchair bound. He was being treated locally by wound services at his assisted living. He denies any fevers this morning on my examination, he is getting a bath. His T-max overall since admission was 38.2. He was placed empirically on vancomycin and Zosyn and appears to be tolerating these antibiotics well. He initially had a leukocytosis of 23,000, which was improved to 18,000. His procalcitonin is elevated at 7. Blood cultures are pending and a chest x-ray is unremarkable. He offers no complaints on exam and denies any pain at the area of ulcerations. PAST MEDICAL HISTORY: Significant for history of cellulitis, history of C. 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 FAMILY HISTORY: Noncontributory. SOCIAL HISTORY: Unremarkable. ALLERGIES: There are no known drug allergies. MEDICATIONS: Xarelto, Tegretol, vancomycin, vitamin C, Zoloft, vitamin B, Zosyn, Seroquel, Flomax, Advair, Lopressor, albuterol, Mucinex, Tylenol, Maalox, milk of magnesia, MiraLax, Ambien, Zofran and DuoNebs. PHYSICAL EXAMINATION: VITAL SIGNS: He is currently afebrile at 37.1. His T-max is 38.2. Pulse 108, respiratory rate 18, blood pressure 107/64, oxygen saturation is 92% on room air. GENERAL: He is awake and alert. He is in no acute distress. HEENT: Mucous membranes are moist. HEART: He is tachycardic. ABDOMEN: Nondistended. EXTREMITIES: There is no lower extremity edema. Examination of the wounds reveals minimal to no ulceration over the buttock area; however, there is a superficial excoriation over the left posterior thigh. There is no warmth or tenderness to palpation. There is no purulent drainage or bleeding. LABORATORY STUDIES: CBC today, white blood cell count 18.5, hemoglobin 13.5, platelets 213. Chemistry panel: Sodium 137, potassium 3.8, chloride 104, bicarbonate 27, BUN 15, creatinine 0.9, glucose 103. Procalcitonin 7.09. A random vancomycin today is 18.2. Blood cultures are pending. IMAGING: As above. ASSESSMENT AND PLAN: Left lower extremity cellulitis. He will remain on empiric antibiotics. A wound care consult is pending. We will follow along with blood cultures.
[2017-08-15] MEDS: VANCOMYCIN IV 1,250 MG in SODIUM CHLORIDE 0.9% 250ML 250 ML IV SCH (14:15)
[2017-08-15] MEDS: CARBAMAZEPINE 200 MG TAB PO SCH ×2 (16:54→21:31)
--- NOTE | 2017-08-15 17:02 | Progress Note ---
Subjective Date of Service: August 15, 2017. Subjective Pt evaluation today including: conversation w/ patient, physical exam, lab review, review of studies, review of inpatient medication list Saw/examined the patient in room 457 Resting comfortably, in no distress cellulitis with slight improvement Problem List Medical Problems: (1) Atelectasis Status: Acute (2) Hypocalcemia Status: Acute (3) Hypokalemia Status: Acute (4) SOB (shortness of breath) Status: Acute Medications Current Inpatient Medications Medications (Trade) Dose Ordered Sig/Jennifer Route Start Time Stop Time Status Last Admin Dose Admin Acetaminophen (Tylenol Tab) 650 mg Q4H PRN PO 08/14/17 18:15 09/13/17 18:14 08/15/17 08:44 650 MG Al Hydrox/Mg Hydrox/Simethicone (Maalox Max Susp) 15 ml Q4H PRN PO 08/14/17 18:15 09/13/17 18:14 Magnesium Hydroxide (Milk Of Magnesia Susp) 30 ml Q6H PRN PO 08/14/17 18:15 09/13/17 18:14 Polyethylene (Miralax Powder Packet) 17 gm DAILY PRN PO 08/14/17 18:15 09/13/17 18:14 Zolpidem Tartrate (Ambien Tab) 5 mg HSZ PRN PO 08/14/17 18:15 09/13/17 18:14 Ondansetron HCl (Zofran Inj) 4 mg Q6H PRN IV 08/14/17 18:15 09/13/17 18:14 Miscellaneous Information (Consult) 1 ea UD PRN N/A 08/14/17 18:15 09/13/17 18:14 Miscellaneous Information (Consult) 1 ea UD PRN N/A 08/14/17 18:15 09/13/17 18:14 Ascorbic Acid (Vitamin C Tab) 500 mg QAM PO 08/15/17 08:00 09/14/17 08:59 08/15/17 08:43 500 MG Carbamazepine (Tegretol Tab) 200 mg HS PO 08/14/17 21:00 09/13/17 20:59 08/14/17 22:10 200 MG Carbamazepine (Tegretol Tab) 200 mg QD@1600 PO 08/15/17 16:00 6/20/18 15:59 08/15/17 16:54 200 MG Salmeterol Xinafoate/ Fluticasone (Advair Diskus 250/50 Inh) 1 puff BID INH 08/14/17 20:00 09/13/17 20:59 08/15/17 08:43 1 PUFF Guaifenesin (Mucinex Contr Rel Tab) 600 mg Q12 PRN PO 08/14/17 18:30 09/13/17 18:29 Metoprolol Tartrate (Lopressor Tab) 25 mg BID PO 08/14/17 20:00 09/13/17 20:59 08/15/17 08:42 25 MG Quetiapine Fumarate (seroQUEL TAB) 50 mg HS PO 08/14/17 21:00 09/13/17 20:59 08/14/17 22:14 50 MG Sertraline HCl (Zoloft Tab) 50 mg QAM PO 08/15/17 08:00 09/14/17 08:59 08/15/17 08:42 50 MG Tamsulosin HCl (Flomax Cap) 0.8 mg HS PO 08/14/17 21:00 09/13/17 20:59 08/14/17 22:11 0.8 MG Thiamine HCl (Vitamin B-1 Tab) 100 mg QAM PO 08/15/17 08:00 09/14/17 08:59 08/15/17 08:42 100 MG Albuterol (Ventolin Hfa Inhaler) 2 puffs Q4H PRN INH 08/14/17 18:45 09/13/17 18:44 Albuterol/ Ipratropium (Duoneb) 3 ml Q4R PRN INH 08/14/17 18:15 09/13/17 18:14 Rivaroxaban (Xarelto Tab) 20 mg QDD PO 08/15/17 17:00 09/14/17 17:59 Piperacillin Sod/ Tazobactam Sod 4.5 gm/Dextrose 120 ml @ 30 mls/hr Q8H IV 08/15/17 01:00 08/25/17 00:59 08/15/17 16:53 30 MLS/HR Vancomycin HCl 1250 mg/Sodium Chloride 275 ml @ 125 mls/hr Q12H IV 08/15/17 14:00 08/25/17 13:59 08/15/17 14:15 125 MLS/HR Objective Vital Signs Date Time Temp Pulse Resp B/P (MAP) Pulse Ox O2 Delivery O2 Flow Rate FiO2 08/15/17 15:38 36.5 100 20 129/83 (98) 94 Room Air 08/15/17 10:21 37.1 08/15/17 08:45 Room Air 08/15/17 07:24 38.1 108 18 107/64 (78) 94 08/15/17 00:05 92 Room Air 08/14/17 23:34 37.0 109 18 105/66 (79) 92 Room Air 08/14/17 20:44 Room Air 08/14/17 19:23 37.3 123 18 133/77 (95) 90 Room Air 08/14/17 18:59 120 20 133/73 92 08/14/17 17:01 119 20 153/93 93 Room Air Physical Exam General Appearance: no apparent distress, + obese Extremities: + swelling, + pertinent finding (+1 pitting edema, erythematous, warm to touch, slight improvement) Neurologic/Psychiatric: alert, + pertinent finding (cognitive dysfunction) Laboratory Results Last 24 Hours Test 08/14/17 19:45 08/15/17 05:42 Lactic Acid Level 1.3 mmol/L 1.0 mmol/L White Blood Count 18.59 K/uL Red Blood Count 5.05 M/uL Hemoglobin 13.5 g/dL Hematocrit 42.2 % Mean Corpuscular Volume 83.6 fL Mean Corpuscular Hemoglobin 26.7 pg Mean Corpuscular Hemoglobin Concent 32.0 g/dl Platelet Count 213 K/uL Mean Platelet Volume 9.1 fL Neutrophils (%) (Auto) 93.9 % Lymphocytes (%) (Auto) 3.1 % Monocytes (%) (Auto) 2.5 % Eosinophils (%) (Auto) 0.0 % Basophils (%) (Auto) 0.2 % Neutrophils # (Auto) 17.47 K/uL Lymphocytes # (Auto) 0.57 K/uL Monocytes # (Auto) 0.46 K/uL Eosinophils # (Auto) 0.00 K/uL Basophils # (Auto) 0.03 K/uL RDW Standard Deviation 45.3 fL RDW Coefficient of Variation 14.9 % Immature Granulocyte % (Auto) 0.3 % Immature Granulocyte # (Auto) 0.06 K/uL Sodium Level 137 mmol/L Potassium Level 3.8 mmol/L Chloride Level 104 mmol/L Carbon Dioxide Level 27 mmol/L Anion Gap 6.0 mmol/L Blood Urea Nitrogen 15 mg/dl Creatinine 0.98 mg/dl Est Creatinine Clear Calc Drug Dose 115.8 ml/min Estimated GFR () 109.0 Estimated GFR (Non- 94.1 BUN/Creatinine Ratio 14.9 Random Glucose 103 mg/dl Calcium Level 8.0 mg/dl Phosphorus Level 2.1 mg/dl Magnesium Level 1.9 mg/dl Procalcitonin 7.09 ng/ml Thyroid Stimulating Hormone (TSH) 0.370 uIu/ml Random Vancomycin Level 18.2 mcg/ml Assessment and Plan This is a 42 year old male with a past medical history of spastic quadriplegia cerebral 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 of PE/DVT on long-term Xarelto, asthma, urinary retention - presents with fevers and tachycardia. Sepsis secondary to Left Lower Extremity Cellulitis 08/15 - clinically improving - will continue empiric abx. - cultures pending - wound care consult ordered 08/14 - patient with LLE cellulitis - has a hx. of Pseudomonas from previous wound ulcerations - the cellulitis is lower on the extremity than the ulcerations, which seemed well healed - either way, we will start Vanc + Zosyn - repeat lactic acid - IVFs started - consulted ID - consulted wound care for the ulcers - EHOB mattress, repositioning, HOB elevated Spastic Quadriplegia Cerebral Palsy - wheelchair bound - can get up from bed to chair, but does not ambulate Moderate Intellectual Disability - can feed himself if he sits up; otherwise, he is a complete care - incontinent of urine and stool Hx. of PE/DVT - on long-term Xarelto Asthma - continue current inhalers DVT ppx - Xarelto FULL CODE
[2017-08-15] MEDS: RIVAROXABAN 20 MG TAB PO SCH (17:12)
[2017-08-15] MEDS ORDERED: RIVAROXABAN 10 MG TAB PO SCH (18:00)
[2017-08-15] MEDS: QUETIAPINE FUMARATE 25 MG TAB PO SCH (21:32)
[2017-08-15] MEDS: TAMSULOSIN HCL 0.4 MG CAP PO SCH (21:32)
[2017-08-16] MEDS: PIPERACILL/TAZOBAC IV 4.5 GM in D5W 100 ML IV SCH ×3 (01:19→16:53)
[2017-08-16] MEDS: VANCOMYCIN IV 1,250 MG in SODIUM CHLORIDE 0.9% 250ML 250 ML IV SCH ×2 (02:24→13:46)
[2017-08-16 06:54] LABS: BASO % 0.4 %; BASO ABS # 0.05 K/uL (0-0.2); EOS % 1.4 %; EOS ABS # 0.18 K/uL (0-0.5); HEMATOCRIT 39.9 % (42-52); IG# 0.04 K/uL (0.00-0.02); LYMPH % 7.6 %; LYMPH ABS # 0.98 K/uL (1.2-3.4); MEAN CELL VOLUME 84.4 fL (80-100); MEAN CORPUSCULAR HEMOGLOBIN 27.5 pg (25-34); MEAN CORPUSCULAR HGB CONC 32.6 g/dl (32-36); MEAN PLATELET VOLUME 9.7 fL (7.4-10.4); MONO ABS # 1.04 K/uL (0.11-0.59); NEUT % 82.3 %; NEUT ABS # 10.63 K/uL (1.4-6.5); PLATELET COUNT 213 K/uL (130-400); RED CELL DISTRIBUTION WIDTH SD 46.5 fL (36.4-46.3); WHITE BLOOD COUNT 12.92 K/uL (4.8-10.8)
[2017-08-16 07:27] LABS: CALCIUM 8.1 mg/dl (8.5-10.1); CREATININE 1.08 mg/dl (0.60-1.40); POTASSIUM 3.6 mmol/L (3.5-5.1)
[2017-08-16] MEDS: METOPROLOL TARTRATE 25 MG TAB PO SCH ×2 (07:57→20:43)
[2017-08-16] MEDS: FLUTICASONE/SALMETEROL 250/50 (ADVAIR) 14 PUFF/1 INHALER INH SCH ×2 (07:57→20:42)
[2017-08-16] MEDS: ASCORBIC ACID 500 MG TAB PO SCH (07:57)
[2017-08-16] MEDS: SERTRALINE HCL 50 MG TAB PO SCH (07:57)
[2017-08-16] MEDS: THIAMINE HCL 100 MG TAB PO SCH (07:57)
[2017-08-16 08:06] VITALS: BP 105/72; PULSE 101; TEMP 38; O2SAT 91
--- NOTE | 2017-08-16 12:26 | Progress Note ---
Subjective Date of Service: August 16, 2017. Subjective remains on emperic abx, tolerating well. blood cultures remain negative, wbc improved to 12 toady, fever overnight noted. procalcitonin improving. Problem List Medical Problems: (1) Atelectasis Status: Acute (2) Hypocalcemia Status: Acute (3) Hypokalemia Status: Acute (4) SOB (shortness of breath) Status: Acute Objective Vital Signs Date Time Temp Pulse Resp B/P (MAP) Pulse Ox O2 Delivery O2 Flow Rate FiO2 08/16/17 08:06 38.0 101 18 105/72 (83) 91 Room Air 08/16/17 08:01 Room Air 08/16/17 00:15 Room Air 08/15/17 23:51 36.8 107 16 101/63 (76) 90 Room Air 08/15/17 19:59 102 139/83 (101) 08/15/17 16:15 94 Room Air 08/15/17 15:38 36.5 100 20 129/83 (98) 94 Room Air Laboratory Results Item Value Date Time Blood Culture - Preliminary Resulted 08/14/17 1542 Blood NO GROWTH TO DATE. Blood Culture - Preliminary Resulted 08/14/17 1544 Blood NO GROWTH TO DATE. Last 24 Hours Test 08/16/17 06:41 White Blood Count 12.92 K/uL Red Blood Count 4.73 M/uL Hemoglobin 13.0 g/dL Hematocrit 39.9 % Mean Corpuscular Volume 84.4 fL Mean Corpuscular Hemoglobin 27.5 pg Mean Corpuscular Hemoglobin Concent 32.6 g/dl Platelet Count 213 K/uL Mean Platelet Volume 9.7 fL Neutrophils (%) (Auto) 82.3 % Lymphocytes (%) (Auto) 7.6 % Monocytes (%) (Auto) 8.0 % Eosinophils (%) (Auto) 1.4 % Basophils (%) (Auto) 0.4 % Neutrophils # (Auto) 10.63 K/uL Lymphocytes # (Auto) 0.98 K/uL Monocytes # (Auto) 1.04 K/uL Eosinophils # (Auto) 0.18 K/uL Basophils # (Auto) 0.05 K/uL RDW Standard Deviation 46.5 fL RDW Coefficient of Variation 15.0 % Immature Granulocyte % (Auto) 0.3 % Immature Granulocyte # (Auto) 0.04 K/uL Sodium Level 135 mmol/L Potassium Level 3.6 mmol/L Chloride Level 105 mmol/L Carbon Dioxide Level 25 mmol/L Anion Gap 6.0 mmol/L Blood Urea Nitrogen 13 mg/dl Creatinine 1.08 mg/dl Est Creatinine Clear Calc Drug Dose 105.1 ml/min Estimated GFR () 96.9 Estimated GFR (Non- 83.6 BUN/Creatinine Ratio 12.3 Random Glucose 108 mg/dl Lactic Acid Level 0.8 mmol/L Calcium Level 8.1 mg/dl Magnesium Level 1.9 mg/dl Procalcitonin 3.79 ng/ml Assessment and Plan (1) Cellulitis of left lower extremity Assessment & Plan: cotninue abx, follow cultures
[2017-08-16] MEDS ORDERED: VANCOMYCIN TROUGH ONE (13:30)
[2017-08-16 15:34] VITALS: BP 120/74; PULSE 100; TEMP 37; O2SAT 93
[2017-08-16] MEDS: CARBAMAZEPINE 200 MG TAB PO SCH ×2 (16:53→20:42)
[2017-08-16] MEDS: RIVAROXABAN 20 MG TAB PO SCH (16:53)
--- NOTE | 2017-08-16 17:55 | Progress Note ---
Medicine Progress Note Date & Time of Visit: August 16, 2017 at 17:55. Subjective Patient doing well, his mother was at the bedside and was updated as well. No overnight events noted. Had one additional fever overnight. Denies any complaints of pain, chills, or sweats now. Has been tolerating PO without difficulty. Objective Last 8 Hrs Date Time Temp Pulse Resp B/P (MAP) Pulse Ox O2 Delivery O2 Flow Rate FiO2 08/16/17 15:34 37.0 100 16 120/74 (89) 93 Physical Exam: GENERAL: Patient is in no acute distress. HEENT: No acute trauma, normocephalic, mucous membranes moist, no nasal congestion, no scleral icterus. NECK: No stridor, trachea is midline. LUNGS: Clear to auscultation bilaterally, no wheeze, no rhonchi, breath sounds equal. HEART: Without murmurs gallops or rubs, regular rate and rhythm. ABDOMEN: Soft, nontender, bowel sounds positive EXTREMITIES: No cyanosis; B/L LE edema worse on the LLE NEUROLOGIC: Oriented, no acute motor or sensory deficits, no focal weakness. SKIN: No rash, no jaundice, no diaphoresis. Erythema and swelling of left lower extremity Laboratory Results: Last 24 Hours Test 08/16/17 06:41 08/16/17 14:08 White Blood Count 12.92 K/uL Red Blood Count 4.73 M/uL Hemoglobin 13.0 g/dL Hematocrit 39.9 % Mean Corpuscular Volume 84.4 fL Mean Corpuscular Hemoglobin 27.5 pg Mean Corpuscular Hemoglobin Concent 32.6 g/dl Platelet Count 213 K/uL Mean Platelet Volume 9.7 fL Neutrophils (%) (Auto) 82.3 % Lymphocytes (%) (Auto) 7.6 % Monocytes (%) (Auto) 8.0 % Eosinophils (%) (Auto) 1.4 % Basophils (%) (Auto) 0.4 % Neutrophils # (Auto) 10.63 K/uL Lymphocytes # (Auto) 0.98 K/uL Monocytes # (Auto) 1.04 K/uL Eosinophils # (Auto) 0.18 K/uL Basophils # (Auto) 0.05 K/uL RDW Standard Deviation 46.5 fL RDW Coefficient of Variation 15.0 % Immature Granulocyte % (Auto) 0.3 % Immature Granulocyte # (Auto) 0.04 K/uL Sodium Level 135 mmol/L Potassium Level 3.6 mmol/L Chloride Level 105 mmol/L Carbon Dioxide Level 25 mmol/L Anion Gap 6.0 mmol/L Blood Urea Nitrogen 13 mg/dl Creatinine 1.08 mg/dl Est Creatinine Clear Calc Drug Dose 105.1 ml/min Estimated GFR () 96.9 Estimated GFR (Non- 83.6 BUN/Creatinine Ratio 12.3 Random Glucose 108 mg/dl Lactic Acid Level 0.8 mmol/L Calcium Level 8.1 mg/dl Magnesium Level 1.9 mg/dl Procalcitonin 3.79 ng/ml Vancomycin Level Trough 22.0 mcg/ml Assessment & Plan SEPSIS: secondary to Left Lower Extremity Cellulitis -improving -continue empiric abx. -blood cultures no growth thus far -wound care consulted -ID consulted -has a hx. of Pseudomonas from previous wound ulcerations, but the cellulitis is lower on the extremity than the ulcerations, which seemed well healed -continue Vanco + Zosyn -lactic acid trended down -IV fluids stopped now -EHOB mattress, repositioning, HOB elevated SPASTIC QUADRIPLEGIA: secondary to Cerebral Palsy -wheelchair bound -can get up from bed to chair, but does not ambulate MODERATE INTELLECTUAL DISABILITY: -can feed himself if he sits up; otherwise, he is a complete care -incontinent of urine and stool 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 ASTHMA: -continue current inhalers Current Inpatient Medications: Current Inpatient Medications Medications (Trade) Dose Ordered Sig/Jennifer Route Start Time Stop Time Status Last Admin Dose Admin Acetaminophen (Tylenol Tab) 650 mg Q4H PRN PO 08/14/17 18:15 09/13/17 18:14 08/15/17 08:44 650 MG Al Hydrox/Mg Hydrox/Simethicone (Maalox Max Susp) 15 ml Q4H PRN PO 08/14/17 18:15 09/13/17 18:14 Magnesium Hydroxide (Milk Of Magnesia Susp) 30 ml Q6H PRN PO 08/14/17 18:15 09/13/17 18:14 Polyethylene (Miralax Powder Packet) 17 gm DAILY PRN PO 08/14/17 18:15 09/13/17 18:14 Zolpidem Tartrate (Ambien Tab) 5 mg HSZ PRN PO 08/14/17 18:15 09/13/17 18:14 Ondansetron HCl (Zofran Inj) 4 mg Q6H PRN IV 08/14/17 18:15 09/13/17 18:14 Miscellaneous Information (Consult) 1 ea UD PRN N/A 08/14/17 18:15 09/13/17 18:14 Miscellaneous Information (Consult) 1 ea UD PRN N/A 08/14/17 18:15 09/13/17 18:14 Ascorbic Acid (Vitamin C Tab) 500 mg QAM PO 08/15/17 08:00 09/14/17 08:59 08/16/17 07:57 500 MG Carbamazepine (Tegretol Tab) 200 mg HS PO 08/14/17 21:00 09/13/17 20:59 08/15/17 21:31 200 MG Carbamazepine (Tegretol Tab) 200 mg QD@1600 PO 08/15/17 16:00 09/14/17 15:59 08/16/17 16:53 200 MG Salmeterol Xinafoate/ Fluticasone (Advair Diskus 250/50 Inh) 1 puff BID INH 08/14/17 20:00 09/13/17 20:59 08/16/17 07:57 1 PUFF Guaifenesin (Mucinex Contr Rel Tab) 600 mg Q12 PRN PO 08/14/17 18:30 09/13/17 18:29 Metoprolol Tartrate (Lopressor Tab) 25 mg BID PO 08/14/17 20:00 09/13/17 20:59 08/16/17 07:57 25 MG Quetiapine Fumarate (seroQUEL TAB) 50 mg HS PO 08/14/17 21:00 09/13/17 20:59 08/15/17 21:32 50 MG Sertraline HCl (Zoloft Tab) 50 mg QAM PO 08/15/17 08:00 09/14/17 08:59 08/16/17 07:57 50 MG Tamsulosin HCl (Flomax Cap) 0.8 mg HS PO 08/14/17 21:00 09/13/17 20:59 08/15/17 21:32 0.8 MG Thiamine HCl (Vitamin B-1 Tab) 100 mg QAM PO 08/15/17 08:00 09/14/17 08:59 08/16/17 07:57 100 MG Albuterol (Ventolin Hfa Inhaler) 2 puffs Q4H PRN INH 08/14/17 18:45 09/13/17 18:44 Albuterol/ Ipratropium (Duoneb) 3 ml Q4R PRN INH 08/14/17 18:15 09/13/17 18:14 Rivaroxaban (Xarelto Tab) 20 mg QDD PO 08/15/17 17:00 09/14/17 17:59 08/16/17 16:53 20 MG Piperacillin Sod/ Tazobactam Sod 4.5 gm/Dextrose 120 ml @ 30 mls/hr Q8H IV 08/15/17 01:00 08/25/17 00:59 08/16/17 16:53 30 MLS/HR Vancomycin HCl 1250 mg/Sodium Chloride 275 ml @ 125 mls/hr Q16H IV 08/17/17 06:00 08/27/17 05:59
[2017-08-16] MEDS: TAMSULOSIN HCL 0.4 MG CAP PO SCH (20:42)
[2017-08-16] MEDS: QUETIAPINE FUMARATE 25 MG TAB PO SCH (20:43)
[2017-08-16 23:17] VITALS: BP 112/66; PULSE 92; TEMP 37; O2SAT 98
[2017-08-17 00:05] VITALS: O2SAT 98
[2017-08-17] MEDS: PIPERACILL/TAZOBAC IV 4.5 GM in D5W 100 ML IV SCH ×3 (01:12→16:34)
[2017-08-17] MEDS: VANCOMYCIN IV 1,250 MG in SODIUM CHLORIDE 0.9% 250ML 250 ML IV SCH ×2 (05:49→20:56)
[2017-08-17 07:06] VITALS: BP 120/74; PULSE 104; TEMP 36.9; O2SAT 90
[2017-08-17] MEDS: FLUTICASONE/SALMETEROL 250/50 (ADVAIR) 14 PUFF/1 INHALER INH SCH ×2 (07:57→20:51)
[2017-08-17] MEDS: ASCORBIC ACID 500 MG TAB PO SCH (07:58)
[2017-08-17] MEDS: METOPROLOL TARTRATE 25 MG TAB PO SCH ×2 (07:58→20:53)
[2017-08-17] MEDS: THIAMINE HCL 100 MG TAB PO SCH (07:58)
[2017-08-17] MEDS: SERTRALINE HCL 50 MG TAB PO SCH (07:58)
[2017-08-17 08:00] VITALS: O2SAT 90
--- NOTE | 2017-08-17 10:08 | Progress Note ---
Subjective Date of Service: August 17, 2017. Subjective afebrile overnight, tolerating abx. blood cultures remain negative. no am labs. Problem List Medical Problems: (1) Atelectasis Status: Acute (2) Hypocalcemia Status: Acute (3) Hypokalemia Status: Acute (4) SOB (shortness of breath) Status: Acute Objective Vital Signs Date Time Temp Pulse Resp B/P (MAP) Pulse Ox O2 Delivery O2 Flow Rate FiO2 08/17/17 07:06 36.9 104 20 120/74 (89) 90 Room Air 08/17/17 00:05 98 Room Air 08/16/17 23:17 37.0 92 20 112/66 (81) 98 Room Air 08/16/17 16:15 Room Air 08/16/17 15:34 37.0 100 16 120/74 (89) 93 Laboratory Results Last 24 Hours Test 08/16/17 14:08 Vancomycin Level Trough 22.0 mcg/ml Assessment and Plan (1) Cellulitis of left lower extremity Assessment & Plan: cotninue abx, follow cultures. If remains afebrile with negative culture, would suggest changing abx to po doxy 100mg po bid and levaquin 500mg daily (for past h/o pseudomonas) x 7 days.
[2017-08-17 11:56] LABS: HEMATOCRIT 38.5 % (42-52); HEMOGLOBIN 12.3 g/dL (14.0-18.0); MEAN CELL VOLUME 83.9 fL (80-100); MEAN CORPUSCULAR HEMOGLOBIN 26.8 pg (25-34); MEAN CORPUSCULAR HGB CONC 31.9 g/dl (32-36); MEAN PLATELET VOLUME 8.9 fL (7.4-10.4); PLATELET COUNT 233 K/uL (130-400); RED CELL DISTRIBUTION WIDTH CV 15.1 % (11.5-14.5); RED CELL DISTRIBUTION WIDTH SD 46.1 fL (36.4-46.3); WHITE BLOOD COUNT 9.12 K/uL (4.8-10.8)
[2017-08-17 12:15] LABS: CALCIUM 8.5 mg/dl (8.5-10.1); CREATININE 0.9 mg/dl (0.60-1.40); POTASSIUM 3.8 mmol/L (3.5-5.1)
[2017-08-17 15:35] VITALS: BP 126/75; PULSE 108; TEMP 37.3; O2SAT 90
[2017-08-17] MEDS: CARBAMAZEPINE 200 MG TAB PO SCH ×2 (16:04→20:52)
[2017-08-17] MEDS: RIVAROXABAN 20 MG TAB PO SCH (16:34)
--- NOTE | 2017-08-17 19:08 | Progress Note ---
Medicine Progress Note Date & Time of Visit: August 17, 2017 at 19:08. Subjective Patient denies any complaints, has been eating and drinking without difficulty, denies any fever, chills, sweats, or pain. No overnight events noted. Is incontinent of urine and stool. Objective Last 8 Hrs Date Time Temp Pulse Resp B/P (MAP) Pulse Ox O2 Delivery O2 Flow Rate FiO2 08/17/17 16:15 Room Air 08/17/17 15:35 37.3 108 20 126/75 (92) 90 Room Air Physical Exam: GENERAL: Patient is in no acute distress. HEENT: No acute trauma, normocephalic, mucous membranes moist, no nasal congestion, no scleral icterus. NECK: No stridor, trachea is midline. LUNGS: Diminished bilaterally, no wheeze, no rhonchi, breath sounds equal. HEART: Without murmurs gallops or rubs, regular rate and rhythm. ABDOMEN: Soft, nontender, bowel sounds positive, reducible abdominal hernia LUQ EXTREMITIES: No cyanosis; + edema in B/L LE L>R, moves upper extremities, has spastic quadriplegia NEUROLOGIC: Oriented, no acute motor or sensory deficits, no focal weakness. SKIN: No rash, no jaundice, no diaphoresis. Erythema and swelling of LLE, erythema is receding from the border drawn on admission Laboratory Results: Last 24 Hours Test 08/17/17 11:43 White Blood Count 9.12 K/uL Red Blood Count 4.59 M/uL Hemoglobin 12.3 g/dL Hematocrit 38.5 % Mean Corpuscular Volume 83.9 fL Mean Corpuscular Hemoglobin 26.8 pg Mean Corpuscular Hemoglobin Concent 31.9 g/dl RDW Standard Deviation 46.1 fL RDW Coefficient of Variation 15.1 % Platelet Count 233 K/uL Mean Platelet Volume 8.9 fL Sodium Level 138 mmol/L Potassium Level 3.8 mmol/L Chloride Level 106 mmol/L Carbon Dioxide Level 26 mmol/L Anion Gap 6.0 mmol/L Blood Urea Nitrogen 13 mg/dl Creatinine 0.90 mg/dl Est Creatinine Clear Calc Drug Dose 126.1 ml/min Estimated GFR () 120.8 Estimated GFR (Non- 104.2 BUN/Creatinine Ratio 14.3 Random Glucose 115 mg/dl Calcium Level 8.5 mg/dl Assessment & Plan SEPSIS: secondary to Left Lower Extremity Cellulitis -improving -continue empiric abx. -blood cultures no growth thus far -wound care consulted -ID consulted, appreciate recs, plan to transition to PO abx at discharge -has a hx. of Pseudomonas from previous wound ulcerations, but the cellulitis is lower on the extremity than the ulcerations, which seemed well healed -continued on Vanco + Zosyn -lactic acid trended down -IV fluids stopped now -EHOB mattress, repositioning, HOB elevated SPASTIC QUADRIPLEGIA: secondary to Cerebral Palsy -wheelchair bound -can get up from bed to chair, but does not ambulate MODERATE INTELLECTUAL DISABILITY: -can feed himself if he sits up; otherwise, he is a complete care -incontinent of urine and stool 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 ASTHMA: -continue current inhalers Current Inpatient Medications: Current Inpatient Medications Medications (Trade) Dose Ordered Sig/Jennifer Route Start Time Stop Time Status Last Admin Dose Admin Acetaminophen (Tylenol Tab) 650 mg Q4H PRN PO 08/14/17 18:15 09/13/17 18:14 08/15/17 08:44 650 MG Al Hydrox/Mg Hydrox/Simethicone (Maalox Max Susp) 15 ml Q4H PRN PO 08/14/17 18:15 09/13/17 18:14 Magnesium Hydroxide (Milk Of Magnesia Susp) 30 ml Q6H PRN PO 08/14/17 18:15 09/13/17 18:14 Polyethylene (Miralax Powder Packet) 17 gm DAILY PRN PO 08/14/17 18:15 09/13/17 18:14 Zolpidem Tartrate (Ambien Tab) 5 mg HSZ PRN PO 08/14/17 18:15 09/13/17 18:14 Ondansetron HCl (Zofran Inj) 4 mg Q6H PRN IV 08/14/17 18:15 09/13/17 18:14 Miscellaneous Information (Consult) 1 ea UD PRN N/A 08/14/17 18:15 09/13/17 18:14 Miscellaneous Information (Consult) 1 ea UD PRN N/A 08/14/17 18:15 09/13/17 18:14 Ascorbic Acid (Vitamin C Tab) 500 mg QAM PO 08/15/17 08:00 09/14/17 08:59 08/17/17 07:58 500 MG Carbamazepine (Tegretol Tab) 200 mg HS PO 08/14/17 21:00 09/13/17 20:59 08/16/17 20:42 200 MG Carbamazepine (Tegretol Tab) 200 mg QD@1600 PO 08/15/17 16:00 09/14/17 15:59 08/17/17 16:04 200 MG Salmeterol Xinafoate/ Fluticasone (Advair Diskus 250/50 Inh) 1 puff BID INH 08/14/17 20:00 09/13/17 20:59 08/17/17 07:57 1 PUFF Guaifenesin (Mucinex Contr Rel Tab) 600 mg Q12 PRN PO 08/14/17 18:30 09/13/17 18:29 Metoprolol Tartrate (Lopressor Tab) 25 mg BID PO 08/14/17 20:00 09/13/17 20:59 08/17/17 07:58 25 MG Quetiapine Fumarate (seroQUEL TAB) 50 mg HS PO 08/14/17 21:00 09/13/17 20:59 08/16/17 20:43 50 MG Sertraline HCl (Zoloft Tab) 50 mg QAM PO 08/15/17 08:00 09/14/17 08:59 08/17/17 07:58 50 MG Tamsulosin HCl (Flomax Cap) 0.8 mg HS PO 08/14/17 21:00 09/13/17 20:59 08/16/17 20:42 0.8 MG Thiamine HCl (Vitamin B-1 Tab) 100 mg QAM PO 08/15/17 08:00 09/14/17 08:59 08/17/17 07:58 100 MG Albuterol (Ventolin Hfa Inhaler) 2 puffs Q4H PRN INH 08/14/17 18:45 09/13/17 18:44 Albuterol/ Ipratropium (Duoneb) 3 ml Q4R PRN INH 08/14/17 18:15 09/13/17 18:14 Rivaroxaban (Xarelto Tab) 20 mg QDD PO 08/15/17 17:00 09/14/17 17:59 08/17/17 16:34 20 MG Piperacillin Sod/ Tazobactam Sod 4.5 gm/Dextrose 120 ml @ 30 mls/hr Q8H IV 08/15/17 01:00 08/25/17 00:59 08/17/17 16:34 30 MLS/HR Vancomycin HCl 1250 mg/Sodium Chloride 275 ml @ 125 mls/hr Q16H IV 08/17/17 06:00 08/27/17 05:59 08/17/17 05:49 125 MLS/HR
[2017-08-17] MEDS: QUETIAPINE FUMARATE 25 MG TAB PO SCH (20:52)
[2017-08-17] MEDS: TAMSULOSIN HCL 0.4 MG CAP PO SCH (20:53)
[2017-08-17 23:23] VITALS: BP 118/83; PULSE 110; TEMP 36.9; O2SAT 90
[2017-08-18] MEDS: PIPERACILL/TAZOBAC IV 4.5 GM in D5W 100 ML IV SCH ×2 (00:10→08:34)
[2017-08-18] MEDS: FLUTICASONE/SALMETEROL 250/50 (ADVAIR) 14 PUFF/1 INHALER INH SCH ×2 (07:33→19:21)
[2017-08-18] MEDS: THIAMINE HCL 100 MG TAB PO SCH (07:33)
[2017-08-18] MEDS: SERTRALINE HCL 50 MG TAB PO SCH (07:34)
[2017-08-18] MEDS: ASCORBIC ACID 500 MG TAB PO SCH (07:34)
[2017-08-18 07:39] VITALS: BP 124/77; PULSE 103; TEMP 36.6; O2SAT 93
[2017-08-18 07:47] LABS: CREATININE 1.1 mg/dl (0.60-1.40)
[2017-08-18 08:00] VITALS: O2SAT 93
[2017-08-18] MEDS: METOPROLOL TARTRATE 25 MG TAB PO SCH ×2 (08:12→19:22)
[2017-08-18] MEDS ORDERED: FUROSEMIDE INJ 20 MG in SYRINGE 0 ML IV ONE (09:45)
[2017-08-18 09:48] LABS: HEMATOCRIT 40.3 % (42-52); MEAN CELL VOLUME 84.1 fL (80-100); MEAN CORPUSCULAR HEMOGLOBIN 27.1 pg (25-34); MEAN CORPUSCULAR HGB CONC 32.3 g/dl (32-36); MEAN PLATELET VOLUME 9.4 fL (7.4-10.4); PLATELET COUNT 256 K/uL (130-400); RED CELL DISTRIBUTION WIDTH SD 46.3 fL (36.4-46.3); WHITE BLOOD COUNT 8.55 K/uL (4.8-10.8)
[2017-08-18] MEDS ORDERED: VANCOMYCIN TROUGH ONE (13:30)
[2017-08-18 15:27] VITALS: BP 146/81; PULSE 105; TEMP 36.8; O2SAT 90
[2017-08-18 16:00] VITALS: O2SAT 93
[2017-08-18] MEDS: ACETAMINOPHEN 325 MG TAB PO PRN (16:40)
[2017-08-18] MEDS: RIVAROXABAN 20 MG TAB PO SCH (16:41)
[2017-08-18] MEDS: CARBAMAZEPINE 200 MG TAB PO SCH ×2 (16:41→21:39)
[2017-08-18 18:20] VITALS: TEMP 37.2
[2017-08-18] MEDS: DOXYCYCLINE HYCLATE 100 MG CAP PO SCH (19:21)
[2017-08-18] MEDS: TAMSULOSIN HCL 0.4 MG CAP PO SCH (21:39)
[2017-08-18] MEDS: QUETIAPINE FUMARATE 25 MG TAB PO SCH (21:40)
--- NOTE | 2017-08-18 22:39 | DIAGNOSTIC IMAGING REPORT ---
LEFT LOWER EXTREMITY VENOUS DOPPLER HISTORY: Acute worsening of swelling COMPARISON STUDY: Left lower extremity CT 05/08/2017. FINDINGS: There is normal compressibility, flow, and augmentation within the left lower extremity deep venous system. Left inguinal lymphadenopathy is again noted. Dominant lymph node measures 4.0 x 2.9 x 1.6 cm. This is not significantly changed. There is subcutaneous edema within the left lower extremity. IMPRESSION: No DVT within the left lower extremity. Persistent left inguinal lymphadenopathy. Electronically signed by: Robert Lott M.D. 08/18/2017 10:38 PM Dictated Date/Time: 08/18/2017 10:37 PM
--- NOTE | 2017-08-18 22:59 | Progress Note ---
Medicine Progress Note Date & Time of Visit: August 18, 2017 at 22:59. Subjective Patient reports feeling ok, was given a dose of lasix to help with the LLE edema which was difficult for patient to tolerate due to incontinence. Otherwise denies any complaints. No overnight events noted. Patient minimally conversive. Objective Last 8 Hrs Date Time Temp Pulse Resp B/P (MAP) Pulse Ox O2 Delivery O2 Flow Rate FiO2 08/18/17 20:00 Room Air 08/18/17 18:20 37.2 08/18/17 16:00 93 Room Air 08/18/17 15:27 36.8 105 20 146/81 (102) 90 Room Air Physical Exam: GENERAL: Patient is in no acute distress. HEENT: No acute trauma, normocephalic, mucous membranes moist, no nasal congestion, no scleral icterus. NECK: No stridor, trachea is midline. LUNGS: Diminished bilaterally, no wheeze, no rhonchi, breath sounds equal. HEART: Without murmurs gallops or rubs, regular rate and rhythm. ABDOMEN: Soft, nontender, bowel sounds positive, + large hernia LUQ reducible EXTREMITIES: No cyanosis; B/L LE edema worse on the LLE NEUROLOGIC: Oriented, no acute motor or sensory deficits, no focal weakness. SKIN: No rash, no jaundice, no diaphoresis. Erythema and swelling of left lower extremity, erythema receding from the line drawn on admission Laboratory Results: Last 24 Hours Test 08/18/17 06:36 08/18/17 06:37 08/18/17 13:19 White Blood Count 8.55 K/uL Red Blood Count 4.79 M/uL Hemoglobin 13.0 g/dL Hematocrit 40.3 % Mean Corpuscular Volume 84.1 fL Mean Corpuscular Hemoglobin 27.1 pg Mean Corpuscular Hemoglobin Concent 32.3 g/dl RDW Standard Deviation 46.3 fL RDW Coefficient of Variation 15.0 % Platelet Count 256 K/uL Mean Platelet Volume 9.4 fL Creatinine 1.10 mg/dl Est Creatinine Clear Calc Drug Dose 103.2 ml/min Estimated GFR () 94.8 Estimated GFR (Non- 81.8 Vancomycin Level Trough 10.1 mcg/ml Date/Time Source Procedure Growth Status 08/18/17 00:00 Stool C.difficile Toxin B Gene (PCR) - Final No C. difficile toxin B gene detected Complete Assessment & Plan SEPSIS: secondary to Left Lower Extremity Cellulitis -improving -continue empiric abx. -blood cultures no growth thus far -wound care consulted -ID consulted, appreciate recs, changed abx to levaquin and doxy for 7 days -has a hx. 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 -wheelchair bound -can get up from bed to chair, but does not ambulate MODERATE INTELLECTUAL DISABILITY: -can feed himself if he sits up; otherwise, he is a complete care -incontinent of urine and stool 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 ASTHMA: -continue current inhalers Current Inpatient Medications: Current Inpatient Medications Medications (Trade) Dose Ordered Sig/Jennifer Route Start Time Stop Time Status Last Admin Dose Admin Acetaminophen (Tylenol Tab) 650 mg Q4H PRN PO 08/14/17 18:15 09/13/17 18:14 08/18/17 16:40 650 MG Al Hydrox/Mg Hydrox/Simethicone (Maalox Max Susp) 15 ml Q4H PRN PO 08/14/17 18:15 09/13/17 18:14 Magnesium Hydroxide (Milk Of Magnesia Susp) 30 ml Q6H PRN PO 08/14/17 18:15 09/13/17 18:14 Polyethylene (Miralax Powder Packet) 17 gm DAILY PRN PO 08/14/17 18:15 09/13/17 18:14 Zolpidem Tartrate (Ambien Tab) 5 mg HSZ PRN PO 08/14/17 18:15 09/13/17 18:14 Ondansetron HCl (Zofran Inj) 4 mg Q6H PRN IV 08/14/17 18:15 09/13/17 18:14 Ascorbic Acid (Vitamin C Tab) 500 mg QAM PO 08/15/17 08:00 09/14/17 08:59 08/18/17 07:34 500 MG Carbamazepine (Tegretol Tab) 200 mg HS PO 08/14/17 21:00 09/13/17 20:59 08/18/17 21:39 200 MG Carbamazepine (Tegretol Tab) 200 mg QD@1600 PO 08/15/17 16:00 09/14/17 15:59 08/18/17 16:41 200 MG Salmeterol Xinafoate/ Fluticasone (Advair Diskus 250/50 Inh) 1 puff BID INH 08/14/17 20:00 09/13/17 20:59 08/18/17 19:21 1 PUFF Guaifenesin (Mucinex Contr Rel Tab) 600 mg Q12 PRN PO 08/14/17 18:30 09/13/17 18:29 Metoprolol Tartrate (Lopressor Tab) 25 mg BID PO 08/14/17 20:00 09/13/17 20:59 08/18/17 19:22 25 MG Quetiapine Fumarate (seroQUEL TAB) 50 mg HS PO 08/14/17 21:00 09/13/17 20:59 08/18/17 21:40 50 MG Sertraline HCl (Zoloft Tab) 50 mg QAM PO 08/15/17 08:00 09/14/17 08:59 08/18/17 07:34 50 MG Tamsulosin HCl (Flomax Cap) 0.8 mg HS PO 08/14/17 21:00 09/13/17 20:59 08/18/17 21:39 0.8 MG Thiamine HCl (Vitamin B-1 Tab) 100 mg QAM PO 08/15/17 08:00 09/14/17 08:59 08/18/17 07:33 100 MG Albuterol (Ventolin Hfa Inhaler) 2 puffs Q4H PRN INH 08/14/17 18:45 09/13/17 18:44 Albuterol/ Ipratropium (Duoneb) 3 ml Q4R PRN INH 08/14/17 18:15 09/13/17 18:14 Rivaroxaban (Xarelto Tab) 20 mg QDD PO 08/15/17 17:00 09/14/17 17:59 08/18/17 16:41 20 MG Doxycycline Hyclate (Vibramycin Cap) 100 mg BID PO 08/18/17 20:00 08/28/17 19:59 08/18/17 19:21 100 MG Levofloxacin (Levaquin Tab) 500 mg DAILY@11 PO 08/19/17 11:00 08/29/17 10:59
[2017-08-19 07:18] VITALS: BP 149/73; PULSE 103; TEMP 36.6; O2SAT 92
[2017-08-19 07:41] LABS: HEMATOCRIT 40.2 % (42-52); HEMOGLOBIN 12.7 g/dL (14.0-18.0); MEAN CELL VOLUME 84.5 fL (80-100); MEAN CORPUSCULAR HEMOGLOBIN 26.7 pg (25-34); MEAN CORPUSCULAR HGB CONC 31.6 g/dl (32-36); MEAN PLATELET VOLUME 9.1 fL (7.4-10.4); PLATELET COUNT 270 K/uL (130-400); RED CELL DISTRIBUTION WIDTH CV 14.8 % (11.5-14.5); RED CELL DISTRIBUTION WIDTH SD 46.1 fL (36.4-46.3); WHITE BLOOD COUNT 9.32 K/uL (4.8-10.8)
[2017-08-19 07:58] LABS: CALCIUM 8.4 mg/dl (8.5-10.1); CREATININE 0.98 mg/dl (0.60-1.40); POTASSIUM 3.5 mmol/L (3.5-5.1)
[2017-08-19] MEDS: ASCORBIC ACID 500 MG TAB PO SCH (08:03)
[2017-08-19] MEDS: DOXYCYCLINE HYCLATE 100 MG CAP PO SCH (08:03)
[2017-08-19] MEDS: FLUTICASONE/SALMETEROL 250/50 (ADVAIR) 14 PUFF/1 INHALER INH SCH (08:03)
[2017-08-19] MEDS: SERTRALINE HCL 50 MG TAB PO SCH (08:04)
[2017-08-19] MEDS: METOPROLOL TARTRATE 25 MG TAB PO SCH (08:04)
[2017-08-19] MEDS: THIAMINE HCL 100 MG TAB PO SCH (08:04)
[2017-08-19] MEDS ORDERED: FUROSEMIDE INJ 20 MG in SYRINGE 0 ML IV ONE (09:00)
[2017-08-19 10:32] VITALS: BP 149/73; PULSE 103; TEMP 36.6; O2SAT 92
[2017-08-19] MEDS ORDERED: LVQ500 PO (10:47)
[2017-08-19] MEDS ORDERED: DXY100 PO (10:47)
--- NOTE | 2017-08-19 10:51 | Discharge Instructions ---
Discharge Instructions Date of Service August 19, 2017. Admission Reason for Admission: Cellulitis Of Left Lower Extremity,Sepsis Discharge Discharge Diagnosis / Problem: Right leg cellulitis, sepsis Discharge Goals Goal(s): Therapeutic intervention Activity Recommendations Activity Level: Assistance Required . Additional Information Patient informed of condition: Yes Advance Directives: Yes DNR: No Level of Care: Other Communicable Disease: No Prognosis: Stable Barnes Catheter: No Instructions / Follow-Up Instructions / Follow-Up Please see Dr. Lopez on August 25 at 12:45 PM for hospital follow up Current Hospital Diet Patient's current hospital diet: Regular Diet Discharge Diet Recommended Diet: Regular Diet Pending Studies Studies pending at discharge: no Physician Orders On Transfer Special Precautions: Encourage patient to elevate legs especially when laying down to help with the swelling Medical Emergencies . Who to Call and When: Medical Emergencies: If at any time you feel your situation is an emergency, please call 911 immediately. . Non-Emergent Contact Non-Emergency issues call your: Primary Care Provider . . "Provider Documentation" section prepared by Jane Hernandez. . Core Measure Problem Core Measures: None
[2017-08-19] MEDS ORDERED: LEVOFLOXACIN 500 MG TAB PO SCH (11:00)
--- NOTE | 2017-08-19 15:17 | Discharge Summary ---
Discharge Summary Date of Service August 19, 2017. Discharge Summary Admission Date: August 14, 2017 at 18:14 Discharge Date: August 19, 2017 Medication Reconciliation New Medications: Doxycycline Hyclate (Doxycycline Hyclate) 100 Mg Cap 100 MG PO BID, #14 CAP Levofloxacin (Levofloxacin) 500 Mg Tab 500 MG PO DAILY@11, #7 TAB Continued Medications: Acetaminophen Tab (Tylenol) 325 Mg Tab 650 MG PO Q6H PRN for Pain or Fever MDD 3GM/24HR, TAB Albuterol Sulfate (Proair Respiclick) 108 Mcg/Act Aer 2 PUFFS INH Q4H PRN for SOB/Wheezing Ascorbic Acid (Ascorbic Acid) 500 Mg Tab 500 MG PO QAM, TAB Carbamazepine (Tegretol) 200 Mg Tab 200 MG PO HS, TAB Carbamazepine (Tegretol) 200 Mg Tab 200 MG PO QD@1600, TAB Fluticasone Prop/Salmeterol (Advair Diskus 250/50 60 Dose) 1 Ea Aerp 1 PUFF INH BID, INHALER Guaifenesin Ext Rel (Mucinex Ext Rel) 600 Mg Tabcr 600 MG PO Q12 PRN for Congestion, TAB TAKE THIS MEDICATION WITH PLENTY OF WATER Home O2 Therapy (Oxygen) Gas 2 LITERS NA UD PRN for Shortness of Breath, BTL Ipratropium-Albuterol (Duoneb) 3 Ml Nebu 1 VIAL NEB Q4H PRN for Cough or Wheezing, INHA Metoprolol Tartrate (Lopressor) (Lopressor) 25 Mg Tab 25 MG PO BID, TAB Quetiapine Fumarate (Seroquel) 50 Mg Tab 50 MG PO HS, TAB Rivaroxaban (Xarelto) 20 Mg Tab 20 MG PO QDD, TAB Sertraline (Zoloft) 50 Mg Tab 50 MG PO QAM, TAB TAKE THIS MEDICATION WITH FOOD Tamsulosin Hcl (Flomax) 0.4 Mg Cap 0.8 MG PO HS, CAP Thiamine Hcl (Vitamin B-1) 100 Mg Tab 100 MG PO QAM, TAB Admission Information HPI (per Admitting provider): This is a 42 year old male with a past medical history of spastic quadriplegia cerebral 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 of PE/DVT on long-term Xarelto, asthma, urinary retention - presents with fevers and tachycardia. He is currently living at [facility]; most of the history obtained from nurse/tumbler operator and mother who are both at bedside. They state that he has had ulcerations on his L upper thigh/buttocks; he is wheelchair bound. The ulcerations are improving with Aquagel. Sees a wound care nurse at the [facility]. The L lower leg has no ulcerations, but became acutely hot, red and swollen. Patient presented to the ED with fever, tachycardia. Sepsis alert called and noted to have elevated white count and mildly elevated lactic acid. Given IVFs in the ED, given a dose of Rocephin + Vancomycin. Physical Exam (per Admitting): General Appearance: no apparent distress, + obese, + pertinent finding ( intellectual disability) Head: normocephalic, atraumatic Eyes: normal inspection ENT: hearing grossly normal Respiratory/Chest: chest non-tender, lungs clear, normal breath sounds, no respiratory distress, no accessory muscle use Cardiovascular: no murmur, + tachycardia Abdomen/GI: normal bowel sounds, non tender, soft Back: normal inspection Extremities/Musculoskelatal: + pedal edema, + swelling, + pertinent finding (+LLE swollen, erythematous, warm to touch, edematous; club foot b/l) Neurologic/Psych: no motor/sensory deficits, alert, normal mood/affect, + pertinent finding (+MR) Skin: normal color Hospital Course SEPSIS: secondary to Left Lower Extremity Cellulitis -improving -continue empiric abx. -blood cultures no growth thus far -wound care consulted -ID consulted, appreciate recs, changed abx to levaquin and doxy for 7 days -has a hx. 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
== END 2017-08-19 15:05 | disposition home health service (06) | DRG 871 ==
LOC: C.EDB 15:11 → C.MS4W 18:14 → ENRESERV 18:38
PROVIDERS: ADMIT Family Medicine; ATTEND Internal Medicine
DX: A41.9 Sepsis, unspecified organism (principal); G80.0 Spastic quadriplegic cerebral palsy; L03.116 Cellulitis of left lower limb; F71 Moderate intellectual disabilities; R32 Unspecified urinary incontinence; R15.9 Full incontinence of feces; J45.909 Unspecified asthma, uncomplicated; Z79.01 Long term (current) use of anticoagulants; Z79.899 Other long term (current) drug therapy; Z99.3 Dependence on wheelchair; Z86.711 Personal history of pulmonary embolism; Z86.718 Personal history of other venous thrombosis and embolism

== ENCOUNTER 2019-12-13 14:24 | Inpatient (IN) ==
--- NOTE | 2019-12-13 14:34 | Emergency Department Note ---
Impression & Plan Acute renal failure (ARF), Anemia, Sacral decubitus ulcer, Thrombocytosis, Osteomyelitis, Obstructed, uropathy ED Provider Note NAME: KERA BASSETT AGE: 44 SEX: M : 1975 ARRIVES VIA: Ambulance INFORMANT: Patient, ED PROVIDER(S): Aaron Pina MD Chief Complaint: Acute kidney injury and referral for abnormal renal function HPI: Patient does present as the above referral. History is limited as well as review of systems secondary to the patient's history of cerebral palsy and intellectual disability. Patient does state that he does have some pain on his right side which is been chronic in nature for very long time sharp and nature and nonradiating. The patient has not had any nausea or vomiting. The patient does not have a documented fever. The patient reportedly was recently transfused 2 units of blood given a history of anemia which improved his hemoglobin from the fives to the sevens. 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 The patient was recently placed at [facility] for an inability to care for self at home. ROS: See HPI for pertinent positives and negatives. A total of 10 systems were reviewed and otherwise negative. Past medical history: See below Surgical history: See below Social history: See below Physical Exam: GENERAL: Ill and pale in appearance. EYE EXAM: Normal conjunctiva. PERRL, no anisocoria and EOM's grossly intact w/o pain. [OROPHARYNX: Moist mucus membranes. Grossly normal dentition. ] NECK: Supple, no nuchal rigidity, no adenopathy, non-tender. No signs of meningismus. LUNGS: Clear to auscultation. Normal chest wall mechanics. HEART: NSR, no MRG. ABDOMEN: Abdomen soft, mild distention and associated nonreducible abdominal wall hernia. Normo-active bowel sounds, no masses, no rebound or guarding. BACK: No CVA TTP. SKIN: Wounds noted to the sacral area. : Velásquez in place with small amount of urine in Velásquez bag. UPPER EXTREMITIES: Upper extremities are grossly normal. LOWER EXTREMITIES: Bilateral lower extremity atrophy noted but able to move both legs. NEURO EXAM: A&O x3, cranial nerves II-XII grossly intact, normal speech, moves all 4 extremities on command w/o issue. Differential diagnoses: Infection, dehydration, metabolic abnormality, hypo/hyperglycemia, electrolyte disturbance, anemia, hypoxia, cardiac sources, intracerebral event, toxicologic, neurologic, as well as other pathologies. Course: Patient was seen and evaluated the bedside. Full history physical exam was performed. EKG: Indication: Weakness Normal sinus rhythm, rate of 99, normal intervals, normal axis, T wave inversion in V2. No significant change from 11/08/2018. Imaging Studies: Radiology results as stated below per my review in the radiologist's interpretation: CT OF THE ABDOMEN AND PELVIS WITHOUT CONTRAST CLINICAL HISTORY: DOT, recent transfusion, velásquez in place, h/o CP COMPARISON STUDY: CT of the abdomen and pelvis August 08, 2018. TECHNIQUE: Axial images of the abdomen and pelvis were obtained without IV contrast. Images were reviewed in the axial, sagittal, and coronal planes. Automated exposure control was utilized for the study. A dose lowering technique was utilized adhering to the principles of ALARA. FINDINGS: Elevation of the right hemidiaphragm is unchanged. Bilateral gynecomas tia is incidentally noted. Right lower lobe airspace opacity favors atelectasis. Right middle lobe opacity represents atelectasis. Lower lobe airspace opacity could reflect an infectious process or atelectasis. Evaluation of the abdomen and pelvis is suboptimal on this unenhanced examination. No pneumatosis, free air or portal venous gas is present. Unenhanced images of the liver, adrenal glands and pancreas are unremarkable. Mild splenomegaly is unchanged. Prominent retroperitoneal lymph nodes are also unchanged and CT of August 08, 2018. There is no evidence for a bowel obstruction. Ventral hernia contains a loop of transverse colon. There is an additional right ventral hernia which contains fat. There is mild rectal wall thickening. Mild adjacent infiltration is noted. Note is made of moderate bilateral hydroureteronephrosis. There are no ureteral calculi. The bladder is markedly distended. Bladder wall thickening is noted. There is adjacent infiltration. Findings raise the possibility of previous transurethral resection of the prostate. The tip of the Velásquez catheter appears to terminate in the prostatic urethra. Note is made of a left lower buttock ulcer with gas fluid extends to the ischial tuberosity with associated erosion consistent with osteomyelitis of the left ischial tuberosity. There is also a suspected additional sacral decubitus ulcer. There is erosion of the sacrum or coccyx which is unchanged since CT of August 08, 2018. This is chronic. Chronic deformity of both hips is noted. This is unchanged. IMPRESSION: 1. Markedly distended bladder with bladder wall thickening and adjacent infiltration. Velásquez catheter likely malpositioned with tip likely within the p rostatic urethra. Repositioning is suggested. Moderate bilateral hydroureteronephrosis due to bladder distention. No ureteral calculi. Discussed with Dr. Pina at time of dictation. 2. Left buttock ulcer which extends to the left ischial tuberosity with associated bony erosion. 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 Suspected additional sacral decubitus ulcer. 3. Left lower lobe airspace opacity which may reflect an infectious process or atelectasis. Right lower lobe airspace opacity favors atelectasis. 4. Mild rectal wall thickening with adjacent infiltration. 4. Bowel containing ventral hernia. No bowel obstruction. ACT 112: Negative or not required by law. Electronically signed by: Terry Wright M.D. 12/13/2019 4:22 PM Dictated: 12/13/19 1603 Transcribed: 12/13/19 1607 XR chest 1V portable CLINICAL HISTORY: Sepsis COMPARISON STUDY: 08/08/2018 FINDINGS: The cardiac and mediastinal contours remain stable. There are low lung volumes. There is persistent elevation of the right hemidiaphragm. There are persistent basilar opacities, atelectatic versus infectious/inflammatory.[ IMPRESSION: 1. Low lung volumes with basilar opacities, atelectatic versus infectious/inflammatory ACT 112: Negative or not required by law. Electronically signed by: Db Llamas M.D. 12/13/2019 3:32 PM Dictated: 12/13/19 1531 Transcribed: 12/13/19 1531 Cardiac monitoring: An order was placed for continuous cardiac monitoring. The monitor shows a rate of 100 with sinus rhythm. MDM: Patient did present as a referral due to concern for kidney dysfunction. Empiric antibiotics and blood work was obtained. The patient did have a bladder scan to be completed and if showing retention would have a Velásquez replaced. Patient did have IV fluids ordered. Patient also did have a CT noncontrast study of the abdomen pelvis ordered. Patient was also ordered type and screen, lactate, and blood cultures. Patient does have a an elevated white count associated anemia and thrombocytopenia. Not much in terms of change of his anemia from the last week. EKG unchanged. CT abdomen pelvis does show that the patient does have some osteomyelitis and associated markedly distended bladder. Patient did have his Velásquez catheter replaced with large volume of urine output. Likely with obstructive uropathy and associated acute renal failure. He speak the on-call hospitalist who agreed to further evaluate and treat the patient. Patient was admitted by Dr. Isabel. Past Med/Surg History Medical History (Updated 12/13/19 @ 18:59 by Aaron Pina MD) Anemia Asthma C. difficile colitis Cellulitis Cerebral palsy Congestive heart failure (CHF) History of episode of depression History of venous thromboembolism Hx of heart failure Hx of pulmonary embolus Hyperlipemia Mentally challenged Obesity Quadriplegia Renal insufficiency Respiratory failure Venous insufficiency Surgical History No pertinent past surgical history Family History Other No pertinent family history Social History Smoking Status: Unknown if ever smoked Hx Alcohol Use: No Hx Substance Use: No Preferred Language: Urugu[place] Communication Ability: Effective Wedger Machine Required: No Beliefs That Will Affect Care: None marital status: Single Current Living Situation: Personal Care Facility Current Living Situation Comment: jail Feels Safe at Home: Yes Allergies Allergies Allergy/AdvReac Type Severity Reaction Status Date / Time No Known Allergies Allergy Unverified 11/29/19 07:34 Home Meds Home Medications Medication Instructions Recorded Confirmed Xarelto 20 mg PO PM 01/27/18 12/13/19 acetaminophen [Tylenol] 650 mg PO Q6H PRN MDD 3g/24hr 01/27/18 12/13/19 ascorbic acid (vitamin C) [Vitamin 500 mg PO QAM 01/27/18 12/13/19 C] carbamazepine [Tegretol] 200 mg PO BID 01/27/18 12/13/19 metoprolol tartrate 25 mg PO BID 01/27/18 12/13/19 quetiapine [Seroquel] 100 mg PO HS 01/27/18 12/13/19 sertraline [Zoloft] 100 mg PO HS 01/27/18 12/13/19 docusate sodium [Colace] 100 mg PO BID 08/08/18 12/13/19 tamsulosin 0.4 mg capsule 0.4 mg PO DAILY 10/04/18 12/13/19 ferrous sulfate 325 mg (65 mg 325 mg PO Q2D tab 01/04/19 12/13/19 iron) tablet omeprazole 20 mg capsule,delayed 20 mg PO DAILY 01/04/19 12/13/19 release multivitamin with minerals 1 tab PO DAILY 03/24/19 12/13/19 [Multiple Vitamin-Minerals] polyethylene glycol 3350 17 g PO DAILY 03/24/19 12/13/19 promethazine [Phenergan] 25 mg IM Q6H PRN 03/24/19 12/13/19 fluticasone propion-salmeterol 1 inh INHALATION Q12H 11/29/19 12/13/19 [Advair Diskus] oxycodone 5 mg PO Q6H PRN 11/29/19 12/13/19 oxycodone 10 mg PO Q6H PRN 12/13/19 12/13/19 protein supplement 1 ea PO DAILY 12/13/19 12/13/19 tramadol 100 mg PO TID 12/13/19 12/13/19 Results & Data (ED) Vital Signs Vital Signs - 24 hr 12/13/19 14:33 12/13/19 14:36 12/13/19 14:46 Temperature 36.6 C Temperature Source Oral Pulse Rate 99 H 100 H Pulse Rate from SpO2 Sensor Respiratory Rate 16 20 Respiratory Effort / Characteristics Non-Labored Spontaneous Non-Labored Respiratory Depth Normal Respiratory Pattern Regular Blood Pressure 99/63 L 94/62 L Blood Pressure Mean 69 72 Blood Pressure Position Lying Pulse Oximetry 95 95 Oxygen Delivery Method Room Air Room Air Room Air Sepsis Recent Fever Within 48 Hours No Sepsis New/Unexplained Change in Mental Status N/A Sepsis Action Taken by Nursing No Action Required 12/13/19 15:15 12/13/19 15:30 12/13/19 15:45 Temperature Temperature Source Pulse Rate 94 H 93 H Pulse Rate from SpO2 Sensor 94 H 93 H 93 H Respiratory Rate 18 15 Respiratory Effort / Characteristics Respiratory Depth Respiratory Pattern Blood Pressure 100/60 106/54 L 99/62 L Blood Pressure Mean 72 63 71 Blood Pressure Position Pulse Oximetry 95 95 95 Oxygen Delivery Method Room Air Room Air Room Air Sepsis Recent Fever Within 48 Hours Sepsis New/Unexplained Change in Mental Status Sepsis Action Taken by Nursing 12/13/19 16:15 12/13/19 16:45 12/13/19 17:00 Temperature Temperature Source Pulse Rate 97 H 96 H 91 H Pulse Rate from SpO2 Sensor 97 H Respiratory Rate 16 17 18 Respiratory Effort / Characteristics Respiratory Depth Respiratory Pattern Blood Pressure 107/60 113/62 107/59 L Blood Pressure Mean 71 73 74 Blood Pressure Position Pulse Oximetry 96 95 95 Oxygen Delivery Method Room Air Room Air Sepsis Recent Fever Within 48 Hours Sepsis New/Unexplained Change in Mental Status Sepsis Action Taken by Nursing 12/13/19 17:15 Temperature Temperature Source Pulse Rate 94 H Pulse Rate from SpO2 Sensor Respiratory Rate 14 Respiratory Effort / Characteristics Respiratory Depth Respiratory Pattern Blood Pressure 107/56 L Blood Pressure Mean 71 Blood Pressure Position Pulse Oximetry 96 Oxygen Delivery Method Room Air Sepsis Recent Fever Within 48 Hours Sepsis New/Unexplained Change in Mental Status Sepsis Action Taken by Retirement Medications Current Medication List: was personally reviewed by me Laboratory Data Attestation: I reviewed the patient's lab results. Result diagrams: 12/13/19 15:15 12/13/19 15:15 Lab Results 12/13/19 12/13/19 12/13/19 Range/Units 15:12 15:15 15:15 WBC 16.03 H (4.8-10.8) K/uL RBC 3.46 L (4.7-6.1) M/uL Hgb 7.1 L (14.0-18.0) g/dL Hct 24.1 L (42-52) % MCV 69.7 L (80-100) fL MCH 20.5 L (25-34) pg MCHC 29.5 L (32-36) g/dL RDW Std Deviation 55.8 H (36.4-46.3) fL RDW Coeff of Eliezer 22.5 H (11.5-14.5) % Plt Count 832 H (130-400) K/uL MPV 8.3 (7.4-10.4) fL Immature Gran % (Auto) 0.4 % Neut % (Auto) 83.2 % Lymph % (Auto) 5.3 % Spalding % (Auto) 6.2 % Eos % (Auto) 4.7 % Baso % (Auto) 0.2 % Neut # (Auto) 13.34 H (1.4-6.5) K/uL Lymph # (Auto) 0.85 L (1.2-3.4) K/uL Spalding # (Auto) 0.99 H (0.11-0.59) K/uL Eos # (Auto) 0.76 H (0-0.5) K/uL Baso # (Auto) 0.03 (0-0.2) K/uL Immature Gran # (Auto) 0.06 H (0.00-0.02) K/uL Hypochromasia Present Microcytosis Present Spherocytes 2+ PT (9.0-12.0) Seconds INR (0.9-1.1) APTT (21.0-31.0) Seconds PTT Ratio Sodium (136-145) mmol/L Potassium (3.5-5.1) mmol/L Chloride (98-107) mmol/L Carbon Dioxide (21-32) mmol/L Anion Gap (3-11) BUN (7-18) mg/dl Creatinine (0.6-1.4) mg/dl Est Cr Clr Drug Dosing ml/min Est GFR ( Amer) Est GFR (Non-Af Amer) BUN/Creatinine Ratio (10-20) Glucose (70-99) mg/dl Lactate 1.8 (0.4-2.0) mmol/L Calcium (8.5-10.1) mg/dl Magnesium (1.8-2.4) mg/dl Total Bilirubin (0.2-1) mg/dl AST (15-37) U/L ALT (12-78) U/L Alkaline Phosphatase (45-117) U/L Troponin I (0-0.045) ng/ml Total Protein (6.4-8.2) gm/dl Albumin (3.4-5.0) gm/dl Globulin (2.5-4.0) gm/dl Albumin/Globulin Ratio (0.9-2) Procalcitonin (0-0.5) ng/ml Blood Type A Positive Antibody Screen NEGATIVE 12/13/19 12/13/19 12/13/19 Range/Units 15:15 15:15 15:15 WBC (4.8-10.8) K/uL RBC (4.7-6.1) M/uL Hgb (14.0-18.0) g/dL Hct (42-52) % MCV (80-100) fL MCH (25-34) pg MCHC (32-36) g/dL RDW Std Deviation (36.4-46.3) fL RDW Coeff of Eliezer (11.5-14.5) % Plt Count (130-400) K/uL MPV (7.4-10.4) fL Immature Gran % (Auto) % Neut % (Auto) % Lymph % (Auto) % Spalding % (Auto) % Eos % (Auto) % Baso % (Auto) % Neut # (Auto) (1.4-6.5) K/uL Lymph # (Auto) (1.2-3.4) K/uL Spalding # (Auto) (0.11-0.59) K/uL Eos # (Auto) (0-0.5) K/uL Baso # (Auto) (0-0.2) K/uL Immature Gran # (Auto) (0.00-0.02) K/uL Hypochromasia Microcytosis Spherocytes PT 11.7 (9.0-12.0) Seconds INR 1.1 (0.9-1.1) APTT 32.2 H (21.0-31.0) Seconds PTT Ratio 1.2 Sodium 134 L (136-145) mmol/L Potassium 5.1 (3.5-5.1) mmol/L Chloride 101 (98-107) mmol/L Carbon Dioxide 24 (21-32) mmol/L Anion Gap 9.0 (3-11) BUN 77 H (7-18) mg/dl Creatinine 3.47 H D (0.6-1.4) mg/dl Est Cr Clr Drug Dosing 28.2 ml/min Est GFR ( Amer) 23.3 Est GFR (Non-Af Amer) 20.1 BUN/Creatinine Ratio 22.1 H (10-20) Glucose 118 H (70-99) mg/dl Lactate (0.4-2.0) mmol/L Calcium 9.2 (8.5-10.1) mg/dl Magnesium 2.4 (1.8-2.4) mg/dl Total Bilirubin 0.3 (0.2-1) mg/dl AST 20 (15-37) U/L ALT 28 (12-78) U/L Alkaline Phosphatase 244 H (45-117) U/L Troponin I < 0.015 (0-0.045) ng/ml Total Protein 8.1 (6.4-8.2) gm/dl Albumin 1.8 L (3.4-5.0) gm/dl Globulin 6.3 H (2.5-4.0) gm/dl Albumin/Globulin Ratio 0.3 L (0.9-2) Procalcitonin 1.54 H (0-0.5) ng/ml Blood Type Antibody Screen Administered Medications Discontinued Medications Vancomycin HCl 2,500 mg/ (Sodium Chloride) 550 mls @ 200 mls/hr IV NOW STA Stop: 12/13/19 17:30 Last Admin: 12/13/19 15:42 Dose: 200 mls/hr Documented by: [id number] Sodium Chloride (Nss 1000ml) 1,000 mls @ 999 mls/hr IV .Q1H1M STA Stop: 12/13/19 15:46 Last Admin: 12/13/19 15:42 Dose: 999 mls/hr Documented by: [id number] Discharge Plan Visit Data Chief Complaint: Abnormal Labs/Diagnostic Testing Stated Complaint: Kidney issues/abnormal labs/ [facility] ED Provider: Aaron Pina Discharge Problem: Acute renal failure (ARF), Anemia, Sacral decubitus ulcer, Thrombocytosis, Ost eomyelitis, Obstructed, uropathy Patient Disposition: Still a Patient Forms Stand Alone Forms: My [facility] [employer] Prescriptions Prescriptions: No Action tamsulosin 0.4 mg capsule 0.4 mg PO DAILY RF: 0 ferrous sulfate [FerrouSul] 325 mg (65 mg iron) tablet 325 mg PO Q2D RF: 0 omeprazole 20 mg capsule,delayed release(DR/EC) 20 mg PO DAILY RF: 0 polyethylene glycol 3350 17 gram/dose powder 17 g PO DAILY RF: 0 promethazine [Phenergan] 25 mg/mL Solution 25 mg IM Q6H PRN (Reason: Nausea And Vomiting) RF: 0 multivitamin with minerals [Multiple Vitamin-Minerals] Tablet 1 tab PO DAILY RF: 0 fluticasone propion-salmeterol [Advair Diskus] 250-50 mcg/dose Blister With Device 1 inh INHALATION Q12H RF: 0 oxycodone 5 mg Tablet 5 mg PO Q6H PRN (Reason: Pain, Moderate) RF: 0 sertraline [Zoloft] 100 mg tablet 100 mg PO HS RF: 0 quetiapine [Seroquel] 100 mg tablet 100 mg PO HS RF: 0 carbamazepine [Tegretol] 200 mg tablet 200 mg PO BID RF: 0 ascorbic acid (vitamin C) [Vitamin C] 500 mg Tablet 500 mg PO QAM RF: 0 metoprolol tartrate 25 mg Tablet 25 mg PO BID RF: 0 acetaminophen [Tylenol] 325 mg Capsule 650 mg PO Q6H MDD 3g/24hr PRN (Reason: Fever Or Pain) RF: 0 Xarelto 20 mg Tablet 20 mg PO PM RF: 0 docusate sodium [Colace] 100 mg Capsule 100 mg PO BID RF: 0 oxycodone 5 mg Tablet 10 mg PO Q6H PRN (Reason: Pain, Severe) RF: 0 tramadol 50 mg Tablet 100 mg PO TID RF: 0 protein supplement Liquid 1 ea PO DAILY RF: 0 Referrals Referrals: Izzy Melendez [Primary Care Provider] - Discharge Problem: Acute renal failure (ARF) Qualifiers: Acute renal failure type: unspecified Qualified Code(s): N17.9 - Acute kidney failure, unspecified Anemia Qualifiers: Anemia type: unspecified type Qualified Code(s): D64.9 - Anemia, unspecified Sacral decubitus ulcer Qualifiers: Pressure injury stage: unspecified pressure injury stage Qualified Code(s): L89.159 - Pressure ulcer of sacral region, unspecified stage Osteomyelitis Qualifiers: Osteomyelitis type: unspecified type Osteomyelitis location: unspecified site Qualified Code(s): M86.9 - Osteomyelitis, unspecified
[2019-12-13] MEDS ORDERED: SODIUM CHLORIDE 0.9% 1000ML 1,000 ML IV STA (14:46)
[2019-12-13] MEDS ORDERED: VANCOMYCIN HCL 2,500 MG in SODIUM CHLORIDE 0.9% 500 ML IV STA (14:46)
[2019-12-13] MEDS ORDERED: PIPERACILLIN/TAZOBACTAM 4.5 GM/120 ML BAG IV ONE (14:46)
[2019-12-13] MEDS ORDERED: VANCOMYCIN CONSULT ACTIVE PRN (14:46)
[2019-12-13] MEDS ORDERED: PIPERACILL/TAZOBAC CONSULT ACTIVE PRN (14:46)
[2019-12-13 15:26] LABS: Basophils # (auto) 0.03 K/uL (0-0.2); Basophils % (auto) 0.2 %; Eosinophils # (auto) 0.76 K/uL (0-0.5); Eosinophils % (auto) 4.7 %; Hematocrit (blood only) 24.1 % (42-52); Hemoglobin 7.1 g/dL (14.0-18.0); Immature Granulocytes # (auto) 0.06 K/uL (0.00-0.02); Immature Granulocytes % (auto) 0.4 %; Lymphocytes # (auto) 0.85 K/uL (1.2-3.4); Lymphocytes % (auto) 5.3 %; Mean Corpuscular Hemoglobin 20.5 pg (25-34); Mean Corpuscular Hgb Conc 29.5 g/dL (32-36); Mean Corpuscular Volume 69.7 fL (80-100); Mean Platelet Volume 8.3 fL (7.4-10.4); Monocytes # (auto) 0.99 K/uL (0.11-0.59); Monocytes % (auto) 6.2 %; Neutrophils # (auto) 13.34 K/uL (1.4-6.5); Neutrophils % (auto) 83.2 %; Platelet Count 832 K/uL (130-400); RDW Coefficient of Variation 22.5 % (11.5-14.5); RDW Standard Deviation 55.8 fL (36.4-46.3); Red Blood Count 3.46 M/uL (4.7-6.1); White Blood Count 16.03 K/uL (4.8-10.8)
--- NOTE | 2019-12-13 15:34 | XRay Report ---
XR chest 1V portable CLINICAL HISTORY: Sepsis COMPARISON STUDY: 08/08/2018 FINDINGS: The cardiac and mediastinal contours remain stable. There are low lung volumes. There is pe rsistent elevation of the right hemidiaphragm. There are persistent basilar opacities, atelectatic ve rsus infectious/inflammatory.[ IMPRESSION: 1. Low lung volumes with basilar opacities, atelectatic versus infectious/inflammatory ACT 112: Negative or not required by law. Electronically signed by: Db Llamas M.D. 12/13/2019 3:32 PM
[2019-12-13 15:41] LABS: INR 1.1 (0.9-1.1); Partial Thromboplastin Ratio 1.2; Partial Thromboplastin Time 32.2 Seconds (21.0-31.0); Prothrombin Time 11.7 Seconds (9.0-12.0)
[2019-12-13 15:46] LABS: Hypochromasia Present; Microcytosis Present; Spherocytes 2+
[2019-12-13 15:48] LABS: Alanine Aminotransferase 28 U/L (12-78); Albumin Level 1.8 gm/dl (3.4-5.0); Aspartate Aminotransferase 20 U/L (15-37); BUN Creatinine Ratio 22.1 (10-20); Blood Urea Nitrogen 77 mg/dl (7-18); Calcium 9.2 mg/dl (8.5-10.1); Carbon Dioxide 24 mmol/L (21-32); Chloride 101 mmol/L (98-107); Creatinine Clr Calc Pharmacy 28.2 ml/min; Est GFR (African American) 23.3; Est GFR (Non-African American) 20.1; Glucose 118 mg/dl (70-99); Magnesium 2.4 mg/dl (1.8-2.4); Potassium 5.1 mmol/L (3.5-5.1); Sodium 134 mmol/L (136-145)
[2019-12-13 15:53] LABS: Albumin Globulin Ratio 0.3 (0.9-2); Alkaline Phosphatase 244 U/L (45-117); Bilirubin,Total 0.3 mg/dl (0.2-1); Globulin 6.3 gm/dl (2.5-4.0); Total Protein 8.1 gm/dl (6.4-8.2); Troponin I < 0.015 ng/ml (0-0.045)
--- NOTE | 2019-12-13 16:23 | CT Scan Report ---
CT OF THE ABDOMEN AND PELVIS WITHOUT CONTRAST CLINICAL HISTORY: DOT, recent transfusion, velásquez in place, h/o CP COMPARISON STUDY: CT of the abdomen and pelvis August 08, 2018. TECHNIQUE: Axial images of the abdomen and pelvis were obtained without IV contrast. Images were revi ewed in the axial, sagittal, and coronal planes. Automated exposure control was utilized for the abiola dy. A dose lowering technique was utilized adhering to the principles of ALARA. FINDINGS: Elevation of the right hemidiaphragm is unchanged. Bilateral gynecomastia is incidentally n oted. Right lower lobe airspace opacity favors atelectasis. Right middle lobe opacity represents atel ectasis. Lower lobe airspace opacity could reflect an infectious process or atelectasis. Evaluation o f the abdomen and pelvis is suboptimal on this unenhanced examination. No pneumatosis, free air or po rtal venous gas is present. Unenhanced images of the liver, adrenal glands and pancreas are unremarka ble. Mild splenomegaly is unchanged. Prominent retroperitoneal lymph nodes are also unchanged and CT of August 08, 2018. There is no evidence for a bowel obstruction. Ventral hernia contains a loop of muniz sverse colon. There is an additional right ventral hernia which contains fat. There is mild rectal wa ll thickening. Mild adjacent infiltration is noted. Note is made of moderate bilateral hydroureterone phrosis. There are no ureteral calculi. The bladder is markedly distended. Bladder wall thickening is noted. There is adjacent infiltration. Findings raise the possibility of previous transurethral rese ction of the prostate. The tip of the Velásquez catheter appears to terminate in the prostatic urethra. N ote is made of a left lower buttock ulcer with gas fluid extends to the ischial tuberosity with assoc iated erosion consistent with osteomyelitis of the left ischial tuberosity. There is also a suspected additional sacral decubitus ulcer. There is erosion of the sacrum or coccyx which is unchanged since CT of August 08, 2018. This is chronic. Chronic deformity of both hips is noted. This is unchanged. IMPRESSION: 1. Markedly distended bladder with bladder wall thickening and adjacent infiltration. Velásquez catheter likely malpositioned with tip likely within the prostatic urethra. Repositioning is suggested. Modera te bilateral hydroureteronephrosis due to bladder distention. No ureteral calculi. Discussed with Dr. Pina at time of dictation. 2. Left buttock ulcer which extends to the left ischial tuberosity with associated bony erosion. 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 Suspected additional sacral de cubitus ulcer. 3. Left lower lobe airspace opacity which may reflect an infectious process or atelectasis. Right low er lobe airspace opacity favors atelectasis. 4. Mild rectal wall thickening with adjacent infiltration. 4. Bowel containing ventral hernia. No bowel obstruction. ACT 112: Negative or not required by law. Electronically signed by: Terry Wright M.D. 12/13/2019 4:22 PM
--- NOTE | 2019-12-13 17:56 | History & Physical Report ---
Date of Service December 13, 2019 Assessment & Plan (1) Pressure ulcer: CT a/p on 12/12 showed left buttock ulcer which extends to the left ischial tuberosity with associated bony erosion. 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 Suspected additional sacral decubitus ulcer. - Following prior cultures will start daptomycin/Zosyn - Wound RN consult - General surgery consult for likely debridement - Follow cultures (2) Pneumonia: CT a/p shows possible LLL pneumonia. - Get MRSA swab - Continue Zosyn - If MRSA swab positive, will need to consider vancomycin or linezolid despite renal function as daptomycin will not treat MRSA pneumonia. (3) Renal failure: Likely post-renal as CT a/p on 12/12 showed markedly distended bladder with bladder wall thickening and adjacent infiltration. - Barnes placed, then re-inserted in ED after CT showed malpositioning. - Give IV fluids - Renal u/s ordered - Monitor Cr (4) Cerebral palsy: At baseline can say some yes/no questions per notes. Withdrawing from me and will not answer questions. - Per ED RN, he will sometimes throw himself on the ground. (5) Asthma: Breathing comfortably on room air. Will not answer if he is short of breath. - DuoNebs PRN (6) Anemia: Microcytic anemia with hgb of 7.1. Lowest was 5.7 on 11/27/2019. It's unclear if he got a transfusion then, though I assume so as the next one is over 1 g/dL higher. Iron studies on 10/25/2019 indicate iron deficiency. - Will give dose of IV iron - Transfuse if hgb < 7 tomorrow (7) DVT prophylaxis: Hx of DVT & PE in the notes, though our prior imaging indicates no PE or DVT in 07/2018 CTA and 02/2019 venous Dopplers. Unclear when those events were. - Hold rivaroxaban for likely needed debridement - Heparin 5,000 units SQ Q12h Note: Paperwork includes legal document from 08/2018 indicating full code. However, discussed with his father on 12/13/2019 at 6:00pm. He reports he is a "Conditional Code" and says he does not want him "hooked up" to any life support. When asked about intubation, he specifically says no. Will follow father's current wishes. Will need to assess tomorrow to be sure he is legal POA. History of Present Illness Primary Care Provider: [facility] 44yo M w/ hx of cerebral palsy resulting in intellectual disability and paraplegia who presents for renal failure and sacral ulcers. There is very little known history. He comes with papers from [place] [facility] indicating he was sent for renal failure. There are also some wound care notes that indicate he has had sacral ulcers for awhile. In the ED, he was found to have a Cr of 3.5 and deep sacral ulcers that are causing osteomyelitis. On interview, he is unable to express any answers. He turns his head away from me. When I sternal rub, I get no response, but when I open his eyelid, he pulls away and turns his head away again. Allergies Allergy/AdvReac Type Severity Reaction Status Date / Time No Known Allergies Allergy Unverified 11/29/19 07:34 Home Medications Home Medications Medication Instructions Recorded Confirmed Type Xarelto 20 mg PO PM 01/27/18 12/13/19 History acetaminophen [Tylenol] 650 mg PO Q6H PRN MDD 3g/24hr 01/27/18 12/13/19 History ascorbic acid (vitamin C) [Vitamin 500 mg PO QAM 01/27/18 12/13/19 History C] carbamazepine [Tegretol] 200 mg PO BID 01/27/18 12/13/19 History metoprolol tartrate 25 mg PO BID 01/27/18 12/13/19 History quetiapine [Seroquel] 100 mg PO HS 01/27/18 12/13/19 History sertraline [Zoloft] 100 mg PO HS 01/27/18 12/13/19 History docusate sodium [Colace] 100 mg PO BID 08/08/18 12/13/19 History tamsulosin 0.4 mg capsule 0.4 mg PO DAILY 10/04/18 12/13/19 History ferrous sulfate 325 mg (65 mg 325 mg PO Q2D tab 01/04/19 12/13/19 History iron) tablet omeprazole 20 mg capsule,delayed 20 mg PO DAILY 01/04/19 12/13/19 History release multivitamin with minerals 1 tab PO DAILY 03/24/19 12/13/19 History [Multiple Vitamin-Minerals] polyethylene glycol 3350 17 g PO DAILY 03/24/19 12/13/19 History promethazine [Phenergan] 25 mg IM Q6H PRN 03/24/19 12/13/19 History fluticasone propion-salmeterol 1 inh INHALATION Q12H 11/29/19 12/13/19 History [Advair Diskus] oxycodone 5 mg PO Q6H PRN 11/29/19 12/13/19 History oxycodone 10 mg PO Q6H PRN 12/13/19 12/13/19 History protein supplement 1 ea PO DAILY 12/13/19 12/13/19 History tramadol 100 mg PO TID 12/13/19 12/13/19 History Past Med/Surg History Medical History Anemia Asthma C. difficile colitis Cellulitis Cerebral palsy Congestive heart failure (CHF) History of episode of depression History of venous thromboembolism Hx of heart failure Hx of pulmonary embolus Hyperlipemia Mentally challenged Obesity Quadriplegia Renal insufficiency Respiratory failure Venous insufficiency Surgical History No pertinent past surgical history Family History Other No pertinent family history Social History Smoking Status: Unknown if ever smoked Hx Alcohol Use: No Hx Substance Use: No Preferred Language: Serbian Communication Ability: Effective Palliative Care Nurse Required: No Beliefs That Will Affect Care: None marital status: Single Current Living Situation: Personal Care Facility Current Living Situation Comment: senior care Feels Safe at Home: Yes Review of Systems Review of Systems: Unobtainable due to cognitive status Physical Exam Constitutional: WD/WN, vitals as above + acute distress and + obese Eyes: EOM intact bilaterally; no conjunctival abnormality ENMT: external ear and nose normal, oropharynx normal Neck: trachea midline, no thyromegaly normal visual inspection Respiratory: normal respiratory effort, lungs clear to auscultation no respiratory distress Cardiovascular: Rate/Rhythm: regular rhythm and + tachycardic Heart Sounds: normal S1 and normal S2 Gastrointestinal (Abdomen): Inspection/Auscultation: abdomen normal to inspection; abdomen not distended Musculoskeletal: no cyanosis or clubbing, extremities motor strength 5/5 Skin: no rashes, warm and dry Neurologic: awake; + does not move all extremities Psychiatric: Orientation: + not oriented x 3 and + uncooperative Results & Data Results & Data ([facility]) Vital Signs (Past 12 Hours) Vital Signs Temp Pulse Resp BP Pulse Ox 12/13/19 17:15 94 H 14 107/56 L 96 12/13/19 17:00 91 H 18 107/59 L 95 12/13/19 16:45 96 H 17 113/62 95 12/13/19 16:15 97 H 16 107/60 96 12/13/19 15:45 93 H 15 99/62 L 95 12/13/19 15:30 106/54 L 95 12/13/19 15:15 94 H 18 100/60 95 12/13/19 14:36 36.6 C 100 H 20 94/62 L 95 12/13/19 14:33 99 H 16 99/63 L 95 PG Care Time/CCT Total # of Minutes Spent Total Time Spent with Patient: Total time spent is greater than 50% in coordination of care (as documented) at patient's floor/unit and/or counseling patient: Coding Level of Care Code 52565 Initial Inpt Care Lvl 3 Diagnoses Pressure ulcer L89.899 Pressure injury location: other site Pressure injury stage: unspecified pressure injury stage Pneumonia J18.1 Laterality: left Lung location: lower lobe of lung Pneumonia type: due to unspecified organism Renal failure N19 Cerebral palsy G80.9 Cerebral palsy type: unspecified type Asthma J45.909 Asthma severity: unspecified severity Asthma persistence: unspecified Asthma complication type: unspecified Anemia D64.9 DVT prophylaxis Z29.9 (1) Pressure ulcer Pressure injury location: other site Pressure injury stage: unspecified pressure injury stage Qualified Code(s): L89.899 - Pressure ulcer of other site, unspecified stage (2) Cerebral palsy Cerebral palsy type: unspecified type Qualified Code(s): G80.9 - Cerebral palsy, unspecified (3) Asthma Asthma severity: unspecified severity Asthma persistence: unspecified Asthma complication type: unspecified Qualified Code(s): J45.909 - Unspecified asthma, uncomplicated (4) Pneumonia Laterality: left Lung location: lower lobe of lung Pneumonia type: due to unspecified organism Qualified Code(s): J18.1 - Lobar pneumonia, unspecified organism
[2019-12-13 19:08] LABS: Appearance Urine Cloudy (Clear); Bilirubin Urine Negative (Negative); Blood Urine 3+ (Negative); Color Urine Red; Glucose Urine UA Negative (Negative); Ketones Urine Negative (Negative); Leukocyte Esterase Urine 3+ (Negative); Nitrite Urine Negative (Negative); Protein Urine 2+ (Negative); Specific Gravity Urine 1.015 (1.000-1.030); Urobilinogen Urine Negative (Negative)
[2019-12-13 19:23] LABS: Bacteria Urine 3+ (Negative); RBC Urine >30 /hpf (0-4); WBC Urine >30 /hpf (0-5)
[2019-12-13] MEDS ORDERED: NORMOSOL-R 1,000 ML IV SCH (19:37)
[2019-12-13] MEDS ORDERED: ONDANSETRON INJ 2 MG/ML 2 ML VIAL IV PRN (19:37)
[2019-12-13] MEDS ORDERED: DAPTOMYCIN CONSULT ACTIVE PRN (19:37)
[2019-12-13] MEDS ORDERED: ACETAMINOPHEN 325 MG TAB PO PRN (19:49)
[2019-12-13] MEDS ORDERED: OXYCODONE HCL IR 5 MG TAB (IMMEDIATE RELEASE) PO PRN (19:52)
[2019-12-13] MEDS ORDERED: PIPERACILLIN/TAZOBACTAM 4.5 GM in DEXTROSE 5% 100 ML IV ONE (20:00)
[2019-12-13] MEDS ORDERED: IRON SUCROSE 300 MG in SODIUM CHLORIDE 0.9% 250 ML IV ONE (20:15)
[2019-12-13] MEDS ORDERED: DAPTOmycin 300 MG in SYRINGE 0 ML IV SCH (21:00)
[2019-12-13] MEDS: DOCUSATE SODIUM 100 MG CAP PO SCH (21:10)
[2019-12-13] MEDS: METOPROLOL TARTRATE 25 MG TAB PO SCH (21:10)
[2019-12-13] MEDS: QUETIAPINE FUMARATE 100 MG TABLET PO SCH (21:10)
[2019-12-13] MEDS: SERTRALINE HCL 100 MG TABLET PO SCH (21:10)
[2019-12-13] MEDS: HEPARIN SOD 5,000 UNIT/0.5 ML VIAL SQ SCH (21:11)
[2019-12-13] MEDS: TRAMADOL HCL 50 MG TABLET PO SCH (21:11)
[2019-12-13] MEDS: NORMOSOL-R 1,000 ML IV SCH (23:34)
[2019-12-14] MEDS: PIPERACILLIN/TAZOBACTAM 4.5 GM in DEXTROSE 5% 100 ML IV SCH ×2 (00:01→09:20)
[2019-12-14] MEDS ORDERED: MICONAZOLE NITRATE POWDER 43 GM EXT PRN (00:04)
[2019-12-14] MEDS ORDERED: NORMOSOL-R 1,000 ML IV ONE (05:28)
[2019-12-14] MEDS ORDERED: VANCOMYCIN CONSULT ACTIVE PRN ×2 (05:29→10:07)
[2019-12-14] MEDS ORDERED: VANCOMYCIN HCL 2,000 MG in SODIUM CHLORIDE 0.9% 500 ML IV ONE (05:29)
--- NOTE | 2019-12-14 05:38 | Electrocardiogram Report ---
Test Reason : Blood Pressure : / mmHG Vent. Rate : 099 BPM Atrial Rate : 099 BPM P-R Int : 144 ms QRS Dur : 096 ms QT Int : 362 ms P-R-T Axes : 027 011 058 degrees QTc Int : 464 ms Normal sinus rhythm Nonspecific T wave abnormality Abnormal ECG When compared with ECG of 08-AUG-2018 22:10, Nonspecific T wave abnormality is now Present in Anterior leads Confirmed by Kyle Hamilton ([id number]) on 12/14/2019 5:38:45 AM Referred By: Confirmed By:Kyle Hamilton
[2019-12-14] MEDS ORDERED: LINEZOLID CONSULT ACTIVE PRN (05:59)
[2019-12-14] MEDS ORDERED: LINEZOLID 600 MG/300 ML D5W IV SCH (06:00)
--- NOTE | 2019-12-14 06:10 | Communication Note ---
Date of Service: December 14, 2019 Cristian Power hypotensive to 94/59 this morning, will bolus 1 L normosol and continue at 125 mls/hour. Patient's Nasal swab came back positive for MRSA, will treat with Linezolid and discontinue daptomycin as linezolid should have could activity against both skin and pulmonary gram positives. Patient also growing gram negative bacilli in bloodstream, will continue zosyn.
[2019-12-14] MEDS ORDERED: LINEZOLID 600 MG/300 ML BAG IV SCH (06:30)
[2019-12-14] MEDS ORDERED: LEVOFLOXACIN CONSULT ACTIVE PRN (06:34)
[2019-12-14] MEDS: NORMOSOL-R 1,000 ML IV SCH ×2 (07:44→23:28)
[2019-12-14] MEDS: PANTOprazole 40 MG TAB PO SCH (07:45)
[2019-12-14] MEDS: carBAMazepine 200 MG TABLET PO SCH ×2 (07:45→16:14)
[2019-12-14] MEDS: DOCUSATE SODIUM 100 MG CAP PO SCH ×2 (07:45→22:32)
[2019-12-14] MEDS: TAMSULOSIN HCL 0.4 MG CAP PO SCH (07:46)
[2019-12-14] MEDS: ASCORBIC ACID 500 MG TAB PO SCH (07:46)
[2019-12-14 07:52] LABS: Hematocrit (blood only) 22.9 % (42-52); Hemoglobin 6.6 g/dL (14.0-18.0); Mean Corpuscular Hemoglobin 20.1 pg (25-34); Mean Corpuscular Hgb Conc 28.8 g/dL (32-36); Mean Corpuscular Volume 69.8 fL (80-100); Mean Platelet Volume 8.5 fL (7.4-10.4); Platelet Count 687 K/uL (130-400); RDW Coefficient of Variation 22.2 % (11.5-14.5); RDW Standard Deviation 55.7 fL (36.4-46.3); Red Blood Count 3.28 M/uL (4.7-6.1); White Blood Count 10.91 K/uL (4.8-10.8)
[2019-12-14] MEDS ORDERED: LEVOFLOXACIN/D5W 750 MG/150 ML BAG IV SCH (08:00)
[2019-12-14] MEDS ORDERED: SODIUM CHLORIDE 0.9% 250 ML IV PRN (08:30)
--- NOTE | 2019-12-14 08:31 | Surgery Consultation ---
Date of Consultation December 14, 2019 Assessment & Plan (1) Sacral decubitus ulcer: This is a 44y M with a PMH of cerebral palsy, h/o DVT/PE on xarelto, UTI who presented to the [facility] ED on 12/13/19 from [facility] with concern for acute renal failure and worsening sacral ulcers. CT scan in the ER revealed findings concerning for a L buttock ulcer with bony erosion, consistent with osteomyelitis of the L ischial tuberosity. Patient initially presented with a WBC of 16. Sacral decubiti evaluated at bedside with wound care, hospitalist, RN, and myself. L buttock was dressed with aquacel and optifoam. Patient currently on IV daptomycin, Zosyn, and Levaquin with WBC today down to 10.9. Blood cultures + for gram negative bacilli. Wound cultures pending. Apparently his xarelto has been held for 2 days. A drop in Hbg to 6.6 noted and he will receive blood transfusion today. We will evaluate patient again and tentatively place him on the schedule today for surgical debridement of sacral decubs. Covid test will be obtained. as above. will need surgical debridement in the OR. attempted to contact father without success. may need to do as an urgent case ( sepsis). will plan debridement today. History of Present Illness Attending Physician: Ramesh Isabel MD History of Present Illness This is a 44y M with a PMH of cerebral palsy, h/o DVT/PE on xarelto, & UTI who presented to the [facility] ED on 12/13/19 from [facility] with concern for acute renal failure and worsening sacral ulcers. Majority of HPI obtained from chart review and his current care-team due to patient's CP. In the ED a CT a/p was obtained that revealed a L buttocks ulcer with bony erosion consistent with acute osteomyelitis of the L ischial tuberosity. WBC 16, Cr: 3.4. Patient was admitted under medicine, started on IV abx, and surgical consultation placed. Allergies Allergy/AdvReac Type Severity Reaction Status Date / Time No Known Allergies Allergy Unverified 11/29/19 07:34 Home Medications Home Medications Medication Instructions Recorded Confirmed Type Xarelto 20 mg PO PM 01/27/18 12/13/19 History acetaminophen [Tylenol] 650 mg PO Q6H PRN MDD 3g/24hr 01/27/18 12/13/19 History ascorbic acid (vitamin C) [Vitamin 500 mg PO QAM 01/27/18 12/13/19 History C] carbamazepine [Tegretol] 200 mg PO BID 01/27/18 12/13/19 History metoprolol tartrate 25 mg PO BID 01/27/18 12/13/19 History quetiapine [Seroquel] 100 mg PO HS 01/27/18 12/13/19 History sertraline [Zoloft] 100 mg PO HS 01/27/18 12/13/19 History docusate sodium [Colace] 100 mg PO BID 08/08/18 12/13/19 History tamsulosin 0.4 mg capsule 0.4 mg PO DAILY 10/04/18 12/13/19 History ferrous sulfate 325 mg (65 mg 325 mg PO Q2D tab 01/04/19 12/13/19 History iron) tablet omeprazole 20 mg capsule,delayed 20 mg PO DAILY 01/04/19 12/13/19 History release multivitamin with minerals 1 tab PO DAILY 03/24/19 12/13/19 History [Multiple Vitamin-Minerals] polyethylene glycol 3350 17 g PO DAILY 03/24/19 12/13/19 History promethazine [Phenergan] 25 mg IM Q6H PRN 03/24/19 12/13/19 History fluticasone propion-salmeterol 1 inh INHALATION Q12H 11/29/19 12/13/19 History [Advair Diskus] oxycodone 5 mg PO Q6H PRN 11/29/19 12/13/19 History oxycodone 10 mg PO Q6H PRN 12/13/19 12/13/19 History protein supplement 1 ea PO DAILY 12/13/19 12/13/19 History tramadol 100 mg PO TID 12/13/19 12/13/19 History Patient History Medical History Anemia Asthma C. difficile colitis Cellulitis Cerebral palsy Congestive heart failure (CHF) History of episode of depression History of venous thromboembolism Hx of heart failure Hx of pulmonary embolus Hyperlipemia Mentally challenged Obesity Quadriplegia Renal insufficiency Respiratory failure Venous insufficiency Surgical History No pertinent past surgical history Family History Other No pertinent family history Social History Smoking Status: Unknown if ever smoked Hx Alcohol Use: No Hx Substance Use: No Preferred Language: Slovak Communication Ability: Impaired Career Manager Required: No Beliefs That Will Affect Care: None marital status: Single Current Living Situation: Detention Current Living Situation Comment: alf Feels Safe at Home: Yes Review of Systems Review of Systems: Unobtainable due to cognitive status Physical Exam Physical Exam: awake, repeatedly shouts "back off" Respiratory: normal respiratory effort Skin: ~6.5x7.5cm necrotic ulcer noted on R buttocks; foul smelling ~4.5x4.5x6.2cm sacral ulcer tunnelling to L ischium noted with large area of surrounding erythema Results & Data ([facility]) Vital Signs (Past 12 Hours) Vital Signs Temp Pulse Pulse Resp BP Pulse Ox 12/14/19 07:53 36.7 C 87 18 100/63 91 12/14/19 06:45 97/52 L 12/14/19 05:16 83 12/14/19 03:10 36.8 C 90 18 94/59 L 90 12/14/19 00:03 37.4 C 96 H 18 94/58 L 92 12/13/19 21:[address] OF THE ABDOMEN AND PELVIS WITHOUT CONTRAST CLINICAL HISTORY: DOT, recent transfusion, velásquez in place, h/o CP COMPARISON STUDY: CT of the abdomen and pelvis August 08, 2018. TECHNIQUE: Axial images of the abdomen and pelvis were obtained without IV contrast. Images were reviewed in the axial, sagittal, and coronal planes. Automated exposure control was utilized for the study. A dose lowering technique was utilized adhering to the principles of ALARA. FINDINGS: Elevation of the right hemidiaphragm is unchanged. Bilateral gynecomastia is incidentally noted. Right lower lobe airspace opacity favors atelectasis. Right middle lobe opacity represents atelectasis. Lower lobe airspace opacity could reflect an infectious process or atelectasis. Evaluation of the abdomen and pelvis is suboptimal on this unenhanced examination. No pneumatosis, free air or portal venous gas is present. Unenhanced images of the liver, adrenal glands and pancreas are unremarkable. Mild splenomegaly is unchanged. Prominent retroperitoneal lymph nodes are also unchanged and CT of August 08, 2018. There is no evidence for a bowel obstruction. Ventral hernia contains a loop of transverse colon. There is an additional right ventral hernia which contains fat. There is mild rectal wall thickening. Mild adjacent infiltration is noted. Note is made of moderate bilateral hydroureteronephrosis. There are no ureteral calculi. The bladder is markedly distended. Bladder wall thickening is noted. There is adjacent infiltration. Findings raise the possibility of previous transurethral resection of the prostate. The tip of the Velásquez catheter appears to terminate in the prostatic urethra. Note is made of a left lower buttock ulcer with gas fluid extends to the ischial tuberosity with associated erosion consistent with osteomyelitis of the left ischial tuberosity. There is also a suspected additional sacral decubitus ulcer. There is erosion of the sacrum or coccyx which is unchanged since CT of August 08, 2018. This is chronic. Chronic deformity of both hips is noted. This is unchanged. IMPRESSION: 1. Markedly distended bladder with bladder wall thickening and adjacent infiltration. Velásquez catheter likely malpositioned with tip likely within the prostatic urethra. Repositioning is suggested. Moderate bilateral hydroureteronephrosis due to bladder distention. No ureteral calculi. Discussed with Dr. Pina at time of dictation. 2. Left buttock ulcer which extends to the left ischial tuberosity with associated bony erosion. 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 Suspected additional sacral decubitus ulcer. 3. Left lower lobe airspace opacity which may reflect an infectious process or atelectasis. Right lower lobe airspace opacity favors atelectasis. 4. Mild rectal wall thickening with adjacent infiltration. 4. Bowel containing ventral hernia. No bowel obstruction. ACT 112: Negative or not required by law. Electronically signed by: Terry Wright M.D. 12/13/2019 4:22 PM PG Care Time/CCT Total # of Minutes Spent Total Time Spent with Patient: Total time spent is greater than 50% in coordination of care (as documented) at patient's floor/unit and/or counseling patient: Coding Level of Care Code 81445 Initial Inpt Care Lvl 2 Diagnoses Sacral decubitus ulcer L89.159 Pressure injury stage: unspecified pressure injury stage (1) Sacral decubitus ulcer Pressure injury stage: unspecified pressure injury stage Qualified Code(s): L89.159 - Pressure ulcer of sacral region, unspecified stage
[2019-12-14 08:41] LABS: Albumin Globulin Ratio 0.3 (0.9-2); Albumin Level 1.5 gm/dl (3.4-5.0); BUN Creatinine Ratio 24.4 (10-20); Bilirubin,Total 0.3 mg/dl (0.2-1); Calcium 8.7 mg/dl (8.5-10.1); Creatinine Clr Calc Pharmacy 37.7 ml/min; Est GFR (African American) 34.1; Est GFR (Non-African American) 29.5; Globulin 5.5 gm/dl (2.5-4.0); Magnesium 2.4 mg/dl (1.8-2.4); Potassium 4.1 mmol/L (3.5-5.1)
[2019-12-14] MEDS: METOPROLOL TARTRATE 25 MG TAB PO SCH ×2 (09:22→22:32)
[2019-12-14] MEDS: FLUTICASONE/VILANTEROL 100/25MCG 14 PUFFS/INHALER INH SCH (09:22)
[2019-12-14] MEDS: TRAMADOL HCL 50 MG TABLET PO SCH ×3 (09:32→22:37)
[2019-12-14] MEDS: POLYETHYLENE (MIRALAX) 17 GM PACK PO SCH (09:33)
[2019-12-14] MEDS ORDERED: IMIPENEM/CILASTATIN CONSULT ACTIVE PRN (10:07)
[2019-12-14] MEDS ORDERED: VANCOMYCIN HCL 2,000 MG in SODIUM CHLORIDE 0.9% 500 ML IV STA (10:10)
[2019-12-14] MEDS: HEPARIN SOD 5,000 UNIT/0.5 ML VIAL SQ SCH ×2 (10:23→23:29)
--- NOTE | 2019-12-14 14:02 | Pharmacy Report ---
Pharmacy Abx Initial Consult - Date of Service December 14, 2019 - Pharmacy Dosing Scope Date of Consult: 12/14/2019 Consultation requested by: Dr. Isabel Pharmacy is consulted to initiate Vancomycin & Primaxin IV dosing therapy, order appropriate labs and adjust drug dose/frequency. - Subjective The patient is a 44 year old M admitted on 12/13/19 17:55. - Objective Height: 5 ft 2 in Weight: 98.9 kg Vital Signs (Past 12hrs): Vital Signs Temp Pulse Pulse Resp BP BP Pulse Ox 12/14/19 13:45 36.4 C L 81 18 99/60 L 12/14/19 13:15 36.6 C 79 20 104/64 97 12/14/19 13:12 36.8 C 86 18 100/62 12/14/19 12:34 80 12/14/19 11:44 36.4 C L 84 17 94/51 L 97 12/14/19 07:53 36.7 C 87 18 100/63 91 12/14/19 06:45 97/52 L 12/14/19 05:16 83 12/14/19 03:10 36.8 C 90 18 94/59 L 90 Lab Results (24hrs): Laboratory Tests (24 Hours) 12/14/19 12/14/19 12/13/19 07:07 07:07 15:15 WBC 10.91 H Neut # (Auto) Creatinine 2.53 H D Est Cr Clr Drug Dosing 37.7 Procalcitonin 1.54 H 12/13/19 12/13/19 15:15 15:15 WBC 16.03 H Neut # (Auto) 13.34 H Creatinine 3.47 H D Est Cr Clr Drug Dosing 28.2 Procalcitonin Micro Results: 12/13/19 16:35 Gram Stain - Final Coccyx Decubitus 12/13/19 15:15 Aerobic Blood Culture - Pending Blood 12/13/19 15:15 Aerobic Blood Culture - Pending Blood Anaerobic Blood Culture - Pending - Risk Factors for Resistance * Resident in a custodial * 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 coli - Assessment & Plan Assessment 44 year old M admitted secondary to acute renal failure. Patient has a h/o of cerebral palsy and is quadraplegic. * He has a history of sacral ulcers and UTIs and has previously grown resistant bacteria including MRSA, P.A., and ESBL E.coli. * He is afebrile. Leukocytosis of 16k upon admission, down to 11k today. Renal fxn improved today, SCr 3.47 -> 2.53. PCT was 1.54. * There is concern for pneumonia. MRSA nasal swab was positive. * Urine culture is growing 2 separate gram negative bacilli. * 1/4 bottles from blood cultures is growing gram negative bacilli. * Previously on Daptomycin, Zosyn and Levaquin. Switched to Vancomycin + Primaxin today. No known h/o seizures so Primaxin okay and renally dosed. * Could consider Zerbaxa/Avycaz send out sensitivities if patient grows ESBL again. Plan Vancomycin + Primaxin for treatment of bacteremia/pneumonia/UTI Vancomycin IV * Estimated half-life is ~ 19 hours. Expect renal function to continue to improve. * Patient received a 25 mg/kg loading dose on 12/12 at 1542. Patient was re- loaded today mistakenly. He received a 20 mg/kg loading dose at 1038 today which was almost 19 hours after the previous loading dose. * Targeting a trough level of 15 - 20 mcg/mL * Will order a random level with AM labs tomorrow morning to ensure patient's vancomycin level is below 20 mcg/mL prior to re-dosing. Primaxin * 300 mg IV every 6 hours * Target dose is 500 mg IV every 6 hours but has been adjusted to account for eCrCl of 38 mL/min Pharmacy will continue to follow and will adjust dose/frequency as necessary. Thank you.
[2019-12-14] MEDS: IMIPENEM/CILASTATIN SODIUM 300 MG in DEXTROSE 5% 100 ML IV SCH ×2 (14:27→22:31)
--- NOTE | 2019-12-14 17:01 | History & Physical Bridge Note ---
Date of Service December 14, 2019 History & Physical Bridge Note I have examined the patient, reviewed the History & Physical and in the interval since the performance of the History & Physical I have noted the following changes of clinical significance: no changes noted attempted several more times to contact father/poa without success. Discussed with Dr. Taylor...pt septic...will proceed emergently for debridement.
--- NOTE | 2019-12-14 17:37 | Hospitalist Progress Note ---
Date of Service December 14, 2019 Assessment & Plan (1) Pressure ulcer: Pressure ulcer left calf POA, stage 3 Pressure ulcer of sacral region, POA stage 4 Pressure ulcer of left buttock POA, stage 4 CT a/p on 12/12 showed left buttock ulcer which extends to the left ischial tuberosity with associated bony erosion. 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 Suspected additional sacral decubitus ulcer. - Following prior cultures will start daptomycin/Zosyn - Switched to vancomycin & imipenem/cilastatin on 12/13 to cover lung for possible pneumonia and to cover his prior resistant Gram(-) organisms. - Wound RN consulted - General surgery consult for likely debridement -> Plan for today. - Follow cultures (2) Pneumonia: CT a/p shows possible LLL pneumonia. MRSA swab positive. Possible MRSA pneumonia, though doesn't seem in a lot of respiratory distress, so possibly just a mild aspiration. - Continue vanc & imipenem/cilastatin - Breathing comfortably on 2L nasal cannula. (3) Anemia: Microcytic anemia with hgb of 7.1. Lowest was 5.7 on 11/27/2019. It's unclear if he got a transfusion then, though I assume so as the next one is over 1 g/dL higher. Iron studies on 10/25/2019 indicate iron deficiency. - Got 1 dose of IV iron - Transfused 1 unit PRBC on 12/13 for hgb 6.6; no indication of bleeding. Perhaps poor bone marrow response due to illness? - Monitor (4) Renal failure: DOT in setting of acute infections and anemia. Likely post-renal as CT a/p on 12/12 showed markedly distended bladder with bladder wall thickening and adjacent infiltration. - Barnes placed, then re-inserted in ED after CT showed malpositioning. - Monitor Cr -> Improving today. - Will get renal ultrasound (5) Cerebral palsy: At baseline can say some yes/no questions per notes. Withdrawing from me and will not answer questions. - Per ED RN, he will sometimes throw himself on the ground. - Today, he is shouting at staff (6) Asthma: Breathing comfortably on room air. Will not answer if he is short of breath. - DuoNebs PRN (7) DVT prophylaxis: Hx of DVT & PE in the notes, though our prior imaging indicates no PE or DVT in 07/2018 CTA and 02/2019 venous Dopplers. Unclear when those events were. - Hold rivaroxaban for likely needed debridement - Heparin 5,000 units SQ Q12h Admission and Anticipated Discharge Date Admission Date: December 13, 2019 Subjective More responsive today. Telling the surgical PA to "Get off me, slut!" Review of Systems Review of Systems: Unobtainable due to cognitive status Physical Exam Constitutional: WD/WN, vitals as above + acute distress and + obese Eyes: EOM intact bilaterally; no conjunctival abnormality ENMT: external ear and nose normal, oropharynx normal Neck: trachea midline, no thyromegaly normal visual inspection Respiratory: normal respiratory effort, lungs clear to auscultation no respiratory distress Cardiovascular: Rate/Rhythm: regular rhythm and + tachycardic Heart Sounds: normal S1 and normal S2 Gastrointestinal (Abdomen): Inspection/Auscultation: abdomen normal to inspection; abdomen not distended Musculoskeletal: no cyanosis or clubbing, extremities motor strength 5/5 Skin: no rashes, warm and dry Neurologic: awake; + does not move all extremities Psychiatric: Orientation: + not oriented x 3 and + uncooperative Results & Data Results & Data ([facility]) Vital Signs (Past 12 Hours) Vital Signs Temp Pulse Pulse Resp BP BP Pulse Ox 12/14/19 16:20 36.5 C 87 16 105/69 100 12/14/19 16:00 79 12/14/19 15:45 36.4 C L 86 16 92/59 L 12/14/19 14:16 36.4 C L 78 17 102/65 98 12/14/19 13:45 36.4 C L 81 18 99/60 L 12/14/19 13:15 36.6 C 79 20 104/64 97 12/14/19 13:12 36.8 C 86 18 100/62 12/14/19 12:34 80 12/14/19 11:44 36.4 C L 84 17 94/51 L 97 12/14/19 07:53 36.7 C 87 18 100/63 91 12/14/19 06:45 97/52 L PG Care Time/CCT Total # of Minutes Spent Total Time Spent with Patient: Total time spent is greater than 50% in coordination of care (as documented) at patient's floor/unit and/or counseling patient: Coding Level of Care Code 93350 Subseq Hosp Care Lvl 3 Diagnoses Pressure ulcer L89.899 Pressure injury location: other site Pressure injury stage: unspecified pressure injury stage Pneumonia J18.1 Laterality: left Lung location: lower lobe of lung Pneumonia type: due to unspecified organism Anemia D64.9 Renal failure N19 Cerebral palsy G80.9 Cerebral palsy type: unspecified type Asthma J45.909 Asthma severity: unspecified severity Asthma persistence: unspecified Asthma complication type: unspecified DVT prophylaxis Z29.9 (1) Pressure ulcer Pressure injury location: other site Pressure injury stage: unspecified pressure injury stage Qualified Code(s): L89.899 - Pressure ulcer of other site, unspecified stage (2) Pneumonia Laterality: left Lung location: lower lobe of lung Pneumonia type: due to unspecified organism Qualified Code(s): J18.1 - Lobar pneumonia, unspecified organism (3) Cerebral palsy Cerebral palsy type: unspecified type Qualified Code(s): G80.9 - Cerebral palsy, unspecified (4) Asthma Asthma severity: unspecified severity Asthma persistence: unspecified Asthma complication type: unspecified Qualified Code(s): J45.909 - Unspecified asthma, uncomplicated
[2019-12-14] MEDS ORDERED: LABETALOL HCL IV 5 MG/ML 20ML IV PRN (18:51)
[2019-12-14] MEDS ORDERED: PHENYLEPHRINE 100MCG/ML 5ML SYR IV PRN (18:51)
[2019-12-14] MEDS ORDERED: ePHEDrine sulfate 50 MG/ML AMP IV PRN (18:51)
[2019-12-14] MEDS ORDERED: ATROPINE SULFATE 0.1 MG/ML 10ML SYR IV PRN (18:51)
[2019-12-14] MEDS ORDERED: ONDANSETRON INJ 2 MG/ML 2 ML VIAL IV PRN (18:51)
[2019-12-14] MEDS ORDERED: fentaNYL citrate 100 MCG/2 ML VIAL IV PRN (18:51)
--- NOTE | 2019-12-14 20:01 | Anesthesiology Consultation ---
Date of Service December 14, 2019 The patient tested negative for Covid 19 today. There is a concern that he has a developing pneumonia based on his CXR. The patient has a significant anemia. He was transfused one unit PRBC and hgb increased from 6.6 to 7.6. The patient has acute renal failure and a history of heart failure. There is concern that he is developing sepsis making this surgery a necessity. I spoke to his father over the phone to obtain consent for general anesthesia with ETT. His father accepts the risks and would like his son to proceed with the surgery. Assessment & Plan (1) Encounter for pre-operative examination: Chart Review Chart Review: Acceptable Risk for Surgery and Patient NOT seen in Pre Admission Testing Consults Requested none medicine is following the patient History Surgery Operation Date: 12/14/19 09:10 Proposed Procedures p Debridement of Sacral Decubitis - Earl Lorenzana, DO Height/Weight Height: 5 ft 2 in Weight: 98.9 kg Allergies Allergy/AdvReac Type Severity Reaction Status Date / Time No Known Allergies Allergy Unverified 11/29/19 07:34 Medications Home Medications Medication Instructions Recorded Confirmed Last Taken Xarelto 20 mg PO PM 01/27/18 12/13/19 12/12/19 16:00 acetaminophen [Tylenol] 650 mg PO Q6H PRN MDD 3g/24hr 01/27/18 12/13/19 03/24/19 00:02 ascorbic acid (vitamin C) [Vitamin 500 mg PO QAM 01/27/18 12/13/19 11/28/19 C] carbamazepine [Tegretol] 200 mg PO BID 01/27/18 12/13/19 11/28/19 08:30 metoprolol tartrate 25 mg PO BID 01/27/18 12/13/19 12/13/19 08:00 quetiapine [Seroquel] 100 mg PO HS 01/27/18 12/13/19 03/23/19 20:30 sertraline [Zoloft] 100 mg PO HS 01/27/18 12/13/19 11/27/19 docusate sodium [Colace] 100 mg PO BID 08/08/18 12/13/19 03/23/19 20:30 tamsulosin 0.4 mg capsule 0.4 mg PO DAILY 10/04/18 12/13/19 11/28/19 08:00 ferrous sulfate 325 mg (65 mg 325 mg PO Q2D tab 01/04/19 12/13/19 12/13/19 08:00 iron) tablet omeprazole 20 mg capsule,delayed 20 mg PO DAILY 01/04/19 12/13/19 11/28/19 release multivitamin with minerals 1 tab PO DAILY 03/24/19 12/13/19 11/28/19 [Multiple Vitamin-Minerals] polyethylene glycol 3350 17 g PO DAILY 03/24/19 12/13/19 03/23/19 20:30 promethazine [Phenergan] 25 mg IM Q6H PRN 03/24/19 12/13/19 03/04/19 fluticasone propion-salmeterol 1 inh INHALATION Q12H 11/29/19 12/13/19 11/28/19 [Advair Diskus] oxycodone 5 mg PO Q6H PRN 11/29/19 12/13/19 Unknown oxycodone 10 mg PO Q6H PRN 12/13/19 12/13/19 Unknown protein supplement 1 ea PO DAILY 12/13/19 12/13/19 12/12/19 16:30 tramadol 100 mg PO TID 12/13/19 12/13/19 12/13/19 12:30 Active Medications Generic Name Dose Route Start Last Admin Trade Name Freq PRN Reason Stop Dose Admin Ascorbic Acid 500 mg 12/14/19 09:00 12/14/19 07:46 Ascorbic Acid 500 Mg Tab PO 01/13/20 08:59 500 mg QAM MCKENZIE Administration Carbamazepine 200 mg 12/14/19 08:30 12/14/19 16:14 Carbamazepine 200 Mg Tablet PO 01/13/20 08:29 200 mg BID@0830,1630 MCKENZIE Administration Docusate Sodium 100 mg 12/13/19 21:00 12/14/19 07:45 Docusate Sodium 100 Mg Cap PO 01/12/20 20:59 100 mg BID MCKENZIE Administration Fluticasone/Vilanterol 1 puffs 12/14/19 09:00 12/14/19 09:22 Fluticasone/Vilanterol 100/25mcg 14 Puffs/Inhaler INH 01/13/20 08:59 1 puffs DAILY MCKENZIE Administration Heparin Sodium (Porcine) 5,000 units 12/13/19 21:00 12/14/19 10:23 Heparin Sod 5,000 Unit/0.5 Ml Vial SQ 01/12/20 20:59 Not Given Q12 MCKENZIE Parenteral Electrolytes 1,000 mls @ 125 mls/hr 12/13/19 23:45 12/14/19 07:44 Normosol-R IV 01/12/20 23:44 125 mls/hr .Q8H MCKENZIE Administration Imipenem/Cilastatin Sodium 300 106 mls @ 106 mls/hr 12/14/19 14:00 12/14/19 14:27 mg/ Dextrose IV 12/28/19 13:59 106 mls/hr Q6H MCKENZIE Administration Protocol Metoprolol Tartrate 25 mg 12/13/19 21:00 12/14/19 09:22 Metoprolol Tartrate 25 Mg Tab PO 01/12/20 20:59 25 mg BID MCKENZIE Administration Pantoprazole Sodium 40 mg 12/14/19 09:00 12/14/19 07:45 Pantoprazole 40 Mg Tab PO 01/13/20 08:59 40 mg DAILY MCKENZIE Administration Polyethylene Glycol 17 gm 12/14/19 09:00 12/14/19 09:33 Polyethylene (Miralax) 17 Gm Pack PO 01/13/20 08:59 Not Given DAILY MCKENZIE Quetiapine Fumarate 100 mg 12/13/19 21:00 12/13/19 21:10 Quetiapine Fumarate 100 Mg Tablet PO 01/12/20 20:59 100 mg HS MCKENZIE Administration Sertraline HCl 100 mg 12/13/19 21:00 12/13/19 21:10 Sertraline Hcl 100 Mg Tablet PO 01/12/20 20:59 100 mg HS MCKENZIE Administration Tamsulosin HCl 0.4 mg 12/14/19 09:00 12/14/19 07:46 Tamsulosin Hcl 0.4 Mg Cap PO 01/13/20 08:59 0.4 mg DAILY MCKENZIE Administration Tramadol HCl 100 mg 12/13/19 21:00 12/14/19 14:27 Tramadol Hcl 50 Mg Tablet PO 01/12/20 20:59 Not Given TID MCKENZIE NPO Date Last Intake of Fluids: 12/13/19 Time Last Intake of Fluids: 23:30 Date Last Intake of Solids: 12/13/19 Time Last Intake of Solids: 23:30 Past Medical History Medical History Anemia Asthma C. difficile colitis Cellulitis Cerebral palsy Congestive heart failure (CHF) History of episode of depression History of venous thromboembolism Hx of heart failure Hx of pulmonary embolus Hyperlipemia Mentally challenged Obesity Quadriplegia Renal insufficiency Respiratory failure Venous insufficiency Past Family History Family History Other No pertinent family history Past Surgical History Surgical History No pertinent past surgical history Social History Smoking Status: Unknown if ever smoked Hx Alcohol Use: No Hx Substance Use: No Physical Exam Vital Signs Last Vital Signs Temp 36.9 C 12/14/19 18:49 Pulse 97 H 12/14/19 18:49 Resp 20 12/14/19 18:49 BP 130/85 12/14/19 18:49 Pulse Ox 98 12/14/19 18:49 Testing Laboratory Results 12/14/19 18:54 12/14/19 07:07 PT 11.7 Seconds (9.0-12.0) 12/13/19 15:15 INR 1.1 (0.9-1.1) 12/13/19 15:15 APTT 32.2 Seconds (21.0-31.0) H 12/13/19 15:15 Urine Color Red 12/13/19 18:35 Urine Appearance Cloudy (Clear) A 12/13/19 18:35 Urine pH 6.0 (4.5-7.5) 12/13/19 18:35 Ur Specific [place] 1.015 (1.000-1.030) 12/13/19 18:35 Urine Protein 2+ (Negative) H 12/13/19 18:35 Urine Glucose (UA) Negative (Negative) 12/13/19 18:35 Urine Ketones Negative (Negative) 12/13/19 18:35 Urine Nitrite Negative (Negative) 12/13/19 18:35 Ur Leukocyte Esterase 3+ (Negative) H 12/13/19 18:35 Urine RBC >30 /hpf (0-4) H 12/13/19 18:35 Urine WBC >30 /hpf (0-5) H 12/13/19 18:35 Ur Epithelial Cells 5-10 /lpf (0-5) H 12/13/19 18:35 Blood Type A Positive 12/13/19 15:15 Antibody Screen NEGATIVE 12/13/19 15:15 12/13/19 15:15 Aerobic Blood Culture - Preliminary Blood No growth in Aerobic bottle after 24 hours. Anaerobic Blood Culture - Preliminary Gram negative bacilli 12/13/19 15:15 Aerobic Blood Culture - Preliminary Blood No growth in Aerobic bottle after 24 hours. 12/13/19 16:35 Gram Stain - Final Coccyx Decubitus Deep Wound Culture - Preliminary Pin-point growth present, reincubating. 12/13/19 18:35 Urine Culture - Preliminary Urine,Clean Catch Gram negative bacilli Gram negative bacilli#2 Electrocardiogram Date: 12/13/19 Findings: + NSR @ (99) and + NSST changes Chest X-Ray Date: 12/13/19 R chest 1V portable CLINICAL HISTORY: Sepsis COMPARISON STUDY: 08/08/2018 FINDINGS: The cardiac and mediastinal contours remain stable. There are low lung volumes. There is persistent elevation of the right hemidiaphragm. There are persistent basilar opacities, atelectatic versus infectious/inflammatory.[ IMPRESSION: 1. Low lung volumes with basilar opacities, atelectatic versus infectious/inflammatory ACT 112: Negative or not required by law. Electronically signed by: Db Llamas M.D. 12/13/2019 3:32 PM Dictated: 12/13/19 1531 Transcribed: 12/13/19 1531
[2019-12-14] MEDS ORDERED: fentaNYL citrate 100 MCG/2 ML VIAL ONE (20:19)
[2019-12-14] MEDS ORDERED: SUCCINYLCHOLINE CHLORIDE 20 MG/ML 10 ML VIAL IV ONE (20:45)
[2019-12-14] MEDS ORDERED: ONDANSETRON INJ 2 MG/ML 2 ML VIAL ONE (20:45)
[2019-12-14] MEDS ORDERED: PROPOFOL IV EMULSION 10 MG/ML 20 ML VIAL IV ONE (20:45)
[2019-12-14] MEDS ORDERED: LIDOCAINE HCL 2% 2 ML VIAL/AMP(20MG/ML) INFIL ONE (20:46)
--- NOTE | 2019-12-14 21:09 | Operative Report ---
PG Post Operative Report Pre & Post Diagnosis Operation Date: 12/14/19 09:10 Pre-Op Diagnosis: Stage 4 Sacral Decubitus Ulcers Post-Op Diagnosis: Stage 4 Sacral Decubitus Ulcers I identified the patient and participated in the time-out.: Yes Procedure Operation Date: 12/14/19 09:10 Actual Procedures p Sharp Debridement of Right and Left Sacral Decubitis Ulcers; Left Ischial Bone Biopsy(Bilateral) - Earl Lorenzana DO Surgeon Earl Lorenzana DO Coat Room Attendant martín Maldonado Estimated Blood Loss 25 Findings Consistent with Post-Op Diagnosis Specimens ischial bone bx Description of Procedure After informed consent was obtained the patient was taken the operating room and placed in supine position. After successful intubation the patient was rolled into a prone position. The lower buttock area was sterilely prepped and draped with a date Betadine solution. There was a large area on both buttocks of skin breakdown with sacral decubitus ulcers ranging from stage I clear to stage IV. On the left side there was a tunnel to the ischio tuberosity. We sharply debrided all necrotic tissue which included skin subcutaneous tissue muscle and bone. This was primarily on the left side. On the right side we debrided skin and subcutaneous tissue. Cautery was used for any bleeding points. There was no foul smell and minimal purulent drainage. Once we had both sides debrided we irrigated them. Both ulcers were packed with Betadine soaked Kerlix covered with gauze and tape. I used a rongeur to take some bone biopsies of the left ischial tuberosity. The patient was then rolled back into a supine position extubated and transferred recovery in stable condition. My physician hospital aides and assistants teacher assisted throughout the case. He helped prep the patient as well as retraction throughout my debridement as well as with dressing placement. I attest to the content of the Intraoperative Record and any orders documented therein. Any exceptions are noted below.
[2019-12-14] MEDS ORDERED: SODIUM CHLORIDE 0.9% 1000ML 500 ML IV ONE (21:45)
[2019-12-14] MEDS ORDERED: SODIUM CHLORIDE 0.9% 1000ML 200 ML IV ONE (21:49)
[2019-12-14] MEDS ORDERED: MoRPHine SULFATE 2 MG/ML CARP IV PRN (22:26)
[2019-12-14] MEDS: QUETIAPINE FUMARATE 100 MG TABLET PO SCH (22:32)
[2019-12-14] MEDS: SERTRALINE HCL 100 MG TABLET PO SCH (22:33)
--- NOTE | 2019-12-14 23:39 | Anesthesiology Progress Note ---
Date of Service December 14, 2019 Anesthesia Post Procedure Vital Signs Vital Signs: Temp Pulse Pulse Pulse Resp BP BP 12/14/19 23:34 36.6 C 96 H 18 12/14/19 22:56 36.4 C L 107 H 20 12/14/19 22:15 36.7 C 103 H 16 97/63 L 12/14/19 22:00 99 H 16 100/51 L 12/14/19 21:50 36.6 C 100 H 15 96/51 L 12/14/19 21:40 99 H 17 100/52 L 12/14/19 21:30 97 H 17 119/67 12/14/19 21:20 101 H 14 111/58 L 12/14/19 21:14 36.5 C 106 H 16 99/55 L 12/14/19 18:49 36.9 C 97 H 20 12/14/19 16:20 36.5 C 87 16 105/69 12/14/19 16:00 79 12/14/19 15:45 36.4 C L 86 16 92/59 L 12/14/19 14:16 36.4 C L 78 17 12/14/19 13:45 36.4 C L 81 18 99/60 L 12/14/19 13:15 36.6 C 79 20 12/14/19 13:12 36.8 C 86 18 100/62 12/14/19 12:34 80 12/14/19 11:44 36.4 C L 84 17 12/14/19 07:53 36.7 C 87 18 12/14/19 06:45 12/14/19 05:16 83 12/14/19 03:10 36.8 C 90 18 12/14/19 00:03 37.4 C 96 H 18 BP Pulse Ox 12/14/19 23:34 93/57 L 92 12/14/19 22:56 98/63 L 91 12/14/19 22:15 92 12/14/19 22:00 94 12/14/19 21:50 93 12/14/19 21:40 97 12/14/19 21:30 96 12/14/19 21:20 97 12/14/19 21:14 99 12/14/19 18:49 130/85 98 12/14/19 16:20 100 12/14/19 16:00 12/14/19 15:45 09/18/20 14:16 102/65 98 12/14/19 13:45 12/14/19 13:15 104/64 97 12/14/19 13:12 12/14/19 12:34 12/14/19 11:44 94/51 L 97 12/14/19 07:53 100/63 91 12/14/19 06:45 97/52 L 12/14/19 05:16 12/14/19 03:10 94/59 L 90 12/14/19 00:03 94/58 L 92 Transfer of Care Handoff Completed per policy Notes Mental Status: alert / awake / arousable Patient Amnestic to Procedure: Yes Nausea / Vomiting: adequately controlled Pain: adequately controlled Airway Patency, RR, SpO2: stable & adequate BP & HR: stable & adequate Hydration State: stable & adequate Anesthetic Complications: no major complications apparent and Pt Satisfied with anesthetic care
[2019-12-15] MEDS: IMIPENEM/CILASTATIN SODIUM 300 MG in DEXTROSE 5% 100 ML IV SCH ×3 (02:14→14:20)
[2019-12-15 07:30] LABS: Hematocrit (blood only) 23.1 % (42-52); Hemoglobin 6.8 g/dL (14.0-18.0); Mean Corpuscular Hemoglobin 20.8 pg (25-34); Mean Corpuscular Hgb Conc 29.4 g/dL (32-36); Mean Corpuscular Volume 70.6 fL (80-100); Mean Platelet Volume 8.5 fL (7.4-10.4); Platelet Count 645 K/uL (130-400); RDW Coefficient of Variation 22.2 % (11.5-14.5); RDW Standard Deviation 56.6 fL (36.4-46.3); Red Blood Count 3.27 M/uL (4.7-6.1); White Blood Count 8.74 K/uL (4.8-10.8)
[2019-12-15] MEDS ORDERED: SODIUM CHLORIDE 0.9% 250 ML IV PRN (08:12)
[2019-12-15 08:15] LABS: Albumin Globulin Ratio 0.3 (0.9-2); Albumin Level 1.6 gm/dl (3.4-5.0); BUN Creatinine Ratio 23.4 (10-20); Bilirubin,Total 0.3 mg/dl (0.2-1); Calcium 8.6 mg/dl (8.5-10.1); Creatinine Clr Calc Pharmacy 55.8 ml/min; Est GFR (African American) 54.4; Globulin 5.3 gm/dl (2.5-4.0); Magnesium 1.9 mg/dl (1.8-2.4); Phosphorus 3.9 mg/dl (2.5-4.9); Potassium 4.2 mmol/L (3.5-5.1); Total Protein 6.9 gm/dl (6.4-8.2)
[2019-12-15] MEDS: TAMSULOSIN HCL 0.4 MG CAP PO SCH (08:17)
[2019-12-15] MEDS: carBAMazepine 200 MG TABLET PO SCH ×2 (08:17→16:33)
[2019-12-15] MEDS: DOCUSATE SODIUM 100 MG CAP PO SCH ×2 (08:17→20:25)
[2019-12-15] MEDS: PANTOprazole 40 MG TAB PO SCH (08:18)
[2019-12-15] MEDS: ASCORBIC ACID 500 MG TAB PO SCH (08:18)
[2019-12-15] MEDS: POLYETHYLENE (MIRALAX) 17 GM PACK PO SCH (08:18)
[2019-12-15] MEDS: METOPROLOL TARTRATE 25 MG TAB PO SCH ×2 (08:19→20:24)
[2019-12-15] MEDS: FLUTICASONE/VILANTEROL 100/25MCG 14 PUFFS/INHALER INH SCH (08:21)
[2019-12-15] MEDS: TRAMADOL HCL 50 MG TABLET PO SCH ×3 (09:39→20:26)
[2019-12-15 16:50] LABS: Creatinine Clr Calc Pharmacy 61.1 ml/min; Est GFR (African American) 60.8; Est GFR (Non-African American) 52.5
[2019-12-15] MEDS: IMIPENEM/CILASTATIN SODIUM 500 MG in DEXTROSE 5% 100 ML IV SCH (20:24)
[2019-12-15] MEDS: QUETIAPINE FUMARATE 100 MG TABLET PO SCH (20:25)
[2019-12-15] MEDS: SERTRALINE HCL 100 MG TABLET PO SCH (20:25)
[2019-12-15] MEDS ORDERED: DAPTOmycin 300 MG in SYRINGE 0 ML IV SCH (21:00)
--- NOTE | 2019-12-15 22:16 | Hospitalist Progress Note ---
Date of Service December 15, 2019 Assessment & Plan (1) Pressure ulcer: Pressure ulcer left calf POA, stage 3 Pressure ulcer of sacral region, POA stage 4 Pressure ulcer of left buttock POA, stage 4 CT a/p on 12/12 showed left buttock ulcer which extends to the left ischial tuberosity with associated bony erosion. 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 Suspected additional sacral decubitus ulcer. - Following prior cultures will start daptomycin/Zosyn - Switched to vancomycin & imipenem/cilastatin on 12/13 to cover lung for possible pneumonia and to cover his prior resistant Gram(-) organisms. - Wound RN consulted - General surgery consult for likely debridement -> Plan for today. - Follow cultures (2) Pneumonia: CT a/p shows possible LLL pneumonia. MRSA swab positive. Possible MRSA pneumonia, though doesn't seem in a lot of respiratory distress, so possibly just a mild aspiration. - Continue vanc & imipenem/cilastatin - Breathing comfortably on 2L nasal cannula. (3) Anemia: Microcytic anemia with hgb of 7.1. Lowest was 5.7 on 11/27/2019. It's unclear if he got a transfusion then, though I assume so as the next one is over 1 g/dL higher. Iron studies on 10/25/2019 indicate iron deficiency. - Got 1 dose of IV iron - Transfused 1 unit PRBC on 12/13 for hgb 6.6; no indication of bleeding. Perhaps poor bone marrow response due to illness? - will transfuse second unit of PRBC as hgb is below 7. will monitor (4) Renal failure: DOT in setting of acute infections and anemia. Likely post-renal as CT a/p on 12/12 showed markedly distended bladder with bladder wall thickening and adjacent infiltration. - Barnes placed, then re-inserted in ED after CT showed malpositioning. - Monitor Cr -> Improving today. (5) Cerebral palsy: At baseline can say some yes/no questions per notes. Withdrawing from me and will not answer questions. - Per ED RN, he will sometimes throw himself on the ground. - Today, he is shouting at staff (6) Asthma: Breathing comfortably on room air. Will not answer if he is short of breath. - DuoNebs PRN (7) DVT prophylaxis: Hx of DVT & PE in the notes, though our prior imaging indicates no PE or DVT in 07/2018 CTA and 02/2019 venous Dopplers. Unclear when those events were. - Hold rivaroxaban for likely needed debridement - Heparin 5,000 units SQ Q12h Admission and Anticipated Discharge Date Admission Date: December 13, 2019 Subjective Patient has no new complaints at this time. Review of Systems Review of Systems: All systems reviewed & are unremarkable except as noted in HPI & below Physical Exam Physical Exam: Constitutional: WD/WN, vitals as above + acute distress and + obese Eyes: EOM intact bilaterally; no conjunctival abnormality ENMT: external ear and nose normal, oropharynx normal Neck: trachea midline, no thyromegaly normal visual inspection Respiratory: normal respiratory effort, lungs clear to auscultation no respiratory distress Cardiovascular: Rate/Rhythm: regular rhythm and + tachycardic Heart Sounds: normal S1 and normal S2 Gastrointestinal (Abdomen): Inspection/Auscultation: abdomen normal to inspection; abdomen not distended Musculoskeletal: no cyanosis or clubbing, extremities motor strength 5/5 Skin: no rashes, warm and dry Neurologic: awake; + does not move all extremities Psychiatric: Orientation: + not oriented x 3 and + uncooperative Results & Data Results & Data ([facility]) Vital Signs (Past 12 Hours) Vital Signs Temp Pulse Pulse Pulse Resp BP BP 12/15/19 19:10 36.6 C 100 H 18 12/15/19 15:55 36.6 C 91 H 17 112/70 12/15/19 12:40 36.4 C L 102 H 18 135/80 12/15/19 12:18 36.6 C 98 H 18 93/53 L 12/15/19 11:40 36.5 C 96 H 18 120/70 12/15/19 11:10 36.5 C 96 H 17 120/70 12/15/19 10:55 36.5 C 101 H 18 106/71 12/15/19 10:31 36.4 C L 101 H 18 97/56 L BP Pulse Ox 12/15/19 19:10 124/75 93 12/15/19 15:55 93 12/15/19 12:40 96 12/15/19 12:18 100 12/15/19 11:40 93 12/15/19 11:10 93 12/15/19 10:55 97 12/15/19 10:31 97 PG Care Time/CCT Total # of Minutes Spent Total Time Spent with Patient: Total time spent is greater than 50% in coordination of care (as documented) at patient's floor/unit and/or counseling patient: Coding Level of Care Code 65923 Subseq Hosp Care Lvl 3 Diagnoses Pressure ulcer L89.899 Pressure injury location: other site Pressure injury stage: unspecified pressure injury stage Pneumonia J18.1 Laterality: left Lung location: lower lobe of lung Pneumonia type: due to unspecified organism Anemia D64.9 Renal failure N19 Cerebral palsy G80.9 Cerebral palsy type: unspecified type Asthma J45.909 Asthma complication type: unspecified Asthma persistence: unspecified Asthma severity: unspecified severity DVT prophylaxis Z29.9 Time Spent (min) 35 (1) Cerebral palsy Cerebral palsy type: unspecified type Qualified Code(s): G80.9 - Cerebral palsy, unspecified (2) Pressure ulcer Pressure injury location: other site Pressure injury stage: unspecified pressure injury stage Qualified Code(s): L89.899 - Pressure ulcer of other site, unspecified stage (3) Pneumonia Laterality: left Lung location: lower lobe of lung Pneumonia type: due to unspecified organism Qualified Code(s): J18.1 - Lobar pneumonia, unspecified organism (4) Asthma Asthma complication type: unspecified Asthma persistence: unspecified Asthma severity: unspecified severity Qualified Code(s): J45.909 - Unspecified asthma, uncomplicated
[2019-12-16] MEDS ORDERED: VANCOMYCIN HCL 1,500 MG in SODIUM CHLORIDE 0.9% 500 ML IV SCH
[2019-12-16] MEDS: IMIPENEM/CILASTATIN SODIUM 500 MG in DEXTROSE 5% 100 ML IV SCH ×2 (03:15→07:42)
[2019-12-16 06:24] LABS: Creatinine Clr Calc Pharmacy 77.6 ml/min; Est GFR (African American) 81.7; Est GFR (Non-African American) 70.5
[2019-12-16] MEDS: FLUTICASONE/VILANTEROL 100/25MCG 14 PUFFS/INHALER INH SCH (07:43)
[2019-12-16] MEDS: POLYETHYLENE (MIRALAX) 17 GM PACK PO SCH (07:43)
[2019-12-16] MEDS: ASCORBIC ACID 500 MG TAB PO SCH (07:44)
[2019-12-16] MEDS: PANTOprazole 40 MG TAB PO SCH (07:44)
[2019-12-16] MEDS: TAMSULOSIN HCL 0.4 MG CAP PO SCH (07:44)
[2019-12-16] MEDS: DOCUSATE SODIUM 100 MG CAP PO SCH ×2 (07:45→20:52)
[2019-12-16] MEDS: METOPROLOL TARTRATE 25 MG TAB PO SCH ×2 (07:45→20:52)
[2019-12-16] MEDS: carBAMazepine 200 MG TABLET PO SCH ×2 (07:46→17:16)
--- NOTE | 2019-12-16 08:25 | Ultrasound Report ---
RENAL ULTRASOUND HISTORY: Renal failure COMPARISON: Abdomen and pelvis CT 12/13/2019. FINDINGS: Right kidney: 11.6 cm. Partially obscured by overlying bowel gas. No hydronephrosis. Normal corticome dullary differentiation and cortical thickness. Left kidney: 11.5 cm. Most obscured by overlying bowel gas. No hydronephrosis. Normal corticomedullar y differentiation and cortical thickness. Bladder: Suprapubic catheter is noted within the bladder resulting in complete decompression. IMPRESSION: 1. No hydronephrosis. 2. Bladder is decompressed by a suprapubic catheter which appears in good position. ACT 112: Negative or not required by law. Electronically signed by: Robert Lott M.D. 12/16/2019 8:23 AM
--- NOTE | 2019-12-16 09:17 | Surgery Progress Note ---
Date of Service December 16, 2019 Assessment & Plan (1) Pressure ulcer: clinically improved. vitals stable. wbc now normalized since debridement d/w nursing who will change his dressing to wet-to-dry today. Wound nurse to see patient tomorrow. I am recommending a wound VAC for the larger wound. I will sign off at this time please call me if there are any questions or new concerns. Admission and Anticipated Discharge Date Admission Date: December 13, 2019 Subjective pt seen.appears comfortable. Physical Exam Physical Exam: nad vss dressings intact. Results & Data ([facility]) Vital Signs (Past 12 Hours) Vital Signs Temp Pulse Pulse Pulse Resp BP BP 12/16/19 08:17 36.5 C 77 17 114/67 12/16/19 04:12 36.5 C 69 16 102/66 12/16/19 00:24 36.5 C 76 17 105/64 12/15/19 23:59 86 Pulse Ox 12/16/19 08:17 95 12/16/19 04:12 96 12/16/19 00:24 93 12/15/19 23:59 PG Care Time/CCT Total # of Minutes Spent Total Time Spent with Patient: Total time spent is greater than 50% in coordination of care (as documented) at patient's floor/unit and/or counseling patient: Coding Level of Care Code None Diagnoses Pressure ulcer L89.899 Pressure injury location: other site Pressure injury stage: unspecified pressure injury stage (1) Pressure ulcer Pressure injury location: other site Pressure injury stage: unspecified pressure injury stage Qualified Code(s): L89.899 - Pressure ulcer of other site, unspecified stage
[2019-12-16] MEDS: TRAMADOL HCL 50 MG TABLET PO SCH ×3 (09:29→20:52)
[2019-12-16] MEDS ORDERED: ERTAPENEM CONSULT ACTIVE PRN (09:52)
[2019-12-16] MEDS: ERTAPENEM SODIUM 1,000 MG in SODIUM CHLORIDE 0.9% 50 ML IV SCH (13:47)
--- NOTE | 2019-12-16 14:23 | Pharmacy Report ---
Pharmacy Abx Dose Short Note - Date of Service December 16, 2019 - Assessment & Plan Assessment 44 year old M receiving vancomycin for tx of pneumonia/acute osteo/decubitus ulcers Day # 4 of antimicrobial therapy. Plan Vancomycin * Have been dosing vancomycin based upon levels due to unpredictable clearance/changing renal function * Received dose last evening when estimated level <20 mcg/ml of 1500 mg (~15 mg/kg) * Scr much improving today - estimated t1/2~12 hrs. Ordered random level for ~12 hours after last dose and more elevated than anticipated at ~27 mcg/ml * Will hold further vancomycin doses for this morning and reorder random level for this evening to determine t1/2. Will redose again when estimated level < 20 mcg/ml * Discussed with provider difficulty in dosing vancomycin d/t changing renal function and patient's clearance is much less than estimated level. Patient had been on dapto prior, but due to concern for pneumonia/+MRSA swab changed to vancomycin. Limited options available, as drug interaction with linezolid/tegretol prevents its use also. Recommended to provider may be beneficial to reach out to ID for assistance with antibiotic plan Pharmacy will continue to follow and will adjust dose/frequency as necessary. Thank you.
[2019-12-16 17:05] LABS: Hematocrit (blood only) 28.4 % (42-52); Hemoglobin 8.3 g/dL (14.0-18.0); Mean Corpuscular Hemoglobin 21.3 pg (25-34); Mean Corpuscular Hgb Conc 29.2 g/dL (32-36); Mean Corpuscular Volume 72.8 fL (80-100); Mean Platelet Volume 8.3 fL (7.4-10.4); Platelet Count 534 K/uL (130-400); RDW Coefficient of Variation 22.3 % (11.5-14.5); RDW Standard Deviation 59.1 fL (36.4-46.3)
[2019-12-16 17:26] LABS: BUN Creatinine Ratio 17.7 (10-20); Calcium 8.8 mg/dl (8.5-10.1); Creatinine Clr Calc Pharmacy 78.9 ml/min; Est GFR (African American) 83.3; Est GFR (Non-African American) 71.9; Potassium 4.2 mmol/L (3.5-5.1)
[2019-12-16 20:28] LABS: Est GFR (African American) 80.9; Est GFR (Non-African American) 69.8
[2019-12-16] MEDS: QUETIAPINE FUMARATE 100 MG TABLET PO SCH (20:52)
[2019-12-16] MEDS: SERTRALINE HCL 100 MG TABLET PO SCH (20:52)
--- NOTE | 2019-12-16 21:04 | Pharmacy Report ---
Pharmacy Abx Dose Short Note - Date of Service December 16, 2019 - Assessment & Plan Assessment 44 year old M receiving vancomycin/ertapenem for treatment of acute osteomyelitis Day # 4 of antimicrobial therapy. Plan Vancomycin * Random level of 22.3 mcg/mL is supratherapeutic * Continue to hold vancomycin. According to levels from today, patient specific pharmacokinetics are a Ke of 0.02 hr-1 and half-life of [address] repeat dosing at 1000 on 12/17/19. HOWEVER, patient's half-life continues to increase even as renal function improves. * Goal trough level for osteomyelitis : 15 to 20 mcg/mL * Random level ordered for: 12/17/19 with AM labs. Pharmacy will continue to follow and will adjust dose/frequency as necessary. Thank you.
--- NOTE | 2019-12-16 23:09 | Hospitalist Progress Note ---
Date of Service December 16, 2019 Assessment & Plan (1) Pressure ulcer: Pressure ulcer left calf POA, stage 3 Pressure ulcer of sacral region, POA stage 4 Pressure ulcer of left buttock POA, stage 4 CT a/p on 12/12 showed left buttock ulcer which extends to the left ischial tuberosity with associated bony erosion. 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 Suspected additional sacral decubitus ulcer. - Following prior cultures will start daptomycin/Zosyn - Switched to vancomycin & imipenem/cilastatin on 12/13 to cover lung for possible pneumonia and to cover his prior resistant Gram(-) organisms. - Wound RN consulted - General surgery completed debridement - Follow cultures -will likely need antibiotics for 6 weeks. will need a PICC line. (2) Pneumonia: CT a/p shows possible LLL pneumonia. MRSA swab positive. Possible MRSA pneumonia, though doesn't seem in a lot of respiratory distress, so possibly just a mild aspiration. - Continue vanc & imipenem/cilastatin - Breathing comfortably on 2L nasal cannula. (3) Anemia: Microcytic anemia with hgb of 7.1. Lowest was 5.7 on 11/27/2019. It's unclear if he got a transfusion then, though I assume so as the next one is over 1 g/dL higher. Iron studies on 10/25/2019 indicate iron deficiency. - Got 1 dose of IV iron - Transfused 1 unit PRBC on 12/13 for hgb 6.6; no indication of bleeding. Perhaps poor bone marrow response due to illness? - will transfuse second unit of PRBC as hgb is below 7. will monitor (4) Renal failure: DOT in setting of acute infections and anemia. Likely post-renal as CT a/p on 12/12 showed markedly distended bladder with bladder wall thickening and adjacent infiltration. - Barnes placed, then re-inserted in ED after CT showed malpositioning. - Monitor Cr -> Improving today. (5) Cerebral palsy: At baseline can say some yes/no questions per notes. Withdrawing from me and will not answer questions. - Per ED RN, he will sometimes throw himself on the ground. - Today, he is shouting at staff (6) Asthma: Breathing comfortably on room air. Will not answer if he is short of breath. - DuoNebs PRN (7) DVT prophylaxis: Hx of DVT & PE in the notes, though our prior imaging indicates no PE or DVT in 07/2018 CTA and 02/2019 venous Dopplers. Unclear when those events were. - Hold rivaroxaban for likely needed debridement - Heparin 5,000 units SQ Q12h Admission and Anticipated Discharge Date Admission Date: December 13, 2019 Subjective Patient has no new complaints at this time. Review of Systems Review of Systems: All systems reviewed & are unremarkable except as noted in HPI & below Physical Exam Physical Exam: Constitutional: WD/WN, vitals as above NAD+ obese Eyes: EOM intact bilaterally; no conjunctival abnormality ENMT: external ear and nose normal, oropharynx normal Neck: trachea midline, no thyromegaly normal visual inspection Respiratory: normal respiratory effort, lungs clear to auscultation no respiratory distress Cardiovascular: Rate/Rhythm: regular rhythm and + tachycardic Heart Sounds: normal S1 and normal S2 Gastrointestinal (Abdomen): Inspection/Auscultation: abdomen normal to inspection; abdomen not distended Musculoskeletal: no cyanosis or clubbing, extremities motor strength 5/5 Skin: no rashes, warm and dry Neurologic: awake; + does not move all extremities Psychiatric: Orientation: + not oriented x 3 Results & Data Results & Data ([facility]) Vital Signs (Past 12 Hours) Vital Signs Temp Pulse Pulse Pulse Resp BP BP 12/16/19 22:38 36.4 C L 96 H 19 110/69 12/16/19 19:02 36.5 C 96 H 18 128/79 12/16/19 16:19 36.5 C 89 17 120/75 12/16/19 16:00 91 H 12/16/19 12:00 36.4 C L 84 17 119/83 Pulse Ox 12/16/19 22:38 96 12/16/19 19:02 93 12/16/19 16:19 96 12/16/19 16:00 12/16/19 12:00 98 PG Care Time/CCT Total # of Minutes Spent Total Time Spent with Patient: Total time spent is greater than 50% in coordination of care (as documented) at patient's floor/unit and/or counseling patient: Coding Level of Care Code 04225 Subseq Hosp Care Lvl 3 Diagnoses Pressure ulcer L89.899 Pressure injury location: other site Pressure injury stage: unspecified pressure injury stage Pneumonia J18.1 Laterality: left Lung location: lower lobe of lung Pneumonia type: due to unspecified organism Anemia D64.9 Renal failure N19 Cerebral palsy G80.9 Cerebral palsy type: unspecified type Asthma J45.909 Asthma complication type: unspecified Asthma persistence: unspecified Asthma severity: unspecified severity DVT prophylaxis Z29.9 Time Spent (min) 35 (1) Cerebral palsy Cerebral palsy type: unspecified type Qualified Code(s): G80.9 - Cerebral palsy, unspecified (2) Pressure ulcer Pressure injury location: other site Pressure injury stage: unspecified pressure injury stage Qualified Code(s): L89.899 - Pressure ulcer of other site, unspecified stage (3) Pneumonia Laterality: left Lung location: lower lobe of lung Pneumonia type: due to unspecified organism Qualified Code(s): J18.1 - Lobar pneumonia, unspecified organism (4) Asthma Asthma complication type: unspecified Asthma persistence: unspecified Asthma severity: unspecified severity Qualified Code(s): J45.909 - Unspecified asthma, uncomplicated
[2019-12-17 07:21] LABS: Hematocrit (blood only) 27.8 % (42-52); Hemoglobin 7.9 g/dL (14.0-18.0); Mean Corpuscular Hemoglobin 20.8 pg (25-34); Mean Corpuscular Hgb Conc 28.4 g/dL (32-36); Mean Corpuscular Volume 73.4 fL (80-100); Mean Platelet Volume 8.3 fL (7.4-10.4); Platelet Count 651 K/uL (130-400); RDW Coefficient of Variation 22.7 % (11.5-14.5); RDW Standard Deviation 60.3 fL (36.4-46.3); Red Blood Count 3.79 M/uL (4.7-6.1); White Blood Count 9.15 K/uL (4.8-10.8)
[2019-12-17] MEDS: PANTOprazole 40 MG TAB PO SCH (07:38)
[2019-12-17] MEDS: ASCORBIC ACID 500 MG TAB PO SCH (07:38)
[2019-12-17] MEDS: carBAMazepine 200 MG TABLET PO SCH ×2 (07:38→16:01)
[2019-12-17] MEDS: METOPROLOL TARTRATE 25 MG TAB PO SCH ×2 (07:38→20:04)
[2019-12-17] MEDS: FLUTICASONE/VILANTEROL 100/25MCG 14 PUFFS/INHALER INH SCH (07:38)
[2019-12-17] MEDS: TAMSULOSIN HCL 0.4 MG CAP PO SCH (07:38)
[2019-12-17] MEDS: POLYETHYLENE (MIRALAX) 17 GM PACK PO SCH (07:39)
[2019-12-17] MEDS: DOCUSATE SODIUM 100 MG CAP PO SCH ×2 (07:40→20:05)
[2019-12-17 07:43] LABS: Albumin Level 1.7 gm/dl (3.4-5.0); BUN Creatinine Ratio 18.1 (10-20); Calcium 8.8 mg/dl (8.5-10.1); Est GFR (African American) 91.5; Est GFR (Non-African American) 78.9
[2019-12-17 07:47] LABS: Albumin Globulin Ratio 0.3 (0.9-2); Bilirubin,Total 0.2 mg/dl (0.2-1); Globulin 5.3 gm/dl (2.5-4.0)
[2019-12-17] MEDS: TRAMADOL HCL 50 MG TABLET PO SCH ×3 (08:40→20:08)
[2019-12-17] MEDS ORDERED: VANCOMYCIN HCL 1,500 MG in SODIUM CHLORIDE 0.9% 500 ML IV ONE (09:30)
--- NOTE | 2019-12-17 09:41 | Anesthesiology Progress Note ---
Date of Service December 17, 2019 Anesthesia Post Procedure Vital Signs Vital Signs: Temp Pulse Pulse Pulse Resp BP BP 12/17/19 08:30 82 12/17/19 07:48 36.9 C 77 18 101/67 12/17/19 03:53 36.3 C L 64 18 108/64 12/16/19 22:38 36.4 C L 96 H 19 110/69 12/16/19 22:24 103 H 12/16/19 19:02 36.5 C 96 H 18 128/79 12/16/19 16:19 36.5 C 89 17 120/75 12/16/19 16:00 91 H 12/16/19 12:00 36.4 C L 84 17 119/83 Pulse Ox 12/17/19 08:30 12/17/19 07:48 93 12/17/19 03:53 96 12/16/19 22:38 96 12/16/19 22:24 12/16/19 19:02 93 12/16/19 16:19 96 12/16/19 16:00 12/16/19 12:00 98 Notes Mental Status: alert / awake / arousable and participated in evaluation Patient Amnestic to Procedure: Yes Nausea / Vomiting: adequately controlled Pain: adequately controlled Airway Patency, RR, SpO2: stable & adequate BP & HR: stable & adequate Hydration State: stable & adequate Anesthetic Complications: no major complications apparent
--- NOTE | 2019-12-17 11:34 | Pharmacy Report ---
Pharmacy Abx Dose Short Note - Date of Service December 17, 2019 - Assessment & Plan Assessment * Mr Power is a 44 year old M receiving Vancomycin/Ertapenem for treatment of osteomyelitis, pna, uti, sacral decubitus ulcer(s) * Day #5 of antimicrobial therapy. Plan Vancomycin * Random vanc level this morning was 17.2 mcg/mL, indicating that re-dosing vanc was appropriate. * Based on the past 3 levels, patient's vanc half-life is greater than 24 hours. * Vanc re-dosed this morning, and will again evaluate a random level tomorrow morning. I suspect that patient may tolerate a q24h regimen. * Goal trough level for osteo: ~17 to 22 mcg/mL * Random level ordered for: tomorrow w/ AM labs Ertapenem 1gm IV q24h Pharmacy will continue to follow and will adjust dose/frequency as necessary. Thank you.
[2019-12-17] MEDS: ERTAPENEM SODIUM 1,000 MG in SODIUM CHLORIDE 0.9% 50 ML IV SCH (14:20)
[2019-12-17] MEDS: QUETIAPINE FUMARATE 100 MG TABLET PO SCH (20:04)
[2019-12-17] MEDS: SERTRALINE HCL 100 MG TABLET PO SCH (20:05)
--- NOTE | 2019-12-17 22:12 | Hospitalist Progress Note ---
Date of Service December 17, 2019 Assessment & Plan (1) Pressure ulcer: Pressure ulcer left calf POA, stage 3 Pressure ulcer of sacral region, POA stage 4 Pressure ulcer of left buttock POA, stage 4 CT a/p on 12/12 showed left buttock ulcer which extends to the left ischial tuberosity with associated bony erosion. 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 Suspected additional sacral decubitus ulcer. - Following prior cultures will start daptomycin/Zosyn - Switched to vancomycin & imipenem/cilastatin on 12/13 to cover lung for possible pneumonia and to cover his prior resistant Gram(-) organisms. - Wound RN consulted - General surgery completed debridement - Follow cultures -will likely need antibiotics for 6 weeks. will need a PICC line. obtained consemt with father. d/w surgeon, agrees patient likely has osteomyelitis (2) Pneumonia: CT a/p shows possible LLL pneumonia. MRSA swab positive. Possible MRSA pneumonia, though doesn't seem in a lot of respiratory distress, so possibly just a mild aspiration. - Continue vanc & imipenem/cilastatin - Breathing comfortably on 2L nasal cannula. (3) Anemia: Microcytic anemia with hgb of 7.1. Lowest was 5.7 on 11/27/2019. It's unclear if he got a transfusion then, though I assume so as the next one is over 1 g/dL higher. Iron studies on 10/25/2019 indicate iron deficiency. - Got 1 dose of IV iron - Transfused 1 unit PRBC on 12/13 for hgb 6.6; no indication of bleeding. Perhaps poor bone marrow response due to illness? - will transfuse second unit of PRBC as hgb is below 7. will monitor (4) Renal failure: DOT in setting of acute infections and anemia. Likely post-renal as CT a/p on 12/12 showed markedly distended bladder with bladder wall thickening and a djacent infiltration. - Barnes placed, then re-inserted in ED after CT showed malpositioning. - Monitor Cr -> Improving today. (5) Cerebral palsy: At baseline can say some yes/no questions per notes. Withdrawing from me and will not answer questions. - Per ED RN, he will sometimes throw himself on the ground. - Today, he is shouting at staff (6) Asthma: Breathing comfortably on room air. Will not answer if he is short of breath. - DuoNebs PRN (7) DVT prophylaxis: Hx of DVT & PE in the notes, though our prior imaging indicates no PE or DVT in 07/2018 CTA and 02/2019 venous Dopplers. Unclear when those events were. - Hold rivaroxaban for likely needed debridement - Heparin 5,000 units SQ Q12h Admission and Anticipated Discharge Date Admission Date: December 13, 2019 Subjective Patient reports no new symptoms at this time. Review of Systems Review of Systems: All systems reviewed & are unremarkable except as noted in HPI & below Physical Exam Physical Exam: Constitutional: WD/WN, vitals as above NAD+ obese Eyes: EOM intact bilaterally; no conjunctival abnormality ENMT: external ear and nose normal, oropharynx normal Neck: trachea midline, no thyromegaly normal visual inspection Respiratory: normal respiratory effort, lungs clear to auscultation no respiratory distress Cardiovascular: Rate/Rhythm: regular rhythm and + tachycardic Heart Sounds: normal S1 and normal S2 Gastrointestinal (Abdomen): Inspection/Auscultation: abdomen normal to inspection; abdomen not distended Musculoskeletal: no cyanosis or clubbing, extremities motor strength 5/5 Skin: no rashes, warm and dry Neurologic: awake; + does not move all extremities Psychiatric: Orientation: + not oriented x 3 Results & Data Results & Data ([facility]) Vital Signs (Past 12 Hours) Vital Signs Temp Pulse Pulse Resp BP BP Pulse Ox 12/17/19 19:32 36.3 C L 87 18 120/78 93 12/17/19 14:58 87 12/17/19 11:44 36.3 C L 81 18 108/70 94 PG Care Time/CCT Total # of Minutes Spent Total Time Spent with Patient: Total time spent is greater than 50% in coordination of care (as documented) at patient's floor/unit and/or counseling patient: Coding Level of Care Code 56029 Subseq Hosp Care Lvl 3 Diagnoses Pressure ulcer L89.899 Pressure injury location: other site Pressure injury stage: unspecified pressure injury stage Pneumonia J18.1 Laterality: left Lung location: lower lobe of lung Pneumonia type: due to unspecified organism Anemia D64.9 Renal failure N19 Cerebral palsy G80.9 Cerebral palsy type: unspecified type Asthma J45.909 Asthma severity: unspecified severity Asthma persistence: unspecified Asthma complication type: unspecified DVT prophylaxis Z29.9 Time Spent (min) 35 (1) Pressure ulcer Pressure injury location: other site Pressure injury stage: unspecified pressure injury stage Qualified Code(s): L89.899 - Pressure ulcer of other site, unspecified stage (2) Pneumonia Laterality: left Lung location: lower lobe of lung Pneumonia type: due to unspecified organism Qualified Code(s): J18.1 - Lobar pneumonia, unspecified organism (3) Cerebral palsy Cerebral palsy type: unspecified type Qualified Code(s): G80.9 - Cerebral palsy, unspecified (4) Asthma Asthma severity: unspecified severity Asthma persistence: unspecified Asthma complication type: unspecified Qualified Code(s): J45.909 - Unspecified asthma, uncomplicated
[2019-12-18 07:39] LABS: Creatinine Clr Calc Pharmacy 90.7 ml/min; Est GFR (African American) 97.8; Est GFR (Non-African American) 84.3
[2019-12-18] MEDS: POLYETHYLENE (MIRALAX) 17 GM PACK PO SCH (08:00)
[2019-12-18] MEDS: METOPROLOL TARTRATE 25 MG TAB PO SCH ×2 (08:01→20:30)
[2019-12-18] MEDS: TRAMADOL HCL 50 MG TABLET PO SCH ×3 (08:01→20:30)
[2019-12-18] MEDS: TAMSULOSIN HCL 0.4 MG CAP PO SCH (08:01)
[2019-12-18] MEDS: DOCUSATE SODIUM 100 MG CAP PO SCH ×2 (08:01→20:04)
[2019-12-18] MEDS: PANTOprazole 40 MG TAB PO SCH (08:02)
[2019-12-18] MEDS: ASCORBIC ACID 500 MG TAB PO SCH (08:02)
[2019-12-18] MEDS: FLUTICASONE/VILANTEROL 100/25MCG 14 PUFFS/INHALER INH SCH (08:03)
[2019-12-18] MEDS: carBAMazepine 200 MG TABLET PO SCH ×2 (08:03→16:57)
[2019-12-18] MEDS: VANCOMYCIN HCL 1,250 MG in SODIUM CHLORIDE 0.9% 250 ML IV SCH (10:17)
[2019-12-18] MEDS: LACTATED RINGER'S 1,000 ML IV SCH ×2 (13:23→21:32)
--- NOTE | 2019-12-18 14:05 | Pharmacy Report ---
Pharmacy Abx Dose Short Note - Date of Service December 18, 2019 - Assessment & Plan Assessment * Mr Power is a 44 year old M receiving Vancomycin/Ertapenem for treatment of osteomyelitis, pna, uti, sacral decubitus ulcer(s) * Day #6 of antimicrobial therapy. * Renal function continues to improve. * ID consult placed today. Awaiting recommendations. Plan Vancomycin * Random vanc level this morning was 20.4 mcg/mL, indicating re-dose of vanc * Daily vancomycin dosing may be appropriate at this time, with careful monitoring and adjustments as required. With elevated BMI (40kg/m2) and poor renal function, it is very likely that pt will accumulate vancomycin as ther apy continues. * Vanc re-dosed this morning, and will evaluate a level prior to the next dose tomorrow. * Goal trough level for osteo: ~17 to 22 mcg/mL * Trough level ordered for: tomorrow, prior to the next 24hr dose, to evaluate the appropriateness of q24h dosing. Ertapenem 1gm IV q24h Pharmacy will continue to follow and will adjust dose/frequency as necessary. Thank you.
[2019-12-18] MEDS: ERTAPENEM SODIUM 1,000 MG in SODIUM CHLORIDE 0.9% 50 ML IV SCH (14:24)
[2019-12-18] MEDS: QUETIAPINE FUMARATE 100 MG TABLET PO SCH (20:30)
[2019-12-18] MEDS: SERTRALINE HCL 100 MG TABLET PO SCH (20:30)
--- NOTE | 2019-12-18 23:19 | Hospitalist Progress Note ---
Date of Service December 18, 2019 Assessment & Plan (1) Pressure ulcer: Pressure ulcer left calf POA, stage 3 Pressure ulcer of sacral region, POA stage 4 Pressure ulcer of left buttock POA, stage 4 CT a/p on 12/12 showed left buttock ulcer which extends to the left ischial tuberosity with associated bony erosion. 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 Suspected additional sacral decubitus ulcer. - Following prior cultures will start daptomycin/Zosyn - Switched to vancomycin & imipenem/cilastatin on 12/13 to cover lung for possible pneumonia and to cover his prior resistant Gram(-) organisms. - Wound RN consulted - General surgery completed debridement - Follow cultures -will likely need antibiotics for 6 weeks. will need a PICC line. obtained consemt with father. d/w surgeon, agrees patient likely has osteomyelitis unable to obtain picc line or ultrasound guided line. will consult vascular surgery will also place on IVF and reassess PICC line dw ID: will place on ampicillin and imipenem (2) Pneumonia: CT a/p shows possible LLL pneumonia. MRSA swab positive. Possible MRSA pneumonia, though doesn't seem in a lot of respiratory distress, so possibly just a mild aspiration. - Continue vanc & imipenem/cilastatin - Breathing comfortably on 2L nasal cannula. (3) Anemia: Microcytic anemia with hgb of 7.1. Lowest was 5.7 on 11/27/2019. It's unclear if he got a transfusion then, though I assume so as the next one is over 1 g/dL higher. Iron studies on 10/25/2019 indicate iron deficiency. - Got 1 dose of IV iron - Transfused 1 unit PRBC on 12/13 for hgb 6.6; no indication of bleeding. Perhaps poor bone marrow response due to illness? - will transfuse second unit of PRBC as hgb is below 7. will monitor (4) Renal failure: DOT in setting of acute infections and anemia. Likely post-renal as CT a/p on 12/12 showed markedly distended bladder with bladder wall thickening and adjacent infiltration. - Barnes placed, then re-inserted in ED after CT showed malpositioning. - Monitor Cr -> Improving today. (5) Cerebral palsy: At baseline can say some yes/no questions per notes. Withdrawing from me and will not answer questions. - Per ED RN, he will sometimes throw himself on the ground. - Today, he is shouting at staff (6) Asthma: Breathing comfortably on room air. Will not answer if he is short of breath. - DuoNebs PRN (7) DVT prophylaxis: Hx of DVT & PE in the notes, though our prior imaging indicates no PE or DVT in 07/2018 CTA and 02/2019 venous Dopplers. Unclear when those events were. - Hold rivaroxaban for likely needed debridement - Heparin 5,000 units SQ Q12h Admission and Anticipated Discharge Date Admission Date: December 13, 2019 Subjective Patient has no new complaints. Review of Systems Review of Systems: All systems reviewed & are unremarkable except as noted in HPI & below Physical Exam Physical Exam: Constitutional: WD/WN, vitals as above NAD+ obese Eyes: EOM intact bilaterally; no conjunctival abnormality ENMT: external ear and nose normal, oropharynx normal Neck: trachea midline, no thyromegaly normal visual inspection Respiratory: normal respiratory effort, lungs clear to auscultation no respiratory distress Cardiovascular: Rate/Rhythm: regular rhythm and + tachycardic Heart Sounds: normal S1 and normal S2 Gastrointestinal (Abdomen): Inspection/Auscultation: abdomen normal to inspection; abdomen not distended Musculoskeletal: no cyanosis or clubbing, extremities motor strength 5/5 Skin: no rashes, warm and dry Neurologic: awake; + does not move all extremities Psychiatric: Orientation: + not oriented x 3 Results & Data Results & Data ([facility]) Vital Signs (Past 12 Hours) Vital Signs Temp Pulse Pulse Resp BP BP Pulse Ox 12/18/19 23:00 36.5 C 78 18 122/80 94 12/18/19 19:00 36.3 C L 77 18 118/74 96 12/18/19 16:00 79 12/18/19 15:03 36.4 C L 72 18 116/77 94 12/18/19 11:25 36.5 C 72 18 103/62 96 PG Care Time/CCT Total # of Minutes Spent Total Time Spent with Patient: Total time spent is greater than 50% in coordination of care (as documented) at patient's floor/unit and/or counseling patient: Coding Level of Care Code 79847 Subseq Hosp Care Lvl 3 Diagnoses Pressure ulcer L89.899 Pressure injury location: other site Pressure injury stage: unspecified pressure injury stage Pneumonia J18.1 Laterality: left Lung location: lower lobe of lung Pneumonia type: due to unspecified organism Anemia D64.9 Renal failure N19 Cerebral palsy G80.9 Cerebral palsy type: unspecified type Asthma J45.909 Asthma complication type: unspecified Asthma persistence: unspecified Asthma severity: unspecified severity DVT prophylaxis Z29.9 Time Spent (min) 35 (1) Cerebral palsy Cerebral palsy type: unspecified type Qualified Code(s): G80.9 - Cerebral palsy, unspecified (2) Pressure ulcer Pressure injury location: other site Pressure injury stage: unspecified pressure injury stage Qualified Code(s): L89.899 - Pressure ulcer of other site, unspecified stage (3) Pneumonia Laterality: left Lung location: lower lobe of lung Pneumonia type: due to unspecified organism Qualified Code(s): J18.1 - Lobar pneumonia, unspecified organism (4) Asthma Asthma complication type: unspecified Asthma persistence: unspecified Asthma severity: unspecified severity Qualified Code(s): J45.909 - Unspecified asthma, uncomplicated
[2019-12-19] MEDS: LACTATED RINGER'S 1,000 ML IV SCH (05:30)
[2019-12-19] MEDS: TRAMADOL HCL 50 MG TABLET PO SCH ×2 (07:29→13:10)
[2019-12-19] MEDS: ASCORBIC ACID 500 MG TAB PO SCH (07:30)
[2019-12-19] MEDS: PANTOprazole 40 MG TAB PO SCH (07:30)
[2019-12-19] MEDS: carBAMazepine 200 MG TABLET PO SCH (07:30)
[2019-12-19] MEDS: TAMSULOSIN HCL 0.4 MG CAP PO SCH (07:30)
[2019-12-19] MEDS: METOPROLOL TARTRATE 25 MG TAB PO SCH (07:30)
[2019-12-19] MEDS: FLUTICASONE/VILANTEROL 100/25MCG 14 PUFFS/INHALER INH SCH (07:31)
[2019-12-19] MEDS: POLYETHYLENE (MIRALAX) 17 GM PACK PO SCH (07:31)
[2019-12-19] MEDS: DOCUSATE SODIUM 100 MG CAP PO SCH (07:31)
[2019-12-19 07:32] VITALS: BP 115/76; TEMP 97.5; O2SAT 96
[2019-12-19] MEDS ORDERED: VANCOMYCIN TROUGH ONE (09:30)
[2019-12-19 10:14] LABS: Creatinine Clr Calc Pharmacy 85.9 ml/min; Est GFR (African American) 91.5; Est GFR (Non-African American) 78.9
[2019-12-19] MEDS ORDERED: AMPICILLIN 1,000 MG in SODIUM CHLOR 0.9% AD-VAN 50 ML IV SCH (11:00)
[2019-12-19] MEDS: ERTAPENEM SODIUM 1,000 MG in SODIUM CHLORIDE 0.9% 50 ML IV SCH (13:12)
[2019-12-19] MEDS: VANCOMYCIN HCL 1,250 MG in SODIUM CHLORIDE 0.9% 250 ML IV SCH (14:06)
--- NOTE | 2019-12-19 14:24 | Consultation ---
Date of Consultation December 19, 2019 Assessment & Plan (1) Osteomyelitis: Pt with osteomyelitis and will need abx for 6 weeks per medicine notes. Apparently PICC placement is to be attempted first. Placement of rodriguez catheter can be done on Tuesday if needed. Please call if rodriguez catheter placement is preferred. Osteomyelitis location: unspecified site Osteomyelitis type: unspecified type Qualified Code(s): M86.9 - Osteomyelitis, unspecified History of Present Illness Reason for Consultation: osteomyelitis Attending Physician: Cheng Harvey History of Present Illness 44 yo m with multiple medical problems, including cerebral palsy, hx DVT, HTN, asthma, admitted with infected sacral decubitus ulcer and found to have osteomyelitis, seen in consultation today for placement of rodriguez catheter for [employer] abx therapy. Pt unable to verbalize any complaints d/t cerebral palsy. Per notes, pt had debridement of sacral ulcer which demonstrated osteo in ischial bone and will need 6 wks of abx. Allergies Allergy/AdvReac Type Severity Reaction Status Date / Time No Known Allergies Allergy Unverified 11/29/19 07:34 Home Medications Home Medications Medication Instructions Recorded Confirmed Type acetaminophen [Tylenol] 650 mg PO Q6H PRN MDD 3g/24hr 01/27/18 12/13/19 History ascorbic acid (vitamin C) [Vitamin 500 mg PO QAM 01/27/18 12/13/19 History C] carbamazepine [Tegretol] 200 mg PO BID 01/27/18 12/13/19 History metoprolol tartrate 25 mg PO BID 01/27/18 12/13/19 History quetiapine [Seroquel] 100 mg PO HS 01/27/18 12/13/19 History sertraline [Zoloft] 100 mg PO HS 01/27/18 12/13/19 History docusate sodium [Colace] 100 mg PO BID 08/08/18 12/13/19 History tamsulosin 0.4 mg capsule 0.4 mg PO DAILY 10/04/18 12/13/19 History ferrous sulfate 325 mg (65 mg 325 mg PO Q2D tab 01/04/19 12/13/19 History iron) tablet omeprazole 20 mg capsule,delayed 20 mg PO DAILY 01/04/19 12/13/19 History release multivitamin with minerals 1 tab PO DAILY 03/24/19 12/13/19 History [Multiple Vitamin-Minerals] polyethylene glycol 3350 17 g PO DAILY 03/24/19 12/13/19 History promethazine [Phenergan] 25 mg IM Q6H PRN 03/24/19 12/13/19 History fluticasone propion-salmeterol 1 inh INHALATION Q12H 11/29/19 12/13/19 History [Advair Diskus] oxycodone 5 mg PO Q6H PRN 11/29/19 12/13/19 History oxycodone 10 mg PO Q6H PRN 12/13/19 12/13/19 History protein supplement 1 ea PO DAILY 12/13/19 12/13/19 History tramadol 100 mg PO TID 12/13/19 12/13/19 History ampicillin sodium 1 g IV Q6H #164 ea 12/19/19 Rx ertapenem 1 g IV DAILY #40 ea 12/19/19 Rx Patient History Medical History Anemia Asthma C. difficile colitis Cellulitis Cerebral palsy Congestive heart failure (CHF) History of episode of depression History of venous thromboembolism Hx of heart failure Hx of pulmonary embolus Hyperlipemia Mentally challenged Obesity Quadriplegia Renal insufficiency Respiratory failure Venous insufficiency Surgical History No pertinent past surgical history Family History Other No pertinent family history Social History Smoking Status: Unknown if ever smoked Hx Alcohol Use: No Hx Substance Use: No Preferred Language: Turkish Communication Ability: Impaired Payable Representative Required: No Beliefs That Will Affect Care: None marital status: Single Current Living Situation: [facility] Current Living Situation Comment: custodial Feels Safe at Home: Yes Assistive Devices: None Review of Systems Review of Systems: Unobtainable due to mental health condition and Unobtainable due to cognitive status Physical Exam Constitutional: WD/WN, vitals as above + obese, healthy appearing, + disheveled, cooperative and comfortable; not in distress Eyes: PERRL, conjunctivae normal, anicteric sclerae ENMT: Ears: no hearing impairment Neck: trachea midline Respiratory: normal respiratory effort; no respiratory distress Auscultation: + diminished lung sounds Cardiovascular: Rate/Rhythm: regular rate and regular rhythm Vessels: posterior tibial pulses present, dorsalis pedis pulses present and radial pulses present; + abnormal peripheral pulses Extremities: normal capillary refill and + edema (BLE) Gastrointestinal (Abdomen): normal bowel sounds, soft, nontender, no hepatosplenomegaly Musculoskeletal: Extremities: + abnormal strength (BLE weakness) Skin: normal turgor and + wound (sacrum, dressing in place) Neurologic: awake and + confused Speech / Cognition: + abnormal speech and + abnormal cognition Psychiatric: Orientation: alert, oriented to person and cooperative; + not oriented to place and + not oriented to time Results & Data ([facility]) Vital Signs (Past 12 Hours) Vital Signs Temp Pulse Pulse Resp BP Pulse Ox 12/19/19 07:31 36.4 C L 72 20 115/76 96 12/19/19 07:11 64 12/19/19 04:04 36.6 C 82 20 126/76 97
[2019-12-19 15:45] VITALS: PULSE 78
--- NOTE | 2019-12-25 23:49 | Discharge Summary ---
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 There is very little known history. He comes with papers from [facility] indicating he was sent for renal failure. There are also some wound care notes that indicate he has had sacral ulcers for awhile. In the ED, he was found to have a Cr of 3.5 and deep sacral ulcers that are causing osteomyelitis. On interview, he is unable to express any answers. He turns his head away from me. When I sternal rub, I get no response, but when I open his eyelid, he pulls away and turns his head away again. Principal Diagnosis pressure ulcer/ acute osteomyelitis Discharge Exam Constitutional: WD/WN, vitals as above NAD+ obese Eyes: EOM intact bilaterally; no conjunctival abnormality ENMT: external ear and nose normal, oropharynx normal Neck: trachea midline, no thyromegaly normal visual inspection Respiratory: normal respiratory effort, lungs clear to auscultation no respiratory distress Cardiovascular: Rate/Rhythm: regular rhythm and + tachycardic Heart Sounds: n ormal S1 and normal S2 Gastrointestinal (Abdomen): Inspection/Auscultation: abdomen normal to inspection; abdomen not distended Musculoskeletal: no cyanosis or clubbing, extremities motor strength 5/5 Skin: no rashes, warm and dry Neurologic: awake; + does not move all extremities Psychiatric: Orientation: + not oriented x 3 Discharge Data Allergies Allergy/AdvReac Type Severity Reaction Status Date / Time No Known Allergies Allergy Unverified 11/29/19 07:34 Consultations 12/13/19 16:39 ED Decision to Admit Stat 12/13/19 19:37 Consult General Surgery Routine 12/18/19 08:21 Consult Infectious Diseases Routine 12/18/19 12:51 Consult Vascular Surgery Routine Procedures Performed Operation Date: 12/14/19 09:10 Actual Procedures p Sharp Debridement of Right and Left Sacral Decubitis Ulcers; Left Ischial Bone Biopsy(Bilateral) - Earl Lorenzana, Ordered Studies 12/13/19 14:46 CT abd pelvis wo con Stat 12/15/19 US renal/blad retro comp Routine Hospital Course (1) Pressure ulcer: Pressure ulcer left calf POA, stage 3 Pressure ulcer of sacral region, POA stage 4 Pressure ulcer of left buttock POA, stage 4 CT a/p on 12/12 showed left buttock ulcer which extends to the left ischial t uberosity with associated bony erosion. 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 Suspected additional sacral decubitus ulcer. - Following prior cultures will start daptomycin/Zosyn - Switched to vancomycin & imipenem/cilastatin on 12/13 to cover lung for possible pneumonia and to cover his prior resistant Gram(-) organisms. - Wound RN consulted - General surgery completed debridement - Follow cultures -will need antibiotics for 6 weeks. obtained consent with father. d/w surgeon, agrees patient likely has osteomyelitis Obtained a PICC line dw ID: will place on ampicillin and imipenem (2) Pneumonia: CT a/p shows possible LLL pneumonia. MRSA swab positive. Possible MRSA pneumonia, though doesn't seem in a lot of respiratory distress, so possibly just a mild aspiration. - Continue vanc & imipenem/cilastatin - Breathing comfortably on 2L nasal cannula. (3) Anemia: Microcytic anemia with hgb of 7.1. Lowest was 5.7 on 11/27/2019. It's unclear if he got a transfusion then, though I assume so as the next one is over 1 g/dL higher. Iron studies on 10/25/2019 indicate iron deficiency. - Got 1 dose of IV iron - Transfused 1 unit PRBC on 12/13 for hgb 6.6; no indication of bleeding. Perhaps poor bone marrow response due to illness? - will transfused second unit of PRBC as hgb is below 7. will monitor hemoglobin as outpatient (4) Renal failure: DOT in setting of acute infections and anemia. Likely post-renal as CT a/p on 12/12 showed markedly distended bladder with bladder wall thickening and adjacent infiltration. - Barnes placed, then re-inserted in ED after CT showed malpositioning. - Monitor Cr -> Improving today. (5) Cerebral palsy: At baseline can say some yes/no questions per notes. Withdrawing from me and will not answer questions. - Per ED RN, he will sometimes throw himself on the ground. - Today, he is shouting at staff (6) Asthma: Breathing comfortably on room air. Will not answer if he is short of breath. - DuoNebs PRN (7) DVT prophylaxis: Hx of DVT & PE in the notes, though our prior imaging indicates no PE or DVT in 07/2018 CTA and 02/2019 venous Dopplers. Unclear when those events were. - Hold rivaroxaban for likely needed debridement - Heparin 5,000 units SQ Q12h Total Time Total Time Spent Total Time Spent (In Minutes): 32 Total Time Includes: Examination of the Patient, Discharge Planning and Medication Reconciliation Discharge Plan Discharge Items Patient Disposition: Transfer Custodial Fac Reason For Visit: SACRAL ULCER, RENAL FAILURE Discharge Diagnosis: sacral ulcer, renal failure Activity: Resume your previous activity Non-emergency contact: Primary Care Provider Call non-emergency contact if: you have any medication questions Follow-up/Referrals: Izzy Melendez [Primary Care Provider] - Diet: Regular Addtl Attending Provider Instructions: will need to check cbc q 3 days. BMP weekly. recommend followup with PCP in 1-2 weeks Hold anticoagulation until PCP followup due to decreased hemoglobin. Pending Studies at Discharge: No Stand-Alone Forms: [facility] Skilled Items Patient informed of condition?: No DNR: No (conditional code) Discharge Level of Care: Skilled Communicable Disease: Yes Discharge Prognosis: Improving Lines: None Urinary Catheter: No Medications and DC Order Prescriptions: New ampicillin sodium 1 gram recon soln 1 g IV Q6H Qty: 164 RF: 0 ertapenem 1 gram recon soln 1 g IV DAILY Qty: 40 RF: 0 Continued tamsulosin 0.4 mg capsule 0.4 mg PO DAILY RF: 0 ferrous sulfate [FerrouSul] 325 mg (65 mg iron) tablet 325 mg PO Q2D RF: 0 omeprazole 20 mg capsule,delayed release(DR/EC) 20 mg PO DAILY RF: 0 polyethylene glycol 3350 17 gram/dose powder 17 g PO DAILY RF: 0 promethazine [Phenergan] 25 mg/mL Solution 25 mg IM Q6H PRN (Reason: Nausea And Vomiting) RF: 0 multivitamin with minerals [Multiple Vitamin-Minerals] Tablet 1 tab PO DAILY RF: 0 fluticasone propion-salmeterol [Advair Diskus] 250-50 mcg/dose Blister With Device 1 inh INHALATION Q12H RF: 0 oxycodone 5 mg Tablet 5 mg PO Q6H PRN (Reason: Pain, Moderate) RF: 0 sertraline [Zoloft] 100 mg tablet 100 mg PO HS RF: 0 quetiapine [Seroquel] 100 mg tablet 100 mg PO HS RF: 0 carbamazepine [Tegretol] 200 mg tablet 200 mg PO BID RF: 0 ascorbic acid (vitamin C) [Vitamin C] 500 mg Tablet 500 mg PO QAM RF: 0 metoprolol tartrate 25 mg Tablet 25 mg PO BID RF: 0 acetaminophen [Tylenol] 325 mg Capsule 650 mg PO Q6H MDD 3g/24hr PRN (Reason: Fever Or Pain) RF: 0 docusate sodium [Colace] 100 mg Capsule 100 mg PO BID RF: 0 oxycodone 5 mg Tablet 10 mg PO Q6H PRN (Reason: Pain, Severe) RF: 0 tramadol 50 mg Tablet 100 mg PO TID RF: 0 protein supplement Liquid 1 ea PO DAILY RF: 0 Discontinued Xarelto 20 mg Tablet 20 mg PO PM RF: 0 Discharge Orders: Discharge Order (Routine); Ordered 12/19/19 Ordered By: Cheng Harvey Admission Data Admit Date/Time: 12/13/19 17:55 Attending Provider: Cheng Harvey Admit Provider: Ramesh Isabel Primary Care Provider: Izzy Melendez Other Providers: Toño Alatorre ; Leah Hoyt Carlos M. ; Shraddha Schaefer ; Russ Yang I. ; Manny Mtz II ; Elisa Giordano ; Les Oliva ; Marshall Quiñonez Other Interventions: Discharge Summary Assessment (RN) Last Done: 12/19/19 14:42 Coding Level of Care Code D/C Day Management >30 mins Diagnoses Pressure ulcer L89.899 Pressure injury location: other site Pressure injury stage: unspecified pressure injury stage Pneumonia J18.1 Laterality: left Lung location: lower lobe of lung Pneumonia type: due to unspecified organism Anemia D64.9 Renal failure N19 Cerebral palsy G80.9 Cerebral palsy type: unspecified type Asthma J45.909 Asthma severity: unspecified severity Asthma persistence: unspecified Asthma complication type: unspecified DVT prophylaxis Z29.9
== END 2019-12-19 17:17 | DRG 515 ==
LOC: ED 14:24 → 2W 17:55 → SUATTDRO 17:55 → 2W 18:56